=== PATIENT | male | born 1960 | race Caucasian/White ===

== ENCOUNTER 2024-12-18 13:59 | Outpatient (CLI) | payer MEDICARE, SELFPAY ==
--- OUTSIDE RECORDS SUMMARY | 2018-09-27 11:06 | XMS_ITS | Continuity of Care Document ---
Author Organization [facility] Address [address] [place] [id number] Phone Care Team Providers Care Advanced Practice Provider Name Role Phone Unavailable Unavailable Unavailable Allergies, Adverse Reactions, Alerts Substance Reaction Status Criticality No Known Allergies Active No Inform ation Medications Medication Instructions Dosage Effective Dates (start - stop) Status Comments simvastatin 40 mg tablet take 1 tablet by oral route every day in the evening 40 MG - Active Aspir-81 81 mg tablet,delayed release take 1 tablet by oral route every day - Active Lipitor 40 mg tablet take 1 tablet by or al route every day 40 MG - Active Advance Directives Directive Yes / No Effective Date File Name No Information Encounters Encounter Description Practice Location Reason(s) For Visit Diagnoses Date Provider [facility], [address] [place] [address], [id number], tel:[phone] [facility] No Information 9 No Information [facility], [address] [place] [address], [id number], tel:[phone] [facility] Mini strokes (chief complaint) light headed (chief complaint) nose bleeds (chief complaint) high blood pressure (chief complaint) new pt to establish (chief complaint) DyslipidemiaEstablishing care with new doctor, encounter forHistory of stroke 8 Kae Garcias. [address] [place] [address], [id number], . tel:[phone] Family History Family Member Type Diagnosis Age At Onset Problem (finding) Family history of Cardi ovascular disease Problem (finding) Family history of coronary arteriosclerosis Payers Payer name Insurance type Covered constitution party ID Monica gutierrez(s) [place] [employer] MC [id number] Social History Type Description Quantity Date Captured Comments Sex Male Smoking Status No Information Sexual Orientation Straight or heterosexual Jan Gender Identity Male Chief Complaint And Reason For Visit No Information History Of Present Illness Encounter Date Complaint History Of Prese nt Illness high blood pressure 140/70 repor conrad highest nose bleeds light headed has cards follow up next monday Mini strokes The symptoms are reported as being moderate. per history. in December 2017 new pt to establish here tod est ablish Instructions Date Instruction Additional Infor mation No Information Assessments Type Assessment Date No Information
--- NOTE | 2024-12-18 13:59 | XR_ITS ---
FINAL REPORT CLINICAL HISTORY: left wrist pain COMPARISON: None FINDINGS: AP, oblique, and lateral views of the left wrist were obtained. There is no prior exam for comparison. There is no acute fracture or dislocation. Degenerative joint disease is present, most pronounced at the articulation between the scaphoid and the distal row of carpal bones. The soft tissues are normal. IMPRESSION: Degenerative change as described, with no acute osseous abnormality of the left wrist. Reviewed, Interpreted and Dictated by Janine Luque MD Transcribed by Lorri Suazo Authenticated and [facility]
--- NOTE | 2024-12-18 13:59 | XR_ITS ---
FINAL REPORT CLINICAL HISTORY: right wrist pain COMPARISON: None FINDINGS: AP, oblique, and lateral views of the right wrist were obtained. There is no prior exam for comparison. There is no acute fracture or dislocation. Degenerative joint disease is present, most pronounced at the articulation between the scaphoid and the distal row of carpal bones. The soft tissues are normal. IMPRESSION: Degenerative change as described, with no acute osseous abnormality of the right wrist. Reviewed, Interpreted and Dictated by Janine Luque MD Transcribed by Lorri Suazo Authenticated and . [facility]
--- OUTSIDE RECORDS SUMMARY | 2024-12-18 14:05 | XMS_ITS | Continuity of Care Document ---
[facility] Address [address] [place] [address] Assessment No assessment recorded. Plan of Treatment Reminders Order Date Submit Date Provider Last Modified By Organization Details Last Modified Time Details Appointments Medicare AWE 40mins 2024 09:00A M Do Lambert APRN Not available Not available Not available Lab None recorded. Referral orthopedi c surgeon referral 2024 [facility], [address], [place], [address], 12/16/2024 11:02:42 Procedures None recorded. Surgeries None recorded. Imaging None recorded. Medication Orders prednison e 10 mg tablet 2024 [facility], [address] [place] [address] [place], [place], [id number], 12/13/2024 13:42:18 Patient TargetsNo targets recorded. Patient InstructionsNo instructions recorded. Reason for Referral Orthopedic Surgeon Referral for Bilateral carpal tunnel syndrome Referring Physician: Rosalie Salas, Family Medicine, Encounter Date: 12/13/2024 Results Created Date Observation Date Name Description Value Unit Range Abnormal Flag Note LastModifiedBy Organization Detail LastModifiedTime 11/22/1911/20/2024 elect romyo gram + nerve condu ction study No observ ation record ed. [address], [place], [address], 11/25/2024 10:23:40 11/27/1911/20/2024 elect romyo gram + nerve condu ction study No observ ation record ed. [facility] (Med Record) [address], [place], [address], 12/11/2024 11:13:57 11/28/1911/25/2024 elect romyo gram + nerve condu ction study No observ ation record ed. [facility] [address], [place], [address], 12/11/2024 11:47:34 12/12/1911/20/2024 elect romyo gram No observ ation record ed. [email or web address] [facility] [address], [place], [address], 12/16/2024 13:35:07 Result Notes None recorded. 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 Procedures Surgical History Date Name Laterality Status Provider Name and Address Organization Details Recorded Time 03/25/19 25 Medication Reconcilliation completed Norma Reyna [place] - [facility] 03/25/2024 13:07:13 12/29/19 24 Advance Care Planning completed Reta Carranza [place] - [facility] 12/29/2023 11:11:53 12/29/19 24 Functional Status Assessed completed Retaenrique Carranza [place] - [facility] 12/29/2023 11:11:53 12/24/19 23 Suture/Staple removal completed Do Lambert, [employer] [address], [place], [address], [facility] - [facility] 12/23/2022 10:15:30 12/01/19 23 Cryosurgery Dermatology completed Kely Escalona APRN [address], [place], [address], [place] - [facility] 11/30/2022 13:15:20 08/25/19 23 Shave Biopsy Face, Ears, eyelids, nose, lips, muc membranes completed Kely Escalona APRN [address], [place], [address], [place] - [facility] 08/24/2022 10:36:02 07/22/19 23 Cryosurgery Dermatology completed Kely Escalona APRN [address], [place], [address], [place] - [facility] 07/21/2022 14:53:44 05/04/19 22 Medication Reconcilliation completed Norma Reyna [place] - [facility] 05/03/2021 14:06:38 Imaging Results None recorded. Procedure Notes None recorded. Medical Equipment None Reported. Allergies No known drug allergies Medications Name Sig Start Date Stop Date Status Note LastModified by Organization Details LastModified Time desonide 0.05 % topical cream APPLY CREAM SPARINGLY AND RUB GENTLY INTO THE AFFECTED AREAS TOPICALLY TWICE DAILY ON THE RIGHT SIDE OF THE FACE NEEDED FOR TWO (2) WEEKS. BREAK FOR ONE (1) WEEK AND THEN REPEAT NEEDED 09/10 completed Not Available Not Available Not Available metformin 500 mg tablet TAKE 1 TABLET BY MOUTH TWICE A DAY WITH MEALS 06/19 completed Not Available Not Available Not Available prednisone 10 mg tablet Take 1 tablet twice a day by oral route for 5 days. 2024 active Not Available Not Available Not Avai lable doxycycline hyclate 100 mg capsule Take 1 capsule by mouth twice daily active Not Available Not Available No t Available loperamide 2 mg capsule TAKE 2 CAPSULES BY MOUTH ONCE, THEN TAKE 1 CAPSULE AFTER EACH LOOSE STOOL. MAX 4 CAPSULES IN 24 HOURS 09/10 completed Not Available Not Available Not Available trazodone 50 mg tablet TAKE 1 TABLET BY MOUTH EVERY DAY 06/19 completed Not Available Not Available Not Available amiodarone 200 mg tablet TAKE 1 TABLET BY MOUTH EVERY DAY 06/25 completed Not Available Not Available Not Available hydrocodone 5 mg-acetamin ophen 325 mg tablet TAKE 1 TABLET BY MOUTH EVERY 6 TO 8 HOURS NEEDED 04/27 completed Not Available Not Available Not Available penicillin V potassium 500 mg tablet TAKE 1 TABLET BY MOUTH 4 TIMES A DAY UNTIL ENTIRELY FINISHED. 04/27 completed Not Available Not Available Not Available metronidazo le 500 mg tablet Take 1 tablet every 8 hours by oral route for 14 days. 08/12 completed Not Available Not Available Not Available clopidogrel 75 mg tablet TAKE 1 TABLET DAILY active Not Available Not Available No t Available doxepin 10 mg capsule TAKE 1 CAPSULE BY MOUTH ONCE DAILY AT BEDTIME 09/10 completed Not Available Not Available Not Available Imodium A-D 2 mg tablet Take 2 tabs/caps PO x1, then 1 tab/cap PO after each loose stool; Max: 4 tabs or caps/24h 09/10 completed Not Available Not Available Not Available tamsulosin 0.4 mg capsule TAKE 2 CAPSULES BY MOUTH ONCE DAILY active Not Available Not Available No t Available KonTEMTouch Ultra Test strips USE DIRECTED active Not Available Not Available No t Available amitriptyli ne 10 mg tablet TAKE 1 TABLET BY MOUTH NIGHTLY 10/11 completed Not Available Not Available Not Available cephalexin 500 mg capsule TAKE ONE CAPSULE BY MOUTH FOUR TIMES DAILY 09/26 completed Not Available Not Available Not Available pantoprazol e 40 mg tablet,manuel yed release Take 1 tablet every day by oral route. 2024 active Not Available Not Available Not Avai lable Cipro 500 mg tablet Take 1 tablet every 12 hours by oral route. 09/10 completed Not Available Not Available Not Available nitroglycer in 0.4 mg sublingual tablet DISSOLVE 1 TABLET UNDER TONGUE EVERY 5 MINUTES FOR 3 DOSES NEEDED FOR CHEST PAIN-NO RELIEF CALL 911 active Not Available Not Available No t Available bisacodyl 5 mg tablet,manuel yed release TAKE 4 TABLETS BY MOUTH DIRECTED FOR COLON PREP 06/19 completed Not Available Not Available Not Available aspirin 81 mg tablet Take 1 tablet every day by oral route. active Not Available Not Available No t Available pravastatin 20 mg tablet Take 1 tablet every day by oral route. 2024 active Not Available Not Available Not Avai lable lisinopril 5 mg tablet TAKE 1 TABLET BY MOUTH EVERY DAY 06/25 completed Not Available Not Available Not Available gabapentin 100 mg capsule TAKE 1 CAPSULE BY MOUTH THREE TIMES A DAY active Not Available Not Available No t Available polyethylen e glycol 3350 17 gram/dose oral powder USE DIRECTED FOR COLON PREP 06/19 completed Not Available Not Available Not Available ketoconazol e 2 % topical cream APPLY TO AFFECTED AREA TWICE DAILY ON THE RIGHT SIDE OF THE FACE 09/10 completed Not Available Not Available Not Available fluticasone propionate 50 mcg/actuati on nasal spray,suspe nsion INSTILL ONE (1) SPRAY IN EACH NOSTRIL ONCE DAILY active Not Available Not Available No t Available lisinopril 2.5 mg tablet Take 1 tablet every day by oral route. 03/25 completed Not Available Not Available Not Available amoxicillin 875 mg-potassiu m clavulanate 125 mg tablet TAKE 1 TABLET BY MOUTH EVERY 12 HOURS 06/25 completed Not Available Not Available Not Available metoprolol tartrate 25 mg tablet Take 1 tablet twice a day by oral route. 2024 active Not Available Not Available Not Avai lable duloxetine 30 mg capsule,del ayed release TAKE 1 CAPSULE BY MOUTH EVERY DAYNEED INS INFO 01/14 completed Not Available Not Available Not Available pregabalin 75 mg capsule TAKE 1 CAPSULE BY MOUTH TWICE A DAY 07/04 completed Not Available Not Available Not Available pregabalin 150 mg capsule TAKE ONE CAPSULE BY MOUTH TWICE DAILY active Not Available Not Available No t Available BD Ultra-Fine Short Pen Needle 31 gauge x 5/16 USE 1 ONCE DAILY active Not Available Not Available No t Available Lantus Solostar U-100 Insulin 100 unit/mL (3 mL) subcutaneou s pen INJECT 15 UNITS SUBCUTANE OUSLY NIGHTLY active Not Available Not Available No t Available Humalog KwikPen (U-100) Insulin 100 unit/mL subcutaneou s inject 5 units 3 times daily with meals subcutane ous 10/11 completed Not Available Not Available Not Available ticagrelor 90 mg tablet TAKE ONE TABLET BY MOUTH TWICE DAILY active Not Available Not Available No t Available Jardiance 25 mg tablet Take 1 tablet every day by oral route. 2024 active Not Available Not Available Not Avai lable pregabalin ER 165 mg tablet, extended release 24 hr TAKE 2 BY MOUTH ONCE DAILY 06/19 completed Not Available Not Available Not Available TRUEplus Glucose 15 gram/32 mL oral gel packet 15 grams orally as needed for glucose less than 60. If no response within 15 minutes, may repeat dose. 2023 active Not Available Not Available Not Avai lable OneTouch Ultra2 Meter USE DIRECTED active Not Available Not Available No t Available OneTouch Delica Plus Lancet 33 gauge USE DIRECTED active Not Available Not Available No t Available OneTouch Delica Plus Lancet 30 gauge active Not Available Not Available Not Available FreeStyle Uma 2 Sensor kit APPLY ONE (1) SENSOR TOPICALLY EVERY 14 DAYS active Not Available Not Available No t Available FreeStyle Uma 2 [place] USE DIRECTED active Not Available Not Available No t Available Semglee (insulin glargine-yf gn) Pen 100 unit/mL (3 mL) subcutaneou s INJECT 15 UNITS SUBCUTANE OUSLY EVERY DAY AT BEDTIME 09/27 completed Not Available Not Available Not Available Ozempic 0.25 mg or 0.5 mg (2 mg/3 mL) subcutaneou s pen injector Inject 0.25mg UNDER THE SKIN WEEKLY FOR FOUR WEEKS AND THEN increase DOSE TO 0.5mg WEEKLY active Not Available Not Available No t Available Sobia Pen Needle 32 gauge x 32 USE as directed with lantus solostar active Not Available Not Available No t Available Vitals Date Recorded Body height Body mass index (BMI) Body weight Body temperature Heart rate Oxygen saturation Oxygen saturation in Arterial blood by Pulse oximetry Respiratory rate Pain severity - 0-10 verbal numeric rating [Score] - Reported Systolic And Diastolic Provider Name and Address Organization Details Last Updated DateTime 5 182.88 cm 25.4 kg/m2 70184.4 7 g 98.1 [degF] 60 /min 97 % 97 % 18 /min 4 124/72 mm[Hg] [place] - [facility] 5 10:51:59 Social History Question Answer Notes LastModified by Organizat ion Details LastModified Time Tobacco Smoking Status Former Smoker Norma calixto [place] - [facility] 04/27/2021 13:28:13 Do You Have An Advance Directive? No [email or web address] Information not available 04/27/2021 How Many Years Have You Consumed Alcohol? 30 [email or web address] Information not available 08/05/2024 Are You Blind Or Do You Have Difficulty Seeing? No [email or web address] Information not available 04/27/2021 Is Blood Transfusion Acceptable In An Emergency? Yes [email or web address] Information not available 08/05/2024 What Is Your Level Of Caffeine Consumption? Occasional Information not available 04/27/2021 In The 14 Days Before Symptom Onset, Have You Had Close Contact With A Laboratory-confir med COVID-19 While That Case Was Ill? No Information not available 04/27/2021 In The 14 Days Before Symptom Onset, Have You Had Close Contact With A Person Who Is Under Investigation For COVID-19 While That Person Was Ill? No Information not available 04/27/2021 Have You Been To An Area Known To Be High Risk For COVID-19? No [email or web address] Information not available 04/27/2021 Are You Deaf Or Do You Have Serious Difficulty Hearing? No [email or web address] Information not available 04/27/2021 What Type Of Diet Are You Following? REGULAR [email or web address] Information not available 04/27/2021 Have You Processed Blood Or Body Fluids From An Ebola Virus Disease Patient Without Appropriate PPE? No [email or web address] Information not available 04/27/2021 Do You Reside In Or Have You Traveled To An Area Where Ebola Virus Transmission Is Active? No [email or web address] Information not available 04/27/2021 What Is The Highest Grade Or Level Of School You Have Completed Or The Highest Degree You Have Received? [id number] [email or web address] Information not available 08/05/2024 Have There Been Any Changes To Your Family Or Social Situation? No [email or web address] Information no t available 04/27/2021 When Did You Quit Smoking? 1-5yearssincel kj [email or web address] Information not available 04/27/2021 Have You Recently Or Are You Planning To Travel To An Area With Zika Virus? No [email or web address] Information not available 04/27/2021 How Many Years Have You Used Illicit Or Recreational Drugs? 0 [email or web address] Information not available 08/05/2024 What Was The Date Of Your Most Recent Tobacco Screening? 06/25/2024 [email or web address] Information not available 06/25/2024 Do You Use Protection Against STDs? No Information not available 08/05/2024 What Is Your Relationship Status? [email or web address] Information not available 08/05/2024 Do You Use Your Seat Belt Or Car Seat Routinely? Yes Information not available 08/05/2024 Are You Sexually Active? Yes [email or web address] Information not available 06/25/2024 Do You Have Smoke And Carbon Monoxide Detectors In Your Home? Yes Information not available 04/27/2021 At What Age Did You Start Smoking Tobacco? 11 [email or web address] Information not available 08/05/2024 Are You Passively Exposed To Smoke? No [email or web address] Information no t available 04/27/2021 Do You Use Sunscreen Routinely? No Information not available 08/05/2024 Has Tobacco Cessation Counseling Been Provided? Yes [email or web address] Information not available 06/20/2023 On What Date Was Tobacco Cessation Counseling Provided? 06/25/2024 Information not available 06/25/2024 How Many Years Have You Smoked Tobacco? 40 Information not available 04/27/2021 Do You Have Difficulty Walking Or Climbing Stairs? No [email or web address] Information not available 04/27/2021 Sex: Male Functional Status Question Answer Note LastModified by Organizat ion Details LastModified Time Do you use any illicit or recreational drugs? No [email or web address] Information not available 04/27/2021 Do you or have you ever used any other forms of tobacco or nicotine? No [email or web address] Information not available 04/27/2021 What is your level of alcohol consumption? Occasional [email or web address] Information not available 04/27/2021 Are you currently employed? No [email or web address] Information not available 04/27/2021 Do you have transportation difficulties? No [email or web address] Information not available 04/27/2021 Do you have difficulty doing errands alone? No Information not available 04/27/2021 Are you able to care for yourself independently? Yes [email or web address] Information not available 04/27/2021 Do you have difficulty dressing, bathing, grooming, or toileting? No [email or web address] Information not available 04/27/2021 Do you or have you ever used e-cigarettes or vape? Never used electronic cigarettes [email or web address] Information not available 08/05/2024 What is your exercise level? Moderate Information not available 08/05/2024 Mental Status Question Answer Note LastModified by Organizat ion Details LastModified Time Do you feel stressed (tense, restless, nervous, or anxious, or unable to sleep at night)? [id number] [email or web address] Information not available 08/05/2024 Do you have difficulty concentrating, remembering or making decisions? No [email or web address] Information no t available 04/27/2021 Family History Nothing Reported. Medical History Condition Response Pancreatitis N Coronary Artery Disease N Other N Gout N Atrial Fibrillation N congenital heart disease N Kidney Stones N Blood Diseases N Hyperthyroidism N Rheumatoid arthritis N Blood Transfusion N Erectile Dysfunction N amputation N Colonoscopy N Skin Lesions N Depression N COPD N Pneumonia N Incontinence N Murmur N Edema N Alzheimer's Disease N Migraine Headaches N Tobacco Abuse N Anxiety Disorder N Muscle, Joint, or Bone Problems N Hemorrhoids N Obesity N Vision or Eye Problems N Restless Leg Syndrome N Arthritis N Polyps N Infertility N Mental Disorder N Carpal Tunnel N Acid Reflux (GERD) N Cancer N Varicosities N Stroke N Tendonitis N Crohn's Disease N Hypercholesterolemia N Skin Cancer N Headaches N Fibromyalgia N Irritable Bowel Syndrome N Anal Fissure N Kidney Disease N Heart Problems N Ear or Hearing Problems N Hospitalizations N Gallstones N Kidney or Bladder Problems N Goiter N Acne N Skin Problems N Eating Disorder N Carver's Esophagus N Hypertriglyceridemia N MRSA exposure N Constipation N Embolism N Vitamin B12 Deficiency N Deviated Septum N Tuberculosis N AIDS/HIV N Myocardial Infarction N Asthma N Mitral Valve Disorders N Vertigo N Hepatitis N Thyroid Cancer N Neuropathy N Pulmonary Embolism N History of DVT N Herniated Disc N Chronic Ear Infections N Chicken Pox N Autism Spectrum Disorder (ASD) N Von Willebrands Disease N Thrombophilias N Breast Cancer N Hernia N Plantar Fasciitis N Hospital Admission Other Than N Lung Disease N Hypothyroidism N Developmental or Behavioral Disorders N Defects or Inherited Disease N Breast Problem N Difficulty Swallowing N Ovarian Cyst N Anesthesia Complications N Testosterone Deficiency N Meniere's disease N Head Injury/Concussion N Interstitial Cystitis N Congenital Anomalies N Hypoglycemia N Blood clot N Vitamin D Deficiency N Cellulitis N Endometriosis N Fracture N Bladder or Kidney Problems N Colorectal Cancer N Liver Disease N Schizophrenia N Panic Disorder N Concussion N Spina Bifida N Allergies/Hayfever N Osteoarthritis N Parkinson's Disease N Disc Protrusion N STI N Esophagitis N Angina N Thyroid Problems N GI Problems N ADD/ADHD N Anemia N Multiple Sclerosis N Abnormal PAP N Lumbago N Mental Illness N Psychiatric Illness N Ovarian Cancer N Diabetes Y Bedwetting N Degenerative Disc Disease N Seizures/Epilepsy N Congestive Heart Failure (CHF) N Syncope N Insomnia N Hyperlipidemia N Eczema N Diverticulitis N Dementia N Attention Deficient Disorder N Abuse/Domestic Violence N Ulcerative colitis N Cerebrovascular Disease N Depression N Guillain-[place]wood N Sleep Apnea N Aneurysm N Heart Disease N Bronchitis N Suicidal Ideation N Pre-Eclampsia N Hypertension N Osteoporosis N Immunizations Vaccine Type Date Status Note Provider Nam e and Address Organization Details Recorded Time HepB-CpG 05/26/19 24 completed Not Available [facility] 09/27/2024 10:36:34 Influenza, MDCK, quadrivalent, PF 04/10/19 24 completed Nyasia Vergara null, [place] - [facility] 11/08/2024 11:05:03 RSV, recombinant, protein subunit RSVpreF, adjuvant reconstituted, 0.5 mL, PF 04/10/19 24 completed Nyasia Wyatts null, [place] - [facility] 11/08/2024 11:05:03 Tdap 06/20/19 24 cancelled patient objection Do Lambert, [employer] [address], [place], [address], [place] - [facility] 06/26/2023 08:34:29 zoster recombinant 03/07/19 24 completed Do Lambert, [employer] CON[employer] [address], [place], [address], [place] - [facility] 04/04/2023 13:11:37 zoster recombinant 12/28/19 23 completed Do Lambert, [employer] CON[employer] [address], [place], [address], [place] - [facility] 04/04/2023 13:11:37 Respiratory syncytial virus (RSV) MAB, unspecified 04/10/19 24 completed Norma Reyna null, [place] - [facility] 04/21/2023 14:13:48 influenza, unspecified formulation 04/10/19 24 completed Nyasia Vergara null, [place] - [facility] 11/08/2024 11:05:03 Past Encounters Encounter ID Performer Location Encounter Start Date Encounter Closed Date Diagnosis/Indication Diagnosis SNOMED-CT Code Diagnosis ICD10 Code Diagnosis IMO Codes Diagnosis Note [id number] Rosalie Salas APRN [address] [address] 12/13/2024 10:29:23 12/13/2024 11:36:25 Bilateral carpal tunnel syndrome 4065619999 5606166 G56.03 377485 splints at nightstero idsrefer to orthoif worsen or no improvemen t return Health Concerns Section Related Observation LastModified by Organization Detai ls LastModified Time None Recorded Concern Status LastModified by Organization Details LastModified Time None Recorded Payers Encounter Date Sequence Insurance Name Policy Number Policy Jimenez Covered Member ID Jimenez Member ID Guarantor Name 12/13/2024 1 [employer] (MEDICARE REPLACEMENT/ ADVANTAGE - PPO) [id number] Iker Gray [id number] Iker Gray Notes Date Note Type Note Provider Name and Address Organization Details Recorded Time 12/13/2024 text/html ROS as noted in the HPI 64 yr old male presents for a follow up on abnormal tests- CTS abbie- has appt with neurology in January. numbness and tingling hands and feet. dx neuropathy- feet, cramps in legs Rosalie Salas, EPHRAIM [address], [place], [address], [place] - [facility] 12/13/2024 11:53:14
--- OUTSIDE RECORDS SUMMARY | 2024-12-18 14:05 | XMS_ITS | Data Portability ---
Author Organization [place] [facility] [facility] Address [address] [place] [address] Care Team Providers Care Packaging Materials Inspector Name Role Phone ANTHONY GARCIA Primary Care Provider [phone] Assessment Encounter Date Assessment Date Assessment LastModified by Organization Details LastModified Time 04/02/2024 04/02/2024 Doing well. Some mild shortness of breath with may be secondary to the Brilinta. Some mild tenderness in the rib area but much better than when he was hospitalized. He feels well. His blood pressure and heart rate are under excellent control. His EKG looks great. Normal sinus rhythm with left axis deviation left anterior hemiblock but no ST or T-wave changes. Doing much better. He has not having any chest pain pressure or tightness with exertion. Site is healing. Overall he is done well. His echocardiogram post intervention showed preservation of the left ventricular function. Ejection fraction 55-60%. Small area of hypokinesis to akinesis of the basal septal wall. Normal function and normal pressures in the heart. He is done well. Post intervention to the circumflex as well as to the right coronary artery with the exception of a no reflow phenomenon with the loss of 1 branch. Ejection fraction preserved. Blood pressure and heart rate are under excellent control. We will see him back in 6 weeks. At that time we will repeat the echocardiogram. Meds and chart reviewed in full today. Full blood work at follow-up as well Patient Education was printed, I have reviewed the Past Medical, Family, and Social Histories along with ROS and all orders in today's record, and have noted any changes. Medications, charts and records reviewed in full today. - EKG today reveals normal sinus rhythm with left axis deviation left anterior hemiblock with no ST or T-wave changes - ECHO 2/5/25: Normal left ventricular size and function with an estimated ejection fraction of 55-60%. PTCA 03/20/24: 1. Severe stenosis noted in the proximal and mid large left circumflex confirmed by fractional flow 2. Critical 100% occlusion of the mid right coronary artery after the takeoff of a high atrial branch with pfhu-ca-jgfcy collaterals filling the distal vessel 3. Severe proximal stenosis in the right coronary artery 4. Mild diffuse disease noted in the left anterior 5. Successful angioplasty and stenting of the proximal and mid left circumflex with angelic Rockwall drug-eluting stents resulting in 0% residual stenosis 6. Successful angioplasty and stenting of the proximal right coronary artery with an angelic [place]wall drug-eluting stent which resulted in no reflow phenomenon, and loss of the 1 branch vessel in the right coronary artery 7. Successful placement of an Angio-Seal device in the right common femoral arteryv. LAST ISCHEMIC EVAL: None on file. LAST HEART CATH: None on file. LAST LDL: 03/2024 shows an HDL of 39 and an LDL of 69. LAST CNI: None on file. PAST LHC: None on file. - Plan: Continue Brilinta 90 mg twice daily Continue amiodarone 200 mg daily for 6 weeks. We will then decrease to 100 mg daily for 4 weeks and then discontinue Echocardiogram at follow-up Continue low-dose metoprolol Continue low-dose lisinopril Continue pravastatin. LDL at goal Follow-up in Cardiology Clinic in 6 weeks -Continue other current medications. -Continue aggressive risk factor modification. -Recommend LDL less than 70 -Encouraged regular exercise and activity. - This note was dictated using [employer] software. If something is unclear, or does not make sense, please do not hesitate to contact our office at [phone] for clarification. tyesha Not available 04/02/2024 14:42:47 Plan of Treatment Reminders Order Date Submit Date Provider Last Modified By Organization Details Last Modified Time Details Appointments None recorded. Lab None recorded. Referral None recorded. Procedures None recorded. Surgeries None recorded. Imaging electrocard iogram 2024 025 tyesha Holm [facility], [address] [place] [address] Dr Ren, [place], [address], 14:43:29 Medication Orders None recorded. Patient TargetsNo targets recorded. Patient InstructionsNo instructions recorded. Reason for Referral None Reported. Results Created Date Observation Date Name Description Value Unit Range Abnormal Flag Note LastModifiedBy Organization Detail LastModifiedTime 03/20/19 25 03/20/2024 GLUCO SE POINT OF CARE note See Note Order ing Provi daysi: Bon carnes MD Not Available [address] , [place], [address], 03/20/2024 21:29:38 03/20/19 25 03/20/2024 GLUCO SE POINT OF CARE glucose point of care 166 mg/dL 70-99 high Not Available [address] , [place], [address], 03/20/2024 21:29:38 03/20/19 25 03/20/2024 GLUCO SE POINT OF CARE performing lab see note [facility] - [id number] [facility] [address] Not Available [address] , [place], [address], 03/20/2024 21:29:38 03/21/19 25 03/21/2024 CBC W/AUT O DIFFE RENTI AL note See Note Order ing Provi daysi: Bon carnes MD Not Available [address] , [place], [address], 03/21/2024 05:17:58 03/21/19 25 03/21/2024 CBC W/AUT O DIFFE RENTI AL white blood cell 14.5 10e3/ uL 4.5-13 .0 high Not Available [address] , [place], [address], 03/21/2024 05:17:58 03/21/19 25 03/21/2024 CBC W/AUT O DIFFE RENTI AL red blood cell 5.21 10e6/ uL 4.10-5 .70 normal Not Available [address] , [place], [address], 03/21/2024 05:17:58 03/21/19 25 03/21/2024 CBC W/AUT O DIFFE RENTI AL hemoglobin 14.9 g/dL 12.0-1 6.9 normal Not Available [address] , [place], [address], 03/21/2024 05:17:58 03/21/19 25 03/21/2024 CBC W/AUT O DIFFE RENTI AL hematocrit 44.3 % 36.0-4 9.0 normal Not Available [address] , [place], [address], 03/21/2024 05:17:58 03/21/19 25 03/21/2024 CBC W/AUT O DIFFE RENTI AL mean cell volume 85 fL 78.0-9 8.0 normal Not Available [address] , [place], [address], 03/21/2024 05:17:58 03/21/19 25 03/21/2024 CBC W/AUT O DIFFE RENTI AL mean cell HGB 28.6 pg 25.0-3 5.0 normal Not Available [address] , [place], [address], 03/21/2024 05:17:58 03/21/19 25 03/21/2024 CBC W/AUT O DIFFE RENTI AL mean cell HGB concentratio n 33.6 g/dL 31.0-3 6.0 normal Not Available [address] , [place], [address], 03/21/2024 05:17:58 03/21/19 25 03/21/2024 CBC W/AUT O DIFFE RENTI AL red cell distribution width 13.3 % 11.0-1 5.0 normal Not Available [address] [place], [place], [address], 03/21/2024 05:17:58 03/21/19 25 03/21/2024 CBC W/AUT O DIFFE RENTI AL platelet count 223 10e3/ uL 150-40 0 normal Not Available [address] [place], [place], [address], 03/21/2024 05:17:58 03/21/19 25 03/21/2024 CBC W/AUT O DIFFE RENTI AL immature granulocyte % 0 0-1 normal Not Available [address] , [place], [address], 03/21/2024 05:17:58 03/21/19 25 03/21/2024 CBC W/AUT O DIFFE RENTI AL neutrophil % 70 % 35-75 normal Not Available [address] [place], [place], [address], 03/21/2024 05:17:58 03/21/19 25 03/21/2024 CBC W/AUT O DIFFE RENTI AL lymphocyte % 19 % 10-50 normal Not Available [address] [place], [place], [address], 03/21/2024 05:17:58 03/21/19 25 03/21/2024 CBC W/AUT O DIFFE RENTI AL monocyte % 10 % 0-15 normal Not Available [address] [place], [place], [address], 03/21/2024 05:17:58 03/21/19 25 03/21/2024 CBC W/AUT O DIFFE RENTI AL eosinophil % 1 % 0-5 normal Not Available [address] [place], [place], [address], 03/21/2024 05:17:58 03/21/19 25 03/21/2024 CBC W/AUT O DIFFE RENTI AL basophil % 0 % 0-5 normal Not Available [address] [place], [place], [address], 03/21/2024 05:17:58 03/21/19 25 03/21/2024 CBC W/AUT O DIFFE RENTI AL immature granulocyte # 0.04 x1000 /uL 0-0.05 normal Not Available [address] [place], [address], 03/21/2024 05:17:58 03/21/19 25 03/21/2024 CBC W/AUT O DIFFE RENTI AL neutrophil # 10.21 x1000 /uL 1.50-8 .00 high Not Available [address] [place], [place], [address], 03/21/2024 05:17:58 03/21/19 25 03/21/2024 CBC W/AUT O DIFFE RENTI AL lymphocyte # 2.73 x1000 /uL 1.20-5 .20 normal Not Available [address] [place], [address], 03/21/2024 05:17:58 03/21/19 25 03/21/2024 CBC W/AUT O DIFFE RENTI AL monocyte # 1.43 x1000 /uL 0.30-0 .90 high Not Available [address] [place], [address], 03/21/2024 05:17:58 03/21/19 25 03/21/2024 CBC W/AUT O DIFFE RENTI AL eosinophil # 0.07 x1000 /uL 0.00-0 .50 normal Not Available [address] [place], [place], [address], 03/21/2024 05:17:58 03/21/19 25 03/21/2024 CBC W/AUT O VIPIN RODRIGUEZ basophil # 0.05 x1000 /uL 0.00-0 .30 normal Not Available [address] , [place], [address], 03/21/2024 05:17:58 03/21/19 25 03/21/2024 CBC W/AUT O VIPIN RODRIGUEZ NRBC automated 0.0 /100_ WBC Not Available [address] , [place], [address], 03/21/2024 05:17:58 03/21/19 25 03/21/2024 CBC W/AUT O VIPIN RODRIGUEZ performing lab see note - [facility] madKast [facility] [address] Not Available [address] , [place], [address], 03/21/2024 05:17:58 02/02/20 24 02/02/2024 audio gram No observ ation record ed. [email or web address] Not Available 2023 09:04:29 03/21/19 25 03/21/2024 XR, chest Exline view [facility] Name: Flor SORTO [facility] [place] [facility] Phys: Erendira carpenter MD, [place] [address] : 1960 Age: 63 Sex: M Acct: [id number] Loc: G.ICU1 A PHONE #: [phone] Exam Date: 2024 Status : REG [facility] FAX #: Rad# [id number] Unit# [id number] Admit Date: 2024 EXAMS: CPT CODE: [id number] [place] [address] CLINIC AL INDICA TION: Vent TECHNI QUE: Normal chest COMPAR RICHIE: Prior day FINDIN GS: Endotr acheal tube approx imatel y 5.7 cm above the jenny . Esopha gogast adarsh tube coursi ng into stomac h. Stable bilate ral lung sanchez . Unchan ged cardia c silhou ette. No pneumo thorax . IMPRES ELOY: Stable exam. Electr onical ly Signed by: Payam villasenor MD Electr onical ly Signed by PAYAM VILLASENOR on 2024 at 0616 Report ed and signed by: PAYAM KINGSLEY CC: Katherine carpenter M.D.; Shaan tolbert MD; Bon Almanza MD; NO PRIMAR Y CARE PHYSIC BRIAN Dictat ed Date/T cristhian: 2024 (16) Techno logist : BRIDGET Wood Transc ribed Date/T cristhian: 2024 (16) Transc riptio nist: DR.HAT CERVANTES Electr onic Signat ure Date/T cristhian: 2024 (16) Printe d Date/T cristhian: 2024 (20) BATCH NO: N/A PAGE 1 Signed Report CC'ed Logic: Orderi ng Provid er: ERENDIRA Kaye Attend ing Provid er: ARCHIE AMBRIZ Referr ing Provid er: SANDRINE HERNDON Consul ting Provid er: PHYSIC BRIAN NO [email or web address] , [place], [address], 03/21/2024 07:34:38 04/02/19 elect rocar diogr am No observ ation record ed. MARGARET Holm [address], [place], [address], 04/02/2024 07:57:08 04/02/19 25 04/02/2024 elect rocar diogr am No observ ation record ed. [email or web address] Not Available 08:17:40 Result Notes Documentation Provider Name and Address Organization Details Recorded Time Xr, Chest : [facility] Ce Name: SAMIR SORTO [address] Phys: [place] [address] : 1960 Age: 63 Sex: M Acct: [id number] Loc: ANDRES Helm PHONE #: Exam Date: 03/21/2024 Status: REG SD FAX #: Rad# [id number] Unit# [id number] Admit Date: 03/20/2024 EXAMS: CPT CODE: [id number] CHEST PORTABLE [address] CLINICAL INDICATION: Vent TECHNIQUE: Normal chest COMPARISON: Prior day FINDINGS: Endotracheal tube approximately 5.7 cm above the jenny. Esophagogastric tube coursing into stomach. Stable bilateral lung sanchez. Unchanged cardiac silhouette. No pneumothorax. IMPRESSION: Stable exam. at 0616 Reported and signed by: PAYAM GRAMAJO CC: Shaheen Roy M.D.; Shaan Thakur MD; Bon Almanza MD; NO PRIMARY CARE PHYSICIAN Dictated Date/Time: 03/21/2024 (615) Technologist: NATALIE ANDERSON Transcribed Date/Time: 03/21/2024 (615) Lunch Truck Operator: Electronic Signature Date/Time: 03/21/2024 (16) Printed Date/Time: 03/21/2024 (619) BATCH NO: N/A PAGE 1 Signed Report CC'ed Logic: Ordering Provider: JULIENNE CABRALES Attending Provider: ARCHIE AMBRIZ Referring Provider: LUZ HERNDON Consulting Provider: PHYSICIAN SAVANNAH Roy MD [address], [place], [address], [facility] - [place] & [place] 03/21/2024 07:34:38 Problems Name Problem SNOMED Code Status Onset Date Resolution Date Notes Provider Name and Address Organization Details Recorded Time Sensorineural hearing loss 45869176 Active 2023 TIERNEY JOHNSON [address] [facility],[address], [place], [address], [place] [facility] - [place] 4 09:02:08 Coronary arterioscleros is 28410520 Active 2024 Bon Almanza MD [address] [place] [address],[address], [address], [place] [facility] - [place] 5 14:42:53 Hyperlipidemia 28233145 Active 2024 Bon Almanza MD [address] [place] [address],[address] [place] [address], [phone], [place] [facility] 5 14:43:06 Type 2 diabetes mellitus without complication 411586417 Active 2024 Bon Almanza MD [address] [place] [address],[address] [place] [address], [address], [place] [facility] - [place] 5 14:43:10 Problem Notes Documentation Provider Name and Address Organization Details Recorded Time Hospital Consultation - Cardiology : [facility] Consultation REPORT #: [id number] REPORT STATUS: Signed DATE: 03/21/24 TIME: 908 PATIENT: SAMIR SORTO UNIT #: [id number] ROOM/BED: [address] AGE: 63 SEX: M ATTEND: Archie WILLIS, Bon Cooley ADM AUTHOR: Emma Avina APRN * ALL edits or amendments must be made on the electronic/computer document * History of Present Illness Date of Service: 03/21/24 Requesting Clinician: Felice Santiago MD Reason for consult: Post PCI and post cardiac arrest Chief complaint: Post LHC with PCI HPI: Patient is a 63 yoa male that was set up as an outpatient for LHC with Dr Jaquez. PMH of HTN, HLD, former smoker. He was set up for outpatient LHC with Dr Jaquez. He was being further evaluated for angina sx for the past 6 months and abn stress testing. During procedure Dr Jaquez felt there was need for intervention. Dr Almanza joined the procedure. He reviewed images and found there was disease present that warranted intervention to the circumflex and RCA. Addressed with PTCA and stenting. Can read the procedural note for further information. After being transferred to ICU post procedure patient condition deteriorated and went into cardiac arrest. CPR and ACLS protocols initiated with successful resuscitation. Patient was intubated with pressors, sedation and amiodarone drip in place. Over night the pressors were discontinued. Has been evaluated by Dr Roy. Plan for the is am is extubation. Also have discussed plan of care for patient with Dr Almanza. Upon entering patient room this am respiratory therapy techs at bedside initating extubation. Spouse at the bedside. Patient alert and has been able to communicate overnight with writing on whiteboard. HR and BPs are stable this am. Labs reviewed also. Will optimize medications for the CAD and post arrest. Echo and LHC results listed below. Impression: 1. Normal left ventricular size and function with an estimated ejection fraction of 55-60% 2. Small area of severe hypokinesis to akinesis of the basal septal wall 3. Normal left atrial and right atrial size 4. Normal right ventricular size and function 5. Normal mitral valve, with no mitral insufficiency 6. Normal aortic valve with no aortic insufficiency 7. No pericardial effusion 8. Normal aortic root 9. Normal tricuspid valve with tricuspid regurgitant jet velocity less than 2.0 m/s implying normal right ventricular systolic pressure Impression: 1. Severe stenosis noted in the proximal and mid large left circumflex confirmed by fractional flow 2. Critical 100% occlusion of the mid right coronary artery after the takeoff of a high atrial branch with [id number] collaterals filling the distal vessel 3. Severe proximal stenosis in the right coronary artery 4. Mild diffuse disease noted in the left anterior 5. Successful angioplasty and stenting of the proximal and mid left circumflex with angelic [place] drug-eluting stents resulting in 0% residual stenosis 6. Successful angioplasty and stenting of the proximal right coronary artery with an angelic [place] drug-eluting stent which resulted in no reflow phenomenon, and loss of the 1 branch vessel in the right coronary artery 7. Successful placement of an Angio-Seal device in the right common femoral artery Medications: Home Medications: Medication Dose/Rte/Freq Days Qty Entered Last Max Daily Dose Reviewed Empagliflozin (Jardiance) 25 MG PO DAILY 03/14/24 03/14/24 Strength: 25 MG TABLET 9023 5716 LISINOPRIL (PRINIVIL) 2.5 MG PO DAILY 03/14/24 03/14/24 Strength: 2.5 MG TABLET 1244 1246 Tamsulosin HCl 0.4 MG PO BID 03/14/24 03/14/24 Strength: 0.4 MG CAP 1244 1246 Pravastatin Sodium 20 MG PO HS 03/14/24 03/14/24 Strength: 20 MG TABLET 1245 1246 PREGABALIN (LYRICA) 150 MG PO BID 03/14/24 03/14/24 Strength: 150 MG CAPSULE 1245 1246 ASPIRIN (ASPIRIN EC) 81 MG PO DAILY 03/14/24 03/14/24 Strength: 81 MG TABLET 1246 1246 FLUTICASONE PROPIONATE 1 SPRAY NS 03/14/24 03/14/24 (FLONASE ALLERGY RELIEF DAILY PRN . 1246 1246 SPRAY) Strength: 1 EA BOTTLE Current Hospital Medications: Sig/Ileana Start time Last Medication Dose Route Stop Time Status Admin Amiodarone HCl 200 MG DAILY 03/21 899 AC 03/21 PO 0850 Aspirin 81 MG DAILY 03/21 899 DC PO Aspirin 81 MG DAILY 03/21 899 AC 03/21 PO 0846 Lisinopril 2.5 MG DAILY 03/21 899 AC 03/21 PO 0847 Metoprolol Tartrate 25 MG BID 03/21 899 AC 03/21 PO 0849 Pantoprazole Sodium 40 MG DBF 03/21 799 AC 03/21 Sesquihydrate PO 0846 Midazolam HCl 5 MG ONCE ONE 03/21 0000 DC IV 03/21 0001 Ethyl Alcohol/ 1 EACH BID 03/20 2099 AC 03/21 Emollients NASAL 0854 Miscellaneous 90 MG BID 03/20 2099 AC 03/21 Medication PO 0850 Pravastatin Sodium 20 MG HS 03/20 2099 AC 03/20 PO 2052 Pregabalin 150 MG BID 03/20 2099 AC 03/21 PO 0846 Tamsulosin HCl 0.4 MG BID 03/20 2099 CKD 03/21 PO 0846 Al Hydrox/Mg Hydrox/ 30 ML Q4HP PRN 03/20 1929 AC Simethicone PO Docusate Sodium 100 MG BIDP PRN 03/20 1929 AC PO Magnesium Hydroxide 30 ML DP PRN 03/20 1929 AC PO Sodium Chloride 1,000 ML UD 03/20 193 AC 03/21 IV 0200 Fentanyl Citrate 100 ML UD 03/20 1700 CKD 03/20 IV 1721 Levalbuterol HCl 1.25 MG Q4HP PRN 03/20 1700 AC 03/20 IH 1709 Morphine Sulfate 4 MG Q1HP PRN 03/20 1700 AC 03/21 IV 0539 Levalbuterol HCl 0 .STK-MED ONE 03/20 1653 DCr IH Morphine Sulfate 0 .STK-MED ONE 03/20 1634 DCr .ROUTE Atropine Sulfate 0.4 MG ONCE ONE 03/20 1630 DC 03/20 IV 03/20 1631 1611 Sodium Chloride 1,000 ML ONCE ONE 03/20 1630 DC 03/20 IV 03/20 1729 1612 Norepinephrine 8 MG UD 03/20 1600 AC 03/20 Bitartrate IV 1613 Dextrose/Water 500 ML Amiodarone HCl 360 MG .STK-MED ONE 03/20 1548 DC MISC 03/20 1549 Amiodarone HCl 150 MG .STK-MED ONE 03/20 1548 DC MISC 03/20 1549 Epinephrine 2 MG .STK-MED ONE 03/20 1548 DC MISC 03/20 1549 Midazolam HCl 0 .STK-MED ONE 03/20 1528 DCr .ROUTE Acetaminophen 650 MG Q4HP PRN 03/20 1430 AC PO Atropine Sulfate 1 MG ONCE PRN 03/20 1430 AC IV 03/21 1429 Bacitracin/Polymyxin 0 PRN PRN 03/20 1430 AC B Sulfate TP Clonidine HCl 0.1 MG ONCE PRN 03/20 1430 AC PO 03/21 1429 Hydrocodone Bitart/ 1 EACH Q4HP PRN 03/20 1430 AC Acetaminophen PO Melatonin 3 MG HSP PRN 03/20 1430 AC PO Midazolam HCl 2 MG ONCE PRN 03/20 1430 DC IV 03/20 2359 Morphine Sulfate 1 MG Q1HP PRN 03/20 1430 AC 02 IV 1443 Nitroglycerin 0.4 MG PRN PRN 03/20 1430 DC SL Nitroglycerin/ 250 ML UD 03/20 1430 DC 02/ Dextrose IV 1500 Ondansetron HCl 4 MG ONCE PRN 03/20 1430 AC 02 IV 03/21 1429 0859 Sodium Chloride 1,000 ML UD 03/20 1430 AC 02 IV 03/21 1029 1454 Aspirin 0 .STK-MED ONE 03/20 1413 DC .ROUTE Miscellaneous 0 .STK-MED ONE 03/20 1413 DCr Medication PO Nitroglycerin/ 250 ML .STK-MED ONE 03/20 1401 DC Dextrose IV Iopamidol 0 .STK-MED ONE 03/20 1359 DC .ROUTE Morphine Sulfate 0 .STK-MED ONE 03/20 1359 DC .ROUTE Nitroglycerin 0 .STK-MED ONE 03/20 1355 DCr .ROUTE Midazolam HCl 0 .STK-MED ONE 03/20 1354 DC .ROUTE Iopamidol 0 .STK-MED ONE 03/20 1327 DC .ROUTE Midazolam HCl 0 .STK-MED ONE 03/20 1325 DC .ROUTE Sodium Nitroprusside 0 .STK-MED ONE 03/20 1321 DC .ROUTE Nitroglycerin 0 .STK-MED ONE 03/20 1315 DCr .ROUTE Adenosine 0 .STK-MED ONE 03/20 1300 DC .ROUTE Adenosine 0 .STK-MED ONE 03/20 1257 DC IV Iopamidol 0 .STK-MED ONE 03/20 1257 DC .ROUTE Heparin Sodium 0 .STK-MED ONE 03/20 1256 DC (Porcine) .ROUTE Iopamidol 0 .STK-MED ONE 03/20 1256 DC .ROUTE Fentanyl Citrate 0 .STK-MED ONE 03/20 1200 DCr .ROUTE Midazolam HCl 0 .STK-MED ONE 03/20 1200 DC .ROUTE Heparin Sodium/ 500 ML .STK-MED ONE 03/20 1150 DCr Sodium Chloride IV Heparin Sodium/ 1,000 ML .STK-MED ONE 03/20 1150 DCr Sodium Chloride IV Iopamidol 0 .STK-MED ONE 03/20 1150 DC .ROUTE Lidocaine HCl 0 .STK-MED ONE 03/20 1150 DC .ROUTE Diphenhydramine HCl 50 MG ONCE 03/20 0700 DC 03/20 PO 1003 Nitroglycerin 0.4 MG PRN PRN 03/20 0700 DC SL Sodium Chloride 1,000 ML UD 03/20 0700 DC IV Sodium Chloride 10 ML PRN PRN 03/20 0700 DC IV Allergies: Coded Allergies: No Known Allergies (03/14/24) Problem List SAFE-T Triage Screening: Yes Problem List 1. Cardiac arrest Past Medical/Social History Past medical history: Reports: coronary artery disease. Review of Systems Constitutional: Denies fatigue, Denies fever, Denies malaise Skin: Denies: bruising, contusion, rash. Respiratory: Denies: SIMMONS (dyspnea on exertion), non productive cough, parox nocturnal dyspnea , productive cough (sputum), SOB. Cardiovascular: Reports: chest pain. Denies: dyspnea on exertion, edema, orthopnea, palpitations, unstable angina. GI: Denies: abdominal pain, constipation, diarrhea, melena, nausea, vomiting. Musculoskeletal: Denies: extremity pain, extremity swelling, joint pain, joint swelling. Heme: Denies: bleeding, bruising. Endocrine: Denies: polydipsia, polyphagia, polyuria. Neuro: Denies: change in LOC, confusion, dizziness, lightheaded, slurred speech, syncope. Objective Physical Exam VS/I O: GENERAL APPEARANCE: alert and oriented, warm and dry, no apparent distress with pleasant and assertive affect.. NECK/THYROID: Supple, no lymphadenopathy, no thyromegaly, no jugular venous distension, no carotid bruit. Brisk carotid upstroke, trachea midline. LUNGS: Clear to auscultation. Good inspiratory and expiratory effort. No distress. ABDOMINAL: Positive bowel sounds. Abdomen soft, nontender, no organomegaly, no abdominal bruit, guarding, rebound, rigidity or hepatojugular reflex. EXTREMITIES: +2 pedal, radial and femoral pulses. No cyanosis, clubbing or edema. SKIN: Warm and dry NEUROLOGIC EXAM: alert, oriented X 3, normal gait, normal speech, no motor deficits, no sensory deficits, CNII-XII grossly intact PSYCH: oriented x 4, normal mood and affect, good eye contact, appropriate, assertive affect. HEENT: Normocephalic. Ears symmetrical bilaterally, conjunctivae pink, no proptosis, moist oral mucosa without cyanosis. Pupils reactive to light, no proptosis or ptosis. MUSCULOSKELETAL: Strength normal 4/5. Full range of motion, no weakness. Moves all extremities well. Normal inspection. HEART: Normal S1 and S2, no murmurs, rubs or gallops. Normal PMI. Regular rate and rhythm. Pulses equal bilaterally. General appearance: alert, awake, no acute distress, conversant, face symmetrical, MS normal Results Results: labs reviewed, vital signs stable, cath. personally reviewed, rhythm personally rev'd Treatment Prophylaxis Campbell: Date campbell inserted: 03/20/24 Diagnosis, Assessment Plan Dx/Assessment/Plan: Vital Signs: Date Time Temp Pulse Resp B/P B/P Pulse O2 O2 Flow FiO2 Mean Ox Delivery Rate 02/06 0903 95 CANNULA 02/06 0849 70 140/74 02/06 0847 140/74 02/06 0814 70 17 96 02/06 0800 66 14 125/70 97 02/06 0754 65 136/77 02/06 0745 65 16 136/77 97 02/06 0742 65 127/71 02/06 0730 65 14 127/71 97 02/06 0727 64 131/74 02/06 0715 64 14 131/74 96 02/06 0715 98.4 63 14 131/74 96 VENT 02/06 0700 66 14 118/68 97 02/06 0615 66 18 132/74 97 02/06 0600 63 18 139/76 98 02/06 0545 64 18 152/83 98 02/06 0530 63 18 138/76 98 02/06 0515 59 18 152/82 99 02/06 0500 61 18 141/78 99 02/06 0445 60 18 143/84 99 02/06 0430 60 18 143/81 99 02/06 0415 61 18 139/82 99 02/06 0400 98.0 VENT 02/06 0400 62 18 144/80 98 02/06 0345 60 18 147/83 99 02/06 0330 60 18 148/82 98 02/06 0315 61 18 142/82 98 02/06 0300 61 18 146/82 98 02/06 0245 61 18 146/85 98 02/06 0230 60 18 149/81 98 02/06 0215 59 18 152/83 98 02/06 0200 59 18 153/77 98 02/06 0149 55 20 174/89 99 02/06 0145 62 24 99 02/06 0130 59 20 145/82 98 02/06 0115 60 20 148/85 98 02/06 0100 58 20 148/80 98 02/06 0045 61 20 145/78 98 02/06 0030 58 20 154/88 98 02/06 0015 65 20 138/83 99 02/06 0000 97.8 VENT 02/06 0000 58 20 144/85 99 02/05 2345 57 20 146/84 99 02/05 2330 57 20 147/85 99 02/05 2315 58 20 146/82 99 02/05 2300 58 20 144/82 99 02/05 2245 57 20 145/82 99 02/05 2230 57 20 146/83 99 02/05 2215 57 20 147/82 99 02/05 2201 59 20 148/82 99 02/05 2200 58 20 147/83 99 02/05 5 57 20 146/85 99 02/05 0 57 20 149/85 99 02/05 5 57 20 151/87 99 02/05 2099 59 20 139/84 99 02/05 2044 59 20 142/81 99 02/05 2029 59 20 147/83 99 02/05 2014 59 20 146/86 99 02/05 1999 60 20 142/83 99 02/05 1945 60 20 145/85 99 02/05 1930 59 20 147/84 99 02/05 1915 97.6 VENT 02/05 1915 61 20 145/85 99 02/05 1905 61 20 147/79 99 02/05 1900 61 20 145/81 99 02/05 1855 62 20 144/80 99 02/05 1845 60 150/84 02/05 1845 60 150/84 02/05 1830 65 149/80 02/05 1815 68 02/05 1800 63 02/05 1800 VENT 45 02/05 1745 67 02/05 1730 68 02/05 1715 71 02/05 1700 74 118/65 100 02/05 1645 73 128/64 02/05 1630 76 130/72 02/05 1615 77 140/71 02/05 1600 41 85/50 99 02/05 1545 128 63/47 02/05 1530 147 120/78 98 02/05 1511 62 151/75 02/05 1505 65 16 151/75 98 ROOM AIR 02/05 1450 62 20 156/77 97 ROOM AIR 02/05 1435 62 152/74 02/05 1435 97.8 62 22 152/74 97 ROOM AIR Laboratory Tests: 03/21 02/06 02/05 02/05 0410 0030 2213 1615 Blood Gas ABG pH (Temp Correct) (7.360 - 7.460) 7.36 7.25 *L ABG pCO2 (Temp Corrct (32 - 46 MMHG) 30.8 *L 37.1 ABG pO2 (Temp Correct (74 - 108 MMHG) 178.2 *H 428.0 CH ABG HCO3 (21 - 29 mmol/L) 17.4 *L 16.4 *L ABG Total CO2 (22 - 30 mmol/L) 18.4 *L 17.5 *L ABG O2 Saturation (94 - 98 %) 97.9 98.4 *H ABG Base Excess (-2.0 - 2.0 mmol/L) -6.7 *L -10.0 *L Temperature 98.6 37.0 FiO2 (21 - 100 %) 45 100.0 Chemistry Sodium (136 - 145 mmol/L) 139 138 Potassium (3.5 - 5.1 mmol/L) 4.4 4.1 Chloride (98 - 107 mmol/L) 107 106 Carbon Dioxide (24 - 33 mmol/L) 20 *L 20 *L Anion Gap (10 - 20 mmol/L) 16.4 16.1 BUN (7 - 18 mg/dL) 19 *H 19 *H Creatinine (0.70 - 1.30 mg/dl) 1.02 1.06 Est GFR (CKD-EPI 2020) (>60 mL/min) 82 78 BUN/Creatinine Ratio (12 - 20) 18 17 Glucose (70 - 99 mg/dL) 112 *H 136 *H Calculated Osmolality (272 - 288 280 279 mOSM/kg) Calcium (8.5 - 10.1 mg/dL) 8.6 8.2 *L Phosphorus (2.6 - 4.7 mg/dL) 3.3 Magnesium (1.8 - 2.4 mg/dL) 1.8 Total Bilirubin (0.2 - 1.0 mg/dL) 0.5 AST (15 - 37 U/L) 121 *H ALT (16 - 63 U/L) 66 *H Total Alk Phosphatase (46 - 116 U/L) 59 Total Protein (6.4 - 8.2 g/dL) 6.1 *L Albumin (3.4 - 5.0 g/dL) 3.2 *L Globulin (1.5 - 4.0 g/dL) 2.9 Albumin/Globulin Ratio (0.5 - 2.0) 1.1 Triglycerides (< 150 mg/dL) 79 Cholesterol (< 200 mg/dL) 124 LDL Cholesterol (< 100 mg/dl) 69 HDL Cholesterol (> 60 mg/dl) 39 *L Hematology WBC (4.5 - 13.0 10e3/uL) 14.5 *H RBC (4.10 - 5.70 10e6/uL) 5.21 Hgb (12.0 - 16.9 g/dl) 14.9 Hct (36.0 - 49.0 %) 44.3 MCV (78.0 - 98.0 fL) 85 MCH (25.0 - 35.0 Pg) 28.6 MCHC (31.0 - 36.0 g/dL) 33.6 RDW (11.0 - 15.0 %) 13.3 Plt Count (150 - 400 10e3/uL) 223 Neut % (Auto) (35 - 75 %) 70 Bucks % (Auto) (0 - 15 %) 10 Nucleat RBC Rel Count (/100 WBC) 0.0 Neut # (Auto) (1.50 - 8.00 x1000/uL) 10.21 *H Immature Gran % (0 - 1) 0 Lymphocytes % (10 - 50 %) 19 Eosinophils % (0 - 5 %) 1 Basophils % (0 - 5 %) 0 Immature Gran # (0 - 0.05 x1000/uL) 0.04 Lymphocytes # (1.20 - 5.20 x1000/uL) 2.73 Monocytes # (0.30 - 0.90 x1000/uL) 1.43 *H Eosinophils # (0.00 - 0.50 x1000/uL) 0.07 Basophils # (0.00 - 0.30 x1000/uL) 0.05 03/20 03/20 1607 1530 Blood Gas POC Capillary Glucose (70 - 99 mg/dL) 166 *H Chemistry Sodium (136 - 145 mmol/L) 135 *L Potassium (3.5 - 5.1 mmol/L) 3.9 Chloride (98 - 107 mmol/L) 104 Carbon Dioxide (24 - 33 mmol/L) 18 *L Anion Gap (10 - 20 mmol/L) 16.9 BUN (7 - 18 mg/dL) 18 Creatinine (0.70 - 1.30 mg/dl) 1.02 Est GFR (CKD-EPI 2020) (>60 mL/min) 82 BUN/Creatinine Ratio (12 - 20) 17 Glucose (70 - 99 mg/dL) 194 *H Calculated Osmolality (272 - 288 mOSM/kg) 276 Calcium (8.5 - 10.1 mg/dL) 8.2 *L Magnesium (1.8 - 2.4 mg/dL) 2.0 Total Bilirubin (0.2 - 1.0 mg/dL) 0.7 AST (15 - 37 U/L) 47 *H ALT (16 - 63 U/L) 58 Total Alk Phosphatase (46 - 116 U/L) 58 Total Protein (6.4 - 8.2 g/dL) 6.5 Albumin (3.4 - 5.0 g/dL) 3.4 Globulin (1.5 - 4.0 g/dL) 3.1 Albumin/Globulin Ratio (0.5 - 2.0) 1.1 Hematology WBC (4.5 - 13.0 10e3/uL) 18.8 *H RBC (4.10 - 5.70 10e6/uL) 5.27 Hgb (12.0 - 16.9 g/dl) 15.1 Hct (36.0 - 49.0 %) 45.9 MCV (78.0 - 98.0 fL) 87 MCH (25.0 - 35.0 Pg) 28.7 MCHC (31.0 - 36.0 g/dL) 32.9 RDW (11.0 - 15.0 %) 13.2 Plt Count (150 - 400 10e3/uL) 228 Nucleat RBC Rel Count (/100 WBC) 0.0 Neut # (Auto) (1.50 - 8.00 x1000/uL) 8.74 *H Lymphocytes % (Manual) (10 - 50 %) 23 Basophils % (Manual) (0 - 5 %) 0 Immature Gran # (0 - 0.05 x1000/uL) 0.08 *H Segmented Neutrophils (45 - 75 %) 41 *L Band Neutrophils (0 - 10 %) 0 Lymphocytes # (1.20 - 5.20 x1000/uL) 8.62 *H Monocytes (Manual) (0 - 15 %) 7 Monocytes # (0.30 - 0.90 x1000/uL) 1.08 *H Eosinophils # (0.00 - 0.50 x1000/uL) 0.23 Basophils # (0.00 - 0.30 x1000/uL) 0.09 Metamyelocytes (0 - 0 %) 0 Myelocytes (0 - 0 %) 0 Promyelocytes (0 - 0 %) 0 Nucleated RBCs (0 - 0 /100 WBC) 0 Atypical Lymphocytes (0 - 5 %) 28 *H Blast Cells (0 - 0 %) 0 Plasma Cells (0 - 0 %) 0 Platelet Morphology ADEQUATE IN NUMBER Morphology Comment (NORMAL) NORMAL MORPHOLOGY Eosinophil Count (0 - 5 %) 1 Recent Impressions: RADIOLOGY - CHEST PORTABLE 03/20 1530 Report Impression - Status: SIGNED Entered: 03/20/2024 1632 IMPRESSION: Satisfactory position of ETT and NGT. No acute finding. Electronically Signed by: Isaak Stratton MD Impression By: ISAAK PRATT ECHOCARDIOGRAPHY - ECHO W/SPEC/COLOR FLOW 03/20 1600 Report Impression - Status: SIGNED Entered: 03/20/2024 170 Impression: 1. Normal left ventricular size and function with an estimated ejection fraction of 55-60% 2. Small area of severe hypokinesis to akinesis of the basal septal wall 3. Normal left atrial and right atrial size 4. Normal right ventricular size and function 5. Normal mitral valve, with no mitral insufficiency 6. Normal aortic valve with no aortic insufficiency 7. No pericardial effusion 8. Normal aortic root 9. Normal tricuspid valve with tricuspid regurgitant jet velocity less than 2.0 m/s implying normal right ventricular systolic pressure Impression By: DR.LOHER Clarisa ALMANZA MD RADIOLOGY - CHEST PORTABLE 03/21 0539 Report Impression - Status: SIGNED Entered: 03/21/2024 0619 IMPRESSION: Stable exam. Electronically Signed by: Payam Gramajo MD Impression By: PAYAM CRANEY Recent Impressions: ECHOCARDIOGRAPHY - ECHO W/SPEC/COLOR FLOW 03/20 1600 Report Impression - Status: SIGNED Entered: 03/20/2024 1701 Impression: 1. Normal left ventricular size and function with an estimated ejection fraction of 55-60% 2. Small area of severe hypokinesis to akinesis of the basal septal wall 3. Normal left atrial and right atrial size 4. Normal right ventricular size and function 5. Normal mitral valve, with no mitral insufficiency 6. Normal aortic valve with no aortic insufficiency 7. No pericardial effusion 8. Normal aortic root 9. Normal tricuspid valve with tricuspid regurgitant jet velocity less than 2.0 m/s implying normal right ventricular systolic pressure Impression By: DR.LOHER Clarisa ALMANZA MD RADIOLOGY - CHEST PORTABLE 03/21 0539 Report Impression - Status: SIGNED Entered: 03/21/2024 06 IMPRESSION: Stable exam. Electronically Signed by: Payam Gramajo MD Impression By: PAYAM CARNEY Impression Post cardiac arrest Post LHC with PCI to circumflex and RCA CAD Post extubation Plan Start Amiodarone 200mg once daily Start Metoprolol tartrate 25mg twice daily Start Brilinta 90mg twice daily Start ASA 81mg once daily Continue with Lisinopril 2.5mg once daily Continue Pravastatin 20mg at HS-would consider at follow up appointment to move to Lipitor or Crestor if tolerable. Recommend to stay at least 1 more day Recommend to follow up with Dr Jaquez after discharge Recommend Cardiac rehab Thank you for the consult History and physical completed by Emma Avina APRN 25 min. Medical decision making completed by Dr Bon Almanza. 28 min at 1542 RPT #: [id number] END OF REPORT CC'ed Logic: Ordering Provider: BRIT SOSA Attending Provider: ARCHIE AMBRIZ Referring Provider: LUZ HERNDON Consulting Provider: JOSE CRUZ; JULIENNE CABRALES; LUZ HERNDON Admitting Provider: ARCHIE Enriquez [facility] 03/26/2024 15:52:40 Hospital Consultation - Cardiology : [facility] Cardiology Consultation REPORT #: [id number] REPORT STATUS: Signed DATE: 03/21/24 TIME: 908 PATIENT: SAMIR SORTO UNIT #: [id number] ROOM/BED: [address] AGE: 63 SEX: M ATTEND: Bon Almanza MD AUTHOR: Emma Avina APRN * ALL edits or amendments must be made on the electronic/computer document * History of Present Illness Date of Service: 03/21/24 Requesting Clinician: Felice Santiago MD Reason for consult: Post PCI and post cardiac arrest Chief complaint: Post LHC with PCI HPI: Patient is a 63 yoa male that was set up as an outpatient for [facility] with Dr Jaquez. PMH of HTN, HLD, former smoker. He was set up for outpatient LHC with Dr Jaquez. He was being further evaluated for angina sx for the past 6 months and abn stress testing. During procedure Dr Jaquez felt there was need for intervention. Dr Almanza joined the procedure. He reviewed images and found there was disease present that warranted intervention to the circumflex and RCA. Addressed with PTCA and stenting. Can read the procedural note for further information. After being transferred to ICU post procedure patient condition deteriorated and went into cardiac arrest. CPR and ACLS protocols initiated with successful resuscitation. Patient was intubated with pressors, sedation and amiodarone drip in place. Over night the pressors were discontinued. Has been evaluated by Dr Roy. Plan for the is am is extubation. Also have discussed plan of care for patient with Dr Almanza. Upon entering patient room this am respiratory therapy techs at bedside initating extubation. Spouse at the bedside. Patient alert and has been able to communicate overnight with writing on whiteboard. HR and BPs are stable this am. Labs reviewed also. Will optimize medications for the CAD and post arrest. Echo and LHC results listed below. Impression: 1. Normal left ventricular size and function with an estimated ejection fraction of 55-60% 2. Small area of severe hypokinesis to akinesis of the basal septal wall 3. Normal left atrial and right atrial size 4. Normal right ventricular size and function 5. Normal mitral valve, with no mitral insufficiency 6. Normal aortic valve with no aortic insufficiency 7. No pericardial effusion 8. Normal aortic root 9. Normal tricuspid valve with tricuspid regurgitant jet velocity less than 2.0 m/s implying normal right ventricular systolic pressure Impression: 1. Severe stenosis noted in the proximal and mid large left circumflex confirmed by fractional flow 2. Critical 100% occlusion of the mid right coronary artery after the takeoff of a high atrial branch with [id number] collaterals filling the distal vessel 3. Severe proximal stenosis in the right coronary artery 4. Mild diffuse disease noted in the left anterior 5. Successful angioplasty and stenting of the proximal and mid left circumflex with angelic [place] drug-eluting stents resulting in 0% residual stenosis 6. Successful angioplasty and stenting of the proximal right coronary artery with an angelic [place] drug-eluting stent which resulted in no reflow phenomenon, and loss of the 1 branch vessel in the right coronary artery 7. Successful placement of an Angio-Seal device in the right common femoral artery Medications: Home Medications: Medication Dose/Rte/Freq Days Qty Entered Last Max Daily Dose Reviewed Empagliflozin (Jardiance) 25 MG PO DAILY 03/14/24 03/14/24 Strength: 25 MG TABLET 1244 1246 LISINOPRIL (PRINIVIL) 2.5 MG PO DAILY 03/14/24 03/14/24 Strength: 2.5 MG TABLET 1244 1246 Tamsulosin HCl 0.4 MG PO BID 03/14/24 03/14/24 Strength: 0.4 MG CAP 1244 1246 Pravastatin Sodium 20 MG PO HS 03/14/24 03/14/24 Strength: 20 MG TABLET 1245 1246 PREGABALIN (LYRICA) 150 MG PO BID 03/14/24 03/14/24 Strength: 150 MG CAPSULE 1245 1246 ASPIRIN (ASPIRIN EC) 81 MG PO DAILY 03/14/24 03/14/24 Strength: 81 MG TABLET 1246 1246 FLUTICASONE PROPIONATE 1 SPRAY NS 03/14/24 03/14/24 (FLONASE ALLERGY RELIEF DAILY PRN . 1246 1246 SPRAY) Strength: 1 EA BOTTLE Current Hospital Medications: Sig/Ileana Start time Last Medication Dose Route Stop Time Status Admin Amiodarone HCl 200 MG DAILY 03/21 899 AC 03/21 PO 0850 Aspirin 81 MG DAILY 03/21 899 DC PO Aspirin 81 MG DAILY 03/21 899 AC 03/21 PO 0846 Lisinopril 2.5 MG DAILY 03/21 899 AC 03/21 PO 0847 Metoprolol Tartrate 25 MG BID 03/21 899 AC 03/21 PO 0849 Pantoprazole Sodium 40 MG DBF 03/21 08 AC 03/21 Sesquihydrate PO 0846 Midazolam HCl 5 MG ONCE ONE 03/21 0000 DC IV 03/21 0001 Ethyl Alcohol/ 1 EACH BID 03/20 Emollients NASAL 0854 Miscellaneous 90 MG BID 03/20 Medication PO 0850 Pravastatin Sodium 20 MG HS 03/20 PO 2052 Pregabalin 150 MG BID 03/20 PO 0846 Tamsulosin HCl 0.4 MG BID 03/20 2100 CKD 03/21 PO 0846 Al Hydrox/Mg Hydrox/ 30 ML Q4HP PRN 03/20 1930 AC Simethicone PO Docusate Sodium 100 MG BIDP PRN 03/20 1930 AC PO Magnesium Hydroxide 30 ML DP PRN 03/20 1930 AC PO Sodium Chloride 1,000 ML UD 03/20 1930 AC 03/21 IV 0200 Fentanyl Citrate 100 ML UD 03/20 1700 CKD 03/20 IV 1721 Levalbuterol HCl 1.25 MG Q4HP PRN 03/20 1700 AC 03/20 IH 1709 Morphine Sulfate 4 MG Q1HP PRN 03/20 1700 AC 03/21 IV 0539 Levalbuterol HCl 0 .STK-MED ONE 03/20 1653 DCr IH Morphine Sulfate 0 .STK-MED ONE 03/20 1634 DCr .ROUTE Atropine Sulfate 0.4 MG ONCE ONE 03/20 1630 DC 03/20 IV 03/20 1631 1611 Sodium Chloride 1,000 ML ONCE ONE 03/20 1630 DC 03/20 IV 03/20 1729 1612 Norepinephrine 8 MG UD 03/20 1600 AC 03/20 Bitartrate IV 1613 Dextrose/Water 500 ML Amiodarone HCl 360 MG .STK-MED ONE 03/20 1548 DC [facility] 02 1549 Amiodarone HCl 150 MG .STK-MED ONE 03/20 1548 DC MIS 03/20 1549 Epinephrine 2 MG .STK-MED ONE 03/20 1548 DC MIS 03/20 1549 Midazolam HCl 0 .STK-MED ONE 03/20 1528 DCr .ROUTE Acetaminophen 650 MG Q4HP PRN 03/20 1430 AC PO Atropine Sulfate 1 MG ONCE PRN 03/20 1430 AC IV 03/21 1429 Bacitracin/Polymyxin 0 PRN PRN 03/20 1430 AC B Sulfate TP Clonidine HCl 0.1 MG ONCE PRN 03/20 1430 AC PO 03/21 1429 Hydrocodone Bitart/ 1 EACH Q4HP PRN 03/20 1430 AC Acetaminophen PO Melatonin 3 MG HSP PRN 03/20 1430 AC PO Midazolam HCl 2 MG ONCE PRN 03/20 1430 DC IV 03/20 2359 Morphine Sulfate 1 MG Q1HP PRN 03/20 1430 AC 03/20 IV 1443 Nitroglycerin 0.4 MG PRN PRN 03/20 1430 DC SL Nitroglycerin/ 250 ML UD 03/20 1430 DC 02 Dextrose IV 1500 Ondansetron HCl 4 MG ONCE PRN 03/20 1430 AC 02/ IV 02 1429 0859 Sodium Chloride 1,000 ML UD 03/20 1430 AC 02 IV 02 1029 1454 Aspirin 0 .STK-MED ONE 03/20 1413 DC .ROUTE Miscellaneous 0 .STK-MED ONE 03/20 1413 DCr Medication PO Nitroglycerin/ 250 ML .STK-MED ONE 03/20 1401 DC Dextrose IV Iopamidol 0 .STK-MED ONE 03/20 1359 DC .ROUTE Morphine Sulfate 0 .STK-MED ONE 03/20 1359 DC .ROUTE Nitroglycerin 0 .STK-MED ONE 03/20 1355 DCr .ROUTE Midazolam HCl 0 .STK-MED ONE 03/20 1354 DC .ROUTE Iopamidol 0 .STK-MED ONE 03/20 1327 DC .ROUTE Midazolam HCl 0 .STK-MED ONE 03/20 1325 DC .ROUTE Sodium Nitroprusside 0 .STK-MED ONE 03/20 1321 DC .ROUTE Nitroglycerin 0 .STK-MED ONE 03/20 1315 DCr .ROUTE Adenosine 0 .STK-MED ONE 03/20 1300 DC .ROUTE Adenosine 0 .STK-MED ONE 03/20 1257 DC IV Iopamidol 0 .STK-MED ONE 03/20 1257 DC .ROUTE Heparin Sodium 0 .STK-MED ONE 03/20 1256 DC (Porcine) .ROUTE Iopamidol 0 .STK-MED ONE 03/20 1256 DC .ROUTE Fentanyl Citrate 0 .STK-MED ONE 03/20 1200 DCr .ROUTE Midazolam HCl 0 .STK-MED ONE 03/20 1200 DC .ROUTE Heparin Sodium/ 500 ML .STK-MED ONE 03/20 1150 DCr Sodium Chloride IV Heparin Sodium/ 1,000 ML .STK-MED ONE 03/20 1150 DCr Sodium Chloride IV Iopamidol 0 .STK-MED ONE 03/20 1150 DC .ROUTE Lidocaine HCl 0 .STK-MED ONE 03/20 1150 DC .ROUTE Diphenhydramine HCl 50 MG ONCE 03/20 0700 DC 02 PO 1003 Nitroglycerin 0.4 MG PRN PRN 03/20 699 DC SL Sodium Chloride 1,000 ML UD 03/20 699 DC IV Sodium Chloride 10 ML PRN PRN 03/20 699 DC IV Allergies: Coded Allergies: No Known Allergies (03/14/24) Problem List SAFE-T Triage Screening: Yes Problem List 1. Cardiac arrest Past Medical/Social History Past medical history: Reports: coronary artery disease. Review of Systems Constitutional: Denies fatigue, Denies fever, Denies malaise Skin: Denies: bruising, contusion, rash. Respiratory: Denies: SIMMONS (dyspnea on exertion), non productive cough, parox nocturnal dyspnea , productive cough (sputum), SOB. Cardiovascular: Reports: chest pain. Denies: dyspnea on exertion, edema, orthopnea, palpitations, unstable angina. GI: Denies: abdominal pain, constipation, diarrhea, melena, nausea, vomiting. Musculoskeletal: Denies: extremity pain, extremity swelling, joint pain, joint swelling. Heme: Denies: bleeding, bruising. Endocrine: Denies: polydipsia, polyphagia, polyuria. Neuro: Denies: change in LOC, confusion, dizziness, lightheaded, slurred speech, syncope. Objective Physical Exam VS/I O: GENERAL APPEARANCE: alert and oriented, warm and dry, no apparent distress with pleasant and assertive affect.. NECK/THYROID: Supple, no lymphadenopathy, no thyromegaly, no jugular venous distension, no carotid bruit. Brisk carotid upstroke, trachea midline. LUNGS: Clear to auscultation. Good inspiratory and expiratory effort. No distress. ABDOMINAL: Positive bowel sounds. Abdomen soft, nontender, no organomegaly, no abdominal bruit, guarding, rebound, rigidity or hepatojugular reflex. EXTREMITIES: +2 pedal, radial and femoral pulses. No cyanosis, clubbing or edema. SKIN: Warm and dry NEUROLOGIC EXAM: alert, oriented X 3, normal gait, normal speech, no motor deficits, no sensory deficits, CNII-XII grossly intact PSYCH: oriented x 4, normal mood and affect, good eye contact, appropriate, assertive affect. HEENT: Normocephalic. Ears symmetrical bilaterally, conjunctivae pink, no proptosis, moist oral mucosa without cyanosis. Pupils reactive to light, no proptosis or ptosis. MUSCULOSKELETAL: Strength normal 4/5. Full range of motion, no weakness. Moves all extremities well. Normal inspection. HEART: Normal S1 and S2, no murmurs, rubs or gallops. Normal PMI. Regular rate and rhythm. Pulses equal bilaterally. General appearance: alert, awake, no acute distress, conversant, face symmetrical, MS normal Results Results: labs reviewed, vital signs stable, cath. personally reviewed, rhythm personally rev'd Treatment Prophylaxis Campbell: Date campbell inserted: 03/20/24 Diagnosis, Assessment Plan Dx/Assessment/Plan: Vital Signs: Date Time Temp Pulse Resp B/P B/P Pulse O2 O2 Flow FiO2 Mean Ox Delivery Rate 02/06 0903 95 CANNULA 02/06 0849 70 140/74 02/06 0847 140/74 02/06 0814 70 17 96 02/06 0800 66 14 125/70 97 02/06 0754 65 136/77 02/06 0745 65 16 136/77 97 02/06 0742 65 127/71 02/06 0730 65 14 127/71 97 02/06 0727 64 131/74 02/06 0715 64 14 131/74 96 02/06 0715 98.4 63 14 131/74 96 VENT 02/06 0700 66 14 118/68 97 02/06 0615 66 18 132/74 97 02/06 0600 63 18 139/76 98 02/06 0545 64 18 152/83 98 02/06 0530 63 18 138/76 98 02/06 0515 59 18 152/82 99 02/06 0500 61 18 141/78 99 02/06 0445 60 18 143/84 99 02/06 0430 60 18 143/81 99 02/06 0415 61 18 139/82 99 02/06 0400 98.0 VENT 02/06 0400 62 18 144/80 98 02/06 0345 60 18 147/83 99 02/06 0330 60 18 148/82 98 02/06 0315 61 18 142/82 98 02/06 0300 61 18 146/82 98 02/06 0245 61 18 146/85 98 02/06 0230 60 18 149/81 98 02/06 0215 59 18 152/83 98 02/06 0200 59 18 153/77 98 02/06 0149 55 20 174/89 99 02/06 0145 62 24 99 02/06 0130 59 20 145/82 98 02/06 0115 60 20 148/85 98 02/06 0100 58 20 148/80 98 02/06 0045 61 20 145/78 98 02/06 0030 58 20 154/88 98 02/06 0015 65 20 138/83 99 02/06 0000 97.8 VENT 02/06 0000 58 20 144/85 99 02/05 2345 57 20 146/84 99 02/05 2330 57 20 147/85 99 02/05 2315 58 20 146/82 99 02/05 2300 58 20 144/82 99 02/05 2245 57 20 145/82 99 02/05 2230 57 20 146/83 99 02/05 2215 57 20 147/82 99 02/05 2201 59 20 148/82 99 02/05 2200 58 20 147/83 99 02/05 2145 57 20 146/85 99 02/05 2130 57 20 149/85 99 02/05 2115 57 20 151/87 99 02/05 2100 59 20 139/84 99 02/05 2045 59 20 142/81 99 02/05 2029 59 20 147/83 99 02/05 2014 59 20 146/86 99 02/05 1999 60 20 142/83 99 02/05 1945 60 20 145/85 99 02/05 1930 59 20 147/84 99 02/05 1915 97.6 VENT 02/05 1915 61 20 145/85 99 02/05 1905 61 20 147/79 99 02/05 1900 61 20 145/81 99 02/05 1855 62 20 144/80 99 02/05 1845 60 150/84 02/05 1845 60 150/84 02/05 1830 65 149/80 02/05 1815 68 02/05 1800 63 02/05 1800 VENT 45 02/05 1745 67 02/05 1730 68 02/05 1715 71 02/05 1700 74 118/65 100 02/05 1645 73 128/64 02/05 1630 76 130/72 02/05 1615 77 140/71 02/05 1600 41 85/50 99 02/05 1545 128 63/47 02/05 1530 147 120/78 98 02/05 1511 62 151/75 02/05 1505 65 16 151/75 98 ROOM AIR 02/05 1450 62 20 156/77 97 ROOM AIR 02/05 1435 62 152/74 03/20 1435 97.8 62 22 152/74 97 ROOM AIR Laboratory Tests: 03/21 03/21 03/20 03/20 0410 0102 [id number] Blood Gas ABG pH (Temp Correct) (7.360 - 7.460) 7.36 7.25 *L ABG pCO2 (Temp Corrct (32 - 46 MMHG) 30.8 *L 37.1 ABG pO2 (Temp Correct (74 - 108 MMHG) 178.2 *H 428.0 CH ABG HCO3 (21 - 29 mmol/L) 17.4 *L 16.4 *L ABG Total CO2 (22 - 30 mmol/L) 18.4 *L 17.5 *L ABG O2 Saturation (94 - 98 %) 97.9 98.4 *H ABG Base Excess (-2.0 - 2.0 mmol/L) -6.7 *L -10.0 *L Temperature 98.6 37.0 FiO2 (21 - 100 %) 45 100.0 Chemistry Sodium (136 - 145 mmol/L) 139 138 Potassium (3.5 - 5.1 mmol/L) 4.4 4.1 Chloride (98 - 107 mmol/L) 107 106 Carbon Dioxide (24 - 33 mmol/L) 20 *L 20 *L Anion Gap (10 - 20 mmol/L) 16.4 16.1 BUN (7 - 18 mg/dL) 19 *H 19 *H Creatinine (0.70 - 1.30 mg/dl) 1.02 1.06 Est GFR (CKD-EPI 2020) (>60 mL/min) 82 78 BUN/Creatinine Ratio (12 - 20) 18 17 Glucose (70 - 99 mg/dL) 112 *H 136 *H Calculated Osmolality (272 - 288 280 279 mOSM/kg) Calcium (8.5 - 10.1 mg/dL) 8.6 8.2 *L Phosphorus (2.6 - 4.7 mg/dL) 3.3 Magnesium (1.8 - 2.4 mg/dL) 1.8 Total Bilirubin (0.2 - 1.0 mg/dL) 0.5 AST (15 - 37 U/L) 121 *H ALT (16 - 63 U/L) 66 *H Total Alk Phosphatase (46 - 116 U/L) 59 Total Protein (6.4 - 8.2 g/dL) 6.1 *L Albumin (3.4 - 5.0 g/dL) 3.2 *L Globulin (1.5 - 4.0 g/dL) 2.9 Albumin/Globulin Ratio (0.5 - 2.0) 1.1 Triglycerides (< 150 mg/dL) 79 Cholesterol (< 200 mg/dL) 124 LDL Cholesterol (< 100 mg/dl) 69 HDL Cholesterol (> 60 mg/dl) 39 *L Hematology WBC (4.5 - 13.0 10e3/uL) 14.5 *H RBC (4.10 - 5.70 10e6/uL) 5.21 Hgb (12.0 - 16.9 g/dl) 14.9 Hct (36.0 - 49.0 %) 44.3 MCV (78.0 - 98.0 fL) 85 MCH (25.0 - 35.0 Pg) 28.6 MCHC (31.0 - 36.0 g/dL) 33.6 RDW (11.0 - 15.0 %) 13.3 Plt Count (150 - 400 10e3/uL) 223 Neut % (Auto) (35 - 75 %) 70 Bucks % (Auto) (0 - 15 %) 10 Nucleat RBC Rel Count (/100 WBC) 0.0 Neut # (Auto) (1.50 - 8.00 x1000/uL) 10.21 *H Immature Gran % (0 - 1) 0 Lymphocytes % (10 - 50 %) 19 Eosinophils % (0 - 5 %) 1 Basophils % (0 - 5 %) 0 Immature Gran # (0 - 0.05 x1000/uL) 0.04 Lymphocytes # (1.20 - 5.20 x1000/uL) 2.73 Monocytes # (0.30 - 0.90 x1000/uL) 1.43 *H Eosinophils # (0.00 - 0.50 x1000/uL) 0.07 Basophils # (0.00 - 0.30 x1000/uL) 0.05 03/20 03/20 1607 1530 Blood Gas POC Capillary Glucose (70 - 99 mg/dL) 166 *H Chemistry Sodium (136 - 145 mmol/L) 135 *L Potassium (3.5 - 5.1 mmol/L) 3.9 Chloride (98 - 107 mmol/L) 104 Carbon Dioxide (24 - 33 mmol/L) 18 *L Anion Gap (10 - 20 mmol/L) 16.9 BUN (7 - 18 mg/dL) 18 Creatinine (0.70 - 1.30 mg/dl) 1.02 Est GFR (CKD-EPI 2020) (>60 mL/min) 82 BUN/Creatinine Ratio (12 - 20) 17 Glucose (70 - 99 mg/dL) 194 *H Calculated Osmolality (272 - 288 mOSM/kg) 276 Calcium (8.5 - 10.1 mg/dL) 8.2 *L Magnesium (1.8 - 2.4 mg/dL) 2.0 Total Bilirubin (0.2 - 1.0 mg/dL) 0.7 AST (15 - 37 U/L) 47 *H ALT (16 - 63 U/L) 58 Total Alk Phosphatase (46 - 116 U/L) 58 Total Protein (6.4 - 8.2 g/dL) 6.5 Albumin (3.4 - 5.0 g/dL) 3.4 Globulin (1.5 - 4.0 g/dL) 3.1 Albumin/Globulin Ratio (0.5 - 2.0) 1.1 Hematology WBC (4.5 - 13.0 10e3/uL) 18.8 *H RBC (4.10 - 5.70 10e6/uL) 5.27 Hgb (12.0 - 16.9 g/dl) 15.1 Hct (36.0 - 49.0 %) 45.9 MCV (78.0 - 98.0 fL) 87 MCH (25.0 - 35.0 Pg) 28.7 MCHC (31.0 - 36.0 g/dL) 32.9 RDW (11.0 - 15.0 %) 13.2 Plt Count (150 - 400 10e3/uL) 228 Nucleat RBC Rel Count (/100 WBC) 0.0 Neut # (Auto) (1.50 - 8.00 x1000/uL) 8.74 *H Lymphocytes % (Manual) (10 - 50 %) 23 Basophils % (Manual) (0 - 5 %) 0 Immature Gran # (0 - 0.05 x1000/uL) 0.08 *H Segmented Neutrophils (45 - 75 %) 41 *L Band Neutrophils (0 - 10 %) 0 Lymphocytes # (1.20 - 5.20 x1000/uL) 8.62 *H Monocytes (Manual) (0 - 15 %) 7 Monocytes # (0.30 - 0.90 x1000/uL) 1.08 *H Eosinophils # (0.00 - 0.50 x1000/uL) 0.23 Basophils # (0.00 - 0.30 x1000/uL) 0.09 Metamyelocytes (0 - 0 %) 0 Myelocytes (0 - 0 %) 0 Promyelocytes (0 - 0 %) 0 Nucleated RBCs (0 - 0 /100 WBC) 0 Atypical Lymphocytes (0 - 5 %) 28 *H Blast Cells (0 - 0 %) 0 Plasma Cells (0 - 0 %) 0 Platelet Morphology ADEQUATE IN NUMBER Morphology Comment (NORMAL) NORMAL MORPHOLOGY Eosinophil Count (0 - 5 %) 1 Recent Impressions: RADIOLOGY - CHEST PORTABLE 03/20 1530 Report Impression - Status: SIGNED Entered: 03/20/2024 1632 IMPRESSION: Satisfactory position of ETT and NGT. No acute finding. Electronically Signed by: Isaak Stratton MD Impression By: ISAAK PRATT ECHOCARDIOGRAPHY - ECHO W/SPEC/COLOR FLOW 03/20 1600 Report Impression - Status: SIGNED Entered: 03/20/2024 170 Impression: 1. Normal left ventricular size and function with an estimated ejection fraction of 55-60% 2. Small area of severe hypokinesis to akinesis of the basal septal wall 3. Normal left atrial and right atrial size 4. Normal right ventricular size and function 5. Normal mitral valve, with no mitral insufficiency 6. Normal aortic valve with no aortic insufficiency 7. No pericardial effusion 8. Normal aortic root 9. Normal tricuspid valve with tricuspid regurgitant jet velocity less than 2.0 m/s implying normal right ventricular systolic pressure Impression By: DR.LOHER Clarisa ALMANZA MD RADIOLOGY - CHEST PORTABLE 03/21 0539 Report Impression - Status: SIGNED Entered: 03/21/2024 0619 IMPRESSION: Stable exam. Electronically Signed by: Payam Gramajo MD Impression By: PAYAM CARNEY Recent Impressions: ECHOCARDIOGRAPHY - ECHO W/SPEC/COLOR FLOW 03/20 1600 Report Impression - Status: SIGNED Entered: 03/20/2024 170 Impression: 1. Normal left ventricular size and function with an estimated ejection fraction of 55-60% 2. Small area of severe hypokinesis to akinesis of the basal septal wall 3. Normal left atrial and right atrial size 4. Normal right ventricular size and function 5. Normal mitral valve, with no mitral insufficiency 6. Normal aortic valve with no aortic insufficiency 7. No pericardial effusion 8. Normal aortic root 9. Normal tricuspid valve with tricuspid regurgitant jet velocity less than 2.0 m/s implying normal right ventricular systolic pressure Impression By: DR.LOHER Clarisa ALMANZA MD RADIOLOGY - CHEST PORTABLE 03/21 0539 Report Impression - Status: SIGNED Entered: 03/21/2024 0619 IMPRESSION: Stable exam. Electronically Signed by: Payam Gramajo MD Impression By: PAYAM CARNEY Impression Post cardiac arrest Post LHC with PCI to circumflex and RCA CAD Post extubation Plan Start Amiodarone 200mg once daily Start Metoprolol tartrate 25mg twice daily Start Brilinta 90mg twice daily Start ASA 81mg once daily Continue with Lisinopril 2.5mg once daily Continue Pravastatin 20mg at HS-would consider at follow up appointment to move to Lipitor or Crestor if tolerable. Recommend to stay at least 1 more day Recommend to follow up with Dr Jaquez after discharge Recommend Cardiac rehab Thank you for the consult History and physical completed by Emma Avina APRN 25 min. Medical decision making completed by Dr Bon Almanza. 28 min at 1542 at 1246 RPT #: [id number] END OF REPORT CC'ed Logic: Ordering Provider: BRIT SOSA Attending Provider: ARCHIE AMBRIZ Referring Provider: LUZ HERNDON Consulting Provider: JOSE CRUZ; JULIENNE CABRALES; LUZ HERNDON Admitting Provider: PAOLA Grover [facility] & [place] 04/08/2024 16:00:03 Medical Equipment None Reported. Allergies No known drug allergies Medications Name Sig Start Date Stop Date Status Note LastModified by Organization Details LastModified Time desonide 0.05 % topical cream APPLY CREAM SPARINGLY AND RUB GENTLY INTO THE AFFECTED AREAS TOPICALLY TWICE DAILY ON THE RIGHT SIDE OF THE FACE NEEDED FOR TWO (2) WEEKS. BREAK FOR ONE (1) WEEK AND THEN REPEAT NEEDED active Not Available Not Available No t Available amiodarone 200 mg tablet TAKE ONE TABLET BY MOUTH DAILY active Not Available Not Available No t Available doxepin 10 mg capsule TAKE 1 CAPSULE BY MOUTH ONCE DAILY AT BEDTIME active Not Available Not Available No t Available tamsulosin 0.4 mg capsule TAKE 2 CAPSULES BY MOUTH EVERY DAY active Not Available Not Available No t Available pantoprazol e 40 mg tablet,manuel yed release TAKE ONE TABLET BY MOUTH DAILY active Not Available Not Available No t Available nitroglycer in 0.4 mg sublingual tablet DISSOLVE 1 TABLET UNDER THE TONGUE EVERY 5 MINUTES UNTIL CHEST PAIN STOPS OR HEADACHE MAX OF THREE (3) TABS active Not Available Not Available No t Available pravastatin 20 mg tablet TAKE ONE (1) TABLET BY MOUTH EVERY DAY active Not Available Not Available No t Available lisinopril 5 mg tablet TAKE ONE TABLET BY MOUTH DAILY active Not Available Not Available No t Available ketoconazol e 2 % topical cream APPLY TO AFFECTED AREA TWICE DAILY ON THE RIGHT SIDE OF THE FACE active Not Available Not Available No t Available fluticasone propionate 50 mcg/actuati on nasal spray,suspe nsion INSTILL ONE (1) SPRAY IN EACH NOSTRIL ONCE DAILY active Not Available Not Available No t Available lisinopril 2.5 mg tablet TAKE ONE (1) TABLET BY MOUTH EVERY DAY 04/02 completed Not Available Not Available Not Available metoprolol tartrate 25 mg tablet TAKE ONE TABLET BY MOUTH TWICE DAILY active Not Available Not Available No t Available pregabalin 150 mg capsule TAKE ONE (1) CAPSULE TWICE A DAY BY ORAL ROUTE FOR 30 DAYS. active Not Available Not Available No t Available Lantus Solostar U-100 Insulin 100 unit/mL (3 mL) subcutaneou s pen INJECT 15 UNITS SUBCUTANE OUSLY AT BEDTIME active Not Available Not Available No t Available Brilinta 90 mg tablet TAKE ONE TABLET BY MOUTH TWICE DAILY active Not Available Not Available No t Available Jardiance 25 mg tablet TAKE ONE (1) TABLET EVERY DAY BY ORAL ROUTE. active Not Available Not Available No t Available pregabalin ER 165 mg tablet, extended release 24 hr TAKE 2 BY MOUTH ONCE DAILY active Not Available Not Available No t Available FreeStyle Uma 2 Sensor kit APPLY ONE (1) SENSOR TOPICALLY EVERY 14 DAYS active Not Available Not Available No t Available Pip Pen Needle 32 gauge x 5/32 USE DIRECTED BEFORE MEALS AND AT BEDTIME active Not Available Not Available No t Available Vitals Date Recorded Body height Body mass index (BMI) Body weight Oxygen saturation Oxygen saturation in Arterial blood by Pulse oximetry Heart rate Systolic And Diastolic Provider Name and Address Organization Details Last Updated DateTime 5 182.88 cm 25.5 kg/m2 12439.0 8 g 97 % 97 % 67 /min 118/72 mm[Hg] Magnolia LAZAR [facility] & [place] 08:02:06 Social History Question Answer Notes LastModified by [employer] Details LastModified Time Tobacco Smoking Status Former Smoker Magnolia calixto, PAOLA LAZAR [facility] & [place] 04/02/2024 08:09:12 Do You Have An Advance Directive? No [email or web address] Information not available 04/02/2024 Are You Blind Or Do You Have Difficulty Seeing? Yes Information not available 04/02/2024 What Is Your Level Of Caffeine Consumption? None Information not available 04/02/2024 When Did You Quit Smoking? 6-10yearssin [email or web address] tte Information not available 04/02/2024 What Was The Date Of Your Most Recent Tobacco Screening? 01/31/2024 [email or web address] Information not available 04/02/2024 Are You Passively Exposed To Smoke? No [email or web address] Information not available 04/02/2024 Sex: Male Functional Status Question Answer Note LastModified by Organizat ion Details LastModified Time Do you use any illicit or recreational drugs? No [email or web address] Information not available 04/02/2024 What is your level of alcohol consumption? Occasional Information not available 04/02/2024 Do you or have you ever used smokeless tobacco? Never used smokeless tobacco [email or web address] Information not available 04/02/2024 What is your exercise level? Occasional [email or web address] Information not available 04/02/2024 Mental Status Question Answer Note LastModified by Organization D etails LastModified Time Do you feel stressed (tense, restless, nervous, or anxious, or unable to sleep at night)? [id number] [email or web address] Information not available 04/02/2024 Family History Relationship Description Onset Age of this Age Resolved Age Notes LastModified by Organization Details LastModified Time Father Heart disease [email or web address] Not available 2024 08:08:08 Notes:brothers, paternal aun ts and paternal uncles Medical History Condition Response Diabetes Y Vision or Eye Problems Y Shortness of Breath Y Ear or Hearing Problems Y High Cholesterol Y Kidney or Bladder Problems Y Hypertension Y Past Encounters Encounter ID Performer Location Encounter Start Date Encounter Closed Date Diagnosis/Indication Diagnosis SNOMED-CT Code Diagnosis ICD10 Code Diagnosis IMO Codes Diagnosis Note [id number] TIERNEY JOHNSON MV [address] [place] [address] 02/02/2024 08:42:06 02/02/2024 09:01:50 Sensorineural hearing loss 88927397 H90.3 [id number] Bon Almanza MD [address] [place] [address] 04/02/2024 07:48:04 04/02/2024 08:39:47 Essential hypertension 17906208 I10 Coronary arteriosclerosis 32484028 I25.[address] percutaneous transluminal coronary angioplasty 021472838 Z98.61 Hyperlipidemia 17432763 E78.5 Type 2 morgan betes mellitus without complication 218086382 E11.9 Health Concerns Section Related Observation LastModified by Organization Detai ls LastModified Time None Recorded Concern Status LastModified by Organization Details LastModified Time None Recorded Advance Directives Directive N: Payers Insurance Date Sequence Insurance Name Policy Number Policy Jimenez Covered Member ID Jimenez Member ID Guarantor Name 03/30/2024 [place] Samir Sorto [id number] Samir Sorto 03/30/2024 1 [place] Samir Sorto [id number] Samir Sorto 03/22/2024 2 [place] Samir Sorto [id number] Samir Sorto Notes Date Note Type Note Provider Name and Address Organization Details Recorded Time 02/02/2024 text/html Mr. Sorto was seen today for an audiologic evaluation due to long-standing, high freq SNHL bilaterally. He reports that his hearing loss has been present for approximately 50 years, as he states he was rejected from service do his hearing loss. He denies tinnitus, dizziness, drainage, aural fullness/pressure, and excessive noise exposure. Otoscopic inspection was unremarkable bilaterally. Audiometric testing revealed a mild, sloping to severe, mid through high freq SNHL bilaterally with fair word rec scores. 1-Discussed findings with Mr. Sorto. 2-Rec hearing aids bilaterally; he will pursue after getting new insurance (recently moved to [place] from [place]). 3-F/u hearing testing annually to monitor. TIERNEY JOHNSON [address] [facility] [address],[address], [place], [address], [facility] & [place] 02/02/2024 09:04:33 04/02/2024 text/html patient is here post cardiac catheterization and intervention. He is actually doing well. Had a complicated course during the hospitalization where reopened up the circumflex but he no re flow down the right coronary artery. The right coronary artery was already 100% occluded in its proximal portion after the takeoff of the branch. We felt like the branch needed better flow as there was a 95% proximal stenosis prior to the branch. In stenting that once we stented he had complete no reflow to the artery. Despite multiple attempts he did not re flow. He had collaterals coming from the left filling the rest of the right coronary artery and no disease in the left anterior descending. He had an episode of ventricular fibrillation during the hospitalization just after the closure. His hospital course was unremarkable other than this. Patient has felt well since being discharged home from the hospital. Some soreness in the ribs from compression but no chest pain pressure or tightness. Some mild shortness of breath. Overall he feels much better and has not had any further pressure tightness or heaviness in the chest which she had prior to the cardiac catheterization Bon Almanza MD [address], [place], [address], [place] - [facility] [place] 04/02/2024 14:43:32
--- OUTSIDE RECORDS SUMMARY | 2024-12-18 14:05 | XMS_ITS | Data Portability ---
Author Organization [facility] Address [address] [place] [address] Assessment No assessment recorded. Plan of Treatment Reminders Order Date Submit Date Provider Last Modified By Organization Details Last Modified Time Details Appointments Medicare AWE 40mins 2024 09:00A M Do Lambert, MANAGER [employer]ATE[employer] SOURCING Not available Not available Not available Lab magnesium , serum or plasma 2024 025 MARGARET [facility], [address], [address], [place], [address], 11/25/2024 00:06:40 cobalamin and folate panel, serum 2024 025 MARGARET [facility], [address], [place] [address], [place], [address], 11/25/2024 00:06:38 vitamin D, 25-hydrox y, total, serum 2024 025 MARGARET [facility], [address], [address], [place], [address], 11/25/2024 00:06:39 CBC w/ auto diff 2024 025 MARGARET [facility], [address], [place] [address], [place], [address], 11/25/2024 00:06:37 iron + total iron-bind ing capacity (TIBC), serum 2024 025 MARGARET [facility], [address], [address], [place], [address], 11/25/2024 00:06:37 TSH + free T4, serum 2024 025 MARGARET [facility], [address], [address], [place], [address], 11/25/2024 00:06:36 vitamin B6 + metabolit es panel, serum or plasma 2024 025 MARGARET Penny, [address], [address], [place], [address], 11/25/2024 00:06:38 short myastheni a gravis panel, serum 2024 025 MARGARET Penny, [address], [address], [place], [address], 11/25/2024 00:06:39 drug screen, urine 2024 025 [facility], [address] [place] [address], [phone], 09/27/2024 14:44:38 HbA1c (hemoglob in A1c), blood 2024 025 MARGARET [facility], [address], [address], [place], [address], 09/28/2024 12:36:12 lipid panel, serum 2024 025 MARGARET Penny, [address], [address], [place], [address], 09/28/2024 12:36:11 microalbu min/creat inine, mass ratio, urine 2024 025 MARGARET Francis, [address], [address], [place], [address], 09/28/2024 12:36:12 CMP, serum or plasma 2024 025 MARGARET Francis, [address], [place] [address], [place], [address], 09/28/2024 12:36:11 PSA, total, serum or plasma 2024 025 MARGARET Francis, [address], [place] [address], [place], [address], 09/28/2024 12:36:12 CMP, serum or plasma 2024 025 MARGARET Sánchezrp, [address], [place] [address], [place], [address], 07/23/2024 03:35:43 CBC 2024 025 MARGARET Sánchezrp, [address], [place] [address], [place], [address], 07/23/2024 03:35:44 PT/PTT, plasma 2024 025 MARGARET Sánchezrp, [address], [place] [address], [place], [address], 07/23/2024 03:35:45 ferritin, serum or plasma 2024 025 MARGARET [facility], [address], [address], [place], [address], 07/23/2024 03:35:46 TIBC (total iron-bind ing capacity) , serum 2024 025 MARGARET S[facility]chezrp, [address], [place] [address], [place], [address], 07/23/2024 03:35:44 gastroint estinal pathogens DNA + RNA panel, KEANU+non-p robe, stool 2024 025 MARGARET [facility], [address], [place] [address], [place], [address], 07/21/2024 06:43:59 inflammat ion panel, serum or plasma 2024 025 MARGARET [facility], [address], [address], [place], [address], 07/23/2024 03:35:45 borrelia burgdorfe ri IgG + IgM + total panel, IA, serum 2024 025 [facility], [address], [address], [place], [address], 07/23/2024 03:35:46 rickettsi a spotted fever group Ab.IgG + IgM panel, titer, serum 2024 025 [facility], [address], [place] [address], [place], [address], 07/23/2024 03:35:44 Referral orthopedi c surgeon referral 2024 025 [facility], [address], [place], [address], 12/16/2024 11:02:[address] referral 2024 025 MARGARET Pineda MD, [address], [place], [address], 12/13/2024 11:21:58 Procedures None recorded. Surgeries None recorded. Imaging electromy ogram + nerve conductio n study - bilateral legs/feet and arms/hand s 2024 025 [facility] [address], [place], [address], 11/21/2024 15:14:07 CT, abdomen, w/o contrast [address] ([facility]), [address] [place] [address] [place], [address], 08/14/2024 07:51:16 Medication Orders prednison e 10 mg tablet 2024 025 [facility]ARGARET [facility], [address] [facility] [address] [place], [id number], 12/13/2024 13:42:18 pregabali n 150 mg capsule 2024 025 MARGARET Álvarez [facility], [address] [place] [address] , [place], [place], [id number], 11/29/2024 10:36:33 Patient TargetsNo targets recorded. Patient InstructionsNo instructions recorded. Reason for Referral Neurologist Referral for Num bness and tingling sensation of skin Referring Physician: Rosalie Salas [facility], Encounter Date: 11/08/2024 Orthopedic Surgeon Referral for Bilateral carpal tunnel syndrome Referring Physician: Rosalie Salas [facility], Encounter Date: 12/13/2024 Results Created Date Observation Date Name Description Value Unit Range Abnormal Flag Note LastModifiedBy Organization Detail LastModifiedTime 06/26/1906/25/2024 drug scree n, urine THC negati ve Not Available [facility] [address] [place] [address], [phone], 06/25/2024 09:05:35 06/26/1906/25/2024 drug scree n, urine TCA negati ve Not Available [facility] [address] [place] [address], [phone], 06/25/2024 09:05:35 06/26/19 25 06/25/2024 drug scree n, urine BAR negati ve Not Available [facility] [address] [place] [address], [phone], 06/25/2024 09:05:35 06/26/19 25 06/25/2024 drug scree n, urine BZO negati ve Not Available [facility] [address] [place] [address], [phone], 06/25/2024 09:05:35 06/26/19 25 06/25/2024 drug scree n, urine MTD negati ve Not Available [facility] [address] [place] [address], [phone], 06/25/2024 09:05:35 06/26/19 25 06/25/2024 drug scree n, urine AMP negati ve Not Available [facility] [address] [place] [address], [phone], 06/25/2024 09:05:35 06/26/19 25 06/25/2024 drug scree n, urine MOP negati ve Not Available [facility] [address] [place] [address], [phone], 06/25/2024 09:05:35 06/26/19 25 06/25/2024 drug scree n, urine OXY negati ve Not Available [facility] [address] [place] [address], [phone], 06/25/2024 09:05:35 06/26/19 25 06/25/2024 drug scree n, urine MDMA negati ve Not Available [facility] [address] [place] [address], [phone], 06/25/2024 09:05:35 06/26/19 25 06/25/2024 drug scree n, urine TOBY negati ve Not Available [facility] [address] [place] [address], [phone], 06/25/2024 09:05:35 06/26/19 25 06/25/2024 drug scree n, urine PCP negati ve Not Available [facility] [address] [place] [address], [phone], 06/25/2024 09:05:35 06/26/19 25 06/25/2024 drug scree n, urine MET negati ve Not Available [facility] [address] [place] [address], [place], [phone], 06/25/2024 09:05:35 07/17/1907/18/2024 LYME, LINE BLOT, SERUM additional information: Commen t Per [facility] crite zainab, the Lyme IgG Immun oblot is inter prete d as posit cydney if IgG-c lass antib odies are detec conrad to 5 or more B. burgd orfer i prote ins, and the Lyme IgM Immun oblot is inter prete d as posit cydney if IgM-c lass antib odies are detec conrad to 2 or more B. burgd orfer i prote ins. Immun oblot patte rns not meeti ng these crite zainab shoul d not be inter prete d as posit cydney. Epito pes from certa in B. burgd orfer i prote ins (e.g. , p41) are conse rved acros s other bacte zainab, which may lead to the detec tion of IgM-a nd/or IgG class antib odies on the Lyme disea se immun oblot s in patie nts witho ut Lyme disea se. Immun oblot shoul d only be order ed on speci mens that are posit cydney or equiv ocal by an FDA-l icens ed Lyme disea se antib kevin scree tomasz test (e.g. , EIA). Resul ts of the Lyme IgM immun oblot shoul d not be consi dered in patie nts with 30 or more days of sympt oms. Not Available [facility] ([facility]) [address] [facility], [place], [address], 07/22/2024 18:35:48 07/17/19 25 07/22/2024 LYME, LINE BLOT, SERUM lyme IgG line blot interp. Positi ve negati ve abnormal Not Available [facility] ([facility]) [address] [facility], [place], [address], 07/22/2024 18:35:48 07/17/19 25 07/22/2024 LYME, LINE BLOT, SERUM IgG P93 Ab. Presen t Not Available [facility] ([facility]) [address] [facility], [place], [address], 07/22/2024 18:35:48 07/17/19 25 07/22/2024 LYME, LINE BLOT, SERUM IgG P66 Ab. Absent Not Available [facility] ([facility]) [address] [facility], [place], [address], 07/22/2024 18:35:48 07/17/19 25 07/22/2024 LYME, LINE BLOT, SERUM IgG P58 Ab. Presen t Not Available [facility] ([facility]) [address] [facility], [place], [address], 07/22/2024 18:35:48 07/17/19 25 07/22/2024 LYME, LINE BLOT, SERUM IgG P45 Ab. Absent Not Available [facility] ([facility]) [address] [facility], [place], [address], 07/22/2024 18:35:48 07/17/19 25 07/22/2024 LYME, LINE BLOT, SERUM IgG P41 Ab. Presen t Not Available [facility] ([facility]) [address] [facility], [place], [address], 07/22/2024 18:35:48 07/17/19 25 07/22/2024 LYME, LINE BLOT, SERUM IgG P39 Ab. Presen t Not Available [facility] ([facility]) [address] [facility], [place], [address], 07/22/2024 18:35:48 07/17/19 25 07/22/2024 LYME, LINE BLOT, SERUM IgG P30 Ab. Absent Not Available [facility] ([facility]) [address] [facility], [place], [address], 07/22/2024 18:35:48 07/17/19 25 07/22/2024 LYME, LINE BLOT, SERUM IgG P28 Ab. Absent Not Available [facility] ([facility]) [address] [facility], [place], [address], 07/22/2024 18:35:48 07/17/19 25 07/22/2024 LYME, LINE BLOT, SERUM IgG P23 Ab. Absent Not Available [facility] ([facility]) [address] [facility], [place], [address], 07/22/2024 18:35:48 07/17/19 25 07/22/2024 LYME, LINE BLOT, SERUM IgG P18 Ab. Presen t Not Available [facility] ([facility]) [address] [facility], [place], [address], 07/22/2024 18:35:48 07/17/19 25 07/22/2024 LYME, LINE BLOT, SERUM lyme IgM line blot interp. Negati ve negati ve Pleas e Note: Lyme immun oblot alone is not recom winston d for the diagn osis of Lyme disea se. Wilner nt guide lines recom mend the use of a two-t iered appro ach to Lyme serol ogy testi ng to impro ve the sensi tivit y and speci ficit y of testi ng. [facility] offer s test code 56624 6 Lyme Disea se Serol ogy with Refle x to aid in the diagn osis of Lyme Disea se. Not Available [facility] ([facility]) [address] [facility], [place], [address], 07/22/2024 18:35:48 07/17/19 25 07/22/2024 LYME, LINE BLOT, SERUM IgM P41 Ab. Absent Not Available [facility] ([facility]) [address] [facility], [place], [address], 07/22/2024 18:35:48 07/17/19 25 07/22/2024 LYME, LINE BLOT, SERUM IgM P39 Ab. Presen t Not Available [facility] ([facility]) [address] [facility], [place], [address], 07/22/2024 18:35:48 07/17/19 25 07/22/2024 LYME, LINE BLOT, SERUM IgM P23 Ab. Absent Not Available [facility] ([facility]) [address] [facility], [place], [address], 07/22/2024 18:35:48 07/17/19 25 07/18/2024 JESUS EN AUTHO RIZAT ION written authorizatio n Commen t Jesus en Autho rizat ion Recei jesenia. Autho rizat ion recei jesenia from JESUS EN REQUE ST 07-18 Logge d by Jason godinez Not Available [facility] ([facility]) [address] [facility], [place], [address], 07/22/2024 18:35:49 07/17/19 25 07/17/2024 COMP. METAB OLIC PANEL (14) glucose 111 mg/dL 70-99 above high normal Not Available [facility] ([facility]) [address] [facility], [place], [address], 07/23/2024 03:35:43 07/17/19 25 07/17/2024 COMP. METAB OLIC PANEL (14) BUN 27 mg/dL 8-27 normal Not Available [facility] ([facility]) [address] [facility], [place], [address], 07/23/2024 03:35:43 07/17/19 25 07/17/2024 COMP. METAB OLIC PANEL (14) creatinine 1.41 mg/dL 0.76-1 .27 above high normal Not Available [facility] ([facility]) [address] [place], [address], 07/23/2024 03:35:43 07/17/19 25 07/17/2024 COMP. METAB OLIC PANEL (14) eGFR 55 mL/mi n/1.7 3 >59 below low normal Not Available [facility] ([facility]) [address] [facility], [place], [address], 07/23/2024 03:35:43 07/17/19 25 07/17/2024 COMP. METAB OLIC PANEL (14) BUN/creatini ne ratio 19 10-24 normal Not Available [facility] ([facility]) [address], [place], [address], 07/23/2024 03:35:43 07/17/19 25 07/17/2024 COMP. METAB OLIC PANEL (14) sodium 138 mmol/ L 134-14 4 normal Not Available [facility] ([facility]) [address] [place], [address], 07/23/2024 03:35:43 07/17/19 25 07/17/2024 COMP. METAB OLIC PANEL (14) potassium 4.1 mmol/ L 3.5-5. 2 normal Not Available [facility] ([facility]) [address] [place], [address], 07/23/2024 03:35:43 07/17/19 25 07/17/2024 COMP. METAB OLIC PANEL (14) chloride 106 mmol/ L 96-106 normal Not Available [facility] ([facility]) [address], [place], [address], 07/23/2024 03:35:43 07/17/19 25 07/17/2024 COMP. METAB OLIC PANEL (14) carbon dioxide, total 15 mmol/ L 20-29 below low normal Not Available [facility] ([facility]) [address] [place] [place], [address], 07/23/2024 03:35:43 07/17/19 25 07/17/2024 COMP. METAB OLIC PANEL (14) calcium 9.4 mg/dL 8.6-10 .2 normal Not Available [facility] ([facility]) [address] [place] [place], [address], 07/23/2024 03:35:43 07/17/19 25 07/17/2024 COMP. METAB OLIC PANEL (14) protein, total 7.2 g/dL 6.0-8. 5 normal Not Available [facility] ([facility]) [address] [place], [address], 07/23/2024 03:35:43 07/17/19 25 07/17/2024 COMP. METAB OLIC PANEL (14) albumin 4.1 g/dL 3.9-4. 9 normal Not Available [facility] ([facility]) [address] [place], [address], 07/23/2024 03:35:43 07/17/19 25 07/17/2024 COMP. METAB OLIC PANEL (14) globulin, total 3.1 g/dL 1.5-4. 5 Not Available [facility] ([facility]) [address] [place] [place], [address], 07/23/2024 03:35:43 07/17/19 25 07/17/2024 COMP. METAB OLIC PANEL (14) bilirubin, total 0.3 mg/dL 0.0-1. 2 normal Not Available [facility] ([facility]) [address] [place] [place], [address], 07/23/2024 03:35:43 07/17/19 25 07/17/2024 COMP. METAB OLIC PANEL (14) alkaline phosphatase 65 IU/L 44-121 normal Not Available [facility] ([facility]) [address] [facility] [place], [address], 07/23/2024 03:35:43 07/17/19 25 07/17/2024 COMP. METAB OLIC PANEL (14) AST (SGOT) 30 IU/L 0-40 normal Not Available [facility] ([facility]) [address] [place] [place], [address], 07/23/2024 03:35:43 07/17/19 25 07/17/2024 COMP. METAB OLIC PANEL (14) ALT (SGPT) 26 IU/L 0-44 normal Not Available [facility] ([facility]) [address] [facility], [place], [address], 07/23/2024 03:35:43 07/17/19 25 07/17/2024 CBC, PLATE LET, NO DIFFE RENTI AL WBC 7.6 x10e3 /uL 3.4-10 .8 normal Not Available [facility] ([facility]) [address] [facility], [place], [address], 07/23/2024 03:35:44 07/17/19 25 07/17/2024 CBC, PLATE LET, NO DIFFE RENTI AL RBC 5.82 x10e6 /uL 4.14-5 .80 above high normal Not Available [facility] ([facility]) [address] [facility], [place], [address], 07/23/2024 03:35:44 07/17/19 25 07/17/2024 CBC, PLATE LET, NO DIFFE RENTI AL hemoglobin 15.8 g/dL 13.0-1 7.7 normal Not Available [facility] ([facility]) [address] [facility], [place], [address], 07/23/2024 03:35:44 07/17/19 25 07/17/2024 CBC, PLATE LET, NO DIFFE RENTI AL hematocrit 50.9 % 37.5-5 1.0 normal Not Available [facility] ([facility]) [address] [facility], [place], [address], 07/23/2024 03:35:44 07/17/1907/17/2024 CBC, PLATE LET, NO DIFFE RENTI AL MCV 88 fL 79-97 normal Not Available [facility] ([facility]) [address] [facility], [place], [address], 07/23/2024 03:35:44 07/17/19 25 07/17/2024 CBC, PLATE LET, NO DIFFE RENTI AL MCH 27.1 pg 26.6-3 3.0 normal Not Available [facility] ([facility]) [address] [place], [address], 07/23/2024 03:35:44 07/17/19 25 07/17/2024 CBC, PLATE LET, NO DIFFE RENTI AL MCHC 31.0 g/dL 31.5-3 5.7 below low normal Not Available [facility] ([facility]) [address] [place], [address], 07/23/2024 03:35:44 07/17/19 25 07/17/2024 CBC, PLATE LET, NO DIFFE RENTI AL RDW 13.5 % 11.6-1 5.4 Not Available [facility] ([facility]) [address] [place], [address], 07/23/2024 03:35:44 07/17/19 25 07/17/2024 CBC, PLATE LET, NO DIFFE RENTI AL platelets 245 x10e3 /uL 150-45 0 normal Not Available [facility] ([facility]) [address] [place], [address], 07/23/2024 03:35:44 07/17/19 25 07/17/2024 CBC, PLATE LET, NO DIFFE RENTI AL NRBC SENIOR BUSINESS PROCESS ANALYST Not Available [facility] ([facility]) [address] [place], [address], 07/23/2024 03:35:44 07/17/19 25 07/17/2024 IRON AND TIBC iron bind.cap.(TI BC) 303 ug/dL 250-45 0 normal Not Available [facility] ([facility]) [address] [place], [address], 07/23/2024 03:35:44 07/17/19 25 07/17/2024 IRON AND TIBC UIBC 263 ug/dL 111-34 3 normal Not Available [facility] ([facility]) [address] [facility], [place], [address], 07/23/2024 03:35:44 07/17/19 25 07/17/2024 IRON AND TIBC iron 40 ug/dL 38-169 normal Not Available [facility] ([facility]) [address] [facility], [place], [address], 07/23/2024 03:35:44 07/17/19 25 07/17/2024 IRON AND TIBC iron saturation 13 % 15-55 below low normal Not Available [facility] ([facility]) [address] [facility], [place], [address], 07/23/2024 03:35:44 07/17/19 25 07/17/2024 SPOTT ED FEVER GROUP ANTIB ODIES result comment: Commen t Spott ed Fever Group IgG serum endpo int titer of >=1:6 4 is sugge stive of infec tion at an unkno wn time and may be a sign of eithe r past infec tion or early respo nse to a recen t infec tion. Spott ed Fever Group IgM titer of >=1:6 4 is regar ded as proba ble evide nce of recen t or ongoi ng infec tion. A four- fold or great er incre ase in titer betwe en two serum sampl es drawn 1-2 weeks apart and teste d in paral lel is the best serol ogic indic ator of a recen t ricke ttsia l infec tion. Not Available [facility] ([facility]) [address] [facility], [place], [address], 07/23/2024 03:35:44 07/17/19 25 07/22/2024 SPOTT ED FEVER GROUP ANTIB ODIES spotted fever group IgG <1:64 neg:<1 :64 Not Available [facility] ([facility]) [address] [facility], [place], [address], 07/23/2024 03:35:44 07/17/19 25 07/22/2024 SPOTT ED FEVER GROUP ANTIB ODIES spotted fever group IgM <1:64 neg:<1 :64 Not Available [facility] ([facility]) [address] [place], [address], 07/23/2024 03:35:44 07/17/19 25 07/17/2024 PT AND PTT INR TNP Test not perfo rmed. No light blue top tube was recei jesenia. Refer ence inter leatha is for non-a ntico agula conrad patie nts. Sugge sted INR thera peuti c range for Vitam in K antag onist thera py: Stand wade Dose (mode rate inten sity thera peuti c range ): 2.0 - 3.0 Highe r inten sity thera peuti c range 2.5 - 3.5 Not Available [facility] ([facility]) [address] [facility], [place], [address], 07/23/2024 03:35:45 07/17/19 25 07/17/2024 PT AND PTT prothrombin time TNP Test not perfo rmed Not Available [facility] ([facility]) [address] [place], [address], 07/23/2024 03:35:45 07/17/19 25 07/17/2024 PT AND PTT APTT TNP Test not perfo rmed Not Available [facility] ([facility]) [address] [place], [address], 07/23/2024 03:35:45 07/17/19 25 07/17/2024 ESR-W ES+CR P sedimentatio n rate-westerg maryanne 27 mm/HR 0-30 normal Not Available [facility] ([facility]) [address] [place], [address], 07/23/2024 03:35:45 07/17/19 25 07/17/2024 ESR-W ES+CR P C-reactive protein, quant 24 mg/L 0-10 above high normal Not Available [facility] ([facility]) [address] [facility], [place], [address], 07/23/2024 03:35:45 07/17/19 25 07/17/2024 LYME DISEA SE SEROL OGY W/REF TEO lyme total antibody lillian Positi ve negati ve Evide nce of Lyme antib odies ; confi rmati on indic ated. See Lyme IgG and Lyme IgM resul ts (refl ex testi ng), and Lyme inter preta tion for final inter preta tion of the Lyme serol ogy refle x algor ithm. Not Available [facility] ([facility]) [address] [facility], [place], [address], 07/23/2024 03:35:46 07/17/19 25 07/17/2024 LYME DISEA SE SEROL OGY W/REF TEO lyme IgG lillian Positi ve negati ve Not Available [facility] ([facility]) [address] [facility], [place], [address], 07/23/2024 03:35:46 07/17/19 25 07/17/2024 LYME DISEA SE SEROL OGY W/REF TEO lyme IgM lillian Negati ve negati ve Not Available [facility] ([facility]) [address] [place], [address], 07/23/2024 03:35:46 07/17/19 25 07/17/2024 LYME DISEA SE SEROL OGY W/REF TEO lyme interpretati on Lyme IgG Abs Detect ed abnormal Resul ts are consi stent with B. burgd orfer i infec tion (Lyme disea se) in the recen t or remot e past. IgG-c lass antib odies may remai n detec table for month s to years follo wing resol ution of infec tion. Resul ts shoul d not be used to monit or or estab eva adequ ate respo nse to thera py. Respo nse to thera py is confi rmed throu gh resol ution of clini kerline sympt oms; addit ional labor atory testi ng shoul d not be perfo rmed. If both tests are equiv ocal consi daysi repea t testi ng in 7 to 14 days if clini nola warra nted. Not Available [facility] ([facility]) [address] [place], [address], 07/23/2024 03:35:46 07/17/19 25 07/17/2024 JAK TIN ferritin 398 NG/mL 30-400 normal Not Available [facility] ([facility]) [address] [place], [address], 07/23/2024 03:35:46 07/17/19 25 07/17/2024 PLEAS E NOTE please note Commen t The date and/o r time of colle ction was not indic ated on the requi sitio n as requi red by state and aniya al law. The date of recei pt of the speci men was used as the colle ction date if not suppl ied. Not Available [facility] ([facility]) [address] [place], [address], 07/23/2024 03:35:46 07/20/19 25 07/21/2024 GI PROFI LE, STOOL , PCR campylobacte r Not Detect ed not detect ed Not Available [facility] ([facility]) [address] [place], [address], 07/21/2024 06:43:59 07/20/19 25 07/21/2024 GI PROFI LE, STOOL , PCR C difficile toxin A/B Detect ed not detect ed abnormal Not Available [facility] ([facility]) [address] [place], [address], 07/21/2024 06:43:59 07/20/19 25 07/21/2024 GI PROFI LE, STOOL , PCR plesiomonas shigelloides Not Detect ed not detect ed Not Available [facility] ([facility]) [address] [place], [address], 07/21/2024 06:43:59 07/20/19 25 07/21/2024 GI PROFI LE, STOOL , PCR salmonella Detect ed not detect ed abnormal Not Available [facility] ([facility]) [address] [place], [address], 07/21/2024 06:43:59 07/20/19 25 07/21/2024 GI PROFI LE, STOOL , PCR vibrio Not Detect ed not detect ed Not Available [facility] ([facility]) [address] [place], [address], 07/21/2024 06:43:59 07/20/19 25 07/21/2024 GI PROFI LE, STOOL , PCR vibrio cholerae Not Detect ed not detect ed Not Available [facility] ([facility]) [address] [place], [address], 07/21/2024 06:43:59 07/20/19 25 07/21/2024 GI PROFI LE, STOOL , PCR yersinia enterocoliti ca Not Detect ed not detect ed Not Available [facility] ([facility]) [address] [place], [address], 07/21/2024 06:43:59 07/20/19 25 07/21/2024 GI PROFI LE, STOOL , PCR enteroaggreg ative E coli Not Detect ed not detect ed Not Available [facility] ([facility]) [address] [place], [address], 07/21/2024 06:43:59 07/20/19 25 07/21/2024 GI PROFI LE, STOOL , PCR enteropathog enic E coli Not Detect ed not detect ed Not Available [facility] ([facility]) [address] [place], [address], 07/21/2024 06:43:59 07/20/19 25 07/21/2024 GI PROFI LE, STOOL , PCR enterotoxige karo E coli Not Detect ed not detect ed Not Available [facility] ([facility]) [address] [place], [address], 07/21/2024 06:43:59 07/20/19 25 07/21/2024 GI PROFI LE, STOOL , PCR shiga-toxin- producing E coli Not Detect ed not detect ed Not Available [facility] ([facility]) [address] [place], [address], 07/21/2024 06:43:59 07/20/19 25 07/21/2024 GI PROFI LE, STOOL , PCR E coli O157 Not applic able not detect ed Not Available [facility] ([facility]) [address] [place], [address], 07/21/2024 06:43:59 07/20/19 25 07/21/2024 GI PROFI LE, STOOL , PCR shigella/ent eroinvasive E coli Not Detect ed not detect ed Not Available [facility] ([facility]) [address] [place], [address], 07/21/2024 06:43:59 07/20/19 25 07/21/2024 GI PROFI LE, STOOL , PCR cryptosporid ium Not Detect ed not detect ed Not Available [facility] ([facility]) [address] [place], [address], 07/21/2024 06:43:59 07/20/19 25 07/21/2024 GI PROFI LE, STOOL , PCR cyclospora cayetanensis Not Detect ed not detect ed Not Available [facility] ([facility]) [address] [place], [address], 07/21/2024 06:43:59 07/20/19 25 07/21/2024 GI PROFI LE, STOOL , PCR entamoeba histolytica Not Detect ed not detect ed Not Available [facility] ([facility]) [address] [facility], [place], [address], 07/21/2024 06:43:59 07/20/19 25 07/21/2024 GI PROFI LE, STOOL , PCR giardia lamblia Not Detect ed not detect ed Not Available [facility] ([facility]) [address] [place] [place], [address], 07/21/2024 06:43:59 07/20/19 25 07/21/2024 GI PROFI LE, STOOL , PCR adenovirus F 40/41 Not Detect ed not detect ed Not Available [facility] ([facility]) [address] [place], [address], 07/21/2024 06:43:59 07/20/19 25 07/21/2024 GI PROFI LE, STOOL , PCR astrovirus Not Detect ed not detect ed Not Available [facility] ([facility]) [address] [place], [address], 07/21/2024 06:43:59 07/20/19 25 07/21/2024 GI PROFI LE, STOOL , PCR norovirus GI/gii Not Detect ed not detect ed Not Available [facility] ([facility]) [address] [facility], [place], [address], 07/21/2024 06:43:59 07/20/19 25 07/21/2024 GI PROFI LE, STOOL , PCR rotavirus A Not Detect ed not detect ed Not Available [facility] ([facility]) [address] [place], [address], 07/21/2024 06:43:59 07/20/19 25 07/21/2024 GI PROFI LE, STOOL , PCR sapovirus Not Detect ed not detect ed Not Available [facility] ([facility]) [address] [place], [address], 07/21/2024 06:43:59 07/20/19 25 07/20/2024 PLEAS E NOTE please note Commen t The date and/o r time of colle ction was not indic ated on the requi sitio n as requi red by state and aniya al law. The date of recei pt of the speci men was used as the colle ction date if not suppl ied. Not Available [facility] ([facility]) [address] [facility], [place], [address], 07/21/2024 06:44:00 08/21/19 25 08/22/2024 STOOL CULTU RE salmonella/s higella screen Final report Not Available [facility] ([facility]) [address] [place], [address], 08/24/2024 18:35:48 08/21/19 25 08/22/2024 STOOL CULTU RE result 1 COMMEN T No Salmo antwan or Shige lla recov ered. Not Available [facility] ([facility]) [address] [facility], [place], [address], 08/24/2024 18:35:48 08/21/19 25 08/22/2024 STOOL CULTU RE E coli shiga toxin EIA Negati ve negati ve Not Available [facility] ([facility]) [address] [place], [address], 08/24/2024 18:35:48 08/21/19 25 08/24/2024 STOOL CULTU RE campylobacte r culture Final report Not Available [facility] ([facility]) [address] [place], [address], 08/24/2024 18:35:48 08/21/19 25 08/24/2024 STOOL CULTU RE result 1 COMMEN T No Campy lobac ter speci es isola conrad. Not Available [facility] ([facility]) [address] [place], [address], 08/24/2024 18:35:48 08/21/19 25 08/21/2024 C DIFFI CILE TOXIN S A+B, EIA C difficile toxins A+B, EIA Negati ve negati ve Not Available [facility] ([facility]) [address] [place], [address], 08/24/2024 18:35:48 09/28/19 25 09/28/2024 COMP. METAB OLIC PANEL (14) glucose 106 mg/dL 70-99 above high normal Not Available [facility] ([facility]) [address] [place], [address], 09/28/2024 12:36:11 09/28/19 25 09/28/2024 COMP. METAB OLIC PANEL (14) BUN 22 mg/dL 8-27 normal Not Available [facility] ([facility]) [address] [place], [address], 09/28/2024 12:36:11 09/28/19 25 09/28/2024 COMP. METAB OLIC PANEL (14) creatinine 1.13 mg/dL 0.76-1 .27 normal Not Available [facility] ([facility]) [address] [place], [address], 09/28/2024 12:36:11 09/28/19 25 09/28/2024 COMP. METAB OLIC PANEL (14) eGFR 72 mL/mi n/1.7 3 >59 normal Not Available [facility] ([facility]) [address] [place], [address], 09/28/2024 12:36:11 09/28/19 25 09/28/2024 COMP. METAB OLIC PANEL (14) interpretati on: Commen t GFR estim ate at the follo wing level for >or=3 month s is class ified as follo ws: GFR WITH KIDNE Y DAMAG E WITHO UT KIDNE Y DAMAG E >or=9 0 Stage 1 Viji l 60-89 Stage 2 Decr eased GFR 30-59 Stage 3 Stage 3 15-29 Stage 4 Stage 4 <15 (or dialy sis) Stage 5 Stage 5 Estim ated GFR will over estim ate true GFR if serum creat inine is risin g as in acute renal failu re and will under estim ate true GFR if serum creat inine is decli tomasz as in resol ving acute renal failu re. Addit ional infor harshad carnes may be found at www.k doqi. org. Not Available [facility] ([facility]) [address] [facility], [place], [address], 09/28/2024 12:36:11 09/28/19 25 09/28/2024 COMP. METAB OLIC PANEL (14) BUN/creatini ne ratio 19 10-24 normal Not Available [facility] ([facility]) [address] [facility], [place], [address], 09/28/2024 12:36:11 09/28/19 25 09/28/2024 COMP. METAB OLIC PANEL (14) sodium 138 mmol/ L 134-14 4 normal Not Available [facility] ([facility]) [address] [place], [address], 09/28/2024 12:36:11 09/28/19 25 09/28/2024 COMP. METAB OLIC PANEL (14) potassium 4.4 mmol/ L 3.5-5. 2 normal Not Available [facility] ([facility]) [address] [place], [address], 09/28/2024 12:36:11 09/28/19 25 09/28/2024 COMP. METAB OLIC PANEL (14) chloride 105 mmol/ L 96-106 normal Not Available [facility] ([facility]) [address] [place], [address], 09/28/2024 12:36:11 09/28/19 25 09/28/2024 COMP. METAB OLIC PANEL (14) carbon dioxide, total 17 mmol/ L 20-29 below low normal Not Available [facility] ([facility]) [address] [place], [address], 09/28/2024 12:36:11 09/28/19 25 09/28/2024 COMP. METAB OLIC PANEL (14) calcium 8.7 mg/dL 8.6-10 .2 normal Not Available [facility] ([facility]) [address] [place], [address], 09/28/2024 12:36:11 09/28/19 25 09/28/2024 COMP. METAB OLIC PANEL (14) protein, total 6.3 g/dL 6.0-8. 5 normal Not Available [facility] ([facility]) [address] [place], [address], 09/28/2024 12:36:11 09/28/19 25 09/28/2024 COMP. METAB OLIC PANEL (14) albumin 3.8 g/dL 3.9-4. 9 below low normal Not Available [facility] ([facility]) [address] [place], [address], 09/28/2024 12:36:11 09/28/19 25 09/28/2024 COMP. METAB OLIC PANEL (14) globulin, total 2.5 g/dL 1.5-4. 5 Not Available [facility] ([facility] [address] [facility] [place], [address], 09/28/2024 12:36:11 09/28/19 25 09/28/2024 COMP. METAB OLIC PANEL (14) bilirubin, total 0.5 mg/dL 0.0-1. 2 normal Not Available [facility] ([facility] [address] [place] [place], [address], 09/28/2024 12:36:11 09/28/19 25 09/28/2024 COMP. METAB OLIC PANEL (14) alkaline phosphatase 60 IU/L 44-121 normal Not Available [facility] ([facility]) [address] [facility], [place], [address], 09/28/2024 12:36:11 09/28/19 25 09/28/2024 COMP. METAB OLIC PANEL (14) AST (SGOT) 41 IU/L 0-40 above high normal Not Available [facility] ([facility]) [address] [place], [address], 09/28/2024 12:36:11 09/28/19 25 09/28/2024 COMP. METAB OLIC PANEL (14) ALT (SGPT) 36 IU/L 0-44 normal Not Available [facility] ([facility]) [address] [place], [address], 09/28/2024 12:36:11 09/28/19 25 09/28/2024 LIPID PANEL cholesterol, total 126 mg/dL 100-19 9 normal Not Available [facility] ([facility]) [address] [place], [address], 09/28/2024 12:36:11 09/28/19 25 09/28/2024 LIPID PANEL triglyceride s 152 mg/dL 0-149 above high normal Not Available [facility] ([facility]) [address] [place], [address], 09/28/2024 12:36:11 09/28/19 25 09/28/2024 LIPID PANEL HDL cholesterol 31 mg/dL >39 below low normal Not Available [facility] ([facility]) [address] [place], [address], 09/28/2024 12:36:11 09/28/19 25 09/28/2024 LIPID PANEL VLDL cholesterol kerline 27 mg/dL 5-40 Not Available [facility] ([facility]) [address] [place], [address], 09/28/2024 12:36:11 09/28/19 25 09/28/2024 LIPID PANEL LDL chol calc (nih) 68 mg/dL 0-99 Not Available [facility] ([facility]) [address] [place], [address], 09/28/2024 12:36:11 09/28/1909/28/2024 LIPID PANEL LDL calc comment: SENIOR BUSINESS PROCESS ANALYST Not Available [facility] ([facility]) [address] [place], [address], 09/28/2024 12:36:11 09/28/19 25 09/28/2024 ALBUM IN/CR EAT RATIO , RANDO M UR creatinine, urine 108.1 mg/dL not estab. normal Not Available [facility] ([facility]) [address] [place], [address], 09/28/2024 12:36:12 09/28/19 25 09/28/2024 ALBUM IN/CR EAT RATIO , RANDO M UR albumin, urine 42.6 ug/mL not estab. Not Available [facility] ([facility]) [address] [facility], [place], [address], 09/28/2024 12:36:12 09/28/1909/28/2024 ALBUM IN/CR EAT RATIO , RANDO M UR alb/creat ratio 39 mg/g_ creat 0-29 above high normal Viji l: 0 - 29 Moder ately incre ased: 30 - 300 Sever elsa incre ased: >300 Not Available [facility] ([facility]) [address] [place], [address], 09/28/2024 12:36:12 09/28/1909/28/2024 HEMOG LOBIN A1C hemoglobin A1C 6.0 % 4.8-5. 6 above high normal Predi abete s: 5.7 - 6.4 Diabe marybel: >6.4 Glyce joelle contr ol for adult s with diabe marybel: <7.0 Not Available [facility] ([facility]) [address] [place], [address], 09/28/2024 12:36:12 09/28/19 25 09/28/2024 PROST ATE-S PECIF IC AG prostate specific Ag 3.2 NG/mL 0.0-4. 0 normal Bimal ECLIA metho dolog y. Accor ding to the Ameri can [employer]rolo g[employer] Ass[employer] iatio n, Serum PSA shoul d decre ase and remai n at undet ectab le level s after radic al prost atect raz. The AUA defin es bioch emica l recur rence as an initi al PSA value 0.2 ng/mL or great er follo wed by a subse quent confi rmato ry PSA value 0.2 ng/mL or great er. Value s obtai amanda with diffe rent assay metho ds or kits canno t be used inter kwong eably . Resul ts canno t be inter prete d as absol quinault evide nce of the prese nce or absen ce of radha rivera se. Not Available [facility] ([facility]) [address] [facility], [place], [address], 09/28/2024 12:36:12 09/28/19 25 09/27/2024 drug scree n, urine AMP negati ve Not Available [facility] [address] [place] [address], [phone], 09/27/2024 10:40:09 09/28/19 25 09/27/2024 drug scree n, urine BAR negati ve Not Available [facility] [address] [place] [address], [phone], 09/27/2024 10:40:09 09/28/19 25 09/27/2024 drug scree n, urine BUP negati ve Not Available [facility] [address] [place] [address], [phone], 09/27/2024 10:40:09 09/28/19 25 09/27/2024 drug scree n, urine BZO negati ve Not Available [facility] [address] [place] [address], [phone], 09/27/2024 10:40:09 09/28/19 25 09/27/2024 drug scree n, urine TOBY negati ve Not Available [facility] [address] [place] [address], [phone], 09/27/2024 10:40:09 09/28/19 25 09/27/2024 drug scree n, urine FTY negati ve Not Available [facility] [address] [place] [address], [phone], 09/27/2024 10:40:09 09/28/19 25 09/27/2024 drug scree n, urine MDMA negati ve Not Available [facility] [address] [place] [address], [phone], 09/27/2024 10:40:09 09/28/19 25 09/27/2024 drug scree n, urine MET negati ve Not Available [facility] [address] [place] [address], [phone], 09/27/2024 10:40:09 09/28/19 25 09/27/2024 drug scree n, urine MOP negati ve Not Available [facility] [address] [place] [address], [phone], 09/27/2024 10:40:09 09/28/19 25 09/27/2024 drug scree n, urine MTD negati ve Not Available [facility] [address] [place] [address], [phone], 09/27/2024 10:40:09 09/28/19 25 09/27/2024 drug scree n, urine OXY negati ve Not Available [facility] [address] [place] [address], [phone], 09/27/2024 10:40:09 09/28/19 25 09/27/2024 drug scree n, urine PCP negati ve Not Available [facility] [address] [place] [address], [phone], 09/27/2024 10:40:09 09/28/19 25 09/27/2024 drug scree n, urine TCA negati ve Not Available [facility] [address] [place] [address], [phone], 09/27/2024 10:40:09 09/28/19 25 09/27/2024 drug scree n, urine THC negati ve Not Available [facility] [address] [place] [address], [phone], 09/27/2024 10:40:09 11/09/19 25 11/09/2024 TSH+F REE T4 TSH 1.500 uIU/m L 0.450- 4.500 normal Not Available [facility] ([facility]) [address] [place], [address], 11/25/2024 00:06:36 11/09/19 25 11/09/2024 TSH+F REE T4 T4,free(dire ct) 1.20 NG/dL 0.82-1 .77 normal Not Available [facility] ([facility]) [address] [place], [address], 11/25/2024 00:06:36 11/09/19 25 11/09/2024 CBC WITH DIFFE RENTI AL/PL ATELE T WBC 8.1 x10e3 /uL 3.4-10 .8 normal Not Available [facility] ([facility]) [address] [place], [address], 11/25/2024 00:06:37 11/09/19 25 11/09/2024 CBC WITH DIFFE RENTI AL/PL ATELE T RBC 5.38 x10e6 /uL 4.14-5 .80 normal Not Available [facility] ([facility]) [address] [place], [address], 11/25/2024 00:06:37 11/09/19 25 11/09/2024 CBC WITH DIFFE RENTI AL/PL ATELE T hemoglobin 15.1 g/dL 13.0-1 7.7 normal Not Available [facility] ([facility]) [address] [place], [address], 11/25/2024 00:06:37 11/09/1911/09/2024 CBC WITH DIFFE RENTI AL/PL ATELE T hematocrit 46.9 % 37.5-5 1.0 normal Not Available [facility] ([facility]) [address] [place], [address], 11/25/2024 00:06:37 11/09/1911/09/2024 CBC WITH DIFFE RENTI AL/PL ATELE T MCV 87 fL 79-97 normal Not Available [facility] ([facility]) [address] [place], [address], 11/25/2024 00:06:37 11/09/1911/09/2024 CBC WITH DIFFE RENTI AL/PL ATELE T MCH 28.1 pg 26.6-3 3.0 normal Not Available [facility] ([facility]) [address] [place], [address], 11/25/2024 00:06:37 11/09/19 25 11/09/2024 CBC WITH DIFFE RENTI AL/PL ATELE T MCHC 32.2 g/dL 31.5-3 5.7 normal Not Available [facility] ([facility]) [address] [place], [address], 11/25/2024 00:06:37 11/09/19 25 11/09/2024 CBC WITH DIFFE RENTI AL/PL ATELE T RDW 13.4 % 11.6-1 5.4 Not Available [facility] ([facility]) [address] [facility], [place], [address], 11/25/2024 00:06:37 11/09/19 25 11/09/2024 CBC WITH DIFFE RENTI AL/PL ATELE T platelets 255 x10e3 /uL 150-45 0 normal Not Available [facility] ([facility]) [address] [facility], [place], [address], 11/25/2024 00:06:37 11/09/1911/09/2024 CBC WITH DIFFE RENTI AL/PL ATELE T neutrophils 57 % not estab. normal Not Available [facility] ([facility]) [address] [facility], [place], [address], 11/25/2024 00:06:37 11/09/19 25 11/09/2024 CBC WITH DIFFE RENTI AL/PL ATELE T lymphs 30 % not estab. normal Not Available [facility] ([facility]) [address] [facility], [place], [address], 11/25/2024 00:06:37 11/09/1911/09/2024 CBC WITH DIFFE RENTI AL/PL ATELE T monocytes 10 % not estab. normal Not Available [facility] ([facility]) [address] [facility], [place], [address], 11/25/2024 00:06:37 11/09/19 25 11/09/2024 CBC WITH DIFFE RENTI AL/PL ATELE T eos 2 % not estab. normal Not Available [facility] ([facility]) [address] [facility], [place], [address], 11/25/2024 00:06:37 11/09/19 25 11/09/2024 CBC WITH DIFFE RENTI AL/PL ATELE T basos 1 % not estab. normal Not Available [facility] ([facility]) [address] [facility], [place], [address], 11/25/2024 00:06:37 11/09/19 25 11/09/2024 CBC WITH DIFFE RENTI AL/PL ATELE T immature cells SENIOR BUSINESS PROCESS ANALYST Not Available [facility] ([facility]) [address] [facility], [place], [address], 11/25/2024 00:06:37 11/09/19 25 11/09/2024 CBC WITH DIFFE RENTI AL/PL ATELE T neutrophils (absolute) 4.7 x10e3 /uL 1.4-7. 0 normal Not Available [facility] ([facility]) [address] [facility], [place], [address], 11/25/2024 00:06:37 11/09/19 25 11/09/2024 CBC WITH DIFFE RENTI AL/PL ATELE T lymphs (absolute) 2.4 x10e3 /uL 0.7-3. 1 normal Not Available [facility] ([facility]) [address] [place], [address], 11/25/2024 00:06:37 11/09/19 25 11/09/2024 CBC WITH DIFFE RENTI AL/PL ATELE T monocytes(ab solute) 0.8 x10e3 /uL 0.1-0. 9 normal Not Available [facility] ([facility]) [address] [place], [address], 11/25/2024 00:06:37 11/09/19 25 11/09/2024 CBC WITH DIFFE RENTI AL/PL ATELE T eos (absolute) 0.1 x10e3 /uL 0.0-0. 4 normal Not Available [facility] ([facility]) [address] [facility], [place], [address], 11/25/2024 00:06:37 11/09/19 25 11/09/2024 CBC WITH DIFFE RENTI AL/PL ATELE T baso (absolute) 0.1 x10e3 /uL 0.0-0. 2 normal Not Available [facility] ([facility]) [address] [place], [address], 11/25/2024 00:06:37 11/09/19 25 11/09/2024 CBC WITH DIFFE RENTI AL/PL ATELE T immature granulocytes 0 % not estab. Not Available [facility] ([facility]) [address] [facility], [place], [address], 11/25/2024 00:06:37 11/09/19 25 11/09/2024 CBC WITH DIFFE RENTI AL/PL ATELE T immature grans (abs) 0.0 x10e3 /uL 0.0-0. 1 Not Available [facility] ([facility]) [address] [facility], [place], [address], 11/25/2024 00:06:37 11/09/19 25 11/09/2024 CBC WITH DIFFE RENTI AL/PL ATELE T NRBC SENIOR BUSINESS PROCESS ANALYST Not Available [facility] ([facility]) [address] [facility], [place], [address], 11/25/2024 00:06:37 11/09/19 25 11/09/2024 CBC WITH DIFFE RENTI AL/PL ATELE T hematology comments: SENIOR BUSINESS PROCESS ANALYST Not Available [facility] ([facility]) [address] [facility], [place], [address], 11/25/2024 00:06:37 11/09/19 25 11/09/2024 IRON AND TIBC iron bind.cap.(TI BC) 358 ug/dL 250-45 0 normal Not Available [facility] ([facility]) [address] [facility], [place], [address], 11/25/2024 00:06:37 11/09/19 25 11/09/2024 IRON AND TIBC UIBC 277 ug/dL 111-34 3 normal Not Available [facility] ([facility]) [address] [place] [place], [address], 11/25/2024 00:06:37 11/09/1911/09/2024 IRON AND TIBC iron 81 ug/dL 38-169 normal Not Available [facility] ([facility]) [address] [place] [place], [address], 11/25/2024 00:06:37 11/09/1911/09/2024 IRON AND TIBC iron saturation 23 % 15-55 normal Not Available [facility] ([facility]) [address] [place] [place], [address], 11/25/2024 00:06:37 11/09/1911/09/2024 VITAM IN B12 AND FOLAT E vitamin B12 759 pg/mL 232-12 45 normal Not Available [facility] ([facility]) [address] [facility], [place], [address], 11/25/2024 00:06:38 11/09/1911/09/2024 VITAM IN B12 AND FOLAT E folate (folic acid), serum 4.6 NG/mL >3.0 normal A serum folat e nevaeh ntrat ion of less than 3.1 ng/mL is consi dered to repre sent clini kerline defic iency . Not Available [facility] ([facility]) [address] [facility], [place], [address], 11/25/2024 00:06:38 11/09/1911/14/2024 VITAM IN B6, PLASM A vitamin B6 55.6 ug/L 3.4-65 .2 normal Defic iency : <3.4 Leonora nal: 3.4 - 5.1 Adequ ate: >5.1 Not Available [facility] ([facility]) [address] [place], [address], 11/25/2024 00:06:38 11/09/1911/09/2024 VITAM IN D, 25-HY DROXY vitamin D, 25-hydroxy 54.0 NG/mL 30.0-1 00.0 Vitam in D defic iency has been defin ed by the Insti tute of Medic ine and an Endoc rine Socie ty pract ice guide line as a level of serum 25-OH vitam in D less than 20 ng/mL (1,2) . The Endoc rine Socie ty went on to furth er defin e vitam in D insuf ficie ncy as a level betwe en 21 and 29 ng/mL (2). 1. IOM (Inst itute of Medic ine). 2010. Dieta ry refer ence noel es for calci um and D. April moura [place]: [facility] . 2. Leno estes MF, Al jarrett [place], Brenda off-F tani i [place], et al. Evalu ation , treat ment, and preve ntion of vitam in D defic iency : an Endoc rine Socie ty clini kerline pract ice guide line. JCEM. 2010; 96(7) :1911 -30. Not Available [facility] ([facility]) [address] [place], [address], 11/25/2024 00:06:39 11/09/1911/10/2024 MYAST HENIA GRAVI S PROFI LE AChR binding abs, serum <0.07 nmol/ L 0.00-0 .24 Negat cydney: 0.00 - 0.24 Borde rline : 0.25 - 0.40 Posit cydney: >0.40 Not Available [facility] ([facility]) [address] [place], [address], 11/25/2024 00:06:39 11/09/1911/11/2024 MYAST HENIA GRAVI S PROFI LE striation abs, serum Negati ve neg:<1 :100 Not Available [facility] ([facility]) [address] [place], [address], 11/25/2024 00:06:39 09/26/20 25 11/12/2024 MYAST HENIA GRAVI S PROFI LE AChR blocking abs, serum 24 % 0-25 Negat cydney: 0 - 25 Borde rline : 26 - 30 Posit cydney: >30 Not Available [facility] ([facility]) [address] [facility], [place], [address], 11/25/2024 00:06:39 11/09/19 25 11/17/2024 MYAST HENIA GRAVI S PROFI LE AChR-modulat ing Ab 0 % 0-45 Inter preti ve Infor matio n: Negat cydney: 0 - 45% Posit cydney: > 45% No singl e value for AChR- modul ating antib kevin shoul d be used as a sole basis for diagn osis or respo nse to thera py. Not Available [facility] ([facility]) [address] [facility], [place], [address], 11/25/2024 00:06:39 11/09/1911/17/2024 MYAST HENIA GRAVI S PROFI LE reflex information Commen t Refle x test indic ated. Not Available [facility] ([facility]) [address] [facility], [place], [address], 11/25/2024 00:06:39 11/09/1911/25/2024 MUSK ABS, SERUM musk abs, serum <1.0 U/mL Refer ence Range : Negat cydney: <1.0 Posit cydney: 1.0 or highe r This test was devel oped and its perfo rmanc e fide cteri stics deter mined by [facility]. It has not been clear ed or appro jesenia by the Food and Drug Admin istra tion. Not Available [facility] [address] [place], [address], 11/25/2024 00:06:40 11/09/19 25 11/09/2024 MAGNE SIUM magnesium 2.2 mg/dL 1.6-2. 3 normal Not Available [facility] ([facility]) [address], [place], [address], 11/25/2024 00:06:40 07/31/19 CT, abdom en + pelvi s, w/o contr ast No observ ation record ed. [email or web address] [facility] [address], [place], [address], 08/06/2024 11:56:40 11/05/1910/30/2024 , [facility] ardio gram No observ ation record ed. [email or web address] [facility] [address], [place], [address], 11/06/2024 10:49:39 11/22/1911/20/2024 elect romyo gram + nerve condu ction study No observ ation record ed. [facility] [place] [address], [place], [place], [address], 11/25/2024 10:23:40 11/27/1911/20/2024 elect romyo gram + nerve condu ction study No observ ation record ed. [facility] (Med Record) [address], [place], [place], [address], 12/11/2024 11:13:57 11/28/1911/25/2024 elect romyo gram + nerve condu ction study No observ ation record ed. [facility] [place] [address], [place], [place], [address], 12/11/2024 11:47:34 12/12/1911/20/2024 elect romyo gram No observ ation record ed. [email or web address] [facility] [address], [place], [place], [address], 12/16/2024 13:35:07 Result Notes None recorded. Problems Name Problem SNOMED Code Status Onset Date Resolution Date Notes Provider Name and Address Organization Details Recorded Time Diabetes mellitus 68554154 Active 2021 Do Lambert, [employer] [address], [place], [address], [place] - [facility] 2 11:07:17 Benign prostatic hyperplasia without outflow obstruction 275240053 Active 2022 Do Lambert, [employer] [address], [place], [address], [place] - [facility] 3 13:09:53 Chronic kidney disease stage 2 386133578 Active 2023 Do Lambert, [employer] [address], [place], [address], [place] - [facility] 4 16:55:57 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 Procedures Surgical History Date Name Laterality Status Provider Name and Address Organization Details Recorded Time 03/25/19 25 Medication Reconcilliation completed Norma Reyna [place] - [facility] 03/25/2024 13:07:13 12/29/19 24 Advance Care Planning completed Reta Carranza [place] - [facility] 12/29/2023 11:11:53 12/29/19 24 Functional Status Assessed completed Reta Carranza [place] - [facility] 12/29/2023 11:11:53 12/24/19 23 Suture/Staple removal completed Do Fausto [employer] [address], [place], [address], [place] [facility] 12/23/2022 10:15:30 12/01/19 23 Cryosurgery Dermatology completed Kely Escalona [employer] [address], [place], [address], [place] [facility] 11/30/2022 13:15:20 07/12/20 23 Shave Biopsy Face, Ears, eyelids, nose, lips, muc membranes completed Kely Escalona APRN [address], [place], [address], [facility] - [facility] 08/24/2022 10:36:02 07/22/19 23 Cryosurgery Dermatology completed Kely Escalona APRN [address], [place], [address], [facility] - [facility] 07/21/2022 14:53:44 05/04/19 22 Medication Reconcilliation completed Norma Axel [place] - [facility] 05/03/2021 14:06:38 Imaging Results None [...] Not Available Not Available No t Available [employer]oad[employer]ocl[employer] Ultra Test strips USE DIRECTED active Not [...] Available No t Available FreeStyle Uma 2 Warren USE DIRECTED active Not Available Not Available [...] Available Sobia Pen Needle 32 gauge x 5/32 USE as directed with lantus solostar active Not Available Not Available No t Available Vitals Date Recorded Body height Body mass index (BMI) Body weight Body temperature Heart rate Oxygen saturation Oxygen saturation in Arterial blood by Pulse oximetry Respiratory rate Systolic And Diastolic Provider Name and Address Organization Details Last Updated DateTime 5 182.88 cm 24.1 kg/m2 86496.4 4 g 97.7 [degF] 89 /min 97 % 97 % 18 /min 116/60 mm[Hg] [employer] - [facility] 5 15:47:23 Date Recorded Body height Body mass index (BMI) Body weight Body temperature Heart rate Oxygen saturation Oxygen saturation in Arterial blood by Pulse oximetry Respiratory rate Systolic And Diastolic Provider Name and Address Organization Details Last Updated DateTime 5 182.88 cm 24.4 kg/m2 14375.6 3 g 97.7 [degF] 82 /min 99 % 99 % 18 /min 118/60 mm[Hg] [employer] - [facility] 5 10:18:56 Date Recorded Body height Body temperature Body mass index (BMI) Body weight Heart rate Oxygen saturation Oxygen saturation in Arterial blood by Pulse oximetry Respiratory rate Systolic And Diastolic Provider Name and Address Organization Details Last Updated DateTime 5 182.88 cm 97.7 [degF] 24.3 kg/m2 05997.0 3 g 66 /min 98 % 98 % 20 /min 100/60 mm[Hg] Britney Etienne [place] - [facility] 5 10:43:52 Date Recorded Body height Respiratory rate Body mass index (BMI) Body weight Heart rate Oxygen saturation Oxygen saturation in Arterial blood by Pulse oximetry Body temperature Systolic And Diastolic Provider Name and Address Organization Details Last Updated DateTime 5 182.88 cm 18 /min 24.7 kg/m2 64997.8 1 g 58 /min 97 % 97 % 98 [degF] 108/64 mm[Hg] Nyasia Schneidergordo [place] - [facility] 5 11:13:29 Date Recorded Body height Body mass index (BMI) Body weight Body temperature Heart rate Oxygen saturation Oxygen saturation in Arterial blood by Pulse oximetry Respiratory rate Pain severity - 0-10 verbal numeric rating [Score] - Reported Systolic And Diastolic Provider Name and Address Organization Details Last Updated DateTime 5 182.88 cm 25.4 kg/m2 45963.4 7 g 98.1 [degF] 60 /min 97 % 97 % 18 /min 4 124/72 mm[Hg] Rand Hampton [place] - [facility] 5 10:51:59 Social History Question Answer Notes LastModified by Organizat ion Details LastModified Time Tobacco Smoking Status Former Smoker Norma calixto [place] - [facility] 04/27/2021 13:28:13 Do You Have An Advance Directive? No Information not available 04/27/2021 How Many Years Have You Consumed Alcohol? 30 [email or web address] Information not available 08/05/2024 Are You Blind Or Do You Have Difficulty Seeing? No [email or web address] Information not available 04/27/2021 Is Blood Transfusion Acceptable In An Emergency? Yes [email or web address] Information not available 08/05/2024 What Is Your Level Of Caffeine Consumption? Occasional [email or web address] Information not available 04/27/2021 In The 14 Days Before Symptom Onset, Have You Had Close Contact With A Laboratory-[facility]-19 While That Case Was Ill? No [email or web address] Information not available 04/27/2021 In The 14 Days Before Symptom Onset, Have You Had Close Contact With A Person Who Is Under Investigation For COVID-19 While That Person Was Ill? No Information not available 04/27/2021 Have You Been To An Area Known To Be High Risk For COVID-19? No [email or web address] Information not available 04/27/2021 Are You Deaf Or Do You Have Serious Difficulty Hearing? No [email or web address] Information not available 04/27/2021 What Type Of Diet Are You Following? REGULAR [email or web address] Information not available 04/27/2021 Have You Processed Blood Or Body Fluids From An Ebola Virus Disease Patient Without Appropriate PPE? No Information not available 04/27/2021 Do You Reside In Or Have You Traveled To An Area Where Ebola Virus Transmission Is Active? No Information not available 04/27/2021 What Is The Highest Grade Or Level Of School You Have Completed Or The Highest Degree You Have Received? [id number] [email or web address] Information not available 08/05/2024 Have There Been Any Changes To Your Family Or Social Situation? No Information no t available 04/27/2021 When Did You Quit Smoking? 1-5yearssincel astcigarette [email or web address] Information not available 04/27/2021 Have You Recently Or Are You Planning To Travel To An Area With Zika Virus? No [email or web address] Information not available 04/27/2021 How Many Years Have You Used Illicit Or Recreational Drugs? 0 Information not available 08/05/2024 What Was The Date Of Your Most Recent Tobacco Screening? 06/25/2024 [email or web address] Information not available 06/25/2024 Do You Use Protection Against STDs? No Information not available 08/05/2024 What Is Your Relationship Status? [email or web address] Information not available 08/05/2024 Do You Use Your Seat Belt Or Car Seat Routinely? Yes [email or web address] Information not available 08/05/2024 Are You Sexually Active? Yes [email or web address] Information not available 06/25/2024 Do You Have Smoke And Carbon Monoxide Detectors In Your Home? Yes [email or web address] Information not available 04/27/2021 At What Age Did You Start Smoking Tobacco? 11 [email or web address] Information not available 08/05/2024 Are You Passively Exposed To Smoke? No [email or web address] Information no t available 04/27/2021 Do You Use Sunscreen Routinely? No [email or web address] Information not available 08/05/2024 Has Tobacco Cessation Counseling Been Provided? Yes [email or web address] Information not available 06/20/2023 On What Date Was Tobacco Cessation Counseling Provided? 06/25/2024 Information not available 06/25/2024 How Many Years Have You Smoked Tobacco? 40 [email or web address] Information not available 04/27/2021 Do You Have Difficulty Walking Or Climbing Stairs? No Information not available 04/27/2021 Sex: Male Functional Status Question Answer Note LastModified by Organizat ion Details LastModified Time Do you use any illicit or recreational drugs? No Information not available 04/27/2021 Do you or have you ever used any other forms of tobacco or nicotine? No [email or web address] Information not available 04/27/2021 What is your level of alcohol consumption? Occasional [email or web address] Information not available 04/27/2021 Are you currently employed? No [email or web address] Information not available 04/27/2021 Do you have transportation difficulties? No [email or web address] Information not available 04/27/2021 Do you have difficulty doing errands alone? No [email or web address] Information not available 04/27/2021 Are you able to care for yourself independently? Yes [email or web address] Information not available 04/27/2021 Do you have difficulty dressing, bathing, grooming, or toileting? No [email or web address] Information not available 04/27/2021 Do you or have you ever used e-cigarettes or vape? Never used electronic cigarettes [email or web address] Information not available 08/05/2024 What is your exercise level? Moderate Information not available 08/05/2024 Mental Status Question Answer Note LastModified by Organizat ion Details LastModified Time Do you feel stressed (tense, restless, nervous, or anxious, or unable to sleep at night)? [id number] [email or web address] Information not available 08/05/2024 Do you have difficulty concentrating, remembering or making decisions? No [email or web address] Information no t available 04/27/2021 Family History Nothing Reported. Medical History Condition Response Pancreatitis N Coronary Artery Disease N Other N Gout N Atrial Fibrillation N congenital heart disease N Blood Diseases N Kidney Stones N Hyperthyroidism N Blood Transfusion N Rheumatoid arthritis N Erectile Dysfunction N amputation N Colonoscopy N Skin Lesions N COPD N Depression N Pneumonia N Incontinence N Murmur N Edema N Alzheimer's Disease N Migraine Headaches N Tobacco Abuse N Anxiety Disorder N Hemorrhoids N Muscle, Joint, or Bone Problems N Obesity N Vision or Eye Problems N Arthritis N Restless Leg Syndrome N Polyps N Infertility N Mental Disorder N Carpal Tunnel N Acid Reflux (GERD) N Cancer N Varicosities N Stroke N Tendonitis N Crohn's Disease N Hypercholesterolemia N Skin Cancer N Headaches N Fibromyalgia N Anal Fissure N Irritable Bowel Syndrome N Kidney Disease N Heart Problems N [...] Than N Lung Disease N Hypothyroidism N Defects or Inherited Disease N Developmental or Behavioral Disorders N Breast Problem N Difficulty Swallowing N Ovarian Cyst N Anesthesia Complications N Testosterone Deficiency N Meniere's disease N Head Injury/Concussion N Interstitial Cystitis N Congenital Anomalies N Hypoglycemia N Blood clot N Vitamin D Deficiency N Cellulitis N Endometriosis N Fracture N Bladder or Kidney Problems N Colorectal Cancer N Liver Disease N Panic Disorder N Schizophrenia N Concussion N Spina Bifida N Allergies/Hayfever N Osteoarthritis N Parkinson's Disease N Disc Protrusion N STI N Esophagitis N Angina N Thyroid Problems N GI Problems N ADD/ADHD N Anemia N Multiple Sclerosis N Abnormal PAP N Lumbago N Mental Illness N Psychiatric Illness N Diabetes Y Ovarian Cancer N Bedwetting N Degenerative Disc Disease N Seizures/Epilepsy N Congestive Heart Failure (CHF) N Hyperlipidemia N Syncope N Insomnia N Eczema N Abuse/Domestic Violence N Attention Deficient Disorder N Diverticulitis N Dementia N Ulcerative colitis N Cerebrovascular Disease N Depression N Guillain-Carbon N Sleep Apnea N Aneurysm N Bronchitis N Heart Disease N Suicidal Ideation N Pre-Eclampsia N Hypertension N Osteoporosis N Immunizations Vaccine Type Date Status Note Provider Nam e and Address Organization Details Recorded Time HepB-CpG 05/26/19 24 completed Not Available [facility] 09/27/2024 10:36:34 Influenza, MDCK, quadrivalent, PF 04/10/19 24 completed Nyasia Ste[place], [place] - [facility] 11/08/2024 11:05:03 RSV, recombinant, protein subunit RSVpreF, adjuvant reconstituted, 0.5 mL, PF 04/10/19 24 completed Nyasia Stears null, [place] - [facility] 11/08/2024 11:05:03 Tdap 06/20/19 24 cancelled patient objection Do Lambert APRN [address], [place], [address], [place] [facility] 06/26/2023 08:34:29 zoster recombinant 03/07/19 24 completed Do Lambert APRN [address], [place], [address], [place] [facility] 04/04/2023 13:11:37 zoster recombinant 12/28/19 23 completed Do Lambert APRN [address], [place], [place], [address] [place] [address], [place] [facility] 04/04/2023 13:11:37 Respiratory syncytial virus (RSV) MAB, unspecified 04/10/19 completed Norma Reyna [place], [place] - [facility] 04/21/2023 14:13:48 influenza, unspecified formulation 04/10/19 completed Nyasia [place] [facility] 11/08/2024 11:05:03 Past Encounters Encounter ID Performer Location Encounter Start Date Encounter Closed Date Diagnosis/Indication Diagnosis SNOMED-CT Code Diagnosis ICD10 Code Diagnosis IMO Codes Diagnosis Note [id number] Do Lambert APRN [address] [address] 04/27/2021 13:12:27 04/27/2021 14:20:36 Screening for malignant neoplasm of colon 813948823 Z12.11 Screening for cardiovascular system disease 373500751 Z13.6 Fatigue 76831847 R53.83 General ex amination of patient 422617844 Z00.00 Screening for malignant neoplasm of prostate 379346393 Z12.5 Tobacco de pendence in remission 408671817 F17.201 Hepatitis C screening 41 0867885 Z11.59 HIV screening 438542012 Z11.4 [id number] Do Lambert [employer] [address] [address] 05/03/2021 13:37:22 05/03/2021 14:36:36 Uncontrolled type 2 diabetes mellitus 551200548 E11.65 RTC in 3 months for labs. Will call office when refills needed. [id number] Do Lambert [address] [address] 10/11/2021 08:30:25 10/11/2021 10:54:00 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 2 diabetes mellitus 9338254115 107 E11.42 OARRS reviewed. Controlled substance agreement on file. [id number] Do Lambert [address] [address] 01/14/2022 07:51:58 01/14/2022 08:42:16 Diabetes mellitus 95439270 E13.42 Last attempt at [facility]. Provided referral informatio n for [facility]. 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 2 diabetes mellitus 6508298809 107 E11.42 OARRS reviewed. Controlled substance agreement on file 10/11/21. [id number] Do Lambert [address] [address] 07/04/2022 08:50:10 07/04/2022 09:31:16 Diabetes mellitus 43242908 E13.42 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 2 diabetes mellitus 7717597991 107 E11.42 OARRS reviewed. Controlled substance agreement on file 10/11/21. Lesion of skin of face 5083101493 06 L98.9 [id number] Do Crouchmarcos [address] [address] 03/15/2022 08:07:33 03/15/2022 08:46:27 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 2 diabetes mellitus 3900215559 107 E11.42 OARRS reviewed. Controlled substance agreement on file 10/11/21. Finding of fluid behind tympanic membrane 244844196 H73.899 Insomnia 667205033 G47.0 0 [id number] Kely Escalona APRN [facility] [address] [place] [address] 07/21/2022 13:36:28 07/21/2022 15:03:11 Senile hyperkeratosis 315891329 L82.1 cryo applied x2 Neoplasm of skin 2468325 04 D49.2 return for shave to rule out BCC prior to referring to MOHs surgery Senile angioma 7315948 I 78.1 [id number] Kely Escalona APRN [facility] [address] [place] [address] 08/24/2022 09:21:12 08/24/2022 10:47:22 Neoplasm of skin 141333679 D49.2 shave to rule out BCC prior to referring to MOHs surgery [id number] Do Lambert APRN [facility] [address] [address] 09/13/2022 08:27:29 09/13/2022 09:36:12 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 2 diabetes mellitus 2381494469 107 E11.42 OARRS reviewed. Controlled substance agreement on file 10/11/21. Body mass index 25-29 - overweight 512376307 Z68.26 Overweight 690232933 E66 .3 [id number] Do Lambert APRN [facility] [address] [address] 03/20/2023 07:56:42 03/20/2023 08:39:39 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 2 diabetes mellitus 5293799379 107 E11.42 OARRS reviewed. Controlled substance agreement on file 03/20/23. Diabetes mellitus 984222 09 E13.42 Restart lantus. RTC in 3 months for dm f/u [id number] Kely Escalona APRN [facility] [address] [place] [address] 11/30/2022 10:37:18 11/30/2022 13:22:45 Basal cell carcinoma of skin 257646368 C44.91 Senile hyperkeratosis 39 0486959 L82.1 cryo applied x3 [id number] Do Lambert APRN [facility] [address] 12/16/2022 08:10:43 12/16/2022 09:01:59 Type 2 diabetes mellitus without complication 295046543 E11.9 Patient ms dical record not available 169003041 Z76.89 Finding of fluid behind tympanic membrane 360312609 H73.899 Benign pro static hyperplasia without outflow obstruction 528229485 N40.0 [id number] Do Lambert [employer] [address] [address] 12/23/2022 09:48:12 12/23/2022 10:15:56 Removal of suture 40245022 Z48.02 RTC as needed [id number] Do Lambert [address] [address] 12/30/2022 09:25:51 12/30/2022 09:35:58 Diabetes mellitus 82343349 E13.42 [id number] Do Lambert [address] [address] 01/19/2023 09:26:37 01/19/2023 09:31:49 Diabetes mellitus 10539663 E13.42 [id number] Do Lambert [address] [address] 06/20/2023 09:14:24 06/20/2023 10:16:46 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 2 diabetes mellitus 2494061569 107 E11.42 OARRS reviewed. Controlled substance agreement on file 03/20/23. Benign pro static hyperplasia with outflow obstruction 924941008 N40.1 Patient me dical record not available 722009660 Z76.89 Finding of fluid behind tympanic membrane 220171737 H73.899 Mixed hyperlipidemia 267 267198 E78.2 Persistent insomnia 1919 15082 G47.09 Chest pain 66561787 R07. 9 Chronic ki dney disease stage 2 965739343 N18.2 Active or passive immunization 948338102 Z23 General ex amination of patient 275431049 Z00.00 Exercises education, guidance, and counseling 622698048 Z71.82 The patient was advised to continue a healthy diet and exercise regularly. Dietary ma nagement surveillance 707272418 Z71.3 [id number] Do Lambert APRN [address] [address] 07/06/2023 10:14:52 07/06/2023 10:25:27 Diabetes mellitus 05972330 E13.42 Restart lantus. RTC in 3 months for dm f/u [id number] Do Lambert APRN [place] [address] [address] 09/26/2023 08:34:15 09/26/2023 09:13:59 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 2 diabetes mellitus 8189888154 107 E11.42 OARRS reviewed. Controlled substance agreement on file 03/20/23. Benign pro static hyperplasia with outflow obstruction 549074141 N40.1 [id number] [facility] [address] [place] [address] 10/11/2023 12:27:49 10/11/2023 13:31:38 Seborrheic dermatitis 13050001 L21.9 offered reassuranc e that I do not see any clinical evidence of recurrence of a BCC [id number] Do Lambert APRN [address] [address] 12/29/2023 11:00:01 12/29/2023 11:44:32 Adult health examination 931435856 Z00.00 Depression screening 171 058330 Z13.31 A depression screening was completed via a standardiz ed screening tool. 5 minutes were spent discussing depression screening results and risk factors. Examinatio n of blood pressure 625933741 Z01.30 Diet education 61383444 Z71.3 Counseling 233043842 Z71 .82 Exercise counseling . Patient encouraged to exercise 30 minutes 5 days a week. At [facility] risk for falls 645487347 Z91.81 STEADI FAST screening score of __3___. Advance care planning 71 9193505 Z71.89 Diabetes mellitus 299238 09 E13.42 Decreased hearing 931707 001 H91.93 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 2 diabetes mellitus 3054130980 107 E11.42 OARRS reviewed. Controlled substance agreement on file 03/20/23. [id number] Do Lambert [employer] [place] [address] [place] [address] 03/25/2024 12:50:51 03/25/2024 14:06:05 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 2 diabetes mellitus 8683992074 107 E11.42 OARRS reviewed. Controlled substance agreement on file 03/20/23. Vaccination declined 489 6227337 Z28.21 Seasonal flu vaccine offered and declined [id number] Do Lambert [employer] [address] [address] 04/16/2024 09:52:55 04/16/2024 10:53:17 Viral screening 251062716 Z11.59 Low blood pressure 00556 003 I95.9 Hold lisinopril . Appt scheduled with Cardiology tomorrow morning 9AM. Stay well hydrated. Monitor BP at home few times per week, more frequently over next 24 hours. Keep log and bring to appointmen t. [id number] Do Lambert [address] [address] 06/25/2024 08:37:38 06/25/2024 09:20:33 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 2 diabetes mellitus 7691591950 107 E11.42 OARRS reviewed. Controlled substance agreement on file 03/25/24. Body mass index 25-29 - overweight 575974248 E66.3 89462503 Overweight 838483355 E66 .3 [id number] Do Lambert [employer] [address] [address] 07/16/2024 15:34:54 07/16/2024 16:42:54 Abdominal pain 81054961 R10.9 Unintentio nal weight loss 959842096 R63.4 [id number] Fever 881589580 R50.9 554696 Easy bruising 696674671 R23.3 594924 Muscle weakness 16381440 M62.81 [id number] Acute diarrhea 243042388 R19.7 [id number] Do Lambert [place] [address] [place] [address] 08/05/2024 10:08:32 08/05/2024 10:58:34 Lyme disease 05149183 A69.20 15014 Completed full course doxycyclin e. Symptoms typically improve within a few weeks, though fatigue may take longer to resolve. Good sleep hygiene encouraged . Light activity and pacing recommende d with stress management . Keep a symptom diary. Well balanced diet and hydration important. Contact office with new or worsening symptoms: fever, rash, joint pain, nerve problems. Fatigue 39964646 R53.83 [id number] Labs in October Do Lambert [facility] [address] [place] [address] 09/27/2024 10:36:22 09/27/2024 11:24:56 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 2 diabetes mellitus 8525277921 107 E11.42 OARRS reviewed. Controlled substance agreement on file 03/25/24. Prostate s pecific antigen measurement 03977374 Z12.5 732517 [id number] Rosalie Salas [address] [address] 11/08/2024 10:28:26 11/08/2024 11:52:45 Numbness and tingling sensation of skin 8930748500 02 R20.0 R20.2 [id number] labsnctneu rology consultif worsen or no improvemen t go to ed eugenie [id number] Rosalie Salas [address] [address] 12/13/2024 10:29:23 12/13/2024 11:36:25 Bilateral carpal tunnel syndrome 5769360665 8765560 G56.03 631553 splints at nightstero idsrefer to orthoif worsen or no improvemen t return Health Concerns Section Related Observation LastModified by Organization Detai ls LastModified Time None Recorded Concern Status LastModified by Organization Details LastModified Time None Recorded Advance Directives Directive N: Payers Insurance Date Sequence Insurance Name Policy Number Policy Jimenez Covered Member ID Jimenez Member ID Guarantor Name 2024 2 [place] Iker Isaac [id number] Iker Estes Isaac 08/20/2024 1 [place] Iker Estes Isaac [id number] Iker Estes Isaac 12/12/2024 NGS [facility] [place] [facility] (MEDICARE) Iker Estes Isaac [id number] Iker Estes Isaac 11/12/2024 [place] Iker Marcos Gray [id number] Iker K Isaac 11/07/2023 2 [employer] [place] - [place] ON OR AFTER 2022 (MEDICAID REPLACEMENT - HMO) Iker K Isaac [id number] Iker Estes Isaac 12/12/2024 1 [employer] (MEDICARE REPLACEMENT/AD VANTAGE - PPO) [id number] Iker K Isaac [id number] Iker K Isaac 11/12/2024 [place] Iker K Isaac [id number] Iker K Isaac 07/13/2021 1 *SELF PAY* Judi Estes Isaac 09/13/2024 2 [place] Iker K Isaac [id number] Iker Estes Isaac 11/12/2024 [place] [facility] [place] [facility] Ikre Estes Isaac [id number] Iker Estes Isaac 09/13/2024 2 [employer] (PPO) Iker Isaac [id number] Iker K Isaac 09/10/2022 1 UNSPECIFIED REMIT PAYOR Iker Gray Notes Date Note Type Note Provider Name and Address Organization Details Recorded Time 07/16/2024 text/html Abdominal PainReported by PatientROS as noted in the HPI Diarrhea started Monday. No worse, no better since onset. Reports multiple stools today too many to count . Has decreased some since Monday. Has tried immodium and peptol bismul. Did not help. Abd pain has improved, still present. Describes pain as cramping. Comes and goes. Sometimes relieved by BM but not always. Green, watery, no bulk. Some nausea, no vomiting. No bloating. Jello, sprite, veggie soup, chicken soup on Monday and Monday. No appetite on Monday and Monday. T103 Monday. Easy bruising. Wakes up with bruising. Perfect circles, sometimes with a knot underneath. Denies injury. Generalized weakness. Muscle cramps daily, sometimes twice per day. States this has been off/on for a long time . Denies joint pain. Weight loss of 9lbs over last 3 weeks. Denies changes in urinary habits. Do EPHRAIM Lambert [address], [place], [address], [employer] [facility] 07/16/2024 16:44:11 08/05/2024 text/html ROS as noted in the HPI Patient presents for salmonella, cdiff, lyme disease f/u. States fatigue still present. No diarrhea. No fever. Denies flu like symptoms. Denies joint pain. Feels much much better, almost 100% normal . Up by 4am, bed by 9pm. Naps during the day 1 hour total. Sleeps well. Feels well rested in the morning. Stays busy/active most of the day. No abd pain. Do Lambert APRN [address], [place], [address], [employer] [facility] 08/05/2024 14:49:22 09/27/2024 text/html ROS as noted in the HPI Patient presents for peripheral neuropathy due to diabetes. Takes lyrica twice daily. States this controls symptoms well. Reports fasting AM glucose 110. Highest 204 I cheated and drank a Mt Dew, lowest 60 but I didn't eat anything . Currently taking lantus 15 units, Jardiance 25mg daily. Does not walk barefoot. Keeps good watch on feet weekly. Last eye exam 2023 with Eve. Negative for retinopathy. Wearing CGM. Send lipids to Cardiology Do EPHRAIM Lambert [address], [place], [address], [employer] [facility] 09/27/2024 14:35:57 11/08/2024 text/html ROS as noted in the HPI 64 year old male who presents to the office today with concerns ofnausea todaynumbness in feet/legs/arms and hands for weeks-- wants referral to neurologyd heart attack w/4 stents in February 2025cdiff twice in 2024lyme disease and salmonella poisoning in 2024 Raquelmelissasally Robleroabdirahman, EPHRAIM [address], [place], [address], [place] - [facility] 12/16/2024 16:11:27 12/13/2024 text/html ROS as noted in the HPI 64 yr old male presents for a follow up on abnormal tests- CTS abbie- has appt with neurology in January. numbness and tingling hands and feet. dx neuropathy- feet, cramps in legs Raquelheather abdirahman, EPHRAIM [address], [place], [address], [place] - [facility] 12/13/2024 11:53:14
--- OUTSIDE RECORDS SUMMARY | 2024-12-18 14:06 | XMS_ITS | Continuity of Care Document ---
Author Organization Sabrina Gómez [facility] Address [address] [place] [address] Assessment No assessment recorded. Plan of Treatment Reminders Order Date Submit Date Provider Last Modified By Organization Details Last Modified Time Details Appointments Medicare AWE 40mins 2024 09:00A M Do Lambert, HEAD CHARGER Not available Not available Not available Lab magnesium , serum or plasma 2024 025 MARGARET [facility], [address], [address], [place], [address], 11/25/2024 00:06:40 cobalamin and folate panel, serum 2024 025 MARGARET [facility], [address], [address], [place], [address], 11/25/2024 00:06:38 vitamin D, 25-hydrox y, total, serum 2024 025 MARGARET [facility], [address], [place] [address], [place], [address], 11/25/2024 00:06:39 CBC w/ auto diff 2024 025 MARGARET [facility], [address], [address], [place], [address], 11/25/2024 00:06:37 iron + total iron-bind ing capacity (TIBC), serum 2024 025 MARGARET [facility], [address], [place] [address], [place], [address], 11/25/2024 00:06:37 TSH + free T4, serum 2024 025 MARGARET [facility], [address], [place] [address], [place], [address], 11/25/2024 00:06:36 vitamin B6 + metabolit es panel, serum or plasma 2024 025 MARGARET [facility], [address], [place] [address], [place], [address], 11/25/2024 00:06:38 short myastheni a gravis panel, serum 2024 025 MARGARET [facility], [address], [place] [address], [place], [address], 11/25/2024 00:06:[address] referral 2024 025 MARGARET Pineda MD, [address], [place], [address], 12/13/2024 11:21:58 Procedures None recorded. Surgeries None recorded. Imaging electromy ogram + nerve conductio n study - bilateral legs/feet and arms/hand s 2024 025 [facility] [address], [place], [address], 11/21/2024 15:14:07 Medication Orders None recorded. Patient TargetsNo targets recorded. Patient InstructionsNo instructions recorded. Reason for Referral Neurologist Referral for Num bness and tingling sensation of skin Referring Physician: Rosalie Salas, Family Medicine, Encounter Date: 11/08/2024 Results Created Date Observation Date Name Description Value Unit Range Abnormal Flag Note LastModifiedBy Organization Detail LastModifiedTime 11/09/1911/09/2024 TSH+F REE T4 TSH 1.500 uIU/m L 0.450- 4.500 normal Not Available [facility] ([facility]) [address] [place], [address], 11/25/2024 00:06:36 11/09/1911/09/2024 TSH+F REE T4 T4,free(dire ct) 1.20 NG/dL 0.82-1 .77 normal Not Available [facility] ([facility]) [address] [place], [address], 11/25/2024 00:06:36 11/09/19 25 11/09/2024 CBC WITH DIFFE RENTI AL/PL ATELE T WBC 8.1 x10e3 /uL 3.4-10 .8 normal Not Available [facility] ([facility]) [address] [place], [address], 11/25/2024 00:06:37 11/09/19 25 11/09/2024 CBC WITH DIFFE RENTI AL/PL ATELE T RBC 5.38 x10e6 /uL 4.14-5 .80 normal Not Available [facility] ([facility]) [address] [place], [address], 11/25/2024 00:06:37 11/09/19 25 11/09/2024 CBC WITH DIFFE RENTI AL/PL ATELE T hemoglobin 15.1 g/dL 13.0-1 7.7 normal Not Available [facility] ([facility]) [address] [place], [address], 11/25/2024 00:06:37 11/09/19 25 11/09/2024 CBC WITH DIFFE RENTI AL/PL ATELE T hematocrit 46.9 % 37.5-5 1.0 normal Not Available [facility] ([facility]) [address] [place], [address], 11/25/2024 00:06:37 11/09/19 25 11/09/2024 CBC WITH DIFFE RENTI AL/PL ATELE T MCV 87 fL 79-97 normal Not Available [facility] ([facility]) [address] [facility], [place], [address], 11/25/2024 00:06:37 11/09/1911/09/2024 CBC WITH DIFFE RENTI AL/PL ATELE T MCH 28.1 pg 26.6-3 3.0 normal Not Available [facility] ([facility]) [address] [place], [address], 11/25/2024 00:06:37 11/09/19 25 11/09/2024 CBC WITH DIFFE RENTI AL/PL ATELE T MCHC 32.2 g/dL 31.5-3 5.7 normal Not Available [facility] ([facility]) [address] [place], [address], 11/25/2024 00:06:37 11/09/19 25 11/09/2024 CBC WITH DIFFE RENTI AL/PL ATELE T RDW 13.4 % 11.6-1 5.4 Not Available [facility] ([facility]) [address] [place], [address], 11/25/2024 00:06:37 11/09/19 25 11/09/2024 CBC WITH DIFFE RENTI AL/PL ATELE T platelets 255 x10e3 /uL 150-45 0 normal Not Available [facility] ([facility]) [address] [place], [address], 11/25/2024 00:06:37 11/09/19 25 11/09/2024 CBC WITH DIFFE RENTI AL/PL ATELE T neutrophils 57 % not estab. normal Not Available [facility] ([facility]) [address] [place], [address], 11/25/2024 00:06:37 11/09/19 25 11/09/2024 CBC WITH DIFFE RENTI AL/PL ATELE T lymphs 30 % not estab. normal Not Available [facility] ([facility]) [address] [place], [address], 11/25/2024 00:06:37 11/09/1911/09/2024 CBC WITH DIFFE RENTI AL/PL ATELE T monocytes 10 % not estab. normal Not Available [facility] ([facility]) [address] [place], [address], 11/25/2024 00:06:37 11/09/1911/09/2024 CBC WITH DIFFE RENTI AL/PL ATELE T eos 2 % not estab. normal Not Available [facility] ([facility]) [address] [place], [address], 11/25/2024 00:06:37 11/09/1911/09/2024 CBC WITH DIFFE RENTI AL/PL ATELE T basos 1 % not estab. normal Not Available [facility] ([facility]) [address] [place], [address], 11/25/2024 00:06:37 11/09/1911/09/2024 CBC WITH DIFFE RENTI AL/PL ATELE T immature cells DEAN OF MEN Not Available [facility] ([facility]) [address] [place], [address], 11/25/2024 00:06:37 11/09/1911/09/2024 CBC WITH DIFFE RENTI AL/PL ATELE T neutrophils (absolute) 4.7 x10e3 /uL 1.4-7. 0 normal Not Available [facility] ([facility]) [address] [place], [address], 11/25/2024 00:06:37 11/09/19 25 11/09/2024 CBC WITH DIFFE RENTI AL/PL ATELE T lymphs (absolute) 2.4 x10e3 /uL 0.7-3. 1 normal Not Available [facility] ([facility]) [address] [place], [address], 11/25/2024 00:06:37 11/09/19 25 11/09/2024 CBC WITH DIFFE RENTI AL/PL ATELE T monocytes(ab solute) 0.8 x10e3 /uL 0.1-0. 9 normal Not Available [facility] ([facility]) [address] [facility], [place], [address], 11/25/2024 00:06:37 11/09/19 25 11/09/2024 CBC WITH DIFFE RENTI AL/PL ATELE T eos (absolute) 0.1 x10e3 /uL 0.0-0. 4 normal Not Available [facility] ([facility]) [address] [place], [address], 11/25/2024 00:06:37 11/09/19 25 11/09/2024 CBC WITH DIFFE RENTI AL/PL ATELE T baso (absolute) 0.1 x10e3 /uL 0.0-0. 2 normal Not Available [facility] ([facility]) [address] [place], [address], 11/25/2024 00:06:37 11/09/19 25 11/09/2024 CBC WITH DIFFE RENTI AL/PL ATELE T immature granulocytes 0 % not estab. Not Available [facility] ([facility]) [address] [place], [address], 11/25/2024 00:06:37 11/09/19 25 11/09/2024 CBC WITH DIFFE RENTI AL/PL ATELE T immature grans (abs) 0.0 x10e3 /uL 0.0-0. 1 Not Available [facility] ([facility]) [address] [place], [address], 11/25/2024 00:06:37 11/09/19 25 11/09/2024 CBC WITH DIFFE RENTI AL/PL ATELE T NRBC DEAN OF MEN Not Available [facility] ([facility]) [address] [place], [address], 11/25/2024 00:06:37 11/09/19 25 11/09/2024 CBC WITH DIFFE LUKE AL/RONEL MEJIA T hematology comments: DEAN OF MEN Not Available [facility] ([facility]) [address] [facility], [place], [address], 11/25/2024 00:06:37 11/09/19 25 11/09/2024 IRON AND TIBC iron bind.cap.(TI BC) 358 ug/dL 250-45 0 normal Not Available [facility] ([facility]) [address] [facility], [place], [address], 11/25/2024 00:06:37 11/09/19 25 11/09/2024 IRON AND TIBC UIBC 277 ug/dL 111-34 3 normal Not Available [facility] ([facility]) [address] [facility], [place], [address], 11/25/2024 00:06:37 11/09/19 25 11/09/2024 IRON AND TIBC iron 81 ug/dL 38-169 normal Not Available [facility] ([facility]) [address] [facility], [place], [address], 11/25/2024 00:06:37 11/09/19 25 11/09/2024 IRON AND TIBC iron saturation 23 % 15-55 normal Not Available [facility] ([facility]) [address] [place], [address], 11/25/2024 00:06:37 11/09/19 25 11/09/2024 VITAM IN B12 AND FOLAT E vitamin B12 759 pg/mL 232-12 45 normal Not Available [facility] ([facility]) [address] [place], [address], 11/25/2024 00:06:38 11/09/19 25 11/09/2024 VITAM IN B12 AND FOLAT E folate (folic acid), serum 4.6 NG/mL >3.0 normal A serum folat e nevaeh ntrat ion of less than 3.1 ng/mL is consi dered to repre sent clini kerline defic iency . Not Available [facility] ([facility]) [address] [facility], [place], [address], 11/25/2024 00:06:38 11/09/1911/14/2024 VITAM IN B6, PLASM A vitamin B6 55.6 ug/L 3.4-65 .2 normal Defic iency : <3.4 Leonora nal: 3.4 - 5.1 Adequ ate: >5.1 Not Available [facility] ([facility]) [address] [facility], [place], [address], 11/25/2024 00:06:38 11/09/19 25 11/09/2024 VITAM IN D, 25-HY DROXY vitamin D, 25-hydroxy 54.0 NG/mL 30.0-1 00.0 Vitam in D defic iency has been defin ed by the Insti tute of Medic ine and an Endoc rine Socie ty pract ice guide line as a level of serum 25-OH vitam in D less than 20 ng/mL (1,2) . The Endoc rine Socie ty [facility] e vitam in D insuf ficie ncy as a level betwe en 21 and 29 ng/mL (2). 1. IOM (Inst itute of Medic ine). 2010. Dieta ry refer ence intak es for calci um and D. April moura [place]: The Natio nal Ac[facility] Press . 2. Leno estes MF, Al jarrett [place], Brenda off-F errar i [place], et al. Evalu ation , treat ment, and preve ntion of vitam in D defic iency : an Endoc rine Socie ty clini kerline pract ice guide line. JCEM. 2010; 96(7) :1911 -30. Not Available [facility] ([facility]) [address] [facility], [place], [address], 11/25/2024 00:06:39 11/09/19 25 11/10/2024 MYAST HENIA GRAVI S PROFI LE AChR binding abs, serum <0.07 nmol/ L 0.00-0 .24 Negat cydney: 0.00 - 0.24 Borde rline : 0.25 - 0.40 Posit cydney: >0.40 Not Available [facility] ([facility]) [address] [place], [address], 11/25/2024 00:06:39 11/09/19 25 11/11/2024 MYAST HENIA GRAVI S PROFI LE striation abs, serum Negati ve neg:<1 :100 Not Available [facility] ([facility]) [address] [place], [address], 11/25/2024 00:06:39 11/09/19 25 11/12/2024 MYAST HENIA GRAVI S PROFI LE AChR blocking abs, serum 24 % 0-25 Negat cydney: 0 - 25 Borde rline : 26 - 30 Posit cydney: >30 Not Available [facility] ([facility]) [address] [place], [address], 11/25/2024 00:06:39 11/09/19 25 11/17/2024 MYAST HENIA [...] thera py. Not Available [facility] ([facility]) [address] [place], [address], 11/25/2024 00:06:39 11/09/19 25 11/17/2024 MYAST HENIA GRAVI S PROFI LE reflex information Commen t Refle x test indic ated. Not Available [facility] ([facility]) [address] [facility], [place], [address], 11/25/2024 00:06:39 11/09/1911/25/2024 MUSK ABS, SERUM musk abs, serum <1.0 U/mL Refer ence Range : Negat cydney: <1.0 Posit cydney: 1.0 or highe r This test was biju marcum and its perfo rmanc e fide cteri stics deter mined by [facility]. It has not been clear ed or appro jesenia by the Food and Drug Admin istra tion. Not Available [facility] [address] [facility], [place], [address], 11/25/2024 00:06:40 11/09/1911/09/2024 MAGNE SIUM magnesium 2.2 mg/dL 1.6-2. 3 normal Not Available [facility] ([facility]) [address] [facility], [place], [address], 11/25/2024 00:06:40 11/05/1910/30/2024 , [facility] ardio gram No observ ation record ed. [email or web address] [facility] [address], [place], [address], 11/06/2024 10:49:39 11/22/1911/20/2024 elect romyo gram + nerve condu ction study No observ ation record ed. [facility] [address], [place], [address], 11/25/2024 10:23:40 11/27/1911/20/2024 elect romyo gram + nerve condu ction study No observ ation record ed. [facility] (Med Record) [address], [place], [address], 12/11/2024 11:13:57 11/28/1911/25/2024 elect romyo gram + nerve condu ction study No observ ation record ed. [email or web address] [place] [facility] [address], [place], [address], 12/11/2024 11:47:34 12/12/19 25 11/20/2024 elect romyo gram No observ ation record ed. [email or web address] [place] [facility] [address], [place], [address], 12/16/2024 13:35:07 Result Notes None recorded. 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 Do Lambert HEAD CHARGER [address], [place], [address], [place] - [facility] 5 15:12:03 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 2024 Do Lambert, HEAD CHARGER [address], [place], [address], [place] - [facility] 5 15:12:16 Problem Notes [...] 12/24/19 23 Suture/Staple removal completed Do Lambert, HEAD CHARGER [address], [place], [address], [place] [facility] 12/23/2022 10:15:30 12/01/19 23 Cryosurgery Dermatology completed Kelyhudson Escalona, HEAD CHARGER [address], [place], [address], [place] [facility] 11/30/2022 13:15:20 08/25/19 23 Shave Biopsy Face, Ears, eyelids, nose, lips, muc membranes completed Keylhudson Escalona HEAD CHARGER [address], [place], [address], [place] [facility] 08/24/2022 10:36:02 07/22/19 23 Cryosurgery Dermatology completed Kelyhudson Escalona HEAD CHARGER [address], [place], [address], [place] [facility] 07/21/2022 14:53:44 05/04/19 22 Medication Reconcilliation completed Norma Reyna [place] - [facility] 05/03/2021 14:06:38 Imaging Results None [...] Available Not Available No t Available OneTouch Ultra Test strips USE DIRECTED active Not [...] Ultra-Fine Short Pen Needle 31 gauge x 06/28 USE 1 ONCE DAILY active Not Available [...] Available No t Available FreeStyle Uma 2 [place] USE DIRECTED active Not Available Not Available [...] t Available Vitals Date Recorded Body height Respiratory rate Body mass index (BMI) Body weight Heart rate Oxygen saturation Oxygen saturation in Arterial blood by Pulse oximetry Body temperature Systolic And Diastolic Provider Name and Address Organization Details Last Updated DateTime 5 182.88 cm 18 /min 24.7 kg/m2 68107.8 1 g 58 /min 97 % 97 % 98 [degF] 108/64 mm[Hg] Nyasia Stears [place] - [facility] 5 11:13:29 Date Recorded Body height Body mass index (BMI) Body weight Body temperature Heart rate Oxygen saturation Oxygen saturation in Arterial blood by Pulse oximetry Respiratory rate Pain severity - 0-10 verbal numeric rating [Score] - Reported Systolic And Diastolic Provider Name and Address Organization Details Last Updated DateTime 5 182.88 cm 25.4 kg/m2 68939.4 7 g 98.1 [degF] 60 /min 97 % 97 % 18 /min 4 124/72 mm[Hg] Rand Fryler [place] - [facility] 5 10:51:59 Social History Question Answer Notes LastModified by Organizat ion Details LastModified Time Tobacco Smoking Status Former Smoker Norma calixto [place] - [facility] 04/27/2021 13:28:13 Do You Have An Advance Directive? No [email or web address] Information not available 04/27/2021 How Many Years Have You Consumed Alcohol? 30 [email or web address] Information not available 08/05/2024 Are You Blind Or Do You Have Difficulty Seeing? No [email or web address] Information not available 04/27/2021 Is Blood Transfusion Acceptable In An Emergency? Yes [email or web address] Information not available 08/05/2024 What Is Your Level Of Caffeine Consumption? Occasional [email or web address] Information not available 04/27/2021 In The 14 Days Before Symptom Onset, Have You Had Close Contact With A Laboratory-confir med COVID-19 While That Case Was Ill? No Information not available 04/27/2021 In The 14 Days Before Symptom Onset, Have You Had Close Contact With A Person Who Is Under Investigation For COVID-19 While That Person Was Ill? No [email or web address] Information not available 04/27/2021 Have You Been To An Area Known To Be High Risk For COVID-19? No [email or web address] Information not available 04/27/2021 Are You Deaf Or Do You Have Serious Difficulty Hearing? No [email or web address] Information not available 04/27/2021 What Type Of Diet Are You Following? REGULAR Information not available 04/27/2021 Have You Processed Blood Or Body Fluids From An Ebola Virus Disease Patient Without Appropriate PPE? No [email or web address] Information not available 04/27/2021 Do You Reside In Or Have You Traveled To An Area Where Ebola Virus Transmission Is Active? No [email or web address] Information not available 04/27/2021 What Is The Highest Grade Or Level Of School You Have Completed Or The Highest Degree You Have Received? [id number] [email or web address] Information not available 08/05/2024 Have There Been Any Changes To Your Family Or Social Situation? No [email or web address] Information no t available 04/27/2021 When Did You Quit Smoking? 1-5yearssincel garthsanjivbouchra [email or web address] Information not available 04/27/2021 Have You Recently Or Are You Planning To Travel To An Area With Zika Virus? No [email or web address] Information not available 04/27/2021 How Many Years Have You Used Illicit Or Recreational Drugs? 0 [email or web address] Information not available 08/05/2024 What Was The Date Of Your Most Recent Tobacco Screening? 06/25/2024 [email or web address] Information not available 06/25/2024 Do You Use Protection Against STDs? No [email or web address] Information not available 08/05/2024 What Is Your Relationship Status? [email or web address] Information not available 08/05/2024 Do You Use Your Seat Belt Or Car Seat Routinely? Yes [email or web address] Information not available 08/05/2024 Are You Sexually Active? Yes Information not available 06/25/2024 Do You Have Smoke And Carbon Monoxide Detectors In Your Home? Yes [email or web address] Information not available 04/27/2021 At What Age Did You Start Smoking Tobacco? 11 [email or web address] Information not available 08/05/2024 Are You Passively Exposed To Smoke? No [email or web address] Information no t available 04/27/2021 Do You Use Sunscreen Routinely? No [email or web address] Information not available 08/05/2024 Has Tobacco Cessation Counseling Been Provided? Yes [email or web address] Information not available 06/20/2023 On What Date Was Tobacco Cessation Counseling Provided? 06/25/2024 Information not available 06/25/2024 How Many Years Have You Smoked Tobacco? 40 [email or web address] Information not available 04/27/2021 Do You Have Difficulty Walking Or Climbing Stairs? No [email or web address] Information not available 04/27/2021 Sex: Male Functional Status Question Answer Note LastModified by Organizat ion Details LastModified Time Do you use any illicit or recreational drugs? No [email or web address] Information not available 04/27/2021 Do you or have you ever used any other forms of tobacco or nicotine? No [email or web address] Information not available 04/27/2021 What is your level of alcohol consumption? Occasional [email or web address] Information not available 04/27/2021 Are you currently employed? No [email or web address] Information not available 04/27/2021 Do you have transportation difficulties? No [email or web address] Information not available 04/27/2021 Do you have difficulty doing errands alone? No Information not available 04/27/2021 Are you able to care for yourself independently? Yes [email or web address] Information not available 04/27/2021 Do you have difficulty dressing, bathing, grooming, or toileting? No [email or web address] Information not available 04/27/2021 Do you or have you ever used e-cigarettes or vape? Never used electronic cigarettes [email or web address] Information not available 08/05/2024 What is your exercise level? Moderate Information not available 08/05/2024 Mental Status Question Answer Note LastModified by Organizat ion Details LastModified Time Do you feel stressed (tense, restless, nervous, or anxious, or unable to sleep at night)? [id number] [email or web address] Information not available 08/05/2024 Do you have difficulty concentrating, remembering or making decisions? No [email or web address] Information no t available 04/27/2021 Family History Nothing Reported. Medical History Condition Response Pancreatitis N Coronary Artery Disease N Gout N Other N Atrial Fibrillation N congenital heart disease N Kidney Stones N Blood Diseases N Hyperthyroidism N Blood Transfusion N Rheumatoid [...] colitis N Cerebrovascular Disease N Depression N Guillain-[place] N Sleep Apnea N Aneurysm N Bronchitis N Heart Disease N Suicidal Ideation N Pre-Eclampsia N Hypertension N Osteoporosis N Immunizations Vaccine Type Date Status Note Provider Nam e and Address Organization Details Recorded Time HepB-CpG 05/26/19 24 completed Not Available [facility] 09/27/2024 10:36:34 Influenza, MDCK, quadrivalent, PF 04/10/19 24 completed Nyasia Vergara [place] - [facility] 11/08/2024 11:05:03 RSV, recombinant, protein subunit RSVpreF, adjuvant reconstituted, 0.5 mL, PF 04/10/19 24 completed Nyasia Vergara null, [place] - [facility] 11/08/2024 11:05:03 Tdap 06/20/19 24 cancelled patient objection Do Lambert APRN [address], [place], [address], [place] [facility] 06/26/2023 08:34:29 zoster recombinant 03/07/19 24 completed Do Lambert APRN [address], [place], [address], [place] [facility] 04/04/2023 13:11:37 zoster recombinant 12/28/19 23 completed Do Lambert, HEAD CHARGER [address], [place], [address], [place] [facility] 04/04/2023 13:11:37 Respiratory syncytial virus (RSV) MAB, unspecified 04/10/19 24 completed Norma Reyna [place] [facility] 04/21/2023 14:13:48 influenza, unspecified formulation 04/10/19 24 completed Nyasia Vergara [place] [facility] 11/08/2024 11:05:03 Past Encounters Encounter ID Performer Location Encounter Start Date Encounter Closed Date Diagnosis/Indication Diagnosis SNOMED-CT Code Diagnosis ICD10 Code Diagnosis IMO Codes Diagnosis Note [id number] Rosalie Salas APRN [address] [address] 11/08/2024 10:28:26 11/08/2024 11:52:45 Numbness and tingling sensation of skin 7285022608 02 R20.0 R20.2 803096 labsnctneu rology consultif worsen or no improvemen t go to [facility] Concerns Section Related Observation LastModified by Organization Detai ls LastModified Time None Recorded Concern Status LastModified by Organization Details LastModified Time None Recorded Payers Encounter Date Sequence Insurance Name Policy Number Policy Jimenez Covered Member ID Jimenez Member ID Guarantor Name 11/08/2024 1 [employer] (MEDICARE REPLACEMENT/ ADVANTAGE - PPO) [id number] Iker Gray [id number] Iker Gray Notes Date Note Type Note Provider Name and Address Organization Details Recorded Time 11/08/2024 text/html ROS as noted in the HPI 64 year old male who presents to the office today with concerns ofnausea todaynumbness in feet/legs/arms and hands for weeks-- wants referral to neurologyhad heart attack w/4 stents in Marchdiff twice in 2024lyme disease and salmonella poisoning in 2024 Rosalie Salas APRN [address], [place], [address], [place] - [facility] 12/16/2024 16:11:27 12/13/2024 text/html ROS as noted in the HPI 64 yr old male presents for a follow up on abnormal tests- CTS abbie- has appt with neurology in January. numbness and tingling hands and feet. dx neuropathy- feet, cramps in legs Rosalie Salas, HEAD CHARGER [address], [place], [address], [place] [facility] 12/13/2024 11:53:14
== END 2024-12-18 23:59 | disposition home or self-care (01) ==
LOC: RAD 13:59
PROVIDERS: PCP Nurse Practitioner Family; Visit Provider Physician Assistant
DX: M19.032 Primary osteoarthritis, left wrist (principal); M19.031 Primary osteoarthritis, right wrist
CPT/HCPCS: 73110

== ENCOUNTER 2025-01-06 10:35 | Outpatient (CLI) | payer MEDICARE, SELFPAY ==
--- NOTE | 2025-01-06 10:51 | XR_ITS ---
FINAL REPORT CLINICAL HISTORY: back pain FINDINGS: AP and lateral views of the lumbar spine were obtained. There is no prior exam for comparison. There is no acute fracture or malalignment. Vertebral body height is preserved. There is mild multilevel degenerative disc disease which is most pronounced at L3-4. No acute paraspinal abnormality. IMPRESSION: No acute osseous abnormality of the lumbar spine. Degenerative disc disease. Reviewed, Interpreted and Dictated by Janine Luque MD Transcribed by Amalia Martinez Authenticated and [facility]
--- OUTSIDE RECORDS SUMMARY | 2025-01-06 10:57 | XMS_ITS | Continuity of Care Document ---
Author Organization [facility] Address [address] [place] [address] Assessment No assessment recorded. Plan of Treatment Reminders Order Date Submit Date Provider Last Modified By Organization Details Last Modified Time Details Appointments Diabetic F/U 2024 01:00P M Rosalie Salas APRN Not available Not available Not available Follow Up 20 2024 02:00P M Rosalie Salas APRN Not available Not available Not available Lab drug screen, urine 2024 025 [facility], [address] [place] [address], [place], [address], 12/26/2024 14:57:29 Referral podiatris t referral [address] [facility], [facility], [place], [address], 12/26/2024 15:33:36 Procedures None recorded. Surgeries None recorded. Imaging None recorded. Medication Orders pregabali n 150 mg capsule 2024 025 MARGAR[facility], [address] [place], [place], [id number], 12/28/2024 11:44:23 Patient TargetsNo targets recorded. Patient InstructionsNo instructions recorded. Reason for Referral Line Manager Referral for Cyndee pheral neuropathy due to type 2 diabetes mellitus Referring Physician: Rosalie Salas, Family Medicine, Encounter Date: 12/26/2024 Results Created Date Observation Date Name Description Value Unit Range Abnormal Flag Note LastModifiedBy Organization Detail LastModifiedTime 12/27/1912/26/2024 drug scree n, urine AMP negati ve Not Available [address], [address], 12/26/2024 14:14:32 12/27/1912/26/2024 drug scree n, urine BAR negati ve Not Available [address], [address], 12/26/2024 14:14:32 12/27/1912/26/2024 drug scree n, urine BUP negati ve Not Available [address], [address], 12/26/2024 14:14:32 12/27/1912/26/2024 drug scree n, urine BZO negati ve Not Available [address], [address], 12/26/2024 14:14:32 12/27/1912/26/2024 drug scree n, urine TOBY negati ve Not Available [address], [address], 12/26/2024 14:14:32 12/27/1912/26/2024 drug scree n, urine FTY negati ve Not Available [address], [address], 12/26/2024 14:14:32 12/27/1912/26/2024 drug scree n, urine MDMA negati ve Not Available [address], [address], 12/26/2024 14:14:32 12/27/1912/26/2024 drug scree n, urine MET negati ve Not Available [address], [address], 12/26/2024 14:14:32 12/27/1912/26/2024 drug scree n, urine MOP negati ve Not Available [address], [address], 12/26/2024 14:14:32 12/27/1912/26/2024 drug scree n, urine MTD negati ve Not Available [address], [address], 12/26/2024 14:14:32 12/27/1912/26/2024 drug scree n, urine OXY negati ve Not Available [address], [address], 12/26/2024 14:14:32 12/27/1912/26/2024 drug scree n, urine PCP negati ve Not Available [address], [address], 12/26/2024 14:14:32 12/27/1912/26/2024 drug scree n, urine TCA negati ve Not Available [address], [address], 12/26/2024 14:14:32 12/27/1912/26/2024 drug scree n, urine THC negati ve Not Available [address], [address], 12/26/2024 14:14:32 11/27/1911/20/2024 elect romyo gram + nerve condu ction study No observ ation record ed. [facility] (Med Record) [address], [place], [address], 12/11/2024 11:13:57 11/28/1911/25/2024 elect romyo gram + nerve condu ction study No observ ation record ed. [facility] [address], [place], [address], 12/11/2024 11:47:34 12/12/1911/20/2024 elect romyo gram No observ ation record ed. [email or web address] [facility] [address], [place], [address], 12/16/2024 13:35:07 12/20/1912/18/2024 XR, wrist , 2 view No observ ation record ed. [facility] [address], [place], [address], 12/20/2024 08:14:58 12/20/1912/18/2024 XR, wrist , 2 view No observ ation record ed. [facility] [address], [place], [address], 12/20/2024 08:14:58 Result Notes None recorded. Problems Name Problem SNOMED Code Status Onset Date Resolution Date Notes Provider Name and Address Organization Details Recorded Time Diabetes mellitus 15289201 Active 2021 Do Lambert, [employer] [address], [place], [address], [place] - [facility] 2 11:07:17 Benign prostatic hyperplasia without outflow obstruction 451906148 Active 2022 Do Lambert, [employer] [address], [place], [address], [place] - [facility] 3 13:09:53 Chronic kidney disease stage 2 484420638 Active 2023 Do Lambert, [employer] [address], [place], [address], [place] - [facility] 4 16:55:57 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 Procedures Surgical History Date Name Laterality Status Provider Name and Address Organization Details Recorded Time 12/27/19 25 Advance Care Planning cancelled Norma Reyna [place] - [facility] 12/24/2024 16:27:32 12/27/19 25 Functional Status Assessed cancelled Norma Reyna [place] - [facility] 12/24/2024 16:27:32 03/25/19 25 Medication Reconcilliation completed Norma Reyna [place] - [facility] 03/25/2024 13:07:13 12/29/19 24 Advance Care Planning completed Reta Carranza [place] - [facility] 12/29/2023 11:11:53 12/29/19 24 Functional Status Assessed completed Reta Carranza [place] - [facility] 12/29/2023 11:11:53 12/24/19 23 Suture/Staple removal completed Do Lambert, [employer] [address], [place], [address], [place] - [facility] 12/23/2022 10:15:30 12/01/19 23 Cryosurgery Dermatology completed Kely Escalona [employer] [address], [place], [address], [place] - [facility] 11/30/2022 13:15:20 08/25/19 23 Shave Biopsy Face, Ears, eyelids, nose, lips, muc membranes completed Kely Escalona APRN [address], [place], [address], [place] - [facility] 08/24/2022 10:36:02 07/22/19 23 Cryosurgery Dermatology completed Kely White, [employer] [address], [place], [address], [place] - [facility] 07/21/2022 14:53:44 05/04/19 22 Medication Reconcilliation completed Norma Axel [place] - [facility] 05/03/2021 14:06:38 Imaging Results None [...] day by oral route for 5 days. 12/25 completed Not Available Not Available Not Available doxycycline hyclate 100 mg capsule Take 1 [...] Available Not Available Not Available amoxicillin 875 mg-potkimberiu m clavulanate 125 mg tablet TAKE 1 [...] Available No t Available FreeStyle Uma 2 [place] USE DIRECTED active Not Available Not Available [...] Available Sobia Pen Needle 32 gauge x USE as directed with lantus solostar active Not Available Not Available No t Available Vitals Date Recorded Body height Body mass index (BMI) Body weight Body temperature Heart rate Oxygen saturation Respiratory rate Pain severity - 0-10 verbal numeric rating [Score] - Reported Systolic And Diastolic Provider Name and Address Organization Details Last Updated DateTime 5 182.88 cm 25 kg/m2 58153 g 97.5 [degF] 71 /min 97 % 18 /min 0 126/72 mm[Hg] Rand Hampton [place] - [facility] 14:08:24 Social History Question Answer Notes LastModified by Organizat ion Details LastModified Time Tobacco Smoking Status Former Smoker Norma Reyna marily [place] - [facility] 04/27/2021 13:28:13 Do You Have An Advance Directive? No [email or web address] Information not available 04/27/2021 How Many Years Have You Consumed Alcohol? 30 Information not available 08/05/2024 Are You Blind Or Do You Have Difficulty Seeing? No [email or web address] Information not available 04/27/2021 Is Blood Transfusion Acceptable In An Emergency? Yes [email or web address] Information not available 08/05/2024 What Is Your Level Of Caffeine Consumption? Occasional [email or web address] Information not available 04/27/2021 In The 14 Days Before Symptom Onset, Have You Had Close Contact With A Laboratory-confir [facility] COVID-19 While That Case Was Ill? No [email or web address] Information not available 04/27/2021 In The 14 Days Before Symptom Onset, Have You Had Close Contact With A Person Who Is Under Investigation For COVID-19 While That Person Was Ill? No [email or web address] Information not available 04/27/2021 Have You Been To An Area Known To Be High Risk For COVID-19? No [email or web address] Information not available 04/27/2021 Are You Deaf Or Do You Have Serious Difficulty Hearing? No Information not available 04/27/2021 What Type Of Diet Are You Following? REGULAR [email or web address] Information not available 04/27/2021 Have You Processed Blood Or Body Fluids From An Ebola Virus Disease Patient Without Appropriate PPE? No [email or web address] Information not available 04/27/2021 Do You Reside In Or Have You Traveled To An Area Where Ebola Virus Transmission Is Active? No [email or web address] Information not available 04/27/2021 What Is The Highest Grade Or Level Of School You Have Completed Or The Highest Degree You Have Received? [id number] [email or web address] Information not available 08/05/2024 Have There Been Any Changes To Your Family Or Social Situation? No Information no t available 04/27/2021 When Did You Quit Smoking? 1-5yearssincel kj [email or web address] Information not available 04/27/2021 Have You Recently Or Are You Planning To Travel To An Area With Zika Virus? No [email or web address] Information not available 04/27/2021 How Many Years Have You Used Illicit Or Recreational Drugs? 0 [email or web address] Information not available 08/05/2024 What Was The Date Of Your Most Recent Tobacco Screening? 06/25/2024 Information not available 06/25/2024 Do You Use Protection Against STDs? No [email or web address] Information not available 08/05/2024 What Is Your Relationship Status? Information not available 08/05/2024 Do You Use Your Seat Belt Or Car Seat Routinely? Yes [email or web address] Information not available 08/05/2024 Are You Sexually Active? Yes [email or web address] Information not available 06/25/2024 Do You Have Smoke And Carbon Monoxide Detectors In Your Home? Yes [email or web address] Information not available 04/27/2021 At What Age Did You Start Smoking Tobacco? 11 [email or web address] Information not available 08/05/2024 Are You Passively Exposed To Smoke? No [email or web address] Information no t available 04/27/2021 Do You Use Sunscreen Routinely? No [email or web address] Information not available 08/05/2024 Has Tobacco Cessation Counseling Been Provided? Yes [email or web address] Information not available 06/20/2023 On What Date Was Tobacco Cessation Counseling Provided? 06/25/2024 [email or web address] Information not available 06/25/2024 How Many Years Have You Smoked Tobacco? 40 [email or web address] Information not available 04/27/2021 Do You Have Difficulty Walking Or Climbing Stairs? No [email or web address] Information not available 04/27/2021 Sex: Male Functional Status Question Answer Note LastModified by Organizat ion Details LastModified Time Do you use any illicit or recreational drugs? No [email or web address] Information not available 04/27/2021 Do you or have you ever used any other forms of tobacco or nicotine? No [email or web address] Information not available 04/27/2021 What is your level of alcohol consumption? Occasional [email or web address] Information not available 04/27/2021 Are you currently employed? No [email or web address] Information not available 04/27/2021 Do you have transportation difficulties? No Information not available 04/27/2021 Do you have difficulty doing errands alone? No [email or web address] Information not available 04/27/2021 Are you able to care for yourself independently? Yes Information not available 04/27/2021 Do you have difficulty dressing, bathing, grooming, or toileting? No Information not available 04/27/2021 Do you or have you ever used e-cigarettes or vape? Never used electronic cigarettes Information not available 08/05/2024 What is your exercise level? Moderate [email or web address] Information not available 08/05/2024 Mental Status Question Answer Note LastModified by Organizat ion Details LastModified Time Do you feel stressed (tense, restless, nervous, or anxious, or unable to sleep at night)? [id number] [email or web address] Information not available 08/05/2024 Do you have difficulty concentrating, remembering or making decisions? No [email or web address] Information no t available 04/27/2021 Family History Nothing Reported. Medical History Condition Response Pancreatitis N Coronary Artery Disease N Other N Gout N Atrial Fibrillation N congenital heart disease N Blood Diseases N Kidney Stones N Hyperthyroidism N Rheumatoid arthritis N Blood [...] N Restless Leg Syndrome N Arthritis N Infertility N Polyps N Carpal Tunnel N Mental Disorder N Acid Reflux (GERD) N Cancer N Stroke N Varicosities N Tendonitis N Crohn's Disease N Hypercholesterolemia N Skin Cancer N Fibromyalgia N Headaches N Anal Fissure N Irritable Bowel Syndrome [...] colitis N Cerebrovascular Disease N Depression N Guillain-[place] N Sleep Apnea N Aneurysm N Bronchitis N Heart Disease N Suicidal Ideation N Pre-Eclampsia N Hypertension N Osteoporosis N Immunizations Vaccine Type Date Status Note Provider Nam e and Address Organization Details Recorded Time HepB-CpG 05/26/19 24 completed Not Available [facility] 09/27/2024 10:36:34 Influenza, MDCK, quadrivalent, PF 04/10/19 24 completed Nyasia Stears null, [place] - [facility] 11/08/2024 11:05:03 RSV, recombinant, protein subunit RSVpreF, adjuvant reconstituted, 0.5 mL, PF 04/10/19 24 completed Nyasia Stears null, [place] - [facility] 11/08/2024 11:05:03 Tdap 06/20/19 cancelled patient objection Do Lambert APRN [address], [place], [address], [place] [facility] 06/26/2023 08:34:29 zoster recombinant 03/07/19 24 completed Do Lambert APRN [address], [place], [address], [place] [facility] 04/04/2023 13:11:37 zoster recombinant 12/28/19 completed Do Lambert [employer] [address], [place], [address], [facility] - [facility] 04/04/2023 13:11:37 Respiratory syncytial virus (RSV) MAB, unspecified 04/10/19 completed Norma Reyna null, [place] - [facility] 04/21/2023 14:13:48 influenza, unspecified formulation 04/10/19 completed Nyasia Stears null, [place] [facility] 11/08/2024 11:05:03 Past Encounters Encounter ID Performer Location Encounter Start Date Encounter Closed Date Diagnosis/Indication Diagnosis SNOMED-CT Code Diagnosis ICD10 Code Diagnosis IMO Codes Diagnosis Note [id number] Rosalie Salas APRN [address] [address] 12/13/2024 10:29:23 12/13/2024 11:36:25 Bilateral carpal tunnel syndrome 6769015262 3970609 G56.03 250631 splints at nightstero idsrefer to orthoif worsen or no improvemen t return [id number] Rosalie Salas APRN [address] [address] 12/26/2024 13:50:05 12/26/2024 15:04:08 Diabetes mellitus 41699669 E13.42 continue diet and exercise 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 2 diabetes mellitus 5252419291 107 E11.42 Long-term current use of drug therapy 474179400 Z79.899 25810816 Cramp in foot 476425718 R25.2 3976919 referral to podiokevin villasenor statin Health Concerns Section Related Observation LastModified by Organization Kale ls LastModified Time None Recorded Concern Status LastModified by Organization Details LastModified Time None Recorded Payers Encounter Date Sequence Insurance Name Policy Number Policy Jimenez Covered Member ID Jimenez Member ID Guarantor Name 12/26/2024 1 [employer] (MEDICARE REPLACEMENT/ ADVANTAGE - PPO) [id number] Iker Gray [id number] Iker Gray Notes Date Note Type Note Provider Name and Address Organization Details Recorded Time 12/26/2024 text/html ROS as noted in the HPI 64 yr old male presents to follow up on diabetes and refill pregabalin. neuropathy- lyrica helpsnumbness in feet/legs/arms and hands for weeks- referral to neurologyhad heart attack w/4 stents in March 2024having abbie leg and foot cramps, worse at night Rosalie Salas, [employer] [address], [place], [address], [place] - [facility] 12/26/2024 14:57:36
--- OUTSIDE RECORDS SUMMARY | 2025-01-06 10:57 | XMS_ITS | Clinical Summary ---
Author Organization [facility] Address [address] [place] [address] Phone Care Team Providers Care Mechanical Maintenance Foreman Name Role Phone Do Lambert NP Primary Care Provider [phone] Allergies No known active allergies Medications aspirin 81 mg Oral Tablet, Delayed Release (E.C.) Take 81 mg by mouth daily. 8 Active fluticasone propionate (FLONASE) 50 mcg/actuation Nasl [place], Suspension 1 [place] in each nostril daily. 3 Active LANTUS SOLOSTAR U-100 INSULIN 100 unit/mL (3 mL) SubQ Insulin Pen Subcutaneous (Inject under the skin) 15 Units nightly. Active pregabalin (LYRICA) 150 mg Oral Capsule Take 150 mg by mouth 2 times daily. 3 Active pravastatin (PRAVACHOL) 20 mg Oral Tablet 3 Active tamsulosin HCl (TAMSULOSIN ORAL) Take 0.8 mg by mouth nightly. 0.8 mg 3 Active empagliflozin (JARDIANCE) 25 mg Oral TabletIndicatio ns:Stage 2 chronic kidney disease Take 1 Tablet by mouth daily. 30 Tablet 5 4 Active ticagrelor (BRILINTA ORAL) Take 30 mg by mouth 2 times daily. Active metoprolol (LOPRESSOR) 25 mg Oral Tablet Take 25 mg by mouth 2 times daily. Active pantoprazole (PROTONIX) 40 mg Oral Tablet, Delayed Release (E.C.) Take 40 mg by mouth daily. Active cephALEXin (KEFLEX) 500 mg Oral Capsule Take 1 Capsule by mouth 3 times daily. 15 Capsule Active Active Problems Problem Noted Date Diagnosed Date Benign prostatic hyperplasia with incomplete bladder emptying 10/26/2022 Stage 2 chronic kidney disease 10/26/2022 History of TIA (transient ischemic attack) 04/28 New onset type 2 diabetes mellitus 04/28/2021 PFO (patent foramen ovale) 02/02/2018 Nonintractable headache 02/02/2018 Immunizations Immunization Administration Dates Next Due Influenza Nasal, Unspecified Formulation 024 Zoster Recombinant 03/07/2023,12/27/2022 Medical History Medical History Date Comments Hypertension Diabetes mellitus (HCC) Stage 2 chronic kidney disease 10/26/2022 Family History Medical History Relation Name Comments Kidney Disease Neg Hx Social History Tobacco Use Types Packs/Day Years Used Date Smoking Tobacco: Former Cigarettes Q uit: 2018 Smokeless Tobacco: Never Tobacco Cessation:Counseling Given: Yes Alcohol Use Standard Drinks/Week Comments Yes 0 (1 standard drink = 0.6 oz pur e alcohol) occasional Sex and Gender Information Value Date Recorded Sex Assigned at Not on file Legal Sex Male 8:32 AM EDT Gender Identity Not on file Sexual Orientation Not on file Last Filed Vital Signs Vital Sign Reading Time Taken Comments Blood Pressure 116/70 06/24/2024 1:58 PM EDT Pulse 69 06/24/2024 1:58 PM EDT Temperature - - Respiratory Rate - - Oxygen Saturation - - Inhaled Oxygen Concentration - - Weight 84.4 kg (186 lb) 06/24/2024 1:58 PM EDT Height 182.9 cm (6') 06/26/2023 3:40 PM EDT Body Mass Index 25.23 06/26/2023 3:40 PM EDT Plan of Treatment Health Maintenance Due Date Last Done Comments Wellness Exam Medicare 1963 Diabetic Eye Exam 1976 Hepatitis C Screening 1976 DTaP/TDaP/Td (1 - Tdap) 1977 Pneumococcal Vaccine 50+ (1 of 2 - PCV) 1977 Colonoscopy 09/17/2003 FIT 09/17/2003 Sigmoidoscopy 09/17/2003 Virtual Colonography 09/17/2003 RSV or 60+ (1 - Risk 50-74 years 1-dose series) 2008 Hemoglobin A1c 02/20/2022 08/20/2021, 04/28/2021 Kidney Health: eGFR 04/29/2022 04/29/2021, 04/29/2021, 04/29/2021, Additional history exists Kidney Health: uACR 09/07/2022 09/07/2021 Lipids 09/07/2022 09/07/2021 AAA Screening 09/17/2023 COVID-19 Vaccine ( season) 2024 Influenza Vaccine (#1) 2024 04/10/2023 Cologuard 11/05/2024 11/05/2021 Colon Cancer Screening 11/05/2024 Zoster Completed 03/07/2023, 12/27/2022 Hepatitis B Vaccine Aged Out No longe r eligible based on patient's age to complete this topic Meningococcal B Vaccine Aged Out No l onger eligible based on patient's age to complete this topic Insurance MEDICARE [place] PART B CLAIMS [place] N [facility] [address] [id number] Care Teams Mechanical Maintenance Foreman Relationship Specialty Start Date End Date Do Lambert NP [address] [place] [id number] PCP - General Family Medicine 09/29/22
--- OUTSIDE RECORDS SUMMARY | 2025-01-06 10:58 | XMS_ITS | Clinical Summary ---
Author Organization [facility] 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 200 each 04/30/19 22 Active insulin glargine (LANTUS SOLOSTAR) 100 UNIT/ML injection pen Inject 15 Units into the skin nightly 5 pen 5 07/14/19 22 Active Additional Information Patient taking differently: 10 UnitsSubCUTAneous NIGHTLY, Reported on 10/05/2021 Insulin Pen Needle (B-D ULTRAFINE III SHORT PEN) 31G X 8 MM MISC 1 each by Does not apply route daily 100 each 3 07/14/19 22 Active metFORMIN (GLUCOPHAGE) 500 MG tablet TAKE 1 TABLET BY MOUTH TWICE DAILY WITH MEALS 60 tablet 08/22/20 22 Active DULoxetine (CYMBALTA) 30 MG extended release capsule Take 1 capsule by mouth daily 30 capsule 5 10/06/19 22 Active Active Problems Problem Noted Date Diagnosed Date Diabetic ketoacidosis withou t coma associated with type 2 diabetes mellitus 04/28/2021 New onset type 2 diabetes mellitus 04/28/2021 History of TIA (transient ischemic attack) 04/28 PFO (patent foramen ovale) 02/02/2018 Nonintractable headache 02/02/2018 TIA (transient ischemic attack) 12/26/2017 Diabetic acidosis without coma Social History Tobacco Use Types Packs/Day Years Used Date Smoking Tobacco: Former Cigarettes Q uit: 12/25/2017 Smokeless Tobacco: Never Alcohol Use Standard Drinks/Week Comments No 0 (1 standard drink = 0.6 oz pur e alcohol) Sex and Gender Information Value Date Recorded Sex Assigned at Not on file Legal Sex Male 10:24 PM EST Gender Identity Not on file Sexual Orientation Not on file Last Filed Vital Signs Vital Sign Reading Time Taken Comments Blood Pressure 122/72 10/05/2021 10:20 AM EDT Pulse 65 10/05/2021 10:16 AM EDT Temperature 36.1 C (97 F) 10/05/2021 10:16 AM EDT Respiratory Rate 16 04/29/2021 2:00 PM EDT Oxygen Saturation 98% 10/05/2021 10:16 AM EDT Inhaled Oxygen Concentration - - Weight 85.4 kg (188 lb 3.2 oz) 10/05/2021 10:16 AM EDT Height 15.2 cm (6 ) 08/20/2021 10:24 AM EDT Body Mass Index 3675.53 08/20/2021 10:24 AM EDT Plan of Treatment Health Maintenance Due Date Last Done Comments Diabetic foot exam 1968 Depression Screen 1970 Diabetic retinal exam 1976 Hepatitis C screen 1976 DTaP/Tdap/Td vaccine (1 - Tdap) 1977 Pneumococcal 50+ years Vaccine (1 of 2 - PCV) 1977 Colonoscopy 09/17/2003 FIT/FOBT: Average risk 09/17/2003 Sigmoidoscopy/CT colonography 09/17/2003 Shingles vaccine (1 of 2) 2008 Respiratory Syncytial Virus (RSV) or age 60 yrs+ (1 - Risk 60-74 years 1-dose series) 2018 A1C test (Diabetic or Prediabetic) 08/20/2022 08/20/2021, 04/28/2021 Diabetic Alb to Cr ratio (uACR) test 09/07/2022 09/07/2021 Lipids 09/07/2022 09/07/2021, 12/27/2017 AAA screen 09/17/2023 GFR test (Diabetes, CKD 3-4, OR last GFR 15-59) 07/26/2024 07/27/2023, 06/23/2023, 11/04/2022, Additional history exists Flu vaccine (#1) 09/13/2024 COVID-19 Vaccine ( season) 2024 Colorectal Cancer Screen 11/05/2024 Fecal-DNA (Cologuard): Average risk 11/05/2024 11/05/2021 Prostate Specific Antigen (PSA) Screening or Monitoring Discontinued 09/07/2021 Hepatitis A vaccine Aged Out No longe r eligible based on patient's age to complete this topic Hepatitis B vaccine Aged Out No longe r eligible based on patient's age to complete this topic Hib vaccine Aged Out No longer eligi ble based on patient's age to complete this topic Meningococcal (ACWY) vaccine Aged Out No longer eligible based on patient's age to complete this topic Meningococcal B vaccine Aged Out No l onger eligible based on patient's age to complete this topic Polio vaccine Aged Out No longer elig ible based on patient's age to complete this topic Procedures Procedure Name Priority Date/Time Associated Diagnosis Comments RENAL FUNCTION PANEL Routine 07/27/2023 11:27 AM EDT ALBUMIN/CREATININE RATIO, URINE Routine 09/07/2021 9:07 AM EDT Type 2 diabetes mellitus without complication, with long-term current use of insulin (HCC) PSA SCREENING Routine 09/07/2021 9:06 AM EDT Mixed stress and urge urinary incontinence LIPID PANEL Routine 09/07/2021 9:06 AM EDT History of TIA (transient ischemic attack) POCT GLYCOSYLATED HEMOGLOBIN (HGB A1C) Routine 08/20/2021 10:35 AM EDT Type 2 diabetes mellitus without complication, with long-term current use of insulin (HCC) from Last 3 Months or Most Recently Relevant to Health Maintenance Results * (ABNORMAL) Renal Function Panel (07/27/2023 11:27 AM EDT) Sodium 140 136 - 145 mmol/L 07/27/2023 12:08 PM EDT [facility] Potassium 3.9 3.5 - 5.1 mmol/L 07/27/2023 12:08 PM EDT [facility] Chloride 105 99 - 110 mmol/L 07/27/2023 12:08 PM EDT [facility] CO2 24 21 - 32 mmol/L 07/27/2023 12:08 PM EDT [facility] Anion Gap 11 3 - 16 07/27/2023 12:08 PM EDT [facility] Glucose 165(H) 70 - 99 mg/dL 07/27/2023 12:08 PM EDT [facility] BUN 13 7 - 20 mg/dL 07/27/2023 12:08 PM EDT [facility] Creatinine 0.9 0.8 - 1.3 mg/dL 07/27/2023 12:08 PM EDT [facility] Est, Glom Filt Rate >90 >60 07/27/2023 12:08 PM EDT [facility] Comment: Pediatric calculator link https://www.kidney.org/professionals/kdoqi/gfr_calculatorped Effective Nov 15, 2021 These results are not intended for use in patients <18 years of age. eGFR results are calculated without a race factor using the 2020 CKD-EPI equation. Careful clinical correlation is recommended, particularly when comparing to results calculated using previous equations. The CKD-EPI equation is less accurate in patients with extremes of muscle mass, extra-renal metabolism of creatinine, excessive creatinine ingestion, or following therapy that affects renal tubular secretion. Calcium 8.8 8.3 - 10.6 mg/dL 07/27/2023 12:08 PM EDT [facility] Phosphorus 2.6 2.5 - 4.9 mg/dL 07/27/2023 12:08 PM EDT [facility] Albumin 4.1 3.4 - 5.0 g/dL 07/27/2023 12:08 PM EDT [facility] 07/27/2023 11:2 7 AM EDT 07/27/2023 11:27 AM EDT Loida Epps MD CHEMISTRY ORDERABLES Final Res ult [facility] [address] [place] [address], [facility] [phone] * (ABNORMAL) MICROALBUMIN / CREATININE URINE RATIO (09/07/2021 9:07 AM EDT) Microalb, Ur 5.60(H) <2.0 mg/dL 09/07/2021 7:11 PM EDT [facility] Creatinine, Ur 28.4(L) 39.0 - 259.0 mg/dL 09/07/2021 7:11 PM EDT [facility] Albumin/Creati nine Ratio 197.2(H) 0.0 - 30.0 mg/g 09/07/2021 7:11 PM EDT [facility] URINE SPECIMEN / Unknown 09/07/2021 9:07 AM EDT 09/07/2021 9:07 AM EDT us Armand Singleton MD URINE ORDERABLES Final Re sult [facility] [address] [place] [address], [facility] [phone] * PSA Screening (09/07/2021 9:06 AM EDT) PSA 1.90 0.00 - 4.00 ng/mL 09/07/2021 8:13 PM EDT [facility] BLOOD SPECIMEN / Unknown 09/07/2021 9:06 AM EDT 09/07/2021 9:06 AM EDT Armand Singleton MD CHEMISTRY ORDERABLES Barbra l Result [facility] [address] [place] [address] * (ABNORMAL) LIPID PANEL (09/07/2021 9:06 AM EDT) Cholesterol, Total 174 0 - 199 mg/dL 09/07/2021 8:12 PM EDT [facility] Triglycerides 147 0 - 150 mg/dL 09/08/19 8:12 PM EDT [facility] HDL 39(L) 40 - 60 mg/dL 09/07/2021 8:12 PM EDT [facility] LDL Calculated 106(H) <100 mg/dL 09/07/2021 8:12 PM EDT [facility] VLDL Cholesterol Calculated 29 Not Established mg/dL 09/07/2021 8:12 PM EDT [facility] BLOOD SPECIMEN / Unknown 09/07/2021 9:06 AM EDT 09/07/2021 9:06 AM EDT Armand Singleton MD CHEMISTRY ORDERABLES Barbra l Result [facility] [address] [place] [address] * POCT glycosylated hemoglobin (Hb A1C) (08/20/2021 10:35 AM EDT) Hemoglobin A1C 5.9 % BLOOD SPECIMEN / Unknown 08/20/2021 10:35 AM EDT Armand Singleton MD POINT OF CARE TEST ORDERA BLES Final Result from Last 3 Months or Most Recently Relevant to Health Maintenance Insurance [facility] [place] Advance Directives * Full Code (Latest Code Status on File) Date Activated Date Inactivated Comments 04/28/2021 2:03 PM 04/29/2021 5:44 PM * Full Code Date Activated Date Inactivated Comments 12/26/2017 5:24 PM 12/27/2017 6:40 PM Healthcare Agents on File Name Relationship Healthcare Agent Relationshi p Communication Katerine Craft Other Secondary Decision Maker darrius Gray Child Primary Decision Maker Care Teams [employer] Relationship Specialty Start Date End Date Do Lambert APRN - [address] [place] [address] PCP - General Nurse Practitioner, Family 11/01/22
--- OUTSIDE RECORDS SUMMARY | 2025-01-06 10:58 | XMS_ITS | Data Portability ---
Author Organization [facility] Address [address] [place] [address] Assessment No assessment recorded. Plan of Treatment Reminders Order Date Submit Date Provider Last Modified By Organization Details Last Modified Time Details Appointments Diabetic F/U 2024 01:00P Shivam Salas APRN Not available Not available Not available Follow Up 20 2024 02:00P Shivam Salas ABLE BODIED TANKERMAN Not available Not available Not available Lab drug screen, urine 2024 025 [facility], [address] [place] [address], [address], 12/26/2024 14:57:29 magnesium , serum or plasma 2024 025 [facility], [address], [address], [place], [address], 11/25/2024 00:06:40 cobalamin and folate panel, serum 2024 025 [facility], [address], [address], [place], [address], 11/25/2024 00:06:38 vitamin D, 25-hydrox y, total, serum 2024 025 [facility]ARG[facility]ET [facility], [address], [address], [place], [address], 11/25/2024 00:06:39 CBC w/ auto diff 2024 025 [facility]ARG[facility]ET [facility], [address], [address], [place], [address], 11/25/2024 00:06:37 iron + total iron-bind ing capacity (TIBC), serum 2024 025 MARG[facility]ET [facility], [address], [address], [place], [address], 11/25/2024 00:06:37 TSH + free T4, serum 2024 025 [facility], [address], [address], [place], [address], 11/25/2024 00:06:36 vitamin B6 + metabolit es panel, serum or plasma 2024 025 [facility], [address], [address], [place], [address], 11/25/2024 00:06:38 short myastheni a gravis panel, serum 2024 025 [facility], [address], [address], [place], [address], 11/25/2024 00:06:39 drug screen, urine 2024 025 [facility], [address] [place] [address], [place], [address], 09/27/2024 14:44:38 HbA1c (hemoglob in A1c), blood 2024 025 [facility], [address], [address], [place], [address], 09/28/2024 12:36:12 lipid panel, serum 2024 025 [facility], [address], [address], [place], [address], 09/28/2024 12:36:11 microalbu min/creat inine, mass ratio, urine 2024 025 [facility], [address], [address], [place], [address], 09/28/2024 12:36:12 CMP, serum or plasma 2024 025 [facility], [address], [address], [place], [address], 09/28/2024 12:36:11 PSA, total, serum or plasma 2024 025 [facility], [address], [address], [place], [address], 09/28/2024 12:36:12 Referral podiatris t referral 2024 025 [facility], [address], [place], [address], 12/26/2024 15:33:36 orthopedi c surgeon referral 2024 [facility], [address], [place], [address], 12/19/2024 11:45:[address] referral 2024 025 MARGARET Pineda MD, [address], [place], [address], 12/13/2024 11:21:58 Procedures None recorded. Surgeries None recorded. Imaging electromy ogram + nerve conductio n study - bilateral legs/feet and arms/hand s 2024 [facility] ([facility]), [address], [place], [address], 11/21/2024 15:14:07 Medication Orders pregabali n 150 mg capsule 2024 [facility], [address] [place], [id number], 12/28/2024 11:44:23 prednison e 10 mg tablet 2024 [facility], [address] [place] [address] [place], [place], [id number], 12/25/2024 05:01:58 pregabali n 150 mg capsule 2024 025 [facility], [address] [place] [address] [place], [place], [id number], 11/29/2024 10:36:33 Patient TargetsNo targets recorded. Patient InstructionsNo instructions recorded. 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 Immun oblot shoul d only be order ed on speci mens that are posit cydney or equiv ocal by an FDA-l icens ed Lyme disea se antib kevin scree tomasz test (e.g. , EIA). Resul ts of the Lyme IgM immun oblot shoul d not be consi dered in [facility] with 30 or more days of sympt oms. Not Available [facility] ([facility]) [address], [place], [address], 07/22/2024 18:35:48 07/17/19 25 07/22/2024 LYME, LINE BLOT, SERUM lyme IgG line blot interp. Positi ve negati ve abnormal Not Available [facility] ([facility]) [address] [place], [address], 07/22/2024 18:35:48 07/17/19 25 07/22/2024 LYME, LINE BLOT, SERUM IgG P93 Ab. Presen t Not Available [facility] ([facility]) [address] [facility] [address], [place], [address], 07/22/2024 18:35:48 07/17/19 25 07/22/2024 LYME, LINE BLOT, SERUM IgG P66 Ab. Absent Not Available [facility] ([facility]) [address] [place], [address], 07/22/2024 18:35:48 07/17/19 25 07/22/2024 LYME, LINE BLOT, SERUM IgG P58 Ab. Presen t Not Available [facility] ([facility]) [address] [place], [address], 07/22/2024 18:35:48 07/17/19 25 07/22/2024 LYME, LINE BLOT, SERUM IgG P45 Ab. Absent Not Available [facility] ([facility]) [address] [facility] [address], [place], [address], 07/22/2024 18:35:48 07/17/19 25 07/22/2024 LYME, LINE BLOT, SERUM IgG P41 Ab. Presen t Not Available [facility] ([facility]) [address] [facility], [place], [address], 07/22/2024 18:35:48 07/17/19 25 07/22/2024 LYME, LINE BLOT, SERUM IgG P39 Ab. Presen t Not Available [facility] ([facility]) [address] [facility], [place], [address], 07/22/2024 18:35:48 07/17/19 25 07/22/2024 LYME, LINE BLOT, SERUM IgG P30 Ab. Absent Not Available [facility] ([facility]) [address] [facility], [place], [address], 07/22/2024 18:35:48 07/17/19 25 07/22/2024 LYME, LINE BLOT, SERUM IgG P28 Ab. Absent Not Available [facility] ([facility]) [address] [facility], [place], [address], 07/22/2024 18:35:48 07/17/19 25 07/22/2024 LYME, LINE BLOT, SERUM IgG P23 Ab. Absent Not Available [facility] ([facility]) [address] [facility], [place], [address], 07/22/2024 18:35:48 07/17/19 25 07/22/2024 LYME, LINE BLOT, SERUM IgG P18 Ab. Presen t Not Available [facility] ([facility]) [address] [facility] [address], [place], [address], 07/22/2024 18:35:48 07/17/19 25 07/22/2024 LYME, LINE BLOT, SERUM lyme IgM line blot interp. Negati ve negati ve Pleas e Note: Lyme immun oblot alone is not recom winston d for the diagn osis of Lyme disea se. Curre nt guide lines recom mend the use of a two-t iered appro ach to Lyme serol ogy testi ng to impro ve the sensi tivit y and speci ficit y of testi ng. [facility] offer s test code 97434 6 Lyme Disea se Serol ogy with Refle x to aid in the diagn osis of Lyme Disea se. Not Available [facility] ([facility]) [address] [facility] [address], [place], [address], 07/22/2024 18:35:48 07/17/1907/22/2024 LYME, LINE BLOT, SERUM IgM P41 Ab. Absent Not Available [facility] ([facility]) [address] [facility], [place], [address], 07/22/2024 18:35:48 07/17/19 25 07/22/2024 LYME, LINE BLOT, SERUM IgM P39 Ab. Presen t Not Available [facility] ([facility]) [address] [facility], [place], [address], 07/22/2024 18:35:48 07/17/19 25 07/22/2024 LYME, LINE BLOT, SERUM IgM P23 Ab. Absent Not Available [facility] ([facility]) [address], [place], [address], 07/22/2024 18:35:48 07/17/1907/18/2024 JESUS EN AUTHO JOLYNN BATES written authorizatio n Commen t Jesus en Autho abrahant ion Recei jesenia. Autho rizat ion recei jesenia from JESUS EN REQUE ST 07-18 Logge d by Jason godinez Not Available [facility] ([facility]) [address], [place], [address], 07/22/2024 18:35:49 07/17/19 25 07/17/2024 COMP. METAB OLIC PANEL (14) glucose 111 mg/dL 70-99 above high normal Not Available [facility] ([facility]) [address] [place], [address], 07/23/2024 03:35:43 07/17/19 25 07/17/2024 COMP. METAB OLIC PANEL (14) BUN 27 mg/dL 8-27 normal Not Available [facility] ([facility]) [address] [place], [address], 07/23/2024 03:35:43 07/17/19 25 07/17/2024 COMP. METAB OLIC PANEL (14) creatinine 1.41 mg/dL 0.76-1 .27 above high normal Not Available [facility] ([facility]) [address] [place], [address], 07/23/2024 03:35:43 07/17/19 25 07/17/2024 COMP. METAB OLIC PANEL (14) eGFR 55 mL/mi n/1.7 3 >59 below low normal Not Available [facility] ([facility]) [address] [place], [address], 07/23/2024 03:35:43 07/17/19 25 07/17/2024 COMP. METAB OLIC PANEL (14) BUN/creatini ne ratio 19 10-24 normal Not Available [facility] ([facility]) [address] [place], [address], 07/23/2024 03:35:43 07/17/19 25 07/17/2024 COMP. METAB OLIC PANEL (14) sodium 138 mmol/ L 134-14 4 normal Not Available [facility] ([facility]) [address] [place], [address], 07/23/2024 03:35:43 07/17/19 25 07/17/2024 COMP. METAB OLIC PANEL (14) potassium 4.1 mmol/ L 3.5-5. 2 normal Not Available [facility] ([facility]) [address] [place], [address], 07/23/2024 03:35:43 07/17/19 25 07/17/2024 COMP. METAB OLIC PANEL (14) chloride 106 mmol/ L 96-106 normal Not Available [facility] ([facility]) [address] [place], [address], 07/23/2024 03:35:43 07/17/19 25 07/17/2024 COMP. METAB OLIC PANEL (14) carbon dioxide, total 15 mmol/ L 20-29 below low normal Not Available [facility] ([facility]) [address] [place], [address], 07/23/2024 03:35:43 07/17/19 25 07/17/2024 COMP. METAB OLIC PANEL (14) calcium 9.4 mg/dL 8.6-10 .2 normal Not Available [facility] ([facility]) [address] [place], [address], 07/23/2024 03:35:43 07/17/19 25 07/17/2024 COMP. METAB OLIC PANEL (14) protein, total 7.2 g/dL 6.0-8. 5 normal Not Available [facility] ([facility]) [address] [place], [address], 07/23/2024 03:35:43 07/17/19 25 07/17/2024 COMP. METAB OLIC PANEL (14) albumin 4.1 g/dL 3.9-4. 9 normal Not Available [facility] ([facility]) [address] [facility] [place], [address], 07/23/2024 03:35:43 07/17/19 25 07/17/2024 COMP. METAB OLIC PANEL (14) globulin, total 3.1 g/dL 1.5-4. 5 Not Available [facility] ([facility]) [address] [facility], [place], [address], 07/23/2024 03:35:43 07/17/19 25 07/17/2024 COMP. METAB OLIC PANEL (14) bilirubin, total 0.3 mg/dL 0.0-1. 2 normal Not Available [facility] ([facility]) [address] [facility], [place], [address], 07/23/2024 03:35:43 07/17/19 25 07/17/2024 COMP. METAB OLIC PANEL (14) alkaline phosphatase 65 IU/L 44-121 normal Not Available [facility]) [address] [facility] [place], [address], 07/23/2024 03:35:43 07/17/19 25 07/17/2024 COMP. METAB OLIC PANEL (14) AST (SGOT) 30 IU/L 0-40 normal Not Available [facility] ([facility]) [address] [facility], [place], [address], 07/23/2024 03:35:43 07/17/19 25 07/17/2024 COMP. METAB OLIC PANEL (14) ALT (SGPT) 26 IU/L 0-44 normal Not Available [facility] ([facility]) [address] [place], [address], 07/23/2024 03:35:43 07/17/19 25 07/17/2024 CBC, PLATE LET, NO DIFFE RENTI AL WBC 7.6 x10e3 /uL 3.4-10 .8 normal Not Available [facility] ([facility]) [address] [place], [address], 07/23/2024 03:35:44 07/17/19 25 07/17/2024 CBC, PLATE LET, NO DIFFE RENTI AL RBC 5.82 x10e6 /uL 4.14-5 .80 above high normal Not Available [facility] ([facility]) [address] [facility], [place], [address], 07/23/2024 03:35:44 07/17/1907/17/2024 CBC, PLATE LET, NO DIFFE RENTI AL hemoglobin 15.8 g/dL 13.0-1 7.7 normal Not Available [facility] ([facility]) [address] [facility], [place], [address], 07/23/2024 03:35:44 07/17/1907/17/2024 CBC, PLATE LET, NO DIFFE RENTI AL hematocrit 50.9 % 37.5-5 1.0 normal Not Available [facility] ([facility]) [address] [facility], [place], [address], 07/23/2024 03:35:44 07/17/1907/17/2024 CBC, PLATE LET, NO DIFFE RENTI AL MCV 88 fL 79-97 normal Not Available [facility] ([facility]) [address] [facility], [place], [address], 07/23/2024 03:35:44 07/17/1907/17/2024 CBC, PLATE LET, NO DIFFE RENTI AL MCH 27.1 pg 26.6-3 3.0 normal Not Available [facility] ([facility]) [address] [facility], [place], [address], 07/23/2024 03:35:44 07/17/1907/17/2024 CBC, PLATE LET, NO DIFFE RENTI AL MCHC 31.0 g/dL 31.5-3 5.7 below low normal Not Available [facility] ([facility]) [address] [place], [address], 07/23/2024 03:35:44 07/17/19 25 07/17/2024 CBC, PLATE LET, NO DIFFE RENTI AL RDW 13.5 % 11.6-1 5.4 Not Available [facility] ([facility]) [address] [facility], [place], [address], 07/23/2024 03:35:44 07/17/19 25 07/17/2024 CBC, PLATE LET, NO DIFFE RENTI AL platelets 245 x10e3 /uL 150-45 0 normal Not Available [facility] ([facility]) [address] [facility], [place], [address], 07/23/2024 03:35:44 07/17/19 25 07/17/2024 CBC, PLATE LET, NO DIFFE RENTI AL NRBC NET C DEVELOPER Not Available [facility] ([facility]) [address] [facility], [place], [address], 07/23/2024 03:35:44 07/17/19 25 07/17/2024 IRON AND TIBC iron bind.cap.(TI BC) 303 ug/dL 250-45 0 normal Not Available [facility] ([facility]) [address] [facility], [place], [address], 07/23/2024 03:35:44 07/17/19 25 07/17/2024 IRON AND TIBC UIBC 263 ug/dL 111-34 3 normal Not Available [facility] ([facility]) [address] [facility], [place], [address], 07/23/2024 03:35:44 07/17/19 25 07/17/2024 IRON AND TIBC iron 40 ug/dL 38-169 normal Not Available [facility] ([facility]) [address] [place], [address], 07/23/2024 03:35:44 07/17/19 25 07/17/2024 IRON AND TIBC iron saturation 13 % 15-55 below low normal Not Available [facility] ([facility]) [address] [facility], [place], [address], 07/23/2024 03:35:44 07/17/19 25 07/17/2024 SPOTT ED [...] ttsia l infec tion. Not Available [facility] ([facility]) [address] [place], [address], 07/23/2024 03:35:44 07/17/19 25 07/22/2024 SPOTT ED FEVER GROUP ANTIB ODIES spotted fever group IgG <1:64 neg:<1 :64 Not Available [facility] ([facility]) [address] [place], [address], 07/23/2024 03:35:44 07/17/19 25 07/22/2024 SPOTT ED FEVER GROUP ANTIB ODIES spotted fever group IgM <1:64 neg:<1 :64 Not Available [facility] ([facility]) [address] [place], [address], 07/23/2024 03:35:44 07/17/1907/17/2024 PT AND PTT INR TNP Test not [...] range 2.5 - 3.5 Not Available [facility] ([facility]) [address] [facility], [place], [address], 07/23/2024 03:35:45 07/17/19 25 07/17/2024 PT AND PTT prothrombin time TNP Test not perfo rmed Not Available [facility] ([facility]) [address] [facility], [place], [address], 07/23/2024 03:35:45 07/17/19 25 07/17/2024 PT AND PTT APTT TNP Test not perfo rmed Not Available [facility] ([facility]) [address] [facility], [place], [address], 07/23/2024 03:35:45 07/17/19 25 07/17/2024 ESR-W ES+CR P sedimentatio n rate-westerg maryanne 27 mm/HR 0-30 normal Not Available [facility] ([facility]) [address] [facility], [place], [address], 07/23/2024 03:35:45 07/17/19 25 07/17/2024 ESR-W ES+CR P C-reactive protein, quant 24 mg/L 0-10 above high normal Not Available [facility] ([facility]) [address] [facility], [place], [address], 07/23/2024 03:35:45 07/17/19 25 07/17/2024 LYME DISEA [...] refle x algor ithm. Not Available [facility] ([facility]) [address] [facility], [place], [address], 07/23/2024 03:35:46 07/17/19 25 07/17/2024 LYME DISEA SE SEROL OGY W/REF TEO lyme IgG lillian Positi ve negati ve Not Available [facility] ([facility]) [address] [facility], [place], [address], 07/23/2024 03:35:46 07/17/19 25 07/17/2024 LYME DISEA SE SEROL OGY W/REF TEO lyme IgM lillian Negati ve negati ve Not Available [facility] ([facility]) [address] [facility], [place], [address], 07/23/2024 03:35:46 07/17/19 25 07/17/2024 LYME DISEA [...] clini nola warra nted. Not Available [facility] ([facility]) [address] [facility], [place], [address], 07/23/2024 03:35:46 07/17/19 25 07/17/2024 JAK TIN ferritin 398 NG/mL 30-400 normal Not Available [facility] ([facility]) [address] [facility], [place], [address], 07/23/2024 03:35:46 07/17/19 25 07/17/2024 PLECHANDNI E NOTE please note Commen t The date and/o r time of colle ction was not indic ated on the requi sitio n as requi red by state and aniya al law. The date of recei pt of the speci men was used as the colle ction date if not suppl ied. Not Available [facility] ([facility]) [address] [place], [address], 07/23/2024 03:35:46 07/20/19 25 07/21/2024 GI PROFI LE, STOOL , PCR campylobacte r Not Detect ed not detect ed Not Available [facility] ([facility]) [address] [place], [address], 07/21/2024 06:43:59 07/20/19 25 07/21/2024 GI PROFI LE, STOOL , PCR C difficile toxin A/B Detect ed not detect ed abnormal Not Available [facility] ([facility]) [address] [place], [address], 07/21/2024 06:43:59 07/20/19 25 07/21/2024 GI PROFI LE, STOOL , PCR plesiomonas shigelloides Not Detect ed not detect ed Not Available [facility] ([facility]) [address] [place], [address], 07/21/2024 06:43:59 07/20/19 25 07/21/2024 GI PROFI LE, STOOL , PCR salmonella Detect ed not detect ed abnormal Not Available [facility] ([facility]) [address] [place], [address], 07/21/2024 06:43:59 07/20/19 25 07/21/2024 GI PROFI LE, STOOL , PCR vibrio Not Detect ed not detect ed Not Available [facility] ([facility]) [address] [place], [address], 07/21/2024 06:43:59 07/20/19 25 07/21/2024 GI PROFI LE, STOOL , PCR vibrio cholerae Not Detect ed not detect ed Not Available [facility] ([facility]) [address] [place], [address], 07/21/2024 06:43:59 07/20/19 25 07/21/2024 GI PROFI LE, STOOL , PCR yersinia enterocoliti ca Not Detect ed not detect ed Not Available [facility] ([facility]) [address] [place], [address], 07/21/2024 06:43:59 07/20/19 25 07/21/2024 GI PROFI LE, STOOL , PCR enteroaggreg ative E coli Not Detect ed not detect ed Not Available [facility] ([facility]) [address] [place], [address], 07/21/2024 06:43:59 07/20/19 25 07/21/2024 GI PROFI LE, STOOL , PCR enteropathog enic E coli Not Detect ed not detect ed Not Available [facility] ([facility]) [address] [place], [address], 07/21/2024 06:43:59 07/20/19 25 07/21/2024 GI PROFI LE, STOOL , PCR enterotoxige karo E coli Not Detect ed not detect ed Not Available [facility] ([facility]) [address] [place], [address], 07/21/2024 06:43:59 07/20/19 25 07/21/2024 GI PROFI LE, STOOL , PCR shiga-toxin- producing E coli Not Detect ed not detect ed Not Available [facility] ([facility]) [address] [place], [address], 07/21/2024 06:43:59 07/20/19 25 07/21/2024 GI PROFI LE, STOOL , PCR E coli O157 Not applic able not detect ed Not Available [facility] ([facility]) [address] [place], [address], 07/21/2024 06:43:59 07/20/19 25 07/21/2024 GI PROFI LE, STOOL , PCR shigella/ent eroinvasive E coli Not Detect ed not detect ed Not Available [facility] ([facility]) [address] [place], [address], 07/21/2024 06:43:59 07/20/19 25 07/21/2024 GI PROFI LE, STOOL , PCR cryptosporid ium Not Detect ed not detect ed Not Available [facility] ([facility]) [address] [place], [address], 07/21/2024 06:43:59 07/20/19 25 07/21/2024 GI PROFI LE, STOOL , PCR cyclospora cayetanensis Not Detect ed not detect ed Not Available [facility] ([facility]) [address] [place], [address], 07/21/2024 06:43:59 07/20/19 25 07/21/2024 GI PROFI LE, STOOL , PCR entamoeba histolytica Not Detect ed not detect ed Not Available [facility] ([facility]) [address] [place], [address], 07/21/2024 06:43:59 07/20/19 25 07/21/2024 GI PROFI LE, STOOL , PCR giardia lamblia Not Detect ed not detect ed Not Available [facility] ([facility]) [address] [place], [address], 07/21/2024 06:43:59 07/20/19 25 07/21/2024 GI PROFI LE, STOOL , PCR adenovirus F 40/41 Not Detect ed not detect ed Not Available [facility] ([facility]) [address] [place], [address], 07/21/2024 06:43:59 07/20/19 25 07/21/2024 GI PROFI LE, STOOL , PCR astrovirus Not Detect ed not detect ed Not Available [facility] ([facility]) [address] [facility] [place], [address], 07/21/2024 06:43:59 07/20/19 25 07/21/2024 GI PROFI LE, STOOL , PCR norovirus GI/gii Not Detect ed not detect ed Not Available [facility] ([facility]) [address] [facility] [place], [address], 07/21/2024 06:43:59 07/20/19 25 07/21/2024 GI PROFI LE, STOOL , PCR rotavirus A Not Detect ed not detect ed Not Available [facility] ([facility]) [address] [facility] [place], [address], 07/21/2024 06:43:59 07/20/19 25 07/21/2024 GI PROFI LE, STOOL , PCR sapovirus Not Detect ed not detect ed Not Available [facility] ([facility]) [address] [facility] [place], [address], 07/21/2024 06:43:59 07/20/1907/20/2024 PLECHANDNI E NOTE please note Commen t The date and/o r time of colle ction was not indic ated on the requi sitio n as requi red by state and aniya al law. The date of recei pt of the speci men was used as the colle ction date if not suppl ied. Not Available [facility] ([facility]) [address] [facility] [place], [address], 07/21/2024 06:44:00 08/21/19 25 08/22/2024 STOOL CULTU RE salmonella/s higella screen Final report Not Available [facility] ([facility]) [address] [facility] [place], [address], 08/24/2024 18:35:48 08/21/19 25 08/22/2024 STOOL CULTU RE result 1 COMMEN T No Salmo antwan or Shige lla recov ered. Not Available [facility] ([facility]) [address] [place], [address], 08/24/2024 18:35:48 08/21/19 25 08/22/2024 STOOL CULTU RE E coli shiga toxin EIA Negati ve negati ve Not Available [facility] ([facility]) [address] [place], [address], 08/24/2024 18:35:48 08/21/19 25 08/24/2024 STOOL CULTU RE campylobacte r culture Final report Not Available [facility] ([facility]) [address] [place], [address], 08/24/2024 18:35:48 08/21/19 25 08/24/2024 STOOL CULTU RE result 1 COMMEN T No Campy lobac ter speci es isola conrad. Not Available [facility] ([facility]) [address] [place], [address], 08/24/2024 18:35:48 08/21/19 25 08/21/2024 C DIFFI CILE TOXIN S A+B, EIA C difficile toxins A+B, EIA Negati ve negati ve Not Available [facility] ([facility]) [address] [place], [address], 08/24/2024 18:35:48 09/28/19 25 09/28/2024 COMP. METAB OLIC PANEL (14) glucose 106 mg/dL 70-99 above high normal Not Available [facility] ([facility]) [address] [place], [address], 09/28/2024 12:36:11 09/28/19 25 09/28/2024 COMP. METAB OLIC PANEL (14) BUN 22 mg/dL 8-27 normal Not Available [facility] ([facility]) [address] [place], [address], 09/28/2024 12:36:11 09/28/19 25 09/28/2024 COMP. METAB OLIC PANEL (14) creatinine 1.13 mg/dL 0.76-1 .27 normal Not Available [facility] ([facility]) [address] [facility], [place], [address], 09/28/2024 12:36:11 09/28/19 25 09/28/2024 COMP. METAB OLIC PANEL (14) eGFR 72 mL/mi n/1.7 3 >59 normal Not Available [facility] ([facility]) [address] [facility], [place], [address], 09/28/2024 12:36:11 09/28/19 25 09/28/2024 COMP. METAB [...] at [email or web address]. Not Available [facility] ([facility]) [address] [facility], [place], [address], 09/28/2024 12:36:11 09/28/19 25 09/28/2024 COMP. METAB OLIC PANEL (14) BUN/creatini ne ratio 19 10-24 normal Not Available [facility] ([facility]) [address] [facility], [place], [address], 09/28/2024 12:36:11 09/28/19 25 09/28/2024 COMP. METAB OLIC PANEL (14) sodium 138 mmol/ L 134-14 4 normal Not Available [facility] ([facility]) [address] [facility] [place], [address], 09/28/2024 12:36:11 09/28/19 25 09/28/2024 COMP. METAB OLIC PANEL (14) potassium 4.4 mmol/ L 3.5-5. 2 normal Not Available [facility] ([facility]) [address] [facility] [place], [address], 09/28/2024 12:36:11 09/28/19 25 09/28/2024 COMP. METAB OLIC PANEL (14) chloride 105 mmol/ L 96-106 normal Not Available [facility] ([facility]) [address] [facility] [place], [address], 09/28/2024 12:36:11 09/28/19 25 09/28/2024 COMP. METAB OLIC PANEL (14) carbon dioxide, total 17 mmol/ L 20-29 below low normal Not Available [facility] ([facility]) [address] [facility] [place], [address], 09/28/2024 12:36:11 09/28/19 25 09/28/2024 COMP. METAB OLIC PANEL (14) calcium 8.7 mg/dL 8.6-10 .2 normal Not Available [facility] ([facility]) [address] [facility] [place], [address], 09/28/2024 12:36:11 09/28/19 25 09/28/2024 COMP. METAB OLIC PANEL (14) protein, total 6.3 g/dL 6.0-8. 5 normal Not Available [facility] ([facility]) [address] [facility] [place], [address], 09/28/2024 12:36:11 09/28/19 25 09/28/2024 COMP. METAB OLIC PANEL (14) albumin 3.8 g/dL 3.9-4. 9 below low normal Not Available [facility] ([facility]) [address] [place], [address], 09/28/2024 12:36:11 09/28/19 25 09/28/2024 COMP. METAB OLIC PANEL (14) globulin, total 2.5 g/dL 1.5-4. 5 Not Available [facility] ([facility]) [address] [place], [address], 09/28/2024 12:36:11 09/28/1909/28/2024 COMP. METAB OLIC PANEL (14) bilirubin, total 0.5 mg/dL 0.0-1. 2 normal Not Available [facility] ([facility]) [address] [place], [address], 09/28/2024 12:36:11 09/28/19 25 09/28/2024 COMP. METAB OLIC PANEL (14) alkaline phosphatase 60 IU/L 44-121 normal Not Available [facility] [address] [place], [address], 09/28/2024 12:36:11 09/28/19 25 09/28/2024 COMP. METAB OLIC PANEL (14) AST (SGOT) 41 IU/L 0-40 above high normal Not Available [facility] ([facility]) [address] [place], [address], 09/28/2024 12:36:11 09/28/19 25 09/28/2024 COMP. METAB OLIC PANEL (14) ALT (SGPT) 36 IU/L 0-44 normal Not Available [facility] ([facility]) [address] [place], [address], 09/28/2024 12:36:11 09/28/19 25 09/28/2024 LIPID PANEL cholesterol, total 126 mg/dL 100-19 9 normal Not Available [facility] ([facility]) [address] [place], [address], 09/28/2024 12:36:11 09/28/19 25 09/28/2024 LIPID PANEL triglyceride s 152 mg/dL 0-149 above high normal Not Available [facility] ([facility]) [address] [place], [address], 09/28/2024 12:36:11 09/28/19 25 09/28/2024 LIPID PANEL HDL cholesterol 31 mg/dL >39 below low normal Not Available [facility] ([facility]) [address] [facility], [place], [address], 09/28/2024 12:36:11 09/28/19 25 09/28/2024 LIPID PANEL VLDL cholesterol kerline 27 mg/dL 5-40 Not Available [facility]) [address] [place], [address], 09/28/2024 12:36:11 09/28/19 25 09/28/2024 LIPID PANEL LDL chol calc ([facility]) 68 mg/dL 0-99 Not Available [facility]) [address] [facility], [place], [address], 09/28/2024 12:36:11 09/28/19 25 09/28/2024 LIPID PANEL LDL calc comment: NET C DEVELOPER Not Available [facility] ([facility]) [address] [place], [address], 09/28/2024 12:36:11 09/28/19 25 09/28/2024 ALBUM IN/CR EAT RATIO , BG M UR creatinine, urine 108.1 mg/dL not estab. normal Not Available [facility] ([facility]) [address] [place], [address], 09/28/2024 12:36:12 09/28/19 25 09/28/2024 ALBUM IN/CR EAT RATIO , ARELIO M UR albumin, urine 42.6 ug/mL not estab. Not Available [facility] ([facility]) [address] [facility], [place], [address], 09/28/2024 12:36:12 09/28/1909/28/2024 ALBUM IN/CR EAT RATIO , RANDO M UR alb/creat ratio 39 mg/g_ creat 0-29 above high normal Viji l: 0 - 29 Moder ately incre ased: 30 - 300 Sever elsa incre ased: >300 Not Available [facility] ([facility]) [address] [facility], [place], [address], 09/28/2024 12:36:12 09/28/1909/28/2024 HEMOG LOBIN A1C hemoglobin A1C 6.0 % 4.8-5. 6 above high normal Predi abete s: 5.7 - 6.4 Diabe marybel: >6.4 Glyce joelle contr ol for adult s with diabe marybel: <7.0 Not Available [facility] ([facility]) [address] [facility], [place], [address], 09/28/2024 12:36:12 09/28/1909/28/2024 PROST ATE-S PECIF IC AG prostate specific [...] kits canno t be used inter kwong eaclaudettey . Resul ts canno t be inter prete d as absol zakia evide nce of the prese nce or absen ce of radha rivera se. Not Available [facility] ([facility]) [address], [place], [address], 09/28/2024 12:36:12 09/28/19 25 09/27/2024 drug scree n, urine AMP negati ve Not Available [facility] [place] [address] [place] [address], [phone], 09/27/2024 10:40:09 09/28/19 25 09/27/2024 drug scree n, urine BAR negati ve Not Available [place] [address] [place] [address], [address], 09/27/2024 10:40:09 09/28/19 25 09/27/2024 drug scree n, urine BUP negati ve Not Available [place] [address] [place] [address], [address], 09/27/2024 10:40:09 09/28/19 25 09/27/2024 drug scree n, urine BZO negati ve Not Available [place] [address] [place] [address], [address], 09/27/2024 10:40:09 09/28/19 25 09/27/2024 drug scree n, urine TOBY negati ve Not Available [place] [address] [place] [address], [phone], 09/27/2024 10:40:09 09/28/19 25 09/27/2024 drug scree n, urine FTY negati ve Not Available [place] [address] [place] [address], [address], 09/27/2024 10:40:09 09/28/19 25 09/27/2024 drug scree n, urine MDMA negati ve Not Available [facility] [address] [place] [address], [phone], 09/27/2024 10:40:09 09/28/19 25 09/27/2024 drug scree n, urine MET negati ve Not Available [facility] [address] [place] [address], [address], 09/27/2024 10:40:09 09/28/19 25 09/27/2024 drug scree n, urine MOP negati ve Not Available [facility] [address] [place] [address], [address], 09/27/2024 10:40:09 09/28/19 25 09/27/2024 drug scree n, urine MTD negati ve Not Available [facility] [address] [place] [address], [address], 09/27/2024 10:40:09 09/28/19 25 09/27/2024 drug scree n, urine OXY negati ve Not Available [facility] [address] [place] [address], [address], 09/27/2024 10:40:09 09/28/19 25 09/27/2024 drug scree n, urine PCP negati ve Not Available [facility] [address] [place] [address], [phone], 09/27/2024 10:40:09 09/28/19 25 09/27/2024 drug scree n, urine TCA negati ve Not Available [facility] [address] [place] [address], [address], 09/27/2024 10:40:09 09/28/19 25 09/27/2024 drug scree n, urine THC negati ve Not Available [facility] [address] [place] [address], [address], 09/27/2024 10:40:09 11/09/19 25 11/09/2024 TSH+F REE T4 TSH 1.500 uIU/m L 0.450- 4.500 normal Not Available [facility] ([facility]) [address] [place], [address], 11/25/2024 00:06:36 11/09/19 25 11/09/2024 TSH+F REE T4 T4,free(dire ct) 1.20 NG/dL 0.82-1 .77 normal Not Available [facility] ([facility]) [address] [place], [address], 11/25/2024 00:06:36 11/09/19 25 11/09/2024 CBC WITH DIFFE RENTI AL/PL ATELE T WBC 8.1 x10e3 /uL 3.4-10 .8 normal Not Available [facility] ([facility]) [address] [place], [address], 11/25/2024 00:06:37 11/09/1911/09/2024 CBC WITH DIFFE RENTI AL/PL ATELE T RBC 5.38 x10e6 /uL 4.14-5 .80 normal Not Available [facility] ([facility]) [address] [place], [address], 11/25/2024 00:06:37 11/09/1911/09/2024 CBC WITH DIFFE RENTI AL/PL ATELE T hemoglobin 15.1 g/dL 13.0-1 7.7 normal Not Available [facility] ([facility]) [address] [place], [address], 11/25/2024 00:06:37 11/09/19 25 11/09/2024 CBC WITH DIFFE RENTI AL/PL ATELE T hematocrit 46.9 % 37.5-5 1.0 normal Not Available [facility] ([facility]) [address] [facility], [place], [address], 11/25/2024 00:06:37 11/09/1911/09/2024 CBC WITH DIFFE RENTI AL/PL ATELE T MCV 87 fL 79-97 normal Not Available [facility] ([facility]) [address] [facility], [place], [address], 11/25/2024 00:06:37 11/09/19 25 11/09/2024 CBC WITH DIFFE RENTI AL/PL ATELE T MCH 28.1 pg 26.6-3 3.0 normal Not Available [facility] ([facility]) [address] [facility], [place], [address], 11/25/2024 00:06:37 11/09/19 25 11/09/2024 CBC WITH DIFFE RENTI AL/PL ATELE T MCHC 32.2 g/dL 31.5-3 5.7 normal Not Available [facility] ([facility]) [address] [facility], [place], [address], 11/25/2024 00:06:37 11/09/1911/09/2024 CBC WITH DIFFE RENTI AL/PL ATELE T RDW 13.4 % 11.6-1 5.4 Not Available [facility] ([facility]) [address] [place], [address], 11/25/2024 00:06:37 11/09/19 25 11/09/2024 CBC WITH DIFFE RENTI AL/PL ATELE T platelets 255 x10e3 /uL 150-45 0 normal Not Available [facility] ([facility]) [address] [place], [address], 11/25/2024 00:06:37 11/09/19 25 11/09/2024 CBC WITH DIFFE RENTI AL/PL ATELE T neutrophils 57 % not estab. normal Not Available [facility] ([facility]) [address] [place], [address], 11/25/2024 00:06:37 11/09/19 25 11/09/2024 CBC WITH DIFFE RENTI AL/PL ATELE T lymphs 30 % not estab. normal Not Available [facility] ([facility]) [address] [facility], [place], [address], 11/25/2024 00:06:37 11/09/1911/09/2024 CBC WITH DIFFE RENTI AL/PL ATELE T monocytes 10 % not estab. normal Not Available [facility] ([facility]) [address] [facility], [place], [address], 11/25/2024 00:06:37 11/09/1911/09/2024 CBC WITH DIFFE RENTI AL/PL ATELE T eos 2 % not estab. normal Not Available [facility] ([facility]) [address] [facility], [place], [address], 11/25/2024 00:06:37 11/09/1911/09/2024 CBC WITH DIFFE RENTI AL/PL ATELE T basos 1 % not estab. normal Not Available [facility] ([facility]) [address] [facility], [place], [address], 11/25/2024 00:06:37 11/09/1911/09/2024 CBC WITH DIFFE RENTI AL/PL ATELE T immature cells NET C DEVELOPER Not Available [facility]) [address] [place], [address], 11/25/2024 00:06:37 11/09/1911/09/2024 CBC WITH DIFFE RENTI AL/PL ATELE T neutrophils (absolute) 4.7 x10e3 /uL 1.4-7. 0 normal Not Available [facility] ([facility]) [address] [place], [address], 11/25/2024 00:06:37 11/09/19 25 11/09/2024 CBC WITH DIFFE RENTI AL/PL ATELE T lymphs (absolute) 2.4 x10e3 /uL 0.7-3. 1 normal Not Available [facility] ([facility]) [address] [place], [address], 11/25/2024 00:06:37 11/09/19 25 11/09/2024 CBC WITH DIFFE RENTI AL/PL ATELE T monocytes(ab solute) 0.8 x10e3 /uL 0.1-0. 9 normal Not Available [facility] ([facility]) [address] [place], [address], 11/25/2024 00:06:37 11/09/19 25 11/09/2024 CBC WITH DIFFE RENTI AL/PL ATELE T eos (absolute) 0.1 x10e3 /uL 0.0-0. 4 normal Not Available [facility] ([facility]) [address] [facility], [place], [address], 11/25/2024 00:06:37 11/09/19 25 11/09/2024 CBC WITH DIFFE RENTI AL/PL ATELE T baso (absolute) 0.1 x10e3 /uL 0.0-0. 2 normal Not Available [facility] ([facility]) [address] [place], [address], 11/25/2024 00:06:37 11/09/19 25 11/09/2024 CBC WITH DIFFE RENTI AL/PL ATELE T immature granulocytes 0 % not estab. Not Available [facility] ([facility]) [address] [place], [address], 11/25/2024 00:06:37 11/09/19 25 11/09/2024 CBC WITH DIFFE RENTI AL/PL ATELE T immature grans (abs) 0.0 x10e3 /uL 0.0-0. 1 Not Available [facility] ([facility] [address] [facility] [place], [address], 11/25/2024 00:06:37 11/09/19 25 11/09/2024 CBC WITH DIFFE RENTI AL/PL ATELE T NRBC NET C DEVELOPER Not Available [facility] ([facility]) [address] [facility], [place], [address], 11/25/2024 00:06:37 11/09/19 25 11/09/2024 CBC WITH DIFFE RENTI AL/PL ATELE T hematology comments: NET C DEVELOPER Not Available [facility]) [address] [facility], [place], [address], 11/25/2024 00:06:37 11/09/19 25 11/09/2024 IRON AND TIBC iron bind.cap.(TI BC) 358 ug/dL 250-45 0 normal Not Available [facility] ([facility]) [address] [place], [address], 11/25/2024 00:06:37 11/09/19 25 11/09/2024 IRON AND TIBC UIBC 277 ug/dL 111-34 3 normal Not Available [facility] ([facility]) [address] [facility], [place], [address], 11/25/2024 00:06:37 11/09/19 25 11/09/2024 IRON AND TIBC iron 81 ug/dL 38-169 normal Not Available [facility] ([facility]) [address] [place], [address], 11/25/2024 00:06:37 11/09/19 25 11/09/2024 IRON AND TIBC iron saturation 23 % 15-55 normal Not Available [facility] ([facility]) [address] [place], [address], 11/25/2024 00:06:37 11/09/19 25 11/09/2024 VITAM IN B12 AND FOLAT E vitamin B12 759 pg/mL 232-12 45 normal Not Available [facility] ([facility]) [address] [facility], [place], [address], 11/25/2024 00:06:38 11/09/1911/09/2024 VITAM IN B12 AND FOLAT E folate (folic acid), serum 4.6 NG/mL >3.0 normal A serum folat e nevaeh ntrat ion of less than 3.1 ng/mL is consi dered to repre sent clini kerline defic iency . Not Available [facility] ([facility]) [address] [facility], [place], [address], 11/25/2024 00:06:38 11/09/1911/14/2024 VITAM IN B6, PLASM A vitamin B6 55.6 ug/L 3.4-65 .2 normal Defic iency : <3.4 Leonora nal: 3.4 - 5.1 Adequ ate: >5.1 Not Available [facility] ([facility]) [address] [facility], [place], [address], 11/25/2024 00:06:38 11/09/1911/09/2024 VITAM IN D, 25-HY [...] 1. IOM (Inst itute of Medic ine). 2009. Dieta ry refer ence intak es for calci um and D. April moura DC: The Natio nal [facility] Press . 2. Leno estes MF, Al jarrett [place], Brenda off-F errar i [place], et al. Evalu ation , treat ment, and preve ntion of vitam in D defic iency : an Endoc rine Socie ty clini kerline pract ice guide line. JCEM. 2010; 96(7) :1911 -30. Not Available [facility] ([facility]) [address] [facility], [place], [address], 11/25/2024 00:06:39 11/09/1911/10/2024 MYAST HENIA GRAVI S PROFI LE AChR binding abs, serum <0.07 nmol/ L 0.00-0 .24 Negat cydney: 0.00 - 0.24 Borde rline : 0.25 - 0.40 Posit cydney: >0.40 Not Available [facility] ([facility]) [address] [place], [address], 11/25/2024 00:06:39 11/09/19 25 11/11/2024 MYAST HENIA GRAVI S PROFI LE striation abs, serum Negati ve neg:<1 :100 Not Available [facility] ([facility]) [address] [facility], [place], [address], 11/25/2024 00:06:39 11/09/19 25 11/12/2024 MYAST HENIA GRAVI S PROFI LE AChR blocking abs, serum 24 % 0-25 Negat cydney: 0 - 25 Borde rline : 26 - 30 Posit cydney: >30 Not Available [facility] ([facility]) [address] [facility], [place], [address], 11/25/2024 00:06:39 11/09/19 25 11/17/2024 MYAST HENIA GRAVI S PROFI LE AChR-modulat ing Ab 0 % 0-45 Inter preti ve Infor matio n: Negat cydney: 0 - 45% Posit cydney: > 45% No singl e value for AChR- modul ating antib kevin shoul d be used as a sole basis for diagn osis or respo nse to thera py. Not Available [facility] ([facility]) [address] [facility], [place], [address], 11/25/2024 00:06:39 11/09/1911/17/2024 MYAST MISHA HOUSTON S PROFI LE reflex information Commen t Refle x test indic ated. Not Available [facility] ([facility]) [address] [facility], [place], [address], 11/25/2024 00:06:39 11/09/1911/25/2024 MUSK ABS, SERUM musk [...] tion. Not Available [facility] [address] [place], [address], 11/25/2024 00:06:40 11/09/19 25 11/09/2024 MAGNE SIUM magnesium 2.2 mg/dL 1.6-2. 3 normal Not Available [facility] ([facility]) [address] [facility], [place], [address], 11/25/2024 00:06:40 12/27/1912/26/2024 drug scree n, urine AMP negati ve Not Available [address], [address], 12/26/2024 14:14:32 12/27/19 25 12/26/2024 drug scree n, urine BAR negati ve Not Available [address], [address], 12/26/2024 14:14:32 12/27/19 25 12/26/2024 drug scree n, urine BUP negati ve Not Available [address], [address], 12/26/2024 14:14:32 12/27/1912/26/2024 drug scree n, urine BZO negati ve Not Available [address], [address], 12/26/2024 14:14:32 12/27/1912/26/2024 drug scree n, urine TOBY negati ve Not Available [address], [address], 12/26/2024 14:14:32 12/27/1912/26/2024 drug scree n, urine FTY negati ve Not Available [address], [address], 12/26/2024 14:14:32 12/27/19 25 12/26/2024 drug scree n, urine MDMA negati ve Not Available [address], [address], 12/26/2024 14:14:32 12/27/1912/26/2024 drug scree n, urine MET negati ve Not Available [address], [address], 12/26/2024 14:14:32 12/27/1912/26/2024 drug scree n, urine MOP negati ve Not Available [address], [address], 12/26/2024 14:14:32 12/27/19 25 12/26/2024 drug scree n, urine MTD negati ve Not Available [address], [address], 12/26/2024 14:14:32 12/27/19 25 12/26/2024 drug scree n, urine OXY negati ve Not Available [address], [address], 12/26/2024 14:14:32 12/27/19 25 12/26/2024 drug scree n, urine PCP negati ve Not Available [address], [address], 12/26/2024 14:14:32 12/27/19 25 12/26/2024 drug scree n, urine TCA negati ve Not Available [address], [address], 12/26/2024 14:14:32 12/27/19 25 12/26/2024 drug scree n, urine THC negati ve Not Available [address], [address], 12/26/2024 14:14:32 07/31/19 CT, abdom en + pelvi s, w/o contr ast No observ ation record ed. [email or web address] [facility] [facility] [address] [facility], [place], [address], 08/06/2024 11:56:40 11/05/19 25 10/30/2024 , [facility] ardio gram No observ ation record ed. [email or web address] [facility] [address] [facility] [address], [place], [address], 11/06/2024 10:49:39 11/22/19 25 11/20/2024 elect romyo gram + nerve condu ction study No observ ation record ed. [facility] [address], [place], [address], 11/25/2024 10:23:40 11/27/1911/20/2024 elect romyo gram + nerve condu ction study No observ ation record ed. [facility] [address], [place], [address], 12/11/2024 11:13:57 11/28/1911/25/2024 elect romyo gram + nerve condu ction study No observ ation record ed. [facility] [address], [place], [address], 12/11/2024 11:47:34 12/12/1911/20/2024 elect romyo gram No observ ation record ed. [email or web address] [facility] [address], [place], [address], 12/16/2024 13:35:07 12/20/1912/18/2024 XR, wrist , 2 view No observ ation record ed. [facility] [address], [place], [address], 12/20/2024 08:14:58 12/20/1912/18/2024 XR, wrist , 2 view No observ ation record ed. [facility] [address], [place], [address], 12/20/2024 08:14:58 Result Notes None recorded. 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 Procedures Surgical History Date Name Laterality Status Provider Name and Address Organization Details Recorded Time 12/27/19 25 Advance Care Planning cancelled Normahanny Reyna [place] - [facility] 12/24/2024 16:27:32 12/27/19 25 Functional Status Assessed cancelled Norma Reyna [place] - [facility] 12/24/2024 16:27:32 03/25/19 25 Medication Reconcilliation completed Norma Reyna [place] - [facility] 03/25/2024 13:07:13 12/29/19 24 Advance Care Planning completed Reta Carranza [place] - [facility] 12/29/2023 11:11:53 12/29/19 24 Functional Status Assessed completed Reta Carranza [place] - [facility] 12/29/2023 11:11:53 12/24/19 23 Suture/Staple removal completed oD Lambert [employer] [address], [place], [address], [place] - [facility] 12/23/2022 10:15:30 12/01/19 23 Cryosurgery Dermatology completed Kely Escalona APRN [address], [place], [address], [place] - [facility] 11/30/2022 13:15:20 08/25/19 23 Shave Biopsy Face, Ears, eyelids, nose, lips, muc membranes completed Kely Escalona APRN [address], [place], [address], [place] - [facility] 08/24/2022 10:36:02 07/22/19 23 Cryosurgery Dermatology completed Kely Escalona, [employer] [address], [place], [address], [place] - [facility] 07/21/2022 14:53:44 05/04/19 22 [...] Available No t Available [employer] [address] USE DIRECTED active Not Available Not Available [...] temperature Heart rate Oxygen saturation Respiratory rate Systolic And Diastolic Provider Name and Address Organization Details Last Updated DateTime 5 182.88 cm 24.4 kg/m2 11935.6 3 g 97.7 [degF] 82 /min 99 % 18 /min 118/60 mm[Hg] Normahanny Reyna [place] - [facility] 5 10:18:56 Date Recorded Body height Body temperature Body mass index (BMI) Body weight Heart rate Oxygen saturation Respiratory rate Systolic And Diastolic Provider Name and Address Organization Details Last Updated DateTime 5 182.88 cm 97.7 [degF] 24.3 kg/m2 76587.0 3 g 66 /min 98 % 20 /min 100/60 mm[Hg] Britney Clifton [place] - [facility] 5 10:43:52 Date Recorded Body height Respiratory rate Body mass index (BMI) Body weight Heart rate Oxygen saturation Body temperature Systolic And Diastolic Provider Name and Address Organization Details Last Updated DateTime 5 182.88 cm 18 /min 24.7 kg/m2 08053.8 1 g 58 /min 97 % 98 [degF] 108/64 mm[Hg] Nyasia Stears [place] - [facility] 5 11:13:29 Date Recorded Body height Body mass index (BMI) Body weight Body temperature Heart rate Oxygen saturation Respiratory rate Pain severity - 0-10 verbal numeric rating [Score] - Reported Systolic And Diastolic Provider Name and Address Organization Details Last Updated DateTime 5 182.88 cm 25.4 kg/m2 79800.4 7 g 98.1 [degF] 60 /min 97 % 18 /min 4 124/72 mm[Hg] Rand Hampton [facility] 5 10:51:59 Date Recorded Body height Body mass index (BMI) Body weight Body temperature Heart rate Oxygen saturation Respiratory rate Pain severity - 0-10 verbal numeric rating [Score] - Reported Systolic And Diastolic Provider Name and Address Organization Details Last Updated DateTime 5 182.88 cm 25 kg/m2 42158 g 97.5 [degF] 71 /min 97 % 18 /min 0 126/72 mm[Hg] Rand Berta [facility] 5 14:08:24 Social History Question Answer Notes LastModified by Organizat ion Details LastModified Time Tobacco Smoking Status Former Smoker Norma Reyna marily [facility] 04/27/2021 13:28:13 Do You Have An Advance Directive? No [email or web address] Information not available 04/27/2021 How Many Years Have You Consumed Alcohol? 30 [email or web address] Information not available 08/05/2024 Are You Blind Or Do You Have Difficulty Seeing? No Information not available 04/27/2021 Is Blood Transfusion Acceptable In An Emergency? Yes Information not available 08/05/2024 What Is Your Level Of Caffeine Consumption? Occasional [email or web address] Information not available 04/27/2021 In The 14 Days Before Symptom Onset, Have You Had Close Contact With A Laboratory-confir med COVID-19 While That Case Was Ill? No [email or web address] Information not available 04/27/2021 In The 14 Days Before Symptom Onset, Have You Had Close Contact With A Person Who Is Under Investigation For COVID-19 While That Person Was Ill? No [email or web address] Information not available 04/27/2021 Have You Been To An Area Known To Be High Risk For COVID-19? No [email or web address] Information not available 04/27/2021 Are You Deaf Or Do You Have Serious Difficulty Hearing? No [email or web address] Information not available 04/27/2021 What Type Of Diet Are You Following? REGULAR [email or web address] Information not available 04/27/2021 Have You Processed Blood Or Body Fluids From An Ebola Virus Disease Patient Without Appropriate PPE? No [email or web address] Information not available 04/27/2021 Do You Reside In Or Have You Traveled To An Area Where Ebola Virus Transmission Is Active? No [email or web address] Information not available 04/27/2021 What Is The Highest Grade Or Level Of School You Have Completed Or The Highest Degree You Have Received? [id number] [email or web address] Information not available 08/05/2024 Have There Been Any Changes To Your Family Or Social Situation? No [email or web address] Information no t available 04/27/2021 When Did You Quit Smoking? 1-5yearssincel kj [email or web address] Information not available 04/27/2021 Have You Recently Or Are You Planning To Travel To An Area With Zika Virus? No [email or web address] Information not available 04/27/2021 How Many Years Have You Used Illicit Or Recreational Drugs? 0 [email or web address] Information not available 08/05/2024 What Was The Date Of Your Most Recent Tobacco Screening? 06/25/2024 [email or web address] Information not available 06/25/2024 Do You Use Protection Against STDs? No [email or web address] Information not available 08/05/2024 What Is Your Relationship Status? Information not available 08/05/2024 Do You Use Your Seat Belt Or Car Seat Routinely? Yes [email or web address] Information not available 08/05/2024 Are You Sexually Active? Yes [email or web address] Information not available 06/25/2024 Do You Have Smoke And Carbon Monoxide Detectors In Your Home? Yes [email or web address] Information not available 04/27/2021 At What Age Did You Start Smoking Tobacco? 11 [email or web address] Information not available 08/05/2024 Are You Passively Exposed To Smoke? No [email or web address] Information no t available 04/27/2021 Do You Use Sunscreen Routinely? No [email or web address] Information not available 08/05/2024 Has Tobacco Cessation Counseling Been Provided? Yes [email or web address] Information not available 06/20/2023 On What Date Was Tobacco Cessation Counseling Provided? 06/25/2024 [email or web address] Information not available 06/25/2024 How Many Years Have You Smoked Tobacco? 40 [email or web address] Information not available 04/27/2021 Do You Have Difficulty Walking Or Climbing Stairs? No [email or web address] Information not available 04/27/2021 Sex: Male Functional Status Question Answer Note LastModified by Organizat ion Details LastModified Time Do you use any illicit or recreational drugs? No [email or web address] Information not available 04/27/2021 Do you or have you ever used any other forms of tobacco or nicotine? No [email or web address] Information not available 04/27/2021 What is your level of alcohol consumption? Occasional [email or web address] Information not available 04/27/2021 Are you currently employed? No [email or web address] Information not available 04/27/2021 Do you have transportation difficulties? No Information not available 04/27/2021 Do you have difficulty doing errands alone? No Information not available 04/27/2021 Are you able to care for yourself independently? Yes [email or web address] Information not available 04/27/2021 Do you have difficulty dressing, bathing, grooming, or toileting? No [email or web address] Information not available 04/27/2021 Do you or have you ever used e-cigarettes or vape? Never used electronic cigarettes Information not available 08/05/2024 What is your exercise level? Moderate [email or web address] Information not available 08/05/2024 Mental Status Question Answer Note LastModified by Organizat ion Details LastModified Time Do you feel stressed (tense, restless, nervous, or anxious, or unable to sleep at night)? [id number] [email or web address] Information not available 08/05/2024 Do you have difficulty concentrating, remembering or making decisions? No [email or web address] Information no t available 04/27/2021 Family History [...] colitis N Cerebrovascular Disease N Depression N Guillain-[place] N Sleep Apnea N Aneurysm N Bronchitis N Heart Disease N Suicidal Ideation N Pre-Eclampsia N Hypertension N Osteoporosis N Immunizations Vaccine Type Date Status Note Provider Nam e and Address Organization Details Recorded Time HepB-CpG 05/26/19 24 completed Not Available [facility] 09/27/2024 10:36:34 Influenza, MDCK, quadrivalent, PF 04/10/19 24 completed Nyasia Wyatts null, [place] - [facility] 11/08/2024 11:05:03 RSV, recombinant, protein subunit RSVpreF, adjuvant reconstituted, 0.5 mL, PF 04/10/19 24 completed Nyasia Stears null, [place] - [facility] 11/08/2024 11:05:03 Tdap 06/20/19 24 cancelled patient objection Do Lambert, [employer] [address], [place], [address], [place] - [facility] 06/26/2023 08:34:29 zoster recombinant 03/07/19 24 completed Do Lambert, [employer] [address], [place], [address], [place] [facility] 04/04/2023 13:11:37 zoster recombinant 12/28/19 23 completed Do Lambert, [employer] [address], [place], [address], [place] [facility] 04/04/2023 13:11:37 Respiratory syncytial virus (RSV) MAB, unspecified 04/10/19 24 completed Norma Reyna null, [place] - [facility] 04/21/2023 14:13:48 influenza, unspecified formulation 04/10/19 24 completed Nyasia Vergara null, [place] - [facility] 11/08/2024 11:05:03 Past Encounters Encounter ID Performer Location Encounter Start Date Encounter Closed Date Diagnosis/Indication Diagnosis SNOMED-CT Code Diagnosis ICD10 Code Diagnosis IMO Codes Diagnosis Note [id number] Do Lambert APRN [place] [address] [place] [address] 04/27/2021 13:12:27 04/27/2021 14:20:36 Screening for malignant neoplasm of colon 619960535 Z12.11 Screening for cardiovascular system disease 060755160 Z13.6 Fatigue 32551740 R53.83 General ex amination of patient 803000711 Z00.00 Screening for malignant neoplasm of prostate 244418940 Z12.5 Tobacco de pendence in remission 345734604 F17.201 Hepatitis C screening 41 6085004 Z11.59 HIV screening 689123706 Z11.4 [id number] Do Lambert APRN [place] [address] [place] [id number] 6 05/03/2021 13:37:22 05/03/2021 14:36:36 Uncontrolled type 2 diabetes mellitus 857224375 E11.65 RTC in 3 months for labs. Will call office when refills needed. [id number] Do Lambert APRN [place] [address] [place] [id number] 6 10/11/2021 08:30:25 10/11/2021 10:54:00 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 2 diabetes mellitus 5107263776 107 E11.42 OARRS reviewed. Controlled substance agreement on file. [id number] Do Lambert [employer] [place] [address] [place] [address] 6 01/14/2022 07:51:58 01/14/2022 08:42:16 Diabetes mellitus 47037021 E13.42 Last attempt at [facility]. Provided referral informatio n for [facility]. 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 2 diabetes mellitus 2632549583 107 E11.42 OARRS reviewed. Controlled substance agreement on file 10/11/21. [id number] Do Lambert APRN [place] [address] [place] [address] 6 07/04/2022 08:50:10 07/04/2022 09:31:16 Diabetes mellitus 32575380 E13.42 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 2 diabetes mellitus 8765927952 107 E11.42 OARRS reviewed. Controlled substance agreement on file 10/11/21. Lesion of skin of face 2576009719 06 L98.9 [id number] Do Lambert APRN [place] [address] [place] [id number] 6 03/15/2022 08:07:33 03/15/2022 08:46:27 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 2 diabetes mellitus 0641281620 107 E11.42 OARRS reviewed. Controlled substance agreement on file 10/11/21. Finding of fluid behind tympanic membrane 318554324 H73.899 Insomnia 616905697 G47.0 0 [id number] Kely Escalona [employer] [address] [place] [address] 07/21/2022 13:36:28 07/21/2022 15:03:11 Senile hyperkeratosis 471019576 L82.1 cryo applied x2 Neoplasm of skin 0059134 04 D49.2 return for shave to rule out BCC prior to referring to [facility]OH[facility] surgery Senile angioma 8078569 I 78.[id number] [facility] [facility] [address] [place] [address] 08/24/2022 09:21:12 08/24/2022 10:47:22 Neoplasm of skin 677822293 D49.2 shave to rule out BCC prior to referring to MOHs surgery [id number] EPHRAIM [place] [address] [place] [address] 6 09/13/2022 08:27:29 09/13/2022 09:36:12 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 2 diabetes mellitus 8695514079 107 E11.42 OARRS reviewed. Controlled substance agreement on file 10/11/21. Body mass index 25-29 - overweight 430031299 Z68.26 Overweight 536577144 E66 .3 [id number] EPHRAIM Colon [address] [address] 03/20/2023 07:56:42 03/20/2023 08:39:39 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 2 diabetes mellitus 8808456819 107 E11.42 OARRS reviewed. Controlled substance agreement on file 03/20/23. Diabetes mellitus 780772 09 E13.42 Restart lantus. RTC in 3 months for dm f/u [id number] Kely Escalona APRN [facility] [address] [place] [address] 11/30/2022 10:37:18 11/30/2022 13:22:45 Basal cell carcinoma of skin 335899637 C44.91 Senile hyperkeratosis 39 5327644 L82.1 cryo applied x3 [id number] Do Lambert APRN [place] [address] [place] [id number] 6 12/16/2022 08:10:43 12/16/2022 09:01:59 Type 2 diabetes mellitus without complication 504610460 E11.9 Patient in dical record not available 998879635 Z76.89 Finding of fluid behind tympanic membrane 028131043 H73.899 Benign pro static hyperplasia without outflow obstruction 903867805 N40.0 [id number] Do Lambert [employer] [facility] [address] [place] [id number] 6 12/23/2022 09:48:12 12/23/2022 10:15:56 Removal of suture 04986443 Z48.02 RTC as needed [id number] Do Lambert [employer] [facility] [address] [place] [address] 6 12/30/2022 09:25:51 12/30/2022 09:35:58 Diabetes mellitus 10354546 E13.42 [id number] Do Lambert [facility] [address] [place] [address] 6 01/19/2023 09:26:37 01/19/2023 09:31:49 Diabetes mellitus 90210439 E13.42 [id number] Do Lambert [facility] [address] [place] [address] 6 06/20/2023 09:14:24 06/20/2023 10:16:46 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 2 diabetes mellitus 1510471128 107 E11.42 OARRS reviewed. Controlled substance agreement on file 03/20/23. Benign pro static hyperplasia with outflow obstruction 944948937 N40.1 Patient in dical record not available 268845768 Z76.89 Finding of fluid behind tympanic membrane 639491745 H73.899 Mixed hyperlipidemia 267 291696 E78.2 Persistent insomnia 1919 69512 G47.09 Chest pain 70745245 R07. 9 Chronic ki dney disease stage 2 950611028 N18.2 Active or passive immunization 972631250 Z23 General ex amination of patient 469717603 Z00.00 Exercises education, guidance, and counseling 592338211 Z71.82 The patient was advised to continue a healthy diet and exercise regularly. Dietary ma nagement surveillance 794490165 Z71.3 [id number] Do Lambert [employer] [facility] [address] [place] [address] 6 07/06/2023 10:14:52 07/06/2023 10:25:27 Diabetes mellitus 85838490 E13.42 Restart lantus. RTC in 3 months for dm f/u [id number] EPHRAIM [place] [address] [place] [address] 6 09/26/2023 08:34:15 09/26/2023 09:13:59 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 2 diabetes mellitus 6104165239 107 E11.42 OARRS reviewed. Controlled substance agreement on file 03/20/23. Benign pro static hyperplasia with outflow obstruction 977595592 N40.1 [id number] Kely Escalona [facility] [address] [place] [address] 10/11/2023 12:27:49 10/11/2023 13:31:38 Seborrheic dermatitis 96134787 L21.9 offered reassuranc e that I do not see any clinical evidence of recurrence of a BCC [id number] Do Lambert APRN [place] [address] [address] 12/29/2023 11:00:01 12/29/2023 11:44:32 Adult health examination 495365356 Z00.00 Depression screening 171 538480 Z13.31 A depression screening was completed via a standardiz ed screening tool. 5 minutes were spent discussing depression screening results and risk factors. Examinatio n of blood pressure 664014325 Z01.30 Diet education 31433087 Z71.3 Counseling 960743655 Z71 .82 Exercise counseling . Patient encouraged to exercise 30 minutes 5 days a week. [address] [facility] ed risk for falls 222999071 Z91.81 STEADI FAST screening score of __3___. Advance care planning 71 7592366 Z71.89 Diabetes mellitus 794373 09 E13.42 Decreased hearing 764245 001 H91.93 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 2 diabetes mellitus 8129677838 107 E11.42 OARRS reviewed. Controlled substance agreement on file 03/20/23. [id number] EPHRAIM Colon [place] [address] [place] [address] 6 03/25/2024 12:50:51 03/25/2024 14:06:05 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 2 diabetes mellitus 0816846676 107 E11.42 OARRS reviewed. Controlled substance agreement on file 03/20/23. Vaccination declined 069 4544735 Z28.21 Seasonal flu vaccine offered and declined [id number] Do Lambert APRN [address] [address] 04/16/2024 09:52:55 04/16/2024 10:53:17 Viral screening 203749284 Z11.59 Low blood pressure 59476 003 I95.9 Hold lisinopril . Appt scheduled with Cardiology tomorrow morning 9AM. Stay well hydrated. Monitor BP at home few times per week, more frequently over next 24 hours. Keep log and [facility] [id number] Do Lambert APRN [address] [address] 06/25/2024 08:37:38 06/25/2024 09:20:33 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 2 diabetes mellitus 6830698881 107 E11.42 OARRS reviewed. Controlled substance agreement on file 03/25/24. Body mass index 25-29 - overweight 862953570 E66.3 86792658 Overweight 288331276 E66 .3 [id number] Do Lambert APRN [place] [address] [address] 07/16/2024 15:34:54 07/16/2024 16:42:54 Abdominal pain 29684440 R10.9 Unintentio nal weight loss 679186687 R63.4 521127 Fever 812283623 R50.9 673735 Easy bruising 128599575 R23.3 702881 Muscle weakness 51621667 M62.81 98049 Acute diarrhea 615587696 R19.7 30174 [id number] Do Lambert APRN [place] [address] [address] 08/05/2024 10:08:32 08/05/2024 10:58:34 Lyme disease 65950800 A69.20 87732 Completed full course doxycyclin e. Symptoms typically improve within a few weeks, though fatigue may take longer to resolve. Good sleep hygiene encouraged . Light activity and pacing recommende d with stress management . Keep a symptom diary. Well balanced diet and hydration important. Contact office with new or worsening symptoms: fever, rash, joint pain, nerve problems. Fatigue 37376427 R53.83 [id number] Labs in October EPHRAIM Colon [facility] [address] [place] [address] 6 09/27/2024 10:36:22 09/27/2024 11:24:56 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 2 diabetes mellitus 1443630777 107 E11.42 OARRS reviewed. Controlled substance agreement on file 03/25/24. Prostate s pecific antigen measurement 05946953 Z12.5 994990 [id number] Rosalie Salas [address] [address] 11/08/2024 10:28:26 11/08/2024 11:52:45 Numbness and tingling sensation of skin 5720793040 02 R20.0 R20.2 [id number] labsnctneu rology consultif worsen or no improvemen t go to ed eugenie [id number] Rosalie Salas [address] [address] 12/13/2024 10:29:23 12/13/2024 11:36:25 Bilateral carpal tunnel syndrome 7326059557 4333906 G56.03 506699 splints at nightstero idsrefer to orthoif worsen or no improvemen t return [id number] Rosalie Salas [address] [address] 12/26/2024 13:50:05 12/26/2024 15:04:08 Diabetes mellitus 72663168 E13.42 continue diet and exercise 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 2 diabetes mellitus 3173061598 107 E11.42 Long-term current use of drug therapy 742976543 Z79.899 71776480 Cramp in foot 596427099 R25.2 [id number] referral to podiotryho ld statin Health Concerns Section Related Observation LastModified by Organization Detai ls LastModified Time None Recorded Concern Status LastModified by Organization Details LastModified Time None Recorded Advance Directives Directive N: Payers Insurance Date Sequence Insurance Name Policy Number Policy Jimenez Covered Member ID Jimenez Member ID Guarantor Name 2024 2 [place] Iker Gray [id number] Iker Gray 08/20/2024 1 [place] Iker Gray [id number] Iker Gray 12/23/2024 [employer] [place] - [place] - [facility] (MEDICARE) Iker Gray [id number] Iker Gray 11/12/2024 [place] Iker Gray [id number] Iker Gray 11/07/2023 2 [employer] [place] ON OR AFTER 2022 (MEDICAID REPLACEMENT - HMO) Iker Gray [id number] Iker Gray 01/04/2025 1 [employer] (MEDICARE REPLACEMENT/AD VANTAGE - PPO) [id number] Iker Gray [id number] Iker Gray 11/12/2024 [place] Iker Gray [id number] Iker Gray 07/13/2021 1 *SELF PAY* Judi Gray 09/13/2024 2 [place] Iker Gray [id number] Iker Gray 11/12/2024 [place] - [facility] Iker Gray [id number] Iker Gray 09/13/2024 2 [employer] (PPO) Iker Gray [id number] Iker Gray 09/10/2022 1 UNSPECIFIED REMIT PAYOR Iker Gray Notes Date Note Type Note Provider Name and Address Organization Details Recorded Time 08/05/2024 text/html ROS as noted in the [...] of the day. No abd pain. Do Lambert, [employer] [address], [place], [address], [place] - [facility] 08/05/2024 14:49:22 09/27/2024 text/html ROS as noted in the [facility] Patient presents for peripheral neuropathy due to [...] Wearing CGM. Send lipids to Cardiology Do LambertEPHRAIM [address], [place], [address], [facility] - [facility] 09/27/2024 14:35:57 11/08/2024 text/html ROS as noted in the [facility] 64 year old male who presents to the office today with concerns ofnausea todaynumbness in feet/legs/arms and hands for weeks-- wants referral to neurologyd heart attack w/4 stents in Marchdiff twice in 2024lyme disease and salmonella poisoning in 2024 Rosalie SalasEPHRAIM [address], [place], [address], [facility] - [facility] 12/16/2024 16:11:27 12/13/2024 text/html ROS as noted in the [facility] 64 yr old male presents for a follow up on abnormal tests- CTS abbie- has appt with neurology in January. numbness and tingling hands and feet. dx neuropathy- feet, cramps in legs Raquelheather EPHRAIM gary [address], [place], [address], [place] - [facility] 12/13/2024 11:53:14 12/26/2024 text/html ROS as noted in the [facility] 64 yr old male presents to follow up on diabetes and refill pregabalin. neuropathy- lyrica helpsnumbness in feet/legs/arms and hands for weeks- referral to neurologyhad heart attack w/4 stents in March 2024having abbie leg and foot cramps, worse at night Rosalie Salas, [employer] [address], [place], [address], [facility] - [facility] 12/26/2024 14:57:36
--- OUTSIDE RECORDS SUMMARY | 2025-01-06 10:58 | XMS_ITS | Continuity of Care Document ---
[facility] Address [address] [place] [address] Assessment No assessment recorded. Plan of Treatment Reminders Order Date Submit Date Provider Last Modified By Organization Details Last Modified Time Details Appointments Diabetic F/U 2024 01:00P M Rosalie Salas APRN Not available Not available Not available Follow Up 20 2024 02:00P M Rosalie Salas APRN Not available Not available Not available Lab None recorded. Referral orthopedi c surgeon referral 2024 025 RUFE Shay Joy , [address], [place], [address], 12/19/2024 11:45:17 Procedures None recorded. Surgeries None recorded. Imaging None recorded. Medication Orders prednison e 10 mg tablet [address] [facility], [address] [place] [address] [place], [place], [id number], 12/25/2024 05:01:58 Patient TargetsNo targets recorded. Patient InstructionsNo instructions recorded. Reason for Referral Orthopedic Surgeon Referral for Bilateral carpal tunnel syndrome Referring Physician: Rosalie Salas, Family Medicine, Encounter Date: 12/13/2024 Results Created Date Observation Date Name Description Value Unit Range Abnormal Flag Note LastModifiedBy Organization Detail LastModifiedTime 11/22/1911/20/2024 elect romyo gram + nerve condu ction study No observ ation record ed. [facility] [address], [place], [address], 11/25/2024 10:23:40 11/27/1911/20/2024 elect romyo gram + nerve condu ction study No observ ation record ed. [facility] (Med Record) [address], [place], [address], 12/11/2024 11:13:57 11/28/1911/25/2024 elect romyo gram + nerve condu ction study No observ ation record ed. [facility] [address], [place], [address], 12/11/2024 11:47:34 12/12/1911/20/2024 elect romyo gram No observ ation record ed. [email or web address] [facility] [address], [place], [address], 12/16/2024 13:35:07 12/20/1912/18/2024 XR, wrist , 2 view No observ ation record ed. [facility] [address], [place], [address], 12/20/2024 08:14:58 12/20/1912/18/2024 XR, wrist , 2 view No observ ation record ed. [facility] [address], [place], [address], 12/20/2024 08:14:58 Result Notes None recorded. 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 Do IRINA LambertN [address], [place], [address], [place] - [facility] 5 15:12:03 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 2024 Do IRINA LambertN [address], [place], [address], [place] [facility] 5 15:12:16 Problem [...] 11:11:53 12/24/19 23 Suture/Staple removal completed Do Lambert PER DIEM PHYSICAL THERAPIST ASSISTANT [address], [place], [address], [place] [facility] 12/23/2022 10:15:30 12/01/19 23 Cryosurgery Dermatology completed Kely Escalona APRN [address], [place], [address], [place] [facility] 11/30/2022 13:15:20 08/25/19 23 Shave Biopsy Face, Ears, eyelids, nose, lips, muc membranes completed Kely Escalona APRN [address], [place], [address], [place] [facility] 08/24/2022 10:36:02 07/22/19 23 Cryosurgery Dermatology completed Kely Escalona, PER DIEM PHYSICAL THERAPIST ASSISTANT [address], [place], [address], [place] [facility] 07/21/2022 14:53:44 05/04/19 22 [...] Available No t Available [employer] [address] [place] USE DIRECTED active Not Available Not Available [...] Updated DateTime 5 182.88 cm 25.4 kg/m2 63147.4 7 g 98.1 [degF] 60 /min 97 % 18 /min 4 124/72 mm[Hg] Rand [place] - [facility] 5 10:51:59 Social History Question Answer Notes LastModified by Organizat ion Details LastModified Time Tobacco Smoking Status Former Smoker Norma Reyna [place], [place] - [facility] 04/27/2021 13:28:13 Do You Have An Advance Directive? No [email or web address] Information not available 04/27/2021 How Many Years Have You Consumed Alcohol? 30 [email or web address] Information not available 08/05/2024 Are You Blind Or Do You Have Difficulty Seeing? No [email or web address] Information not available 04/27/2021 Is Blood Transfusion Acceptable In An Emergency? Yes [email or web address] Information not available 08/05/2024 What Is Your Level Of Caffeine Consumption? Occasional [email or web address] Information not available 04/27/2021 In The 14 Days Before Symptom Onset, Have You Had Close Contact With A Laboratory-confir med COVID-19 While That Case Was Ill? No [email or web address] Information not available 04/27/2021 In The 14 Days Before Symptom Onset, Have You Had Close Contact With A Person Who Is Under Investigation For COVID-19 While That Person Was Ill? No [email or web address] Information not available 04/27/2021 Have You Been To An Area Known To Be High Risk For COVID-19? No [email or web address] Information not available 04/27/2021 Are You Deaf Or Do You Have Serious Difficulty Hearing? No [email or web address] Information not available 04/27/2021 What Type Of Diet Are You Following? REGULAR [email or web address] Information not available 04/27/2021 Have You Processed Blood Or Body Fluids From An Ebola Virus Disease Patient Without Appropriate PPE? No [email or web address] Information not available 04/27/2021 Do You Reside In Or Have You Traveled To An Area Where Ebola Virus Transmission Is Active? No [email or web address] Information not available 04/27/2021 What Is The Highest Grade Or Level Of School You Have Completed Or The Highest Degree You Have Received? [id number] Information not available 08/05/2024 Have There Been Any Changes To Your Family Or Social Situation? No [email or web address] Information no t available 04/27/2021 When Did You Quit Smoking? 1-5yearssincel kj Information not available 04/27/2021 Have You Recently Or Are You Planning To Travel To An Area With Zika Virus? No [email or web address] Information not available 04/27/2021 How Many Years Have You Used Illicit Or Recreational Drugs? 0 [email or web address] Information not available 08/05/2024 What Was The Date Of Your Most Recent Tobacco Screening? 06/25/2024 [email or web address] Information not available 06/25/2024 Do You Use Protection Against STDs? No [email or web address] Information not available 08/05/2024 What Is Your Relationship Status? [email or web address] Information not available 08/05/2024 Do You Use Your Seat Belt Or Car Seat Routinely? Yes [email or web address] Information not available 08/05/2024 Are You Sexually Active? Yes [email or web address] Information not available 06/25/2024 Do You Have Smoke And Carbon Monoxide Detectors In Your Home? Yes [email or web address] Information not available 04/27/2021 At What Age Did You Start Smoking Tobacco? 11 [email or web address] Information not available 08/05/2024 Are You Passively Exposed To Smoke? No [email or web address] Information no t available 04/27/2021 Do You Use Sunscreen Routinely? No Information not available 08/05/2024 Has Tobacco Cessation Counseling Been Provided? Yes [email or web address] Information not available 06/20/2023 On What Date Was Tobacco Cessation Counseling Provided? 06/25/2024 [email or web address] Information not available 06/25/2024 How Many Years Have You Smoked Tobacco? 40 Information not available 04/27/2021 Do You Have Difficulty Walking Or Climbing Stairs? No Information not available 04/27/2021 Sex: Male Functional Status Question Answer Note LastModified by [employer] ion Details LastModified Time Do you use any illicit or recreational drugs? No [email or web address] Information not available 04/27/2021 Do you or have you ever used any other forms of tobacco or nicotine? No [email or web address] Information not available 04/27/2021 What is your level of alcohol consumption? Occasional [email or web address] Information not available 04/27/2021 Are you currently employed? No [email or web address] Information not available 04/27/2021 Do you have transportation difficulties? No [email or web address] Information not available 04/27/2021 Do you have difficulty doing errands alone? No [email or web address] Information not available 04/27/2021 Are you able to care for yourself independently? Yes [email or web address] Information not available 04/27/2021 Do you have difficulty dressing, bathing, grooming, or toileting? No [email or web address] Information not available 04/27/2021 Do you or have you ever used e-cigarettes or vape? Never used electronic cigarettes [email or web address] Information not available 08/05/2024 What is your exercise level? Moderate [email or web address] Information not available 08/05/2024 Mental Status Question Answer Note LastModified by Organizat ion Details LastModified Time Do you feel stressed (tense, restless, nervous, or anxious, or unable to sleep at night)? [id number] Information not available 08/05/2024 Do you have difficulty concentrating, remembering or making decisions? No [email or web address] Information no t available 04/27/2021 Family History [...] colitis N Cerebrovascular Disease N Depression N Guillain-[place] N Sleep Apnea N Aneurysm N Bronchitis N Heart Disease N Suicidal Ideation N Pre-Eclampsia N Hypertension N Osteoporosis N Immunizations Vaccine Type Date Status Note Provider Nam e and Address Organization Details Recorded Time HepB-CpG 05/26/19 completed Not Available [facility] 09/27/2024 10:36:34 Influenza, MDCK, quadrivalent, PF 04/10/19 24 completed Nyasia Stears null, [place] - [facility] 11/08/2024 11:05:03 RSV, recombinant, protein subunit RSVpreF, adjuvant reconstituted, 0.5 mL, PF 04/10/19 24 completed Nyasia Stears [place], [place] [facility] 11/08/2024 11:05:03 Tdap 06/20/19 cancelled patient objection Do Lambert, PER DIEM PHYSICAL THERAPIST ASSISTANT [address], [place], [address], [place] [facility] 06/26/2023 08:34:29 zoster recombinant 03/07/19 24 completed Do Lambert, PER DIEM PHYSICAL THERAPIST ASSISTANT [address], [place], [address], [place] [facility] 04/04/2023 13:11:37 zoster recombinant 12/28/19 23 completed Do Lambert, PER DIEM PHYSICAL THERAPIST ASSISTANT [address], [place], [address], [place] [facility] 04/04/2023 13:11:37 Respiratory syncytial virus (RSV) MAB, unspecified 04/10/19 24 completed Norma Reyna null, [place] [facility] 04/21/2023 14:13:48 influenza, unspecified formulation 04/10/19 24 completed Nyasia Stears [place], [place] [facility] 11/08/2024 11:05:03 Past Encounters Encounter ID Performer Location Encounter Start Date Encounter Closed Date Diagnosis/Indication Diagnosis SNOMED-CT Code Diagnosis ICD10 Code Diagnosis IMO Codes Diagnosis Note [id number] Rosalie Salas APRN [address] [address] 12/13/2024 10:29:23 12/13/2024 11:36:25 Bilateral carpal tunnel syndrome 3496908956 2755613 G56.03 602167 splints at nightstero idsrefer to orthoif worsen or no improvemen t return Health Concerns Section Related Observation LastModified by Organization Detai ls LastModified Time None Recorded Concern Status LastModified by Organization Details LastModified Time None Recorded Payers Encounter Date Sequence Insurance Name Policy Number Policy Jimenez Covered Member ID Jimenez Member ID Guarantor Name 12/13/2024 1 [employer] (MEDICARE REPLACEMENT/ ADVANTAGE - PPO) [id number] Iker Gray [id number] Iker Gray Notes Date Note Type Note Provider Name and Address Organization Details Recorded Time 12/13/2024 text/html ROS as noted in the HPI 64 yr old male presents for a follow up on abnormal tests- CTS abbie- has appt with neurology in January. numbness and tingling hands and feet. dx neuropathy- feet, cramps in legs Rosalie Salas, PER DIEM PHYSICAL THERAPIST ASSISTANT [address], [place], [address], [place] [facility] 12/13/2024 11:53:14
--- OUTSIDE RECORDS SUMMARY | 2025-01-06 10:58 | XMS_ITS | Continuity of Care Document ---
Author Organization [facility] Address [address] [place] [address] Assessment No assessment recorded. Plan of Treatment Reminders Order Date Submit Date Provider Last Modified By Organization Details Last Modified Time Details Appointments Diabetic F/U 2024 01:00P Shivam Salas APRN Not available Not available Not available Follow Up 20 2024 02:00P Shivam Salas INVESTMENT ASSOCIATE Not available Not available Not available Lab magnesium , serum or plasma 2024 025 MARGARET [facility], [address], [address], [place], [address], 11/25/2024 00:06:40 cobalamin and folate panel, serum 2024 025 MARGARET [facility], [address], [address], [place], [address], 11/25/2024 00:06:38 vitamin D, 25-hydrox y, total, serum 2024 025 MARGARET [facility], [address], [address], [place], [address], 11/25/2024 00:06:39 CBC w/ auto diff 2024 025 MARGARET [facility], [address], [address], [place], [address], 11/25/2024 00:06:37 iron + total iron-bind ing capacity (TIBC), serum 2024 025 MARGARET [facility], [address], [address], [place], [address], 11/25/2024 00:06:37 TSH + free T4, serum 2024 025 MARGARET [facility], [address], [address], [place], [address], 11/25/2024 00:06:36 vitamin B6 + metabolit es panel, serum or plasma 2024 025 MARGARET [facility], [address], [address], [place], [address], 11/25/2024 00:06:38 short myastheni a gravis panel, serum 2024 025 MARGARET [facility], [address], [address], [place], [address], 11/25/2024 00:06:[address] referral 2024 025 MARGARET Pineda MD, [address], [place], [address], 12/13/2024 11:21:58 Procedures None recorded. Surgeries None recorded. Imaging electromy ogram + nerve conductio n study - bilateral legs/feet and arms/hand s 2024 025 [facility] ([facility]), [address], [place], [address], 11/21/2024 15:14:07 Medication Orders None recorded. Patient [...] L 0.450- 4.500 normal Not Available [facility] ([facility]) [address] [place], [address], 11/25/2024 00:06:36 11/09/19 25 11/09/2024 TSH+F REE T4 T4,free(dire ct) 1.20 NG/dL 0.82-1 .77 normal Not Available [facility] ([facility]) [address] [place], [address], 11/25/2024 00:06:36 11/09/1911/09/2024 CBC WITH DIFFE RENTI AL/PL ATELE T WBC 8.1 x10e3 /uL 3.4-10 .8 normal Not Available [facility] ([facility]) [address] [place], [address], 11/25/2024 00:06:37 11/09/19 25 11/09/2024 CBC WITH DIFFE RENTI AL/PL ATELE T RBC 5.38 x10e6 /uL 4.14-5 .80 normal Not Available [facility] ([facility]) [address] [place], [address], 11/25/2024 00:06:37 11/09/19 25 11/09/2024 CBC WITH DIFFE RENTI AL/PL ATELE T hemoglobin 15.1 g/dL 13.0-1 7.7 normal Not Available [facility] ([facility]) [address] [place], [address], 11/25/2024 00:06:37 11/09/1911/09/2024 CBC WITH DIFFE RENTI AL/PL ATELE T hematocrit 46.9 % 37.5-5 1.0 normal Not Available [facility] ([facility]) [address] [place], [address], 11/25/2024 00:06:37 09/26/11/09/2024 CBC WITH DIFFE RENTI AL/PL ATELE T MCV 87 fL 79-97 normal Not Available [facility] ([facility]) [address] [place], [address], 11/25/2024 00:06:37 11/09/19 25 11/09/2024 CBC WITH DIFFE RENTI AL/PL ATELE T MCH 28.1 pg 26.6-3 3.0 normal Not Available [facility] ([facility]) [address] [place], [address], 11/25/2024 00:06:37 11/09/19 25 11/09/2024 CBC WITH DIFFE RENTI AL/PL ATELE T MCHC 32.2 g/dL 31.5-3 5.7 normal Not Available [facility] ([facility]) [address] [place], [address], 11/25/2024 00:06:37 11/09/19 25 11/09/2024 CBC WITH DIFFE RENTI AL/PL ATELE T RDW 13.4 % 11.6-1 5.4 Not Available [facility] ([facility]) [address] [place], [address], 11/25/2024 00:06:37 11/09/19 25 11/09/2024 CBC WITH DIFFE RENTI AL/PL ATELE T platelets 255 x10e3 /uL 150-45 0 normal Not Available [facility] ([facility]) [address] [place], [address], 11/25/2024 00:06:37 11/09/19 25 11/09/2024 CBC WITH DIFFE RENTI AL/PL ATELE T neutrophils 57 % not estab. normal Not Available [facility] ([facility]) [address] [place], [address], 11/25/2024 00:06:37 11/09/19 25 11/09/2024 CBC WITH DIFFE RENTI AL/PL ATELE T lymphs 30 % not estab. normal Not Available [facility] ([facility]) [address] [place], [address], 11/25/2024 00:06:37 11/09/19 25 11/09/2024 CBC WITH DIFFE RENTI AL/PL ATELE T monocytes 10 % not estab. normal Not Available [facility] ([facility]) [address] [facility], [place], [address], 11/25/2024 00:06:37 11/09/19 25 11/09/2024 CBC WITH DIFFE RENTI AL/PL ATELE T eos 2 % not estab. normal Not Available [facility] ([facility]) [address] [facility], [place], [address], 11/25/2024 00:06:37 11/09/19 25 11/09/2024 CBC WITH DIFFE RENTI AL/PL ATELE T basos 1 % not estab. normal Not Available [facility] (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) [address] [place], [address], 11/25/2024 00:06:37 11/09/19 25 11/09/2024 CBC WITH DIFFE RENTI AL/PL ATELE T neutrophils (absolute) 4.7 x10e3 /uL 1.4-7. 0 normal Not Available [facility] ([facility]) [address] [place], [address], 11/25/2024 00:06:37 11/09/19 25 11/09/2024 CBC WITH DIFFE RENTI AL/PL ATELE T lymphs (absolute) 2.4 x10e3 /uL 0.7-3. 1 normal Not Available [facility] ([facility]) [address] [facility], [place], [address], 11/25/2024 00:06:37 11/09/19 25 11/09/2024 CBC WITH DIFFE RENTI AL/PL ATELE T monocytes(ab solute) 0.8 x10e3 /uL 0.1-0. 9 normal Not Available [facility] ([facility]) [address] [facility], [place], [address], 11/25/2024 00:06:37 11/09/19 25 11/09/2024 CBC WITH DIFFE RENTI AL/PL ATELE T eos (absolute) 0.1 x10e3 /uL 0.0-0. 4 normal Not Available [facility] ([facility]) [address] [facility], [place], [address], 11/25/2024 00:06:37 11/09/19 25 11/09/2024 CBC WITH DIFFE RENTI AL/PL ATELE T baso (absolute) 0.1 x10e3 /uL 0.0-0. 2 normal Not Available [facility] ([facility]) [address] [facility], [place], [address], 11/25/2024 00:06:37 11/09/19 25 11/09/2024 CBC WITH DIFFE RENTI AL/PL ATELE T immature granulocytes 0 % not estab. Not Available [facility] ([facility]) [address] [place], [address], 11/25/2024 00:06:37 11/09/19 25 11/09/2024 CBC WITH DIFFE RENTI AL/PL ATELE T immature grans (abs) 0.0 x10e3 /uL 0.0-0. 1 Not Available [facility] ([facility]) [address] [facility], [place], [address], 11/25/2024 00:06:37 11/09/19 25 11/09/2024 CBC WITH DIFFE RENTI AL/PL ATELE T NRBC [employer] SUPER[employer]OR Not Available [facility] ([facility]) [address] [facility], [place], [address], 11/25/2024 00:06:37 11/09/19 25 11/09/2024 CBC WITH DIFFE RENTI AL/PL ATELE T hematology comments: [employer] SUPERVISOR Not Available [facility] ([facility]) [address] [facility], [place], [address], 11/25/2024 00:06:37 11/09/19 25 11/09/2024 IRON AND TIBC iron bind.cap.(TI BC) 358 ug/dL 250-45 0 normal Not Available [facility] ([facility]) [address] [facility], [place], [address], 11/25/2024 00:06:37 11/09/19 25 11/09/2024 IRON AND TIBC UIBC 277 ug/dL 111-34 3 normal Not Available [facility] ([facility]) [address] [facility], [place], [address], 11/25/2024 00:06:37 11/09/19 25 11/09/2024 IRON AND TIBC iron 81 ug/dL 38-169 normal Not Available [facility] ([facility]) [address] [facility], [place], [address], 11/25/2024 00:06:37 11/09/19 25 11/09/2024 IRON AND TIBC iron saturation 23 % 15-55 normal Not Available [facility] ([facility]) [address] [facility], [place], [address], 11/25/2024 00:06:37 11/09/19 25 11/09/2024 VITAM IN B12 AND FOLAT E vitamin B12 759 pg/mL 232-12 45 normal Not Available [facility] ([facility]) [address] [place], [address], 11/25/2024 00:06:38 11/09/19 25 11/09/2024 VITAM IN B12 AND FOLAT E folate (folic acid), serum 4.6 NG/mL >3.0 normal A serum folat e nevaeh ntrat ion of less than 3.1 ng/mL is consi dered to repre sent clini kerline defic iency . Not Available [facility] ([facility]) [address] [facility], [place], [address], 11/25/2024 00:06:38 11/09/19 25 11/14/2024 VITAM IN B6, PLASM A vitamin B6 55.6 ug/L 3.4-65 .2 normal Defic iency : <3.4 Leonora nal: 3.4 - 5.1 Adequ ate: >5.1 Not Available [facility] ([facility]) [address] [facility], [place], [address], 11/25/2024 00:06:38 11/09/19 25 11/09/2024 VITAM IN D, 25-HY DROXY vitamin D, 25-hydroxy 54.0 NG/mL 30.0-1 00.0 Vitam in D defic iency has been defin ed by the Insti tute of Medic ine and an Endoc [facility] ty pract ice guide line as a level of serum 25-OH vitam in D less than 20 ng/mL (1,2) . The [facility] ty went on to furth er defin e vitam in D insuf ficie ncy as a level betwe en 21 and 29 ng/mL (2). 1. IOM (Inst itute of Medic ine). 2010. Dieta ry refer ence intak es for calci um and D. April moura [place]: The Natio nal [facility] Press . 2. Leno ALLEN, Al jarrett [place], Brenda off-F errar i [place]IVING[place], et al. Evalu ation , treat ment, and preve ntion of vitam in D defic iency : an Endoc rine Socie ty clini kerline pract ice guide line. JCEM. 2010; 96(7) :1911 -30. Not Available [facility] ([facility]) [address] [place], [address], 11/25/2024 00:06:39 11/09/1911/10/2024 MYAST HENIA GRAVI S PROFI LE AChR binding abs, serum <0.07 nmol/ L 0.00-0 .24 Negat cydney: 0.00 - 0.24 Borde rline : 0.25 - 0.40 Posit cydney: >0.40 Not Available [facility] ([facility]) [address] [place], [address], 11/25/2024 00:06:39 11/09/1911/11/2024 MYAST HENIA GRAVI S PROFI LE striation abs, serum Negati ve neg:<1 :100 Not Available [facility] ([facility]) [address] [place], [address], 11/25/2024 00:06:39 11/09/19 25 11/12/2024 MYAST HENIA GRAVI S PROFI LE AChR blocking abs, serum 24 % 0-25 Negat cydney: 0 - 25 Borde rline : 26 - 30 Posit cydney: >30 Not Available [facility] ([facility]) [address] [place], [address], 11/25/2024 00:06:39 11/09/1911/17/2024 MYAST HENIA GRAVI S PROFI LE AChR-modulat ing Ab 0 % 0-45 Inter preti ve Infor matio n: Negat cydney: 0 - 45% Posit cydney: > 45% No singl e value for AChR- modul ating antib kevin shoul d be used as a sole basis for diagn osis or respo nse to thera py. Not Available [facility] ([facility]) [address] [place], [address], 11/25/2024 00:06:39 11/09/19 25 11/17/2024 MYAST HENIA VINICIUSI S PROFI LE reflex information Commen t Refle x test indic ated. Not Available [facility] ([facility]) [address] [facility], [place], [address], 11/25/2024 00:06:39 11/09/1911/25/2024 MUSK ABS, SERUM musk [...] tion. Not Available [facility] [address] [facility], [place], [address], 11/25/2024 00:06:40 11/09/1911/09/2024 MAGNE SIUM magnesium 2.2 mg/dL 1.6-2. 3 normal Not Available [facility] ([facility]) [address] [facility], [place], [address], 11/25/2024 00:06:40 11/05/1910/30/2024 , [facility] ardio gram No observ ation record ed. [email or web address] [facility] [address], [place], [address], 11/06/2024 10:49:39 11/22/1911/20/2024 elect romyo gram + nerve condu ction study No observ ation record ed. [facility] [address], [place], [address], 11/25/2024 10:23:40 11/27/1911/20/2024 elect romyo gram + nerve condu ction study No observ ation record ed. [facility] (Med Record) [address], [place], [address], 12/11/2024 11:13:57 11/28/1911/25/2024 elect romyo gram + nerve condu ction study No observ ation record ed. [email or web address] [facility] [address], [place], [address], 12/11/2024 11:47:34 12/12/1911/20/2024 elect romyo gram No observ ation record ed. [email or web address] [facility] [address], [place], [address], 12/16/2024 13:35:07 12/20/1912/18/2024 XR, wrist , 2 view No observ ation record ed. [facility] [address], [place], [address], 12/20/2024 08:14:58 12/20/1912/18/2024 XR, wrist , 2 view No observ ation record ed. [facility] [address], [place], [address], 12/20/2024 08:14:58 Result Notes None recorded. Problems Name Problem SNOMED Code Status Onset Date Resolution Date Notes Provider Name and Address Organization Details Recorded Time Diabetes mellitus 15375367 Active 2021 Do Lambert, INVESTMENT ASSOCIATE [address], [place], [address], [place] - [facility] 2 11:07:17 Benign prostatic hyperplasia without outflow obstruction 624675649 Active 2022 Do Lambert, INVESTMENT ASSOCIATE [address], [place], [address], [place] - [facility] 3 13:09:53 Chronic kidney disease stage 2 411676235 Active 2023 Do Lambert, INVESTMENT ASSOCIATE [address], [place], [address], [place] - [facility] 4 16:55:57 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 [...] 11:11:53 12/24/19 23 Suture/Staple removal completed Do Fausto, INVESTMENT ASSOCIATE [address], [place], [address], [place] - [facility] 12/23/2022 10:15:30 12/01/19 23 Cryosurgery Dermatology completed Kely Escalona APRN [address], [place], [address], [place] - [facility] 11/30/2022 13:15:20 08/25/19 23 Shave Biopsy Face, Ears, eyelids, nose, lips, muc membranes completed Kely Escalona INVESTMENT ASSOCIATE [address], [place], [address], [place] - [facility] 08/24/2022 10:36:02 07/22/19 23 Cryosurgery Dermatology completed Kely Escalona INVESTMENT ASSOCIATE [address], [place], [address], [place] - [facility] 07/21/2022 14:53:44 05/04/19 22 Medication Reconcilliation completed Norma Reyna [place] - [facility] 05/03/2021 14:06:38 Imaging Results [...] 2024 active Not Available Not Available Not Avjudy labjoshua duloxetine 30 mg capsule,del ayed release TAKE [...] 2024 active Not Available Not Available Not Brandie kumar pregabalin ER 165 mg tablet, extended release [...] Available No t Available [employer] Uma 2 Adams USE DIRECTED active Not Available Not Available [...] 5 182.88 cm 18 /min 24.7 kg/m2 89498.8 1 g 58 /min 97 % 98 [degF] 108/64 mm[Hg] Nyasia Vergara [place] - [facility] 5 11:13:29 Date Recorded Body height Body mass index (BMI) Body weight Body temperature Heart rate Oxygen saturation Respiratory rate Pain severity - 0-10 verbal numeric rating [Score] - Reported Systolic And Diastolic Provider Name and Address Organization Details Last Updated DateTime 5 182.88 cm 25.4 kg/m2 19353.4 7 g 98.1 [degF] 60 /min 97 % 18 /min 4 124/72 mm[Hg] Rand Hampton [place] - [facility] 5 10:51:59 Social History Question Answer Notes LastModified by Organizat ion Details LastModified Time Tobacco Smoking Status Former Smoker Norma Reyna marily [place] - [facility] 04/27/2021 13:28:13 Do You Have An Advance Directive? No Information not available 04/27/2021 How Many Years Have You Consumed Alcohol? 30 [email or web address] Information not available 08/05/2024 Are You Blind Or Do You Have Difficulty Seeing? No [email or web address] Information not available 04/27/2021 Is Blood Transfusion Acceptable In An Emergency? Yes Information not available 08/05/2024 What Is Your Level Of Caffeine Consumption? Occasional [email or web address] Information not available 04/27/2021 In The 14 Days Before Symptom Onset, Have You Had Close Contact With A Laboratory-confir med COVID-19 While That Case Was Ill? No [email or web address] Information not available 04/27/2021 In The 14 Days Before Symptom Onset, Have You Had Close Contact With A Person Who Is Under Investigation For COVID-19 While That Person Was Ill? No [email or web address] Information not available 04/27/2021 Have You Been To An Area Known To Be High Risk For COVID-19? No [email or web address] Information not available 04/27/2021 Are You Deaf Or Do You Have Serious Difficulty Hearing? No Information not available 04/27/2021 What Type Of Diet Are You Following? REGULAR [email or web address] Information not available 04/27/2021 Have You Processed Blood Or Body Fluids From An Ebola Virus Disease Patient Without Appropriate PPE? No [email or web address] Information not available 04/27/2021 Do You Reside In Or Have You Traveled To An Area Where Ebola Virus Transmission Is Active? No [email or web address] Information not available 04/27/2021 What Is The Highest Grade Or Level Of School You Have Completed Or The Highest Degree You Have Received? AB23809-6 [email or web address] Information not available 08/05/2024 Have There Been Any Changes To Your Family Or Social Situation? No [email or web address] Information no t available 04/27/2021 When Did You Quit Smoking? 1-5yearssincel kj [email or web address] Information not available 04/27/2021 Have You Recently Or Are You Planning To Travel To An Area With Zika Virus? No [email or web address] Information not available 04/27/2021 How Many Years Have You Used Illicit Or Recreational Drugs? 0 [email or web address] Information not available 08/05/2024 What Was The Date Of Your Most Recent Tobacco Screening? 06/25/2024 [email or web address] Information not available 06/25/2024 Do You Use Protection Against STDs? No [email or web address] Information not available 08/05/2024 What Is Your Relationship Status? [email or web address] Information not available 08/05/2024 Do You Use Your Seat Belt Or Car Seat Routinely? Yes [email or web address] Information not available 08/05/2024 Are You Sexually Active? Yes [email or web address] Information not available 06/25/2024 Do You Have Smoke And Carbon Monoxide Detectors In Your Home? Yes [email or web address] Information not available 04/27/2021 At What Age Did You Start Smoking Tobacco? 11 [email or web address] Information not available 08/05/2024 Are You Passively Exposed To Smoke? No [email or web address] Information no t available 04/27/2021 Do You Use Sunscreen Routinely? No [email or web address] Information not available 08/05/2024 Has Tobacco Cessation Counseling Been Provided? Yes [email or web address] Information not available 06/20/2023 On What Date Was Tobacco Cessation Counseling Provided? 06/25/2024 [email or web address] Information not available 06/25/2024 How Many Years Have You Smoked Tobacco? 40 Information not available 04/27/2021 Do You Have Difficulty Walking Or Climbing Stairs? No [email or web address] Information not available 04/27/2021 Sex: Male Functional Status Question Answer Note LastModified by Organizat ion Details LastModified Time Do you use any illicit or recreational drugs? No [email or web address] Information not available 04/27/2021 Do you or have you ever used any other forms of tobacco or nicotine? No [email or web address] Information not available 04/27/2021 What is your level of alcohol consumption? Occasional [email or web address] Information not available 04/27/2021 Are you currently employed? No [email or web address] Information not available 04/27/2021 Do you have transportation difficulties? No Information not available 04/27/2021 Do you have difficulty doing errands alone? No [email or web address] Information not available 04/27/2021 Are you able to care for yourself independently? Yes [email or web address] Information not available 04/27/2021 Do you have difficulty dressing, bathing, grooming, or toileting? No [email or web address] Information not available 04/27/2021 Do you or have you ever used e-cigarettes or vape? Never used electronic cigarettes [email or web address] Information not available 08/05/2024 What is your exercise level? Moderate [email or web address] Information not available 08/05/2024 Mental Status Question Answer Note LastModified by Organizat ion Details LastModified Time Do you feel stressed (tense, restless, nervous, or anxious, or unable to sleep at night)? [id number] [email or web address] Information not available 08/05/2024 Do you have difficulty concentrating, remembering or making decisions? No [email or web address] Information no t available 04/27/2021 Family History [...] colitis N Cerebrovascular Disease N Depression N Guillain-Milford N Sleep Apnea N Aneurysm N Bronchitis [...] Tdap 06/20/19 cancelled patient objection Do Lambert, INVESTMENT ASSOCIATE [address], [place], [address], [place] [facility] 06/26/2023 08:34:29 zoster recombinant 03/07/19 24 completed Do Lambert, INVESTMENT ASSOCIATE [address], [place], [address], [place] [facility] 04/04/2023 13:11:37 zoster recombinant 12/28/19 23 completed Do Lambert, INVESTMENT ASSOCIATE [address], [place], [address], [place] [facility] 04/04/2023 13:11:37 Respiratory syncytial virus (RSV) MAB, unspecified 04/10/19 24 completed Norma Reyna null, [place] - [facility] 04/21/2023 14:13:48 influenza, unspecified formulation 04/10/19 24 completed Nyasia Stears null, [place] - [facility] 11/08/2024 11:05:03 Past Encounters Encounter ID Performer Location Encounter Start Date Encounter Closed Date Diagnosis/Indication Diagnosis SNOMED-CT Code Diagnosis ICD10 Code Diagnosis IMO Codes Diagnosis Note [id number] Rosalie Salas APRN [address] [address] 11/08/2024 10:28:26 11/08/2024 11:52:45 Numbness and tingling sensation of skin 1601045615 02 R20.0 R20.2 [id number] labsnctneu rology consultif worsen or no improvemen t go to ed [facility] Concerns Section Related Observation LastModified by Organization Detai ls LastModified Time None Recorded Concern Status LastModified by Organization Details LastModified Time None Recorded Payers Encounter Date Sequence Insurance Name Policy Number Policy Jimenez Covered Member ID Jimenez Member ID Guarantor Name 11/08/2024 1 [employer] (MEDICARE REPLACEMENT/ ADVANTAGE - PPO) [id number] Iker Gray [id number] Iker Gray Notes Date Note Type Note [...] 2024 Rosalie Salas APRN [address], [place], [address], [place] - [facility] 12/16/2024 16:11:27 12/13/2024 text/html ROS as noted in the HPI 64 yr old male presents for a follow up on abnormal tests- CTS abbie- has appt with neurology in January. numbness and tingling hands and feet. dx neuropathy- feet, cramps in legs Rosalie Salas APRN [address], [place], [address], [place] - [facility] 12/13/2024 11:53:14
[2025-01-06 12:07] LABS: Alanine Aminotransferase 47 U/L (12-78); Albumin Level 4.5 g/dl (3.5-5.0); Albumin/Globulin Ratio 1.6 (1.1-1.8); Alkaline Phosphatase 68 U/L (38-126); Anion Gap 11.5 mEq/L (5-15); Aspartate Amino Transferase 51 U/L (17-59); Bilirubin,Total 0.6 mg/dl (0.2-1.3); Blood Urea Nitrogen 23 mg/dl (9-20); Calcium 9.5 mg/dl (8.4-10.2); Carbon Dioxide 27 mmol/L (22.0-30.0); Chloride 102 mmol/L (98-107); Creatinine,Serum 1.00 mg/dl (0.66-1.25); Estimated Glomerular Filt Rate 75 ml/min (>60); GFR (African American) 90 ML/MIN (>60); Globulin 2.9 g/dL (1.3-3.2); Glucose 91 mg/dl (74-100); Potassium 4.5 mmoL/L (3.5-5.1); Sodium 136 mmol/L (136-145); Total Protein,Serum 7.4 g/dl (6.3-8.2)
[2025-01-06 12:14] LABS: C-Reactive Protein 0.6 mg/L (0-4)
[2025-01-06 12:54] LABS: Vitamin B12 917 pg/mL (239-931)
[2025-01-06 13:10] LABS: Folate 18.10 ng/mL
[2025-01-10 10:15] LABS: Albumin 3.6 g/dL (2.9-4.4); Alpha-1-Globulin 0.2 g/dL (0.0-0.4); Alpha-2-Globulin 0.8 g/dL (0.4-1.0); Gamma Globulin 1.4 g/dL (0.4-1.8); Immunofixation Result, Serum Comment: (.); Immunoglobulin A, Qn, Serum 160 mg/dL (61-437)
== END 2025-01-06 23:59 | disposition home or self-care (01) ==
LOC: LAB 10:35
PROVIDERS: PCP Nurse Practitioner Family; Visit Provider Specialist
DX: M51.369 Other intervertebral disc degeneration, lumbar region without mention of lumbar back pain or lower extremity pain (principal); E11.42 Type 2 diabetes mellitus with diabetic polyneuropathy; H53.8 Other visual disturbances; G43.909 Migraine, unspecified, not intractable, without status migrainosus; G44.1 Vascular headache, not elsewhere classified; Z79.4 Long term (current) use of insulin; Z86.73 Personal history of transient ischemic attack (TIA), and cerebral infarction without residual deficits
CPT/HCPCS: 36415; 72100; 80053; 82607; 82746; 84155; 84165; 85651; 86140; 86334

== ENCOUNTER 2025-01-08 12:42 | Outpatient (CLI) | payer MEDICARE, SELFPAY ==
--- OUTSIDE RECORDS SUMMARY | 2025-01-08 12:44 | XMS_ITS | Continuity of Care Document ---
[facility] Address [address] [place] [address] Assessment No assessment recorded. Plan of Treatment Reminders Order Date Submit Date Provider Last Modified By Organization Details Last Modified Time Details Appointments Follow Up 2024 02:00P M Rosalie Salas APRN Not available Not available Not available Lab None recorded. Referral orthopedi c surgeon referral 2024 BROADUS Shay Joy , [address], [place], [address], 12/19/2024 11:45:17 Procedures None recorded. Surgeries None recorded. Imaging None recorded. Medication Orders prednison e 10 mg tablet 2024 025 [facility], [address] [place] [address] [place], [place], [id number], 12/25/2024 05:01:58 Patient TargetsNo targets recorded. Patient InstructionsNo instructions recorded. Reason for Referral Orthopedic Surgeon Referral for Bilateral carpal tunnel syndrome Referring Physician: Rosalie Salas, Family Medicine, Encounter Date: 12/13/2024 Results Created Date Observation Date Name Description Value Unit Range Abnormal Flag Note LastModifiedBy Organization Detail LastModifiedTime 11/22/1911/20/2024 elect romyo gram + nerve condu ction study No observ ation record ed. [address], [place], [address], 11/25/2024 10:23:40 11/27/1911/20/2024 elect romyo gram + nerve condu ction study No observ ation record ed. [facility] (Med Record) [address], [place], [address], 12/11/2024 11:13:57 11/28/1911/25/2024 elect romyo gram + nerve condu ction study No observ ation record ed. [facility] [address], [place], [address], 12/11/2024 11:47:34 12/12/1911/20/2024 elect romyo gram No observ ation record ed. [email or web address] [facility] [address], [place], [address], 12/16/2024 13:35:07 12/20/1912/18/2024 XR, wrist , 2 view No observ ation record ed. [facility] [address], [place], [address], 12/20/2024 08:14:58 12/20/1912/18/2024 XR, wrist , 2 view No observ ation record ed. [facility] [address], [place], [address], 12/20/2024 08:14:58 01/08/2001/06/2025 imagi ng/di agnos tic resul t No observ ation record ed. [facility] [address], [place], [address], 01/07/2025 08:56:16 Result Notes None recorded. Problems Name Problem SNOMED Code Status Onset Date Resolution Date Notes Provider Name and Address Organization Details Recorded Time Diabetes mellitus 49324609 Active 2021 Do Lambert, [employer]LECT[employer] REPA[employer]ER SUPERVISOR [address], [place], [address], [place] - [facility] 10/07/202 2 11:07:17 Benign prostatic hyperplasia without outflow obstruction 339808137 Active 2022 Do Lambert, [employer] REPA[employer]ER SUPERVISOR [address], [place], [address], [place] - [facility] 3 13:09:53 Chronic kidney disease stage 2 026471170 Active 2023 Do Lambert, [employer] REPA[employer]ER SUPERVISOR [address], [place], [address], [place] - [facility] 4 16:55:57 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 Do Lambert, [employer] REPA[employer]ER SUPERVISOR [address], [place], [address], [place] - [facility] 5 15:12:03 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 2024 Do Lambert, [employer] REPA[employer]ER SUPERVISOR [address], [place], [address], [place] - [facility] 5 15:12:16 Problem [...] 12/24/19 23 Suture/Staple removal completed Do Fausto [employer] REPA[employer]ER SUPERVISOR [address], [place], [address], [place] - [facility] 12/23/2022 10:15:30 12/01/19 23 Cryosurgery Dermatology completed Kely Escalona [employer] SU[employer]OR [address], [place], [address], [place] [facility] 11/30/2022 13:15:20 08/25/19 23 Shave Biopsy Face, Ears, eyelids, nose, lips, muc membranes completed Kely Escalona APRN [address], [place], [address], [place] [facility] 08/24/2022 10:36:02 07/22/19 23 Cryosurgery Dermatology completed Kely Escalona APRN [address], [place], [address], [place] [facility] 07/21/2022 14:53:44 05/04/19 22 Medication Reconcilliation completed Norma Reyna [place] - [facility] 05/03/2021 14:06:38 Imaging Results None [...] Not Available tamsulosin 0.4 mg capsule TAKE TWO CAPSULES BY MOUTH EVERY DAY 2024 active Not Available Not Available Not Avjudy kumar OneTouch Ultra Test strips USE DIRECTED active [...] 2023 active Not Available Not Available Not Brandie kumar OneTouch Ultra2 Meter USE DIRECTED active Not [...] Available No t Available FreeStyle Uma 2 [place] USE DIRECTED active Not Available Not Available [...] Updated DateTime 5 182.88 cm 25.4 kg/m2 39066.4 7 g 98.1 [degF] 60 /min 97 % 18 /min 4 124/72 mm[Hg] Rand [place] - [facility] 5 10:51:59 Social History Question Answer Notes LastModified by Organizat ion Details LastModified Time Tobacco Smoking Status Former Smoker Norma Axel calixto [place] - [facility] 04/27/2021 13:28:13 Do You Have An Advance Directive? No [email or web address] Information not available 04/27/2021 How Many Years Have You Consumed Alcohol? 30 [email or web address] Information not available 08/05/2024 Are You Blind Or Do You Have Difficulty Seeing? No Information not available 04/27/2021 Is Blood Transfusion Acceptable In An Emergency? Yes [email or web address] Information not available 08/05/2024 What Is Your Level Of Caffeine Consumption? Occasional [email or web address] Information not available 04/27/2021 In The 14 Days Before Symptom Onset, Have You Had Close Contact With A Laboratory-confir med COVID-19 While That Case Was Ill? No [email or web address] Information not available 04/27/2021 In The 14 Days Before Symptom Onset, Have You Had Close Contact With A Person Who Is Under Investigation For COVID-19 While That Person Was Ill? No Information not available 04/27/2021 Have You Been To An Area Known To Be High Risk For COVID-19? No [email or web address] Information not available 04/27/2021 Are You Deaf Or Do You Have Serious Difficulty Hearing? No [email or web address] Information not available 04/27/2021 What Type Of Diet Are You Following? REGULAR [email or web address] Information not available 04/27/2021 Have You Processed Blood Or Body Fluids From An Ebola Virus Disease Patient Without Appropriate PPE? No [email or web address] Information not available 04/27/2021 Do You Reside In Or Have You Traveled To An Area Where Ebola Virus Transmission Is Active? No [email or web address] Information not available 04/27/2021 What Is The Highest Grade Or Level Of School You Have Completed Or The Highest Degree You Have Received? [id number] Information not available 08/05/2024 Have There Been Any Changes To Your Family Or Social Situation? No [email or web address] Information no t available 04/27/2021 When Did You Quit Smoking? 1-5yearssincel astcibouchra [email or web address] Information not available 04/27/2021 Have You Recently Or Are You Planning To Travel To An Area With Zika Virus? No [email or web address] Information not available 04/27/2021 How Many Years Have You Used Illicit Or Recreational Drugs? 0 Information not available 08/05/2024 What Was The Date Of Your Most Recent Tobacco Screening? 06/25/2024 [email or web address] Information not available 06/25/2024 Do You Use Protection Against STDs? No Information not available 08/05/2024 What Is Your Relationship Status? Information not available 08/05/2024 Do You Use Your Seat Belt Or Car Seat Routinely? Yes [email or web address] Information not available 08/05/2024 Are You Sexually Active? Yes [email or web address] Information not available 06/25/2024 Do You Have Smoke And Carbon Monoxide Detectors In Your Home? Yes [email or web address] Information not available 04/27/2021 At What Age Did You Start Smoking Tobacco? 11 [email or web address] Information not available 08/05/2024 Are You Passively Exposed To Smoke? No [email or web address] Information no t available 04/27/2021 Do You Use Sunscreen Routinely? No [email or web address] Information not available 08/05/2024 Has Tobacco Cessation Counseling Been Provided? Yes [email or web address] Information not available 06/20/2023 On What Date Was Tobacco Cessation Counseling Provided? 06/25/2024 [email or web address] Information not available 06/25/2024 How Many Years Have You Smoked Tobacco? 40 [email or web address] Information not available 04/27/2021 Do You Have Difficulty Walking Or Climbing Stairs? No [email or web address] Information not available 04/27/2021 Sex: Male Functional Status Question Answer Note LastModified by Organizat ion Details LastModified Time Do you use any illicit or recreational drugs? No [email or web address] Information not available 04/27/2021 Do you or have you ever used any other forms of tobacco or nicotine? No [email or web address] Information not available 04/27/2021 What is your level of alcohol consumption? Occasional [email or web address] Information not available 04/27/2021 Are you currently employed? No [email or web address] Information not available 04/27/2021 Do you have transportation difficulties? No [email or web address] Information not available 04/27/2021 Do you have difficulty doing errands alone? No Information not available 04/27/2021 Are you able to care for yourself independently? Yes [email or web address] Information not available 04/27/2021 Do you have difficulty dressing, bathing, grooming, or toileting? No [email or web address] Information not available 04/27/2021 Do you or have you ever used e-cigarettes or vape? Never used electronic cigarettes [email or web address] Information not available 08/05/2024 What is your exercise level? Moderate [email or web address] Information not available 08/05/2024 Mental Status Question Answer Note LastModified by Organizat ion Details LastModified Time Do you feel stressed (tense, restless, nervous, or anxious, or unable to sleep at night)? [id number] [email or web address] Information not available 08/05/2024 Do you have difficulty concentrating, remembering or making decisions? No [email or web address] Information no t available 04/27/2021 Family History [...] colitis N Cerebrovascular Disease N Depression N Guillain-[place] N Sleep Apnea N Aneurysm N Bronchitis N Heart Disease N Suicidal Ideation N Pre-Eclampsia N Hypertension N Osteoporosis N Immunizations Vaccine Type Date Status Note Provider Nam e and Address Organization Details Recorded Time HepB-CpG 05/26/19 completed Not Available [facility]/27/[facility] 10:36:34 Influenza, MDCK, quadrivalent, PF 04/10/19 24 completed Nyasia Stears null, [place] - [facility] 11/08/2024 11:05:03 RSV, recombinant, protein subunit RSVpreF, adjuvant reconstituted, 0.5 mL, PF 04/10/19 completed Nyasia Stears null, [place] [facility] 11/08/2024 11:05:03 Tdap 06/20/19 cancelled patient objection Do Lambert, [employer] SUPERVISOR [address], [place], [address], [place] [facility] 06/26/2023 08:34:29 zoster recombinant 03/07/19 24 completed Do Lambert APRN [address], [place], [address], [place] [facility] 04/04/2023 13:11:37 zoster recombinant 12/28/19 23 completed Do Lambert, [employer] REPA[employer]ER SUPERVISOR [address], [place], [address], [place] [facility] 04/04/2023 13:11:37 Respiratory syncytial virus (RSV) MAB, unspecified 04/10/19 24 completed Norma Reyna null, [place] - [facility] 04/21/2023 14:13:48 influenza, unspecified formulation 04/10/19 24 completed Nyasia Stears null, [place] [facility] 11/08/2024 11:05:03 Past Encounters Encounter ID Performer Location Encounter Start Date Encounter Closed Date Diagnosis/Indication Diagnosis SNOMED-CT Code Diagnosis ICD10 Code Diagnosis IMO Codes Diagnosis Note [id number] Rosalie Salas APRN [address] [address] 12/13/2024 10:29:23 12/13/2024 11:36:25 Bilateral carpal tunnel syndrome 6858009609 4815710 G56.03 [id number] splints at nightstero idsrefer to orthoif worsen or no improvemen t return Health Concerns Section Related Observation LastModified by Organization Detai ls LastModified Time None Recorded Concern Status LastModified by Organization Details LastModified Time None Recorded Payers Encounter Date Sequence Insurance Name Policy Number Policy Jimenez Covered Member ID Jimenez Member ID Guarantor Name 12/13/2024 1 [employer] (MEDICARE REPLACEMENT/ ADVANTAGE - PPO) [id number] Iker Gray [id number] Iker Gray Notes Date Note Type Note Provider Name and Address Organization Details Recorded Time 12/13/2024 text/html ROS as noted in the HPI 64 yr old male presents for a follow up on abnormal tests- CTS abbie- has appt with neurology in January. numbness and tingling hands and feet. dx neuropathy- feet, cramps in legs Rosalie Salas, [employer] REPA[employer]ER SUPERVISOR [address], [place], [address], [place] [facility] 12/13/2024 11:53:14
--- OUTSIDE RECORDS SUMMARY | 2025-01-08 12:44 | XMS_ITS | Encounter Summary ---
Author Organization [facility] Address [address], [address] [place] [address] Care Team Providers Care Dev Technical Mgr Name Role Phone Do Lambert APRN, CNP Primary Care Provider + Reason for Referral * Imaging (Routine) - Closed Specialty Diagnoses / Procedures Referred By Yari t Referred To Contact Radiology Diagnoses Encounter for screening for malignant neoplasm of respiratory organs Cigarette nicotine dependence in remission Procedures CT Lung Screen (Initial or Annual) [place] Lambert [place] [address] Phone: tel: fax: Referral ID Status Reason Start Date Expiration Date Visits Re quested Visits Authorized Closed 04/28/2021 04/28/2022 1 1 Encounter Details Date Type Department Care Team (Late st Contact Info) Description 04/28/2021 Transcribe Orders [facility] Pre Access [address] [place], [place] [id number] Do Lambert APRN - CNP [address] [place] [place] [address] Encounter for screening for malignant neoplasm of respiratory organs (Primary Dx); Cigarette nicotine dependence in remission Social History Tobacco Use Types Packs/Day Years Used Date Smoking Tobacco: Every Day Cigarettes Last attempted to quit: 12/25/2017 Smokeless Tobacco: Never Alcohol Use Standard Drinks/Week Comments No 0 (1 standard drink = 0.6 oz pur e alcohol) Sex and Gender Information Value Date Recorded Sex Assigned at Not on file Legal Sex Male 10:24 PM EST Gender Identity Not on file Sexual Orientation Not on file COVID-19 Exposure Response Date Recorded In the last month, have you been in contact with someone who was confirmed or suspected to have Coronavirus / COVID-19? No / Unsure 04/28/2021 10:16 AM EDT documented as of this encounter Plan of Treatment Scheduled Orders Name Type Priority Associated Diagnoses Orde r Schedule CT Lung Screen (Initial or Annual) Imaging Routine Encounter for screening for malignant neoplasm of respiratory organs Cigarette nicotine dependence in remission Expected: 04/28/2021, Expires: 10/29/2022 documented as of this encounter Visit Diagnoses Diagnosis Encounter for screening for malignant neoplasm of respiratory organs- Primary Special screening for malignant neoplasm of the respiratory organs Cigarette nicotine dependence in remission Tobacco use disorder documented in this encounter Additional Health Concerns Infection Onset Date Last Indicated Resolved Time COVID-19 (Rule Out) 04/28/2021 04/28/2021 04/29/19 11:09 AM EDT documented as of this encounter Care Teams Dev Technical Mgr Relationship Specialty Start Date End Date Do Lambert APRN - [place] [address] [place] [address] PCP - General Nurse Practitioner, Family 11/01/22 documented as of this encounter
--- OUTSIDE RECORDS SUMMARY | 2025-01-08 12:44 | XMS_ITS | Clinical Summary ---
Author Organization [facility] Address [address] [place] [address] Phone Care Team Providers Care Strategy Analyst Name Role Phone Do Lambert NP Primary Care Provider [phone] Allergies No known active allergies Medications aspirin 81 mg Oral Tablet, Delayed Release (E.C.) Take 81 mg by mouth daily. 8 Active fluticasone propionate (FLONASE) 50 mcg/actuation Nasl [place], Suspension 1 [place] in each nostril daily. 3 Active LANTUS [...] MEDICARE [place] PART B CLAIMS [address] [facility] [id number] [phone] Care Teams Strategy Analyst Relationship Specialty Start Date End Date Do Lambert NP [address] [place] [address] PCP - General Family Medicine 09/29/22
--- OUTSIDE RECORDS SUMMARY | 2025-01-08 12:44 | XMS_ITS | Encounter Summary ---
Author Organization [facility] Address [address], [address] [place] [address] Care Team Providers Care Farmworker Vegetable Name Role Phone Do Lambert [facility] Primary Care Provider + Reason for Referral * Imaging (Routine) - Closed Specialty Diagnoses / Procedures Referred By Contac t Referred To Contact Radiology Diagnoses Chronic kidney disease, stage II (mild) Procedures US RENAL COMPLETE Loida Epps MD Phone: tel: fax: Referral ID Status Reason Start Date Expiration Date Visits Re quested Visits Authorized [id number] Closed 10/28/2022 10/28/2023 1 1 Encounter Details Date Type Department Care Team (Late st Contact Info) Description 10/28/2022 Transcribe Orders [facility] Pre Access [address] [place], [place] [id number] Loida Epps MD [address] [place] [address] Chronic kidney disease, stage II (mild) (Primary Dx) Social History Tobacco Use Types Packs/Day Years [...] on file Sexual Orientation Not on file documented as of this encounter Plan of Treatment Not on file documented as of this encounter Results * US RENAL COMPLETE (11/04/2022 1:48 PM EDT) Anatomical Region Laterality Modality Abdomen Ultrasound 11/04/2022 2:55 PM EDT Impressions 11/04/2022 2:57 PM EDT 1. Unremarkable sonographic appearance of the bilateral kidneys. 2. Unremarkable sonographic appearance of the urinary bladder. Moderate postvoid residual of 44%. Narrative 11/04/2022 2:57 PM EDT EXAMINATION: RETROPERITONEAL ULTRASOUND OF THE KIDNEYS AND URINARY BLADDER 11/04/2022 COMPARISON: None HISTORY: ORDERING SYSTEM PROVIDED HISTORY: Chronic kidney disease, stage II (mild) TECHNOLOGIST PROVIDED HISTORY: bladder FINDINGS: Kidneys: The right kidney measures 11.1 x 5.1 x 5.3 cm in size and the left kidney measures 11.1 x 4.6 x 5.6 cm in size. Kidneys demonstrate normal cortical echogenicity. No evidence of hydronephrosis or intrarenal stones. Bladder: Unremarkable appearance of the bladder. A left ureteral jet is identified, though a right ureteral jet is not seen. The prevoid volume measures 97 cc, and the postvoid volume measures 43 cc, for a postvoid residual of 44% Procedure Note Tapan Aguilar MD - 11/04/2022 EXAMINATION: RETROPERITONEAL ULTRASOUND OF THE KIDNEYS AND URINARY BLADDER 11/04/2022 COMPARISON: None HISTORY: ORDERING SYSTEM PROVIDED HISTORY: Chronic kidney disease, stage II(mild) TECHNOLOGIST PROVIDED HISTORY: bladder FINDINGS: Kidneys: The right kidney measures 11.1 x 5.1 x 5.3 cm in size and the leftkidney measures 11.1 x 4.6 x 5.6 cm in size. Kidneys demonstrate normal cortical echogenicity. No evidence of hydronephrosis or intrarenal stones. Bladder: Unremarkable appearance of the bladder. A left ureteral jet isidentified, though a right ureteral jet is not seen. The prevoid volume measures 97cc, and the postvoid volume measures 43 cc, for a postvoid residual of 44% IMPRESSION: 1. Unremarkable sonographic appearance of the bilateral kidneys. 2. Unremarkable sonographic appearance of the urinary bladder. Moderate postvoid residual of 44%. us Loida Epps MD [facility] US ORDERABLES Final Result documented in this encounter Visit Diagnoses Diagnosis Chronic kidney disease, stage II (mild)- Primary Chronic kidney disease, Stage II (mild) Chronic kidney disease, stage II (mild) Chronic kidney disease, Stage II (mild) documented in this encounter Care Teams Farmworker Vegetable Relationship Specialty Start Date End Date Do Lambert APRN - R[place]ET[place] [address] [place] [address] PCP - General Nurse Practitioner, Family 11/01/22 documented as of this encounter
--- OUTSIDE RECORDS SUMMARY | 2025-01-08 12:44 | XMS_ITS | Continuity of Care Document ---
[facility] Organization [facility] Address [address] [place] [id number] Assessment No assessment recorded. Plan of Treatment Reminders Order Date Submit Date Provider Last Modified By Organization Details Last Modified Time Details Appointments Follow Up 2024 02:00P Sihvam Salas APRN Not available Not available Not available Lab drug screen, urine 2024 [facility], [address] [place] [address], [address], 12/26/2024 14:57:29 Referral podiatris t referral 2024 [facility], [address] [place] [address] [address], [place], [address], 12/26/2024 15:33:36 Procedures None recorded. Surgeries None recorded. Imaging None recorded. Medication Orders pregabali n 150 mg capsule 2024 [facility], [address] [place] [address] [place], [id number], 12/28/2024 11:44:23 Patient TargetsNo targets recorded. Patient InstructionsNo instructions recorded. 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 Referring Physician: Rosalie Salas, Family Medicine, Encounter Date: 12/26/2024 Results Created Date Observation Date Name Description Value Unit Range Abnormal Flag Note LastModifiedBy Organization Detail LastModifiedTime 12/27/1912/26/2024 drug scree n, urine AMP negati ve Not Available [address], [address], 12/26/2024 14:14:32 12/27/1912/26/2024 drug scree n, urine BAR negati ve Not Available [address], [address], 12/26/2024 14:14:32 12/27/1912/26/2024 drug scree n, urine BUP negati ve Not Available [address], [address], 12/26/2024 14:14:32 12/27/1912/26/2024 drug scree n, urine BZO negati ve Not Available [address], [address], 12/26/2024 14:14:32 12/27/1912/26/2024 drug scree n, urine TOBY negati ve Not Available [address], [address], 12/26/2024 14:14:32 12/27/19 25 12/26/2024 drug scree n, urine FTY negati ve Not Available [address], [address], 12/26/2024 14:14:32 12/27/1912/26/2024 drug scree n, urine MDMA negati ve Not Available [address], [address], 12/26/2024 14:14:32 12/27/19 25 12/26/2024 drug scree n, urine MET negati ve Not Available [address], [address], 12/26/2024 14:14:32 12/27/1912/26/2024 drug scree n, urine MOP negati ve Not Available [address], [address], 12/26/2024 14:14:32 12/27/1912/26/2024 drug scree n, urine MTD negati ve Not Available [address], [address], 12/26/2024 14:14:32 12/27/1912/26/2024 drug scree n, urine OXY negati ve Not Available [address], [address], 12/26/2024 14:14:32 12/27/19 25 12/26/2024 drug scree n, urine PCP negati ve Not Available [address], [address], 12/26/2024 14:14:32 12/27/1912/26/2024 drug scree n, urine TCA negati ve Not Available [address], [address], 12/26/2024 14:14:32 12/27/1912/26/2024 drug scree n, urine THC negati ve Not Available [address], [address], 12/26/2024 14:14:32 11/27/19 25 11/20/2024 elect romyo gram + nerve condu ction study No observ ation record ed. [email or web address] (Med Record[facility] [address], [place], [address], 12/11/2024 11:13:57 11/28/1911/25/2024 elect romyo gram + nerve condu ction study No observ ation record ed. [facility] [address], [place], [address], 12/11/2024 11:47:34 12/12/1911/20/2024 elect romyo gram No observ ation record ed. [email or web address] [facility] [address], [place], [address], 12/16/2024 13:35:07 12/20/1912/18/2024 XR, wrist , 2 view No observ ation record ed. [facility] [address], [place], [address], 12/20/2024 08:14:58 12/20/1912/18/2024 XR, wrist , 2 view No observ ation record ed. [facility] [address], [place], [address], 12/20/2024 08:14:58 01/08/2001/06/2025 imagi ng/di agnos tic resul t No observ ation record ed. [facility] [address], [place], [address], 01/07/2025 08:56:16 Result Notes None recorded. 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 Do Lambert, [employer] DIRECTOR [address], [place], [address], [place] - [facility] 5 15:12:03 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 2024 Do Lambert, [employer] DIRECTOR [address], [place], [address], [place] - [facility] 5 15:12:16 Problem [...] 12/24/19 23 Suture/Staple removal completed Do Lambert [employer] [address], [place], [address], [place] - [facility] 12/23/2022 10:15:30 12/01/19 23 Cryosurgery Dermatology completed Kely Escalona [employer] [address], [place], [address], [place] [facility] 11/30/2022 13:15:20 08/25/19 23 Shave Biopsy Face, Ears, eyelids, nose, lips, muc membranes completed Kely Escalona [employer] [address], [place], [address], [place] [facility] 08/24/2022 10:36:02 07/22/19 23 Cryosurgery Dermatology completed Kely Escalona APRN [address], [place], [address], [place] [facility] 07/21/2022 14:53:44 05/04/19 22 [...] Available Not Available Not Avai lable OneTouch Ultra Test strips USE DIRECTED active [...] Available No t Available FreeStyle Uma 2 Truxton USE DIRECTED active Not Available Not Available [...] Updated DateTime 5 182.88 cm 25 kg/m2 68144 g 97.5 [degF] 71 /min 97 % 18 /min 0 126/72 mm[Hg] Rand [place] - [facility] 5 14:08:24 Social History Question Answer Notes LastModified by Organizat ion Details LastModified Time Tobacco Smoking Status Former Smoker Norma Reyna marily [place] - [facility] 04/27/2021 13:28:13 Do You Have An Advance Directive? No [email or web address] Information not available 04/27/2021 How Many Years Have You Consumed Alcohol? 30 [email or web address] Information not available 08/05/2024 Are You Blind Or Do You Have Difficulty Seeing? No [email or web address] Information not available 04/27/2021 Is Blood Transfusion Acceptable In An Emergency? Yes [email or web address] Information not available 08/05/2024 What Is Your Level Of Caffeine Consumption? Occasional [email or web address] Information not available 04/27/2021 In The 14 Days Before Symptom Onset, Have You Had Close Contact With A Laboratory-confir med COVID-19 While That Case Was Ill? No [email or web address] Information not available 04/27/2021 In The 14 Days Before Symptom Onset, Have You Had Close Contact With A Person Who Is Under Investigation For COVID-19 While That Person Was Ill? No [email or web address] Information not available 04/27/2021 Have You Been To An Area Known To Be High Risk For COVID-19? No [email or web address] Information not available 04/27/2021 Are You Deaf Or Do You Have Serious Difficulty Hearing? No [email or web address] Information not available 04/27/2021 What Type Of Diet Are You Following? REGULAR Information not available 04/27/2021 Have You Processed Blood Or Body Fluids From An Ebola Virus Disease Patient Without Appropriate PPE? No [email or web address] Information not available 04/27/2021 Do You Reside In Or Have You Traveled To An Area Where Ebola Virus Transmission Is Active? No [email or web address] Information not available 04/27/2021 What Is The Highest Grade Or Level Of School You Have Completed Or The Highest Degree You Have Received? [id number] [email or web address] Information not available 08/05/2024 Have There Been Any Changes To Your Family Or Social Situation? No [email or web address] Information no t available 04/27/2021 When Did You Quit Smoking? 1-5yearssincel kj [email or web address] Information not available 04/27/2021 Have You Recently Or Are You Planning To Travel To An Area With Zika Virus? No [email or web address] Information not available 04/27/2021 How Many Years Have You Used Illicit Or Recreational Drugs? 0 [email or web address] Information not available 08/05/2024 What Was The Date Of Your Most Recent Tobacco Screening? 06/25/2024 [email or web address] Information not available 06/25/2024 Do You Use Protection Against STDs? No [email or web address] Information not available 08/05/2024 What Is Your Relationship Status? Information not available 08/05/2024 Do You Use Your Seat Belt Or Car Seat Routinely? Yes [email or web address] Information not available 08/05/2024 Are You Sexually Active? Yes Information not available 06/25/2024 Do You Have Smoke And Carbon Monoxide Detectors In Your Home? Yes Information not available 04/27/2021 At What Age Did You Start Smoking Tobacco? 11 [email or web address] Information not available 08/05/2024 Are You Passively Exposed To Smoke? No [email or web address] Information no t available 04/27/2021 Do You Use Sunscreen Routinely? No [email or web address] Information not available 08/05/2024 Has Tobacco Cessation Counseling Been Provided? Yes Information not available 06/20/2023 On What Date Was Tobacco Cessation Counseling Provided? 06/25/2024 [email or web address] Information not available 06/25/2024 How Many Years Have You Smoked Tobacco? 40 [email or web address] Information not available 04/27/2021 Do You Have Difficulty Walking Or Climbing Stairs? No [email or web address] Information not available 04/27/2021 Sex: Male Functional Status Question Answer Note LastModified by Organizat ion Details LastModified Time Do you use any illicit or recreational drugs? No [email or web address] Information not available 04/27/2021 Do you or have you ever used any other forms of tobacco or nicotine? No [email or web address] Information not available 04/27/2021 What is your level of alcohol consumption? Occasional [email or web address] Information not available 04/27/2021 Are you currently employed? No Information not available 04/27/2021 Do you have transportation difficulties? No [email or web address] Information not available 04/27/2021 Do you have difficulty doing errands alone? No [email or web address] Information not available 04/27/2021 Are you able to care for yourself independently? Yes [email or web address] Information not available 04/27/2021 Do you have difficulty dressing, bathing, grooming, or toileting? No [email or web address] Information not available 04/27/2021 Do you or have you ever used e-cigarettes or vape? Never used electronic cigarettes [email or web address] Information not available 08/05/2024 What is your exercise level? Moderate [email or web address] Information not available 08/05/2024 Mental Status Question Answer Note LastModified by Organizat ion Details LastModified Time Do you feel stressed (tense, restless, nervous, or anxious, or unable to sleep at night)? [id number] [email or web address] Information not available 08/05/2024 Do you have difficulty concentrating, remembering or making decisions? No [email or web address] Information no t available 04/27/2021 Family History [...] colitis N Cerebrovascular Disease N Depression N Guillain-[place] N Sleep Apnea N Aneurysm N Bronchitis N Heart Disease N Suicidal Ideation N Pre-Eclampsia N Hypertension N Osteoporosis N Immunizations Vaccine Type Date Status Note Provider Nam e and Address Organization Details Recorded Time HepB-CpG 05/26/19 24 completed Not Available [facility] 09/27/2024 10:36:34 Influenza, MDCK, quadrivalent, PF 04/10/19 24 completed Nyasia Stears null, [place] - [facility] 11/08/2024 11:05:03 RSV, recombinant, protein subunit RSVpreF, adjuvant reconstituted, 0.5 mL, PF 04/10/19 24 completed Nyasia Stears null, [place] [facility] 11/08/2024 11:05:03 Tdap 06/20/19 cancelled patient objection Do Lambert, [employer] [address], [place], [address], [place] [facility] 06/26/2023 08:34:29 zoster recombinant 03/07/19 24 completed Do Lambert, [employer] DIRECT[employer] [address], [place], [address], [place] [facility] 04/04/2023 13:11:37 zoster recombinant 12/28/19 23 completed Do Lambert, [employer] DIRECT[employer] [address], [place], [address], [place] [facility] 04/04/2023 13:11:37 Respiratory syncytial virus (RSV) MAB, unspecified 04/10/19 24 completed Norma Reyna null, [place] - [facility] 04/21/2023 14:13:48 influenza, unspecified formulation 04/10/19 24 completed Nyasiamarcela Schneiders null, [place] - [facility] 11/08/2024 11:05:03 Past Encounters Encounter ID Performer Location Encounter Start Date Encounter Closed Date Diagnosis/Indication Diagnosis SNOMED-CT Code Diagnosis ICD10 Code Diagnosis IMO Codes Diagnosis Note [id number] Rosalie Salas APRN [address] [address] 12/13/2024 10:29:23 12/13/2024 11:36:25 Bilateral carpal tunnel syndrome [id number] 1614336 G56.03 905686 splints at nightstero idsrefer to orthoif worsen or no improvemen t return [id number] Rosalie Salas APRN [address] [address] 12/26/2024 13:50:05 12/26/2024 15:04:08 Diabetes mellitus 40960503 E13.42 continue diet and exercise 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 2 diabetes mellitus 1409145000 107 E11.42 Long-term current use of drug therapy 711387097 Z79.899 78264098 Cramp in foot 455772590 R25.2 2809136 referral to podiotryho [facility] Concerns Section Related Observation LastModified by Organization Detai ls LastModified Time None Recorded Concern Status LastModified by Organization Details LastModified Time None Recorded Payers Encounter Date Sequence Insurance Name Policy Number Policy Jimenez Covered Member ID Jimenez Member ID Guarantor Name 12/26/2024 1 [employer] (MEDICARE REPLACEMENT/ ADVANTAGE - PPO) [id number] Iker Gray [id number] Iker Gray Notes Date Note Type Note [...] foot cramps, worse at night Rosalie Salas, [employer] DIRECT[employer] [address], [place], [address], [place] - [facility] 12/26/2024 14:57:36
--- OUTSIDE RECORDS SUMMARY | 2025-01-08 12:44 | XMS_ITS | Continuity of Care Document ---
Author Organization Sabrina Gómez [facility] Address [address] [place] [address] Assessment No assessment recorded. Plan of Treatment Reminders Order Date Submit Date Provider Last Modified By Organization Details Last Modified Time Details Appointments Follow Up 2024 02:00P Shivam Salas APRN Not available Not available Not available Lab magnesium , serum or plasma 2024 025 MARGARET [facility], [address], [address], [place], [address], 11/25/2024 00:06:40 cobalamin and folate panel, serum 2024 025 MARGARET [facility], [address], [address], [place], [address], 11/25/2024 00:06:38 vitamin D, 25-hydrox y, total, serum 2024 025 MARGARET [facility], [address], [address], [place], [address], 11/25/2024 00:06:39 CBC w/ auto diff 2024 025 MARGARET [facility], [address], [address], [place], [address], 11/25/2024 00:06:37 iron + total iron-bind ing capacity (TIBC), serum 2024 025 MARGARET [facility], [address], [address], [place], [address], 11/25/2024 00:06:37 TSH + free T4, serum 2024 025 MARGARET [facility], [address], [address], [place], [address], 11/25/2024 00:06:36 vitamin B6 + metabolit es panel, serum or plasma 2024 025 MARGARET [facility], [address], [address], [place], [address], 11/25/2024 00:06:38 short myastheni a gravis panel, serum 2024 025 MARGARET [facility], [address], [address], [place], [address], 11/25/2024 00:06:[address] referral 2024 025 MARGARET Pineda MD, [address], [place], [address], 12/13/2024 11:21:58 Procedures None recorded. Surgeries None recorded. Imaging electromy ogram + nerve conductio n study - bilateral legs/feet and arms/hand s 2024 025 [facility] ([facility]), [address], [place], [address], 11/21/2024 15:14:07 Medication Orders None recorded. Patient [...] L 0.450- 4.500 normal Not Available [facility] ([facility]) [address] [facility], [place], [address], 11/25/2024 00:06:36 11/09/1911/09/2024 TSH+F REE T4 T4,free(dire ct) 1.20 NG/dL 0.82-1 .77 normal Not Available [facility] ([facility]) [address] [place], [address], 11/25/2024 00:06:36 11/09/1911/09/2024 CBC WITH DIFFE RENTI AL/PL ATELE T WBC 8.1 x10e3 /uL 3.4-10 .8 normal Not Available [facility] ([facility]) [address] [place], [address], 11/25/2024 00:06:37 11/09/1911/09/2024 CBC WITH DIFFE RENTI AL/PL ATELE T RBC 5.38 x10e6 /uL 4.14-5 .80 normal Not Available [facility] ([facility]) [address] [place], [address], 11/25/2024 00:06:37 11/09/1911/09/2024 CBC WITH DIFFE RENTI AL/PL ATELE T hemoglobin 15.1 g/dL 13.0-1 7.7 normal Not Available [facility] ([facility]) [address] [place], [address], 11/25/2024 00:06:37 11/09/1911/09/2024 CBC WITH DIFFE RENTI AL/PL ATELE T hematocrit 46.9 % 37.5-5 1.0 normal Not Available [facility] ([facility]) [address] [place], [address], 11/25/2024 00:06:37 11/09/19 25 11/09/2024 CBC WITH DIFFE RENTI AL/PL ATELE T MCV 87 fL 79-97 normal Not Available [facility] ([facility]) [address] [facility], [place], [address], 11/25/2024 00:06:37 11/09/1911/09/2024 CBC WITH DIFFE RENTI AL/PL ATELE T MCH 28.1 pg 26.6-3 3.0 normal Not Available [facility] ([facility]) [address] [place], [address], 11/25/2024 00:06:37 11/09/19 25 11/09/2024 CBC WITH DIFFE RENTI AL/PL ATELE T MCHC 32.2 g/dL 31.5-3 5.7 normal Not Available [facility] ([facility]) [address] [place], [address], 11/25/2024 00:06:37 11/09/1911/09/2024 CBC WITH DIFFE RENTI AL/PL ATELE T RDW 13.4 % 11.6-1 5.4 Not Available [facility] ([facility]) [address] [place], [address], 11/25/2024 00:06:37 11/09/19 25 11/09/2024 CBC WITH DIFFE RENTI AL/PL ATELE T platelets 255 x10e3 /uL 150-45 0 normal Not Available [facility] ([facility]) [address] [place], [address], 11/25/2024 00:06:37 11/09/1911/09/2024 CBC WITH DIFFE RENTI AL/PL ATELE T neutrophils 57 % not estab. normal Not Available [facility] ([facility]) [address] [place], [address], 11/25/2024 00:06:37 11/09/19 25 11/09/2024 CBC WITH DIFFE RENTI AL/PL ATELE T lymphs 30 % not estab. normal Not Available [facility] ([facility]) [address] [place], [address], 11/25/2024 00:06:37 11/09/1911/09/2024 CBC WITH DIFFE RENTI AL/PL ATELE T monocytes 10 % not estab. normal Not Available [facility] ([facility]) [address] [place], [address], 11/25/2024 00:06:37 11/09/1911/09/2024 CBC WITH DIFFE RENTI AL/PL ATELE T eos 2 % not estab. normal Not Available [facility] ([facility]) [address] [place], [address], 11/25/2024 00:06:37 11/09/1911/09/2024 CBC WITH DIFFE RENTI AL/PL ATELE T basos 1 % not estab. 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 0 normal Not Available [facility] ([facility]) [address] [place], [address], 11/25/2024 00:06:37 11/09/1911/09/2024 CBC WITH DIFFE RENTI AL/PL ATELE T lymphs (absolute) 2.4 x10e3 /uL 0.7-3. 1 normal Not Available [facility] ([facility]) [address] [place], [address], 11/25/2024 00:06:37 11/09/19 25 11/09/2024 CBC WITH DIFFE RENTI AL/PL ATELE T monocytes(ab solute) 0.8 x10e3 /uL 0.1-0. 9 normal Not Available [facility] ([facility]) [address] [facility], [place], [address], 11/25/2024 00:06:37 11/09/19 25 11/09/2024 CBC WITH DIFFE RENTI AL/PL ATELE T eos (absolute) 0.1 x10e3 /uL 0.0-0. 4 normal Not Available [facility] ([facility]) [address] [place], [address], 11/25/2024 00:06:37 11/09/19 25 11/09/2024 CBC WITH DIFFE RENTI AL/PL ATELE T baso (absolute) 0.1 x10e3 /uL 0.0-0. 2 normal Not Available [facility] ([facility]) [address] [place], [address], 11/25/2024 00:06:37 11/09/19 25 11/09/2024 CBC WITH DIFFE RENTI AL/PL ATELE T immature granulocytes 0 % not estab. Not Available [facility] ([facility]) [address] [place], [address], 11/25/2024 00:06:37 11/09/19 25 11/09/2024 CBC WITH DIFFE RENTI AL/PL ATELE T immature grans (abs) 0.0 x10e3 /uL 0.0-0. 1 Not Available [facility] ([facility]) [address] [place], [address], 11/25/2024 00:06:37 11/09/19 25 11/09/2024 CBC WITH DIFFE RENTI AL/PL ATELE T NRBC [employer] TEST ENGINEER Not Available [facility] ([facility]) [address] 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 Not Available [facility] ([facility]) [address] [facility], [place], [address], 11/25/2024 00:06:37 11/09/19 25 11/09/2024 IRON AND TIBC iron bind.cap.(TI BC) 358 ug/dL 250-45 0 normal Not Available [facility] ([facility]) [address] [facility], [place], [address], 11/25/2024 00:06:37 11/09/19 25 11/09/2024 IRON AND TIBC UIBC 277 ug/dL 111-34 3 normal Not Available [facility] ([facility]) [address] [facility], [place], [address], 11/25/2024 00:06:37 11/09/19 25 11/09/2024 IRON AND TIBC iron 81 ug/dL 38-169 normal Not Available [facility] ([facility]) [address] [facility], [place], [address], 11/25/2024 00:06:37 11/09/19 25 11/09/2024 IRON AND TIBC iron saturation 23 % 15-55 normal Not Available [facility] ([facility]) [address] [place], [address], 11/25/2024 00:06:37 11/09/19 25 11/09/2024 VITAM IN B12 AND FOLAT E vitamin B12 759 pg/mL 232-12 45 normal Not Available [facility] ([facility]) [address] [place], [address], 11/25/2024 00:06:38 11/09/19 25 11/09/2024 VITAM IN B12 AND FOLAT E folate (folic acid), serum 4.6 NG/mL >3.0 normal A serum folat e nevaeh ntrat ion of less than 3.1 ng/mL is consi dered to repre sent clini kerline defic iency . Not Available [facility] ([facility]) [address] [facility], [place], [address], 11/25/2024 00:06:38 11/09/19 25 11/14/2024 VITAM IN B6, PLASM A vitamin B6 55.6 ug/L 3.4-65 .2 normal Defic iency : <3.4 Leonora nal: 3.4 - 5.1 Adequ ate: >5.1 Not Available [facility] ([facility]) [address] [facility], [place], [address], 11/25/2024 00:06:38 11/09/19 25 11/09/2024 VITAM IN [...] Endoc rine Socie ty went on to [facility] er defin e vitam in D insuf ficie ncy as a level betwe en 21 and 29 ng/mL (2). 1. IOM (Inst itute of Medic ine). 2010. Dieta ry refer ence intak es for calci um and D. April moura [place]: The Natio nal [facility] Press . 2. Leno estes MF, Al jarrett [place], Brenda off-F errar i [place], et al. Evalu ation , treat ment, and preve ntion of vitam in D defic iency : an Endoc rine Socie ty clini kerline pract ice guide line. JCEM. 2010; 96(7) :1911 -30. Not Available [facility] ([facility]) [address] [facility], [place], [address], 11/25/2024 00:06:39 11/09/19 25 11/10/2024 MYAST HENIA GRAVI S PROFI LE AChR binding abs, serum <0.07 nmol/ L 0.00-0 .24 Negat cydney: 0.00 - 0.24 Borde rline : 0.25 - 0.40 Posit cydney: >0.40 Not Available [facility] ([facility]) [address] [place], [address], 11/25/2024 00:06:39 11/09/19 25 11/11/2024 MYAST HENIA GRAVI S PROFI LE striation abs, serum Negati ve neg:<1 :100 Not Available [facility] ([facility]) [address] [place], [address], 11/25/2024 00:06:39 11/09/19 25 11/12/2024 MYAST HENIA GRAVI S PROFI LE AChR blocking abs, serum 24 % 0-25 Negat cydney: 0 - 25 Borde rline : 26 - 30 Posit cydney: >30 Not Available [facility] ([facility]) [address] [place], [address], 11/25/2024 00:06:39 11/09/19 25 11/17/2024 MYAST HENIA GRAVI S PROFI LE AChR-modulat ing Ab 0 % 0-45 Inter preti ve Infor matio n: Negat cydney: 0 - 45% Posit cydney: > 45% No singl e value for AChR- modul ating antib kevin shoul d be used as a sole basis for diagn osis or respo nse to thera py. Not Available [facility] ([facility]) [address] [place], [address], 11/25/2024 00:06:39 11/09/19 25 11/17/2024 MYAST HENIA GRAVI S PROFI LE reflex information Commen t Refle x test indic ated. Not Available [facility] ([facility]) [address] [facility], [place], [address], 11/25/2024 00:06:39 11/09/1911/25/2024 MUSK ABS, SERUM musk [...] Not Available [facility] [address] [facility], [place], [address], 11/25/2024 00:06:40 11/09/1911/09/2024 MAGNE SIUM magnesium 2.2 mg/dL 1.6-2. 3 normal Not Available [facility] ([facility]) [address] [facility], [place], [address], 11/25/2024 00:06:40 11/05/1910/30/2024 , [facility] ardio gram No observ ation record ed. [email or web address] [facility] [address], [place], [address], 11/06/2024 10:49:39 11/22/1911/20/2024 elect romyo gram + nerve condu ction study No observ ation record ed. [facility] [address], [place], [address], 11/25/2024 10:23:40 11/27/1911/20/2024 elect romyo gram + nerve condu ction study No observ ation record ed. [facility] (Med Record) [address], [place], [address], 12/11/2024 11:13:57 11/28/1911/25/2024 elect romyo gram + nerve condu ction study No observ ation record ed. [email or web address] [facility] [address], [place], [address], 12/11/2024 11:47:34 12/12/1911/20/2024 elect romyo gram No observ ation record ed. [email or web address] [facility] [address], [place], [address], 12/16/2024 13:35:07 12/20/1912/18/2024 XR, wrist , 2 view No observ ation record ed. [facility] [address], [place], [address], 12/20/2024 08:14:58 12/20/1912/18/2024 XR, wrist , 2 view No observ ation record ed. [facility] [address], [place], [address], 12/20/2024 08:14:58 01/08/2001/06/2025 imagi ng/trung agnos tic resul t No observ ation record ed. [facility] [address], [place], [address], 01/07/2025 08:56:16 Result Notes None recorded. 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 Do Fausto, PER DIEM CLERK [address], [place], [address], [place] - [facility] 5 15:12:03 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 2024 Do Fausto, PER DIEM CLERK [address], [place], [address], [place] - [facility] 5 15:12:16 Problem [...] Suture/Staple removal completed Do Lambert PER DIEM CLERK [address], [place], [address], [place] - [facility] 12/23/2022 10:15:30 12/01/19 23 Cryosurgery Dermatology completed Kely Escalona APRN [address], [place], [address], [place] - [facility] 11/30/2022 13:15:20 08/25/19 23 Shave Biopsy Face, Ears, eyelids, nose, lips, muc membranes completed Kely Escalona APRN [address], [place], [address], [place] - [facility] 08/24/2022 10:36:02 07/22/19 23 Cryosurgery Dermatology completed Kely Escalona APRN [address], [place], [address], [place] - [facility] 07/21/2022 14:53:44 05/04/19 22 [...] Available Not Available Not Available amoxicillin 875 mg-potprestonu m clavulanate 125 mg tablet TAKE 1 [...] Available No t Available [employer] Mobile USE DIRECTED active Not Available Not Available [...] 5 182.88 cm 18 /min 24.7 kg/m2 42205.8 1 g 58 /min 97 % 98 [degF] 108/64 mm[Hg] Nyasia Stears [place] - [facility] 5 11:13:29 Date Recorded Body height Body mass index (BMI) Body weight Body temperature Heart rate Oxygen saturation Respiratory rate Pain severity - 0-10 verbal numeric rating [Score] - Reported Systolic And Diastolic Provider Name and Address Organization Details Last Updated DateTime 5 182.88 cm 25.4 kg/m2 45289.4 7 g 98.1 [degF] 60 /min 97 % 18 /min 4 124/72 mm[Hg] Rand Hampton [place] - [facility] 5 10:51:59 Social History Question Answer Notes LastModified by Organizat ion Details LastModified Time Tobacco Smoking Status Former Smoker Norma calixto [place] - [facility] 04/27/2021 13:28:13 Do You Have An Advance Directive? No Information not available 04/27/2021 How Many Years Have You Consumed Alcohol? 30 [email or web address] Information not available 08/05/2024 Are You Blind Or Do You Have Difficulty Seeing? No [email or web address] Information not available 04/27/2021 Is Blood Transfusion Acceptable In An Emergency? Yes [email or web address] Information not available 08/05/2024 What Is Your Level Of Caffeine Consumption? Occasional [email or web address] Information not available 04/27/2021 In The 14 Days Before Symptom Onset, Have You Had Close Contact With A Laboratory-confir med COVID-19 While That Case Was Ill? No [email or web address] Information not available 04/27/2021 In The 14 Days Before Symptom Onset, Have You Had Close Contact With A Person Who Is Under Investigation For COVID-19 While That Person Was Ill? No [email or web address] Information not available 04/27/2021 Have You Been To An Area Known To Be High Risk For COVID-19? No [email or web address] Information not available 04/27/2021 Are You Deaf Or Do You Have Serious Difficulty Hearing? No [email or web address] Information not available 04/27/2021 What Type Of Diet Are You Following? REGULAR [email or web address] Information not available 04/27/2021 Have You Processed Blood Or Body Fluids From An Ebola Virus Disease Patient Without Appropriate PPE? No [email or web address] Information not available 04/27/2021 Do You Reside In Or Have You Traveled To An Area Where Ebola Virus Transmission Is Active? No Information not available 04/27/2021 What Is The Highest Grade Or Level Of School You Have Completed Or The Highest Degree You Have Received? [id number] [email or web address] Information not available 08/05/2024 Have There Been Any Changes To Your Family Or Social Situation? No [email or web address] Information no t available 04/27/2021 When Did You Quit Smoking? 1-5yearssincel astcigarette [email or web address] Information not available 04/27/2021 Have You Recently Or Are You Planning To Travel To An Area With Zika Virus? No [email or web address] Information not available 04/27/2021 How Many Years Have You Used Illicit Or Recreational Drugs? 0 [email or web address] Information not available 08/05/2024 What Was The Date Of Your Most Recent Tobacco Screening? 06/25/2024 [email or web address] Information not available 06/25/2024 Do You Use Protection Against STDs? No [email or web address] Information not available 08/05/2024 What Is Your Relationship Status? [email or web address] Information not available 08/05/2024 Do You Use Your Seat Belt Or Car Seat Routinely? Yes Information not available 08/05/2024 Are You Sexually Active? Yes [email or web address] Information not available 06/25/2024 Do You Have Smoke And Carbon Monoxide Detectors In Your Home? Yes [email or web address] Information not available 04/27/2021 At What Age Did You Start Smoking Tobacco? 11 [email or web address] Information not available 08/05/2024 Are You Passively Exposed To Smoke? No [email or web address] Information no t available 04/27/2021 Do You Use Sunscreen Routinely? No [email or web address] Information not available 08/05/2024 Has Tobacco Cessation Counseling Been Provided? Yes [email or web address] Information not available 06/20/2023 On What Date Was Tobacco Cessation Counseling Provided? 06/25/2024 [email or web address] Information not available 06/25/2024 How Many Years Have You Smoked Tobacco? 40 [email or web address] Information not available 04/27/2021 Do You Have Difficulty Walking Or Climbing Stairs? No Information not available 04/27/2021 Sex: Male Functional Status Question Answer Note LastModified by [employer] ion Details LastModified Time Do you use any illicit or recreational drugs? No Information not available 04/27/2021 Do you or have you ever used any other forms of tobacco or nicotine? No Information not available 04/27/2021 What is your level of alcohol consumption? Occasional [email or web address] Information not available 04/27/2021 Are you currently employed? No [email or web address] Information not available 04/27/2021 Do you have transportation difficulties? No [email or web address] Information not available 04/27/2021 Do you have difficulty doing errands alone? No [email or web address] Information not available 04/27/2021 Are you able to care for yourself independently? Yes Information not available 04/27/2021 Do you have difficulty dressing, bathing, grooming, or toileting? No [email or web address] Information not available 04/27/2021 Do you or have you ever used e-cigarettes or vape? Never used electronic cigarettes [email or web address] Information not available 08/05/2024 What is your exercise level? Moderate [email or web address] Information not available 08/05/2024 Mental Status Question Answer Note LastModified by Organizat ion Details LastModified Time Do you feel stressed (tense, restless, nervous, or anxious, or unable to sleep at night)? [id number] [email or web address] Information not available 08/05/2024 Do you have difficulty concentrating, remembering or making decisions? No [email or web address] Information no t available 04/27/2021 Family History [...] colitis N Cerebrovascular Disease N Depression N Guillain-[place] N Sleep Apnea N Aneurysm N Bronchitis N Heart Disease N Suicidal Ideation N Pre-Eclampsia N Hypertension N Osteoporosis N Immunizations Vaccine Type Date Status Note Provider Nam e and Address Organization Details Recorded Time HepB-CpG 05/26/19 completed Not Available [facility] 09/27/2024 10:36:34 Influenza, MDCK, quadrivalent, PF 04/10/19 24 completed Nyasia Stears null, [place] - [facility] 11/08/2024 11:05:03 RSV, recombinant, protein subunit RSVpreF, adjuvant reconstituted, 0.5 mL, PF 04/10/19 24 completed Nyasia Stears null, [place] - [facility] 11/08/2024 11:05:03 Tdap 06/20/19 cancelled patient objection Do Lambert, PER DIEM CLERK [address], [place], [address], [place] [facility] 06/26/2023 08:34:29 zoster recombinant 03/07/19 24 completed Do Lambert APRN [address], [place], [address], [place] [facility] 04/04/2023 13:11:37 zoster recombinant 12/28/19 23 completed Do Lambert, PER DIEM CLERK [address], [place], [address], [place] [facility] 04/04/2023 13:11:37 Respiratory syncytial virus (RSV) MAB, unspecified 04/10/19 24 completed Norma Reyna null, [place] - [facility] 04/21/2023 14:13:48 influenza, unspecified formulation 04/10/19 24 completed Nyasia Stears null, [place] [facility] 11/08/2024 11:05:03 Past Encounters Encounter ID Performer Location Encounter Start Date Encounter Closed Date Diagnosis/Indication Diagnosis SNOMED-CT Code Diagnosis ICD10 Code Diagnosis IMO Codes Diagnosis Note [id number] Rosalie Salas APRN [address] [address] 11/08/2024 10:28:26 11/08/2024 11:52:45 Numbness and tingling sensation of skin 1067419354 02 R20.0 R20.2 419142 labsnctneu rology consultif worsen or no improvemen t go to [facility] Concerns Section Related Observation LastModified by Organization Detai ls LastModified Time None Recorded Concern Status LastModified by Organization Details LastModified Time None Recorded Payers Encounter Date Sequence Insurance Name Policy Number Policy Jimenez Covered Member ID Jimenez Member ID Guarantor Name 11/08/2024 1 [employer] (MEDICARE REPLACEMENT/ ADVANTAGE - PPO) [id number] Iker Gray [id number] Iker Gray Notes Date Note Type Note [...] 2024 Rosalie Salas APRN [address], [place], [address], [place] - [facility] 12/16/2024 16:11:27 12/13/2024 text/html ROS as noted in the HPI 64 yr old male presents for a follow up on abnormal tests- CTS abbie- has appt with neurology in January. numbness and tingling hands and feet. dx neuropathy- feet, cramps in legs Rosalie Salas APRN [address], [place], [address], [place] [facility] 12/13/2024 11:53:14
--- OUTSIDE RECORDS SUMMARY | 2025-01-08 12:44 | XMS_ITS | Continuity of Care Document ---
[facility] Organization [facility] Address [address] [place] [id number] Assessment No assessment recorded. Plan of Treatment Reminders Order Date Submit Date Provider Last Modified By Organization Details Last Modified Time Details Appointments Follow Up 2024 02:00P M Rosalie Salas APRN Not available Not available Not available Lab None recorded . Referral None recorded . Procedures None recorded . Surgeries None recorded . Imaging None recorded . Medication Orders None recorded . Patient TargetsNo targets recorded. Patient InstructionsNo instructions recorded. Reason for Referral None Reported. Results Created Date Observation Date Name Description Value Unit Range Abnormal Flag Note LastModifiedBy Organization Detail LastModifiedTime 12/27/1912/26/2024 drug scree n, urine AMP negati ve Not Available [address], [address], 12/26/2024 14:14:32 12/27/1912/26/2024 drug scree n, urine BAR negati ve Not Available [address], [address], 12/26/2024 14:14:32 12/27/19 25 12/26/2024 drug scree n, urine BUP negati ve Not Available [address], [address], 12/26/2024 14:14:32 12/27/19 25 12/26/2024 drug scree n, urine BZO negati ve Not Available [address], [address], 12/26/2024 14:14:32 12/27/19 25 12/26/2024 drug scree n, urine TOBY negati ve Not Available [address], [address], 12/26/2024 14:14:32 12/27/19 25 12/26/2024 drug scree n, urine FTY negati ve Not Available [address], [address], 12/26/2024 14:14:32 12/27/1912/26/2024 drug scree n, urine MDMA negati ve Not Available [address], [address], 12/26/2024 14:14:32 12/27/19 25 12/26/2024 drug scree n, urine MET negati ve Not Available [address], [address], 12/26/2024 14:14:32 12/27/19 25 12/26/2024 drug scree n, urine MOP negati ve Not Available [address], [address], 12/26/2024 14:14:32 12/27/19 25 12/26/2024 drug scree n, urine MTD negati ve Not Available [address], [address], 12/26/2024 14:14:32 12/27/19 25 12/26/2024 drug scree n, urine OXY negati ve Not Available [address], [address], 12/26/2024 14:14:32 12/27/1912/26/2024 drug scree n, urine PCP negati ve Not Available [address], [address], 12/26/2024 14:14:32 12/27/1912/26/2024 drug scree n, urine TCA negati ve Not Available [address], [address], 12/26/2024 14:14:32 12/27/1912/26/2024 drug scree n, urine THC negati ve Not Available [address], [address], 12/26/2024 14:14:32 12/12/1911/20/2024 elect romyo gram No observ ation record ed. [email or web address] [facility] [address], [place], [address], 12/16/2024 13:35:07 12/20/1912/18/2024 XR, wrist , 2 view No observ ation record ed. [facility] [address], [place], [address], 12/20/2024 08:14:58 12/20/1912/18/2024 XR, wrist , 2 view No observ ation record ed. [facility] [address], [place], [address], 12/20/2024 08:14:58 01/08/2001/06/2025 imagi ng/di agnos tic resul t No observ ation record ed. [facility] [address], [place], [address], 01/07/2025 08:56:16 Result Notes None recorded. Problems Name Problem SNOMED Code Status Onset Date Resolution Date Notes Provider Name and Address Organization Details Recorded Time Diabetes mellitus 72443003 Active 2021 Do Lambert, FIELD ATTENDANT [address], [place], [address], [place] - [facility] 2 11:07:17 Benign prostatic hyperplasia without outflow obstruction 113259680 Active 2022 Do Lambert, FIELD ATTENDANT [address], [place], [address], [place] - [facility] 13:09:53 Chronic kidney disease stage 2 645634726 Active 2023 Do Lambert, FIELD ATTENDANT [address], [place], [address], [place] - [facility] 4 16:55:57 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 Do Lambert FIELD ATTENDANT [address], [place], [address], [place] - [facility] 5 15:12:03 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 2024 Do Lambert FIELD ATTENDANT [address], [place], [address], [place] - [facility] 5 15:12:16 Problem [...] 12/24/19 23 Suture/Staple removal completed Do Fausto, FIELD ATTENDANT [address], [place], [address], [place] - [facility] 12/23/2022 10:15:30 12/01/19 23 Cryosurgery Dermatology completed Kely Iqra, FIELD ATTENDANT [address], [place], [address], [place] [facility] 11/30/2022 13:15:20 08/25/19 23 Shave Biopsy Face, Ears, eyelids, nose, lips, muc membranes completed Kelyhudson Escalona FIELD ATTENDANT [address], [place], [address], [place] - [facility] 08/24/2022 10:36:02 07/22/19 23 Cryosurgery Dermatology completed Kelyhudson Escalona APRN [address], [place], [address], [place] - [facility] 07/21/2022 14:53:44 05/04/19 22 [...] active Not Available Not Available Not Avai stacy OneTouch Ultra Test strips USE DIRECTED active [...] Available No t Available FreeStyle Uma 2 [place] USE DIRECTED active Not Available Not Available [...] t Available Vitals Date Recorded Body height Heart rate Oxygen saturation Respiratory rate Pain severity - 0-10 verbal numeric rating [Score] - Reported Body temperature Systolic And Diastolic Provider Name and Address Organization Details Last Updated DateTime 5 182.88 cm 71 /min 97 % 20 /min 0 97.2 [degF] 122/68 mm[Hg] Rand Hampton [place] - [facility] 13:17:43 Social History Question Answer Notes LastModified by Organizat ion Details LastModified Time Tobacco Smoking Status Former Smoker Norma calixto [place] - [facility] 04/27/2021 13:28:13 Do You Have An Advance Directive? No [email or web address] Information not available 04/27/2021 How Many Years Have You Consumed Alcohol? 30 [email or web address] Information not available 08/05/2024 Are You Blind Or Do You Have Difficulty Seeing? No [email or web address] Information not available 04/27/2021 Is Blood Transfusion Acceptable In An Emergency? Yes [email or web address] Information not available 08/05/2024 What Is Your Level Of Caffeine Consumption? Occasional [email or web address] Information not available 04/27/2021 In The 14 Days Before Symptom Onset, Have You Had Close Contact With A Laboratory-confir med COVID-19 While That Case Was Ill? No [email or web address] Information not available 04/27/2021 In The 14 Days Before Symptom Onset, Have You Had Close Contact With A Person Who Is Under Investigation For COVID-19 While That Person Was Ill? No [email or web address] Information not available 04/27/2021 Have You Been To An Area Known To Be High Risk For COVID-19? No [email or web address] Information not available 04/27/2021 Are You Deaf Or Do You Have Serious Difficulty Hearing? No [email or web address] Information not available 04/27/2021 What Type Of Diet Are You Following? REGULAR [email or web address] Information not available 04/27/2021 Have You Processed Blood Or Body Fluids From An Ebola Virus Disease Patient Without Appropriate PPE? No [email or web address] Information not available 04/27/2021 Do You Reside In Or Have You Traveled To An Area Where Ebola Virus Transmission Is Active? No [email or web address] Information not available 04/27/2021 What Is The Highest Grade Or Level Of School You Have Completed Or The Highest Degree You Have Received? LS10361-2 [email or web address] Information not available 08/05/2024 Have There Been Any Changes To Your Family Or Social Situation? No [email or web address] Information no t available 04/27/2021 When Did You Quit Smoking? 1-5yearssincel astcigarette Information not available 04/27/2021 Have You Recently Or Are You Planning To Travel To An Area With Zika Virus? No Information not available 04/27/2021 How Many Years Have You Used Illicit Or Recreational Drugs? 0 [email or web address] Information not available 08/05/2024 What Was The Date Of Your Most Recent Tobacco Screening? 06/25/2024 [email or web address] Information not available 06/25/2024 Do You Use Protection Against STDs? No [email or web address] Information not available 08/05/2024 What Is Your Relationship Status? Information not available 08/05/2024 Do You Use Your Seat Belt Or Car Seat Routinely? Yes [email or web address] Information not available 08/05/2024 Are You Sexually Active? Yes [email or web address] Information not available 06/25/2024 Do You Have Smoke And Carbon Monoxide Detectors In Your Home? Yes Information not available 04/27/2021 At What Age Did You Start Smoking Tobacco? 11 [email or web address] Information not available 08/05/2024 Are You Passively Exposed To Smoke? No [email or web address] Information no t available 04/27/2021 Do You Use Sunscreen Routinely? No Information not available 08/05/2024 Has Tobacco Cessation Counseling Been Provided? Yes [email or web address] Information not available 06/20/2023 On What Date Was Tobacco Cessation Counseling Provided? 06/25/2024 Information not available 06/25/2024 How Many Years Have You Smoked Tobacco? 40 [email or web address] Information not available 04/27/2021 Do You Have Difficulty Walking Or Climbing Stairs? No [email or web address] Information not available 04/27/2021 Sex: Male Functional Status Question Answer Note LastModified by Organizat ion Details LastModified Time Do you use any illicit or recreational drugs? No [email or web address] Information not available 04/27/2021 Do you or have you ever used any other forms of tobacco or nicotine? No [email or web address] Information not available 04/27/2021 What is your level of alcohol consumption? Occasional [email or web address] Information not available 04/27/2021 Are you currently employed? No [email or web address] Information not available 04/27/2021 Do you have transportation difficulties? No Information not available 04/27/2021 Do you have difficulty doing errands alone? No [email or web address] Information not available 04/27/2021 Are you able to care for yourself independently? Yes [email or web address] Information not available 04/27/2021 Do you have difficulty dressing, bathing, grooming, or toileting? No Information not available 04/27/2021 Do you or have you ever used e-cigarettes or vape? Never used electronic cigarettes [email or web address] Information not available 08/05/2024 What is your exercise level? Moderate [email or web address] Information not available 08/05/2024 Mental Status Question Answer Note LastModified by Organizat ion Details LastModified Time Do you feel stressed (tense, restless, nervous, or anxious, or unable to sleep at night)? [id number] [email or web address] Information not available 08/05/2024 Do you have difficulty concentrating, remembering or making decisions? No [email or web address] Information no t available 04/27/2021 Family History [...] colitis N Cerebrovascular Disease N Depression N Guillain-Belcher N Sleep Apnea N Aneurysm N Bronchitis N Heart Disease N Suicidal Ideation N Pre-Eclampsia N Hypertension N Osteoporosis N Immunizations Vaccine Type Date Status Note Provider Nam e and Address Organization Details Recorded Time HepB-CpG 05/26/19 completed Not Available [facility] 09/27/2024 10:36:34 Influenza, MDCK, quadrivalent, PF 04/10/19 completed Nyasia Stears null, [place] - [facility] 11/08/2024 11:05:03 RSV, recombinant, protein subunit RSVpreF, adjuvant reconstituted, 0.5 mL, PF 04/10/19 completed Nyasia [place] null[place] [facility] 11/08/2024 11:05:03 Tdap 06/20/19 cancelled patient objection Do Lambert FIELD ATTENDANT [address], [place], [address], [place] [facility] 06/26/2023 08:34:29 zoster recombinant 03/07/19 24 completed Do Lambert APRN [address], [address], [facility] - [facility] 04/04/2023 13:11:37 zoster recombinant 12/28/19 23 completed Do Lambert APRN [address], [place], [address], [place] [facility] 04/04/2023 13:11:37 Respiratory syncytial virus (RSV) MAB, unspecified 04/10/19 24 completed Norma Reyna null[place] [facility] 04/21/2023 14:13:48 influenza, unspecified formulation 04/10/19 completed Nyasia [place]ars [place] [facility] 11/08/2024 11:05:03 Past Encounters Encounter ID Performer Location Encounter Start Date Encounter Closed Date Diagnosis/Indication Diagnosis SNOMED-CT Code Diagnosis ICD10 Code Diagnosis IMO Codes Diagnosis Note [id number] Eugonda Fryman, FIELD ATTENDANT [address] [address] 12/13/2024 10:29:23 12/13/2024 11:36:25 Bilateral carpal tunnel syndrome 5204940432 6514368 G56.03 992832 splints at nightstero idsrefer to orthoif worsen or no improvemen t return [id number] Rosalie Salas APRN [address] [address] 12/26/2024 13:50:05 12/26/2024 15:04:08 Diabetes mellitus 73753195 E13.42 continue diet and exercise 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 2 diabetes mellitus 4295633196 107 E11.42 Long-term current use of drug therapy 375792470 Z79.899 69898319 Cramp in foot 762961125 R25.2 9436340 referral to podiotryho ld statin [id number] Rosalie Salas [address] [address] 01/06/2025 12:45:41 01/06/2025 13:30:02 Frequent headache 415748763 R51.9 [id number] follow up with pevaz Dizzy spells 736852523 R 42 597759 follow up with pevezif symptoms worsen or no improvemen t return Health Concerns Section Related Observation LastModified by Organization Detai ls LastModified Time None Recorded Concern Status LastModified by Organization Details LastModified Time None Recorded Payers Encounter Date Sequence Insurance Name Policy Number Policy Jimenez Covered Member ID Jimenez Member ID Guarantor Name 01/06/2025 1 [employer] (MEDICARE REPLACEMENT/ ADVANTAGE - PPO) [id number] Iker Gray [id number] Iker Gray Notes Date Note Type Note Provider Name and Address Organization Details Recorded Time 01/06/2025 text/html ROS as noted in the HPI 64 yr old male presents for dizziness, headache, blurry vision for over 1 month. He did coincidentally had an appointment with Dr. Pineda and she sent him to the lab for blood work and has him set up for a MRI this Monday. pt states he also has made a eye exam. pt states symptoms improve with tylenol Rosalie Salas, FIELD ATTENDANT [address], [place], [address], [facility] - [facility] 01/06/2025 13:30:22
--- OUTSIDE RECORDS SUMMARY | 2025-01-08 12:45 | XMS_ITS | Clinical Summary ---
Author Organization [facility] Address [address], [address] [place] [address] Care Team Providers Care Health Care / Medical Job Titles Name Role Phone Do Lambert HEADING AND PRIMING OPERATOR - [facility] Primary Care Provider + Allergies No known [...] - 145 mmol/L 07/27/2023 12:08 PM EDT [facility] Potassium 3.9 3.5 - 5.1 mmol/L 07/27/2023 12:08 PM EDT [facility] Chloride 105 99 - 110 mmol/L 07/27/2023 12:08 PM EDT [facility] CO2 24 21 - 32 mmol/L 07/27/2023 12:08 PM EDT [facility] Anion Gap 11 3 - 16 07/27/2023 12:08 PM EDT [facility] Glucose 165(H) 70 - 99 mg/dL 07/27/2023 12:08 PM EDT [facility] BUN 13 7 - 20 mg/dL 07/27/2023 12:08 PM EDT [facility] Creatinine 0.9 0.8 - 1.3 mg/dL 07/27/2023 12:08 PM EDT [facility] Est, Glom Filt Rate >90 >60 07/27/2023 12:08 PM EDT [facility] Comment: Pediatric calculator link [...] - 10.6 mg/dL 07/27/2023 12:08 PM EDT [facility] Phosphorus 2.6 2.5 - 4.9 mg/dL 07/27/2023 12:08 PM EDT [facility] Albumin 4.1 3.4 - 5.0 g/dL 07/27/2023 12:08 PM EDT [facility] 07/27/2023 11:2 7 AM EDT 07/27/2023 11:27 AM EDT Loida Epps MD CHEMISTRY ORDERABLES Final Res ult [facility] [address] [place] [address], [facility] [phone] * (ABNORMAL) MICROALBUMIN / CREATININE URINE RATIO (09/07/2021 9:07 AM EDT) Microalb, Ur 5.60(H) <2.0 mg/dL 09/07/2021 7:11 PM EDT [facility] Creatinine, Ur 28.4(L) 39.0 - 259.0 mg/dL 09/07/2021 7:11 PM EDT [facility] Albumin/Creati nine Ratio 197.2(H) 0.0 - 30.0 mg/g 09/07/2021 7:11 PM EDT [facility] URINE SPECIMEN / Unknown 09/07/2021 9:07 AM EDT 09/07/2021 9:07 AM EDT us Armand Singleton MD URINE ORDERABLES Final Re sult [facility] [address] [place] [address], [facility] [phone] * PSA Screening (09/07/2021 9:06 AM EDT) PSA 1.90 0.00 - 4.00 ng/mL 09/07/2021 8:13 PM EDT [facility] BLOOD SPECIMEN / Unknown 09/07/2021 9:06 AM EDT 09/07/2021 9:06 AM EDT Armand Singleton MD CHEMISTRY ORDERABLES Barbra l Result [facility] [address] [place] [address] * (ABNORMAL) LIPID PANEL (09/07/2021 9:06 AM EDT) Cholesterol, Total 174 0 - 199 mg/dL 09/07/2021 8:12 PM EDT [facility] Triglycerides 147 0 - 150 mg/dL 09/08/19 8:12 PM EDT [facility] HDL 39(L) 40 - 60 mg/dL 09/07/2021 8:12 PM EDT [facility] LDL Calculated 106(H) <100 mg/dL 09/07/2021 8:12 PM EDT [facility] VLDL Cholesterol Calculated 29 Not Established mg/dL 09/07/2021 8:12 PM EDT [facility] BLOOD SPECIMEN / Unknown 09/07/2021 9:06 AM EDT 09/07/2021 9:06 AM EDT Armand Singleton MD CHEMISTRY ORDERABLES Barbra l Result [facility] [address] [place] [address] * POCT glycosylated hemoglobin (Hb A1C) (08/20/2021 10:35 AM EDT) Hemoglobin A1C 5.9 % BLOOD SPECIMEN / Unknown 08/20/2021 10:35 AM EDT Armand Singleton MD POINT OF CARE TEST ORDERA BLES Final Result from Last 3 Months or Most Recently Relevant to Health Maintenance Insurance [facility] [place] Advance Directives * Full Code (Latest Code Status on File) Date Activated Date Inactivated Comments 04/28/2021 2:03 PM 04/29/2021 5:44 PM * Full Code Date Activated Date Inactivated Comments 12/26/2017 5:24 PM 12/27/2017 6:40 PM Healthcare Agents on File Name Relationship Healthcare Agent Relationshi p Communication Katerine Craft Other Secondary Decision Maker darrius Gray Child Primary Decision Maker Care Teams Health Care / Medical Job Titles Relationship Specialty Start Date End Date Do Lambert APRN - [facility] [address] [place] [address] PCP - General Nurse Practitioner, Family 11/01/22
--- OUTSIDE RECORDS SUMMARY | 2025-01-08 12:45 | XMS_ITS | Data Portability ---
Author Organization [facility] Address [address] [place] [address] Assessment No assessment recorded. Plan of Treatment Reminders Order Date Submit Date Provider Last Modified By Organization Details Last Modified Time Details Appointments Follow Up 20 2024 02:00P Shivam Salas APRN Not available Not available Not available Lab drug screen, urine 2024 025 [facility], [address] [place] [address], [phone], 12/26/2024 14:57:29 magnesium , serum or plasma 2024 025 MARGARET Francis, [address], [address], [place], [address], 11/25/2024 00:06:40 cobalamin and folate panel, serum 2024 025 MARGARET Francis, [address], [place], [address], 11/25/2024 00:06:38 vitamin D, 25-hydrox y, total, serum 2024 025 MARGARET Francis, [address], [address], [place], [address], 11/25/2024 00:06:39 CBC w/ auto diff 2024 025 MARGARET Francis, [address], [address], [place], [address], 11/25/2024 00:06:37 iron + total iron-bind ing capacity (TIBC), serum 2024 025 MARGARET Penny, [address], [address], [place], [address], 11/25/2024 00:06:37 TSH + free T4, serum 2024 025 MARGARET Francis, [address], [address], [place], [address], 11/25/2024 00:06:36 vitamin B6 + metabolit es panel, serum or plasma 2024 025 MARGARET Francis, [address], [address], [place], [address], 11/25/2024 00:06:38 short myastheni a gravis panel, serum 2024 025 MARGARET Francis, [address], [address], [place], [address], 11/25/2024 00:06:39 drug screen, urine 2024 025 [facility], [address] [place] [address], [phone], 09/27/2024 14:44:38 HbA1c (hemoglob in A1c), blood 2024 025 MARGARET Francis, [address], [address], [place], [address], 09/28/2024 12:36:12 lipid panel, serum 2024 025 MARGARET Francis, [address], [address], [place], [address], 09/28/2024 12:36:11 microalbu min/creat inine, mass ratio, urine 2024 025 MARGARET [facility], [address], [address], [place], [address], 09/28/2024 12:36:12 CMP, serum or plasma 2024 025 MARGARET Sánchezrp, [address], [address], [place], [address], 09/28/2024 12:36:11 PSA, total, serum or plasma 2024 025 MARGARET [facility], [address], [address], [place], [address], 09/28/2024 12:36:12 Referral podiatris t referral 2024 025 [facility], [address], [place], [place], [address], 12/26/2024 15:33:36 orthopedi c surgeon referral 2024 025 [facility], [address], [place], [place], [address], 12/19/2024 11:45:[address] referral 2024 025 MARGARET Pineda MD, [address], [place], [place], [address], 12/13/2024 11:21:58 Procedures None recorded. Surgeries None recorded. Imaging electromy ogram + nerve conductio n study - bilateral legs/feet and arms/hand s 2024 025 [facility] ([facility]), [address], [place], [place], [address], 11/21/2024 15:14:07 Medication Orders pregabali n 150 mg capsule 2024 025 [facility], [address] [place] [address] [place], [place], [id number], 12/28/2024 11:44:23 prednison e 10 mg tablet 2024 025 MARGARET Álvarez [facility], [address] [facility] , [place], [place], [id number], 12/25/2024 05:01:58 pregabali n 150 mg capsule 2024 025 MARGARET Álvarez [facility], [address] [facility] , [place], [place], [id number], 11/29/2024 10:36:33 Patient TargetsNo targets recorded. Patient InstructionsNo instructions recorded. 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 METAB OLIC PANEL (14) glucose 106 mg/dL 70-99 above high normal Not Available [facility] ([facility]) [address] [place], [address], 09/28/2024 12:36:11 09/28/19 25 09/28/2024 COMP. METAB OLIC PANEL (14) BUN 22 mg/dL 8-27 normal Not Available [facility] ([facility]) [address] [place], [address], 09/28/2024 12:36:11 09/28/19 25 09/28/2024 COMP. METAB OLIC PANEL (14) creatinine 1.13 mg/dL 0.76-1 .27 normal Not Available [facility] ([facility]) [address] [facility], [place], [address], 09/28/2024 12:36:11 09/28/19 25 09/28/2024 COMP. METAB OLIC PANEL (14) eGFR 72 mL/mi n/1.7 3 >59 normal Not Available [facility] ([facility]) [address] [facility], [place], [address], 09/28/2024 12:36:11 09/28/19 25 09/28/2024 COMP. METAB [...] at [email or web address] org. Not Available [facility] ([facility]) [address] [facility], [place], [address], 09/28/2024 12:36:11 09/28/19 25 09/28/2024 COMP. METAB OLIC PANEL (14) BUN/creatini ne ratio 19 10-24 normal Not Available [facility] ([facility]) [address] [facility], [place], [address], 09/28/2024 12:36:11 09/28/19 25 09/28/2024 COMP. METAB OLIC PANEL (14) sodium 138 mmol/ L 134-14 4 normal Not Available [facility] ([facility]) [address] [facility], [place], [address], 09/28/2024 12:36:11 09/28/19 25 09/28/2024 COMP. METAB OLIC PANEL (14) potassium 4.4 mmol/ L 3.5-5. 2 normal Not Available [facility] ([facility]) [address] [facility] [place], [address], 09/28/2024 12:36:11 09/28/19 25 09/28/2024 COMP. METAB OLIC PANEL (14) chloride 105 mmol/ L 96-106 normal Not Available [facility] ([facility]) [address] [facility], [address], 09/28/2024 12:36:11 09/28/19 25 09/28/2024 COMP. METAB OLIC PANEL (14) carbon dioxide, total 17 mmol/ L 20-29 below low normal Not Available [facility] ([facility]) [address] [place] [place], [address], 09/28/2024 12:36:11 09/28/19 25 09/28/2024 COMP. METAB OLIC PANEL (14) calcium 8.7 mg/dL 8.6-10 .2 normal Not Available [facility] ([facility]) [address] [place] [place], [address], 09/28/2024 12:36:11 09/28/19 25 09/28/2024 COMP. METAB OLIC PANEL (14) protein, total 6.3 g/dL 6.0-8. 5 normal Not Available [facility] ([facility]) [address] [place] [place], [address], 09/28/2024 12:36:11 09/28/19 25 09/28/2024 COMP. METAB OLIC PANEL (14) albumin 3.8 g/dL 3.9-4. 9 below low normal Not Available [facility] ([facility]) [address] [place] [place], [address], 09/28/2024 12:36:11 09/28/19 25 09/28/2024 COMP. METAB OLIC PANEL (14) globulin, total 2.5 g/dL 1.5-4. 5 Not Available [facility] ([facility]) [address] [place] [place], [address], 09/28/2024 12:36:11 09/28/19 25 09/28/2024 COMP. METAB OLIC PANEL (14) bilirubin, total 0.5 mg/dL 0.0-1. 2 normal Not Available [facility] ([facility]) [address] [place] [place], [address], 09/28/2024 12:36:11 09/28/19 25 09/28/2024 COMP. METAB OLIC PANEL (14) alkaline phosphatase 60 IU/L 44-121 normal Not Available [facility]) [address] [place] [place], [address], 09/28/2024 12:36:11 09/28/19 25 09/28/2024 COMP. METAB OLIC PANEL (14) AST (SGOT) 41 IU/L 0-40 above high normal Not Available [facility] ([facility]) [address] [place] [place], [address], 09/28/2024 12:36:11 09/28/19 25 09/28/2024 COMP. METAB OLIC PANEL (14) ALT (SGPT) 36 IU/L 0-44 normal Not Available [facility] ([facility]) [address] [place] [place], [address], 09/28/2024 12:36:11 09/28/19 25 09/28/2024 LIPID PANEL cholesterol, total 126 mg/dL 100-19 9 normal Not Available [facility] ([facility]) [address] [place] [place], [address], 09/28/2024 12:36:11 09/28/19 25 09/28/2024 LIPID PANEL triglyceride s 152 mg/dL 0-149 above high normal Not Available [facility] ([facility]) [address] [place], [address], 09/28/2024 12:36:11 09/28/19 25 09/28/2024 LIPID PANEL HDL cholesterol 31 mg/dL >39 below low normal Not Available [facility] ([facility]) [address] [place] [place], [address], 09/28/2024 12:36:11 09/28/19 25 09/28/2024 LIPID PANEL VLDL cholesterol kerline 27 mg/dL 5-40 Not Available [facility] ([facility]) [address] [place] [place], [address], 09/28/2024 12:36:11 09/28/19 25 09/28/2024 LIPID PANEL LDL chol calc ([facility]) 68 mg/dL 0-99 Not Available [facility] ([facility]) [address] [place] [place], [address], 09/28/2024 12:36:11 09/28/19 25 09/28/2024 LIPID PANEL LDL calc comment: DUPLIGRAPH OPERATOR Not Available [facility] ([facility]) [address] [place] [place], [address], 09/28/2024 12:36:11 09/28/19 25 09/28/2024 ALBUM IN/CR EAT RATIO , RANDO M UR creatinine, urine 108.1 mg/dL not estab. normal Not Available [facility] ([facility]) [address] [place], [address], 09/28/2024 12:36:12 09/28/19 25 09/28/2024 ALBUM IN/CR EAT RATIO , RANDO M UR albumin, urine 42.6 ug/mL not estab. Not Available [facility] ([facility]) [address] [place], [address], 09/28/2024 12:36:12 09/28/1909/28/2024 ALBUM IN/CR EAT RATIO , BG CEBALLOS alb/creat ratio 39 mg/g_ creat 0-29 above high normal Viji l: 0 - 29 Moder ately incre ased: 30 - 300 Sever elsa incre ased: >300 Not Available [facility] ([facility]) [address] [place], [address], 09/28/2024 12:36:12 09/28/1909/28/2024 HEMOG LOBIN A1C hemoglobin A1C 6.0 % 4.8-5. 6 above high normal Predi abete s: 5.7 - 6.4 Diabe marybel: >6.4 Glyce joelle contr ol for adult s with diabe marybel: <7.0 Not Available [facility] ([facility]) [address] [facility], [place], [address], 09/28/2024 12:36:12 09/28/1909/28/2024 PROST ATE-S PECIF IC [...] prese nce or absen ce of radha gleza se. Not Available [facility] ([facility]) [address] [facility], [place], [address], 09/28/2024 12:36:12 08/15/20 25 09/27/2024 drug scree n, urine AMP negati ve Not Available [facility] [address] [place] [address], [phone], 09/27/2024 10:40:09 09/28/19 25 09/27/2024 drug scree n, urine BAR negati ve Not Available [facility] [address] [place] [address], [phone], 09/27/2024 10:40:09 09/28/19 25 09/27/2024 drug scree n, urine BUP negati ve Not Available [facility] [address] [place] [address], [phone], 09/27/2024 10:40:09 09/28/19 25 09/27/2024 drug scree n, urine BZO negati ve Not Available [facility] [address] [place] [address], [phone], 09/27/2024 10:40:09 09/28/19 25 09/27/2024 drug scree n, urine TOBY negati ve Not Available [facility] [address] [place] [address], [phone], 09/27/2024 10:40:09 09/28/19 25 09/27/2024 drug scree n, urine FTY negati ve Not Available [facility] [address] [place] [address], [phone], 09/27/2024 10:40:09 09/28/19 25 09/27/2024 drug scree n, urine MDMA negati ve Not Available [facility] [address] [place] [address], [phone], 09/27/2024 10:40:09 09/28/19 25 09/27/2024 drug scree n, urine MET negati ve Not Available [facility] [address] [place] [address], [phone], 09/27/2024 10:40:09 09/28/19 25 09/27/2024 drug scree n, urine MOP negati ve Not Available [facility] [address] [place] [address], [phone], 09/27/2024 10:40:09 09/28/19 25 09/27/2024 drug scree n, urine MTD negati ve Not Available [facility] [address] [place] [address], [phone], 09/27/2024 10:40:09 09/28/19 25 09/27/2024 drug scree n, urine OXY negati ve Not Available [facility] [address] [place] [address], [phone], 09/27/2024 10:40:09 09/28/19 25 09/27/2024 drug scree n, urine PCP negati ve Not Available [facility] [address] [place] [address], [phone], 09/27/2024 10:40:09 09/28/19 25 09/27/2024 drug scree n, urine TCA negati ve Not Available [facility] [address] [place] [address], [phone], 09/27/2024 10:40:09 09/28/19 25 09/27/2024 drug scree n, urine THC negati ve Not Available [facility] [address] [place] [address], [phone], 09/27/2024 10:40:09 11/09/19 25 11/09/2024 TSH+F REE T4 TSH 1.500 uIU/m L 0.450- 4.500 normal Not Available [facility] ([facility]) [address] [facility], [place], [address], 11/25/2024 00:06:36 11/09/1911/09/2024 TSH+F REE T4 T4,free(dire ct) 1.20 NG/dL 0.82-1 .77 normal Not Available [facility] ([facility]) [address] [place], [address], 11/25/2024 00:06:36 11/09/1911/09/2024 CBC WITH DIFFE RENTI AL/PL ATELE T WBC 8.1 x10e3 /uL 3.4-10 .8 normal Not Available [facility] ([facility]) [address] [place], [address], 11/25/2024 00:06:37 11/09/1911/09/2024 CBC WITH DIFFE RENTI AL/PL ATELE T RBC 5.38 x10e6 /uL 4.14-5 .80 normal Not Available [facility] ([facility]) [address] [place], [address], 11/25/2024 00:06:37 11/09/1911/09/2024 CBC WITH DIFFE RENTI AL/PL ATELE T hemoglobin 15.1 g/dL 13.0-1 7.7 normal Not Available [facility] ([facility]) [address] [place], [address], 11/25/2024 00:06:37 11/09/1911/09/2024 CBC WITH DIFFE RENTI AL/PL ATELE T hematocrit 46.9 % 37.5-5 1.0 normal Not Available [facility] ([facility]) [address] [place], [address], 11/25/2024 00:06:37 11/09/19 25 11/09/2024 CBC WITH DIFFE RENTI AL/PL ATELE T MCV 87 fL 79-97 normal Not Available [facility] ([facility]) [address] [facility], [place], [address], 11/25/2024 00:06:37 11/09/1911/09/2024 CBC WITH DIFFE RENTI AL/PL ATELE T MCH 28.1 pg 26.6-3 3.0 normal Not Available [facility] ([facility]) [address] [place], [address], 11/25/2024 00:06:37 11/09/19 25 11/09/2024 CBC WITH DIFFE RENTI AL/PL ATELE T MCHC 32.2 g/dL 31.5-3 5.7 normal Not Available [facility] ([facility]) [address] [place], [address], 11/25/2024 00:06:37 11/09/1911/09/2024 CBC WITH DIFFE RENTI AL/PL ATELE T RDW 13.4 % 11.6-1 5.4 Not Available [facility] ([facility]) [address] [place], [address], 11/25/2024 00:06:37 11/09/19 25 11/09/2024 CBC WITH DIFFE RENTI AL/PL ATELE T platelets 255 x10e3 /uL 150-45 0 normal Not Available [facility] ([facility]) [address] [place], [address], 11/25/2024 00:06:37 11/09/1911/09/2024 CBC WITH DIFFE RENTI AL/PL ATELE T neutrophils 57 % not estab. normal Not Available [facility] ([facility]) [address] [place], [address], 11/25/2024 00:06:37 11/09/19 25 11/09/2024 CBC WITH DIFFE RENTI AL/PL ATELE T lymphs 30 % not estab. normal Not Available [facility] ([facility]) [address] [place], [address], 11/25/2024 00:06:37 11/09/1911/09/2024 CBC WITH DIFFE RENTI AL/PL ATELE T monocytes 10 % not estab. normal Not Available [facility] ([facility]) [address] [place], [address], 11/25/2024 00:06:37 11/09/1911/09/2024 CBC WITH DIFFE RENTI AL/PL ATELE T eos 2 % not estab. normal Not Available [facility] ([facility]) [address] [place], [address], 11/25/2024 00:06:37 11/09/1911/09/2024 CBC WITH DIFFE RENTI AL/PL ATELE T basos 1 % not estab. normal Not Available [facility] ([facility]) [address] [place], [address], 11/25/2024 00:06:37 11/09/1911/09/2024 CBC WITH DIFFE RENTI AL/PL ATELE T immature cells DUPLIGRAPH OPERATOR Not Available [facility] ([facility]) [address] [place], [address], 11/25/2024 00:06:37 11/09/1911/09/2024 CBC WITH DIFFE RENTI AL/PL ATELE T neutrophils (absolute) 4.7 x10e3 /uL 1.4-7. 0 normal Not Available [facility] ([facility]) [address] [place], [address], 11/25/2024 00:06:37 11/09/1911/09/2024 CBC WITH DIFFE RENTI AL/PL ATELE T lymphs (absolute) 2.4 x10e3 /uL 0.7-3. 1 normal Not Available [facility] ([facility]) [address] [place], [address], 11/25/2024 00:06:37 11/09/19 25 11/09/2024 CBC WITH DIFFE RENTI AL/PL ATELE T monocytes(ab solute) 0.8 x10e3 /uL 0.1-0. 9 normal Not Available [facility] ([facility]) [address] [facility], [place], [address], 11/25/2024 00:06:37 11/09/19 25 11/09/2024 CBC WITH DIFFE RENTI AL/PL ATELE T eos (absolute) 0.1 x10e3 /uL 0.0-0. 4 normal Not Available [facility] ([facility]) [address] [place], [address], 11/25/2024 00:06:37 11/09/19 25 11/09/2024 CBC WITH DIFFE RENTI AL/PL ATELE T baso (absolute) 0.1 x10e3 /uL 0.0-0. 2 normal Not Available [facility] ([facility]) [address] [place], [address], 11/25/2024 00:06:37 11/09/19 25 11/09/2024 CBC WITH DIFFE RENTI AL/PL ATELE T immature granulocytes 0 % not estab. Not Available [facility] ([facility]) [address] [place], [address], 11/25/2024 00:06:37 11/09/19 25 11/09/2024 CBC WITH DIFFE RENTI AL/PL ATELE T immature grans (abs) 0.0 x10e3 /uL 0.0-0. 1 Not Available [facility] ([facility]) [address] [place], [address], 11/25/2024 00:06:37 11/09/19 25 11/09/2024 CBC WITH DIFFE RENTI AL/PL ATELE T NRBC DUPLIGRAPH OPERATOR Not Available [facility] ([facility]) [address] [place], [address], 11/25/2024 00:06:37 11/09/19 25 11/09/2024 CBC WITH DIFFE LUKE AL/PL JACKIE T hematology comments: DUPLIGRAPH OPERATOR Not Available [facility] ([facility]) [address] [facility], [place], [address], 11/25/2024 00:06:37 11/09/19 25 11/09/2024 IRON AND TIBC iron bind.cap.(TI BC) 358 ug/dL 250-45 0 normal Not Available [facility] ([facility]) [address] [facility], [place], [address], 11/25/2024 00:06:37 11/09/19 25 11/09/2024 IRON AND TIBC UIBC 277 ug/dL 111-34 3 normal Not Available [facility] ([facility]) [address] [facility], [place], [address], 11/25/2024 00:06:37 11/09/19 25 11/09/2024 IRON AND TIBC iron 81 ug/dL 38-169 normal Not Available [facility] ([facility]) [address] [facility], [place], [address], 11/25/2024 00:06:37 11/09/19 25 11/09/2024 IRON AND TIBC iron saturation 23 % 15-55 normal Not Available [facility] ([facility]) [address] [place], [address], 11/25/2024 00:06:37 11/09/19 25 11/09/2024 VITAM IN B12 AND FOLAT E vitamin B12 759 pg/mL 232-12 45 normal Not Available [facility] ([facility]) [address] [place], [address], 11/25/2024 00:06:38 11/09/19 25 11/09/2024 VITAM IN B12 AND FOLAT E folate (folic acid), serum 4.6 NG/mL >3.0 normal A serum folat e nevaeh ntrat ion of less than 3.1 ng/mL is consi dered to repre sent clini kerline defic iency . Not Available [facility] ([facility]) [address] [facility], [place], [address], 11/25/2024 00:06:38 11/09/19 25 11/14/2024 VITAM IN B6, PLASM A vitamin B6 55.6 ug/L 3.4-65 .2 normal Defic iency : <3.4 Leonora nal: 3.4 - 5.1 Adequ ate: >5.1 Not Available [facility] ([facility]) [address] [facility], [place], [address], 11/25/2024 00:06:38 11/09/19 25 11/09/2024 VITAM IN [...] Endoc rine Socie ty [facility] defin e vitam in D insuf ficie ncy as a level betwe en 21 and 29 ng/mL (2). 1. IOM (Inst itute of Medic ine). 2010. Dieta ry refer ence intak es for calci um and D. April moura [place]: [facility] . 2. Leno estes [place], Al jarrett [place], Brenda off-F errar i [place], et al. Evalu ation , treat ment, and preve ntion of vitam in D defic iency : an Endoc rine Socie ty clini kerline pract ice guide line. JCEM. 2010; 96(7) :1911 -30. Not Available [facility] ([facility]) [address] [facility], [place], [address], 11/25/2024 00:06:39 11/09/19 25 11/10/2024 MYAST HENIA GRAVI S PROFI LE AChR binding abs, serum <0.07 nmol/ L 0.00-0 .24 Negat cydney: 0.00 - 0.24 Borde rline : 0.25 - 0.40 Posit cydney: >0.40 Not Available [facility] ([facility]) [address] [place], [address], 11/25/2024 00:06:39 11/09/19 25 11/11/2024 MYAST HENIA GRAVI S PROFI LE striation abs, serum Negati ve neg:<1 :100 Not Available [facility] ([facility]) [address] [place], [address], 11/25/2024 00:06:39 11/09/19 25 11/12/2024 MYAST HENIA GRAVI S PROFI LE AChR blocking abs, serum 24 % 0-25 Negat cydney: 0 - 25 Borde rline : 26 - 30 Posit cydney: >30 Not Available [facility] ([facility]) [address] [place], [address], 11/25/2024 00:06:39 11/09/19 25 11/17/2024 MYAST HENIA GRAVI S PROFI LE AChR-modulat ing Ab 0 % 0-45 Inter preti ve Infor matio n: Negat cydney: 0 - 45% Posit cydney: > 45% No singl e value for AChR- modul ating antib kevin shoul d be used as a sole basis for diagn osis or respo nse to thera py. Not Available [facility] ([facility]) [address] [place], [address], 11/25/2024 00:06:39 11/09/19 25 11/17/2024 MYAST HENIA GRAVI S PROFI LE reflex information Commen t Refle x test indic ated. Not Available [facility] ([facility]) [address] [facility], [place], [address], 11/25/2024 00:06:39 11/09/1911/25/2024 MUSK ABS, SERUM musk [...] tion. Not Available [facility] [address] [facility], [place], [address], 11/25/2024 00:06:40 11/09/19 25 11/09/2024 MAGNE SIUM magnesium 2.2 mg/dL 1.6-2. 3 normal Not Available [facility] ([facility]) [address] [facility], [place], [address], 11/25/2024 00:06:40 12/27/19 25 12/26/2024 drug scree n, urine AMP negati ve Not Available [address], [address], 12/26/2024 14:14:32 12/27/19 25 12/26/2024 drug scree n, urine BAR negati ve Not Available [address], [address], 12/26/2024 14:14:32 12/27/19 25 12/26/2024 drug scree n, urine BUP negati ve Not Available [address], [address], 12/26/2024 14:14:32 12/27/19 25 12/26/2024 drug scree n, urine BZO negati ve Not Available [address], [address], 12/26/2024 14:14:32 12/27/1912/26/2024 drug scree n, urine TOBY negati ve Not Available [address], [address], 12/26/2024 14:14:32 12/27/19 25 12/26/2024 drug scree n, urine FTY negati ve Not Available [address], [address], 12/26/2024 14:14:32 12/27/1912/26/2024 drug scree n, urine MDMA negati ve Not Available [address], [address], 12/26/2024 14:14:32 12/27/19 25 12/26/2024 drug scree n, urine MET negati ve Not Available [address], [address], 12/26/2024 14:14:32 12/27/19 25 12/26/2024 drug scree n, urine MOP negati ve Not Available [address], [address], 12/26/2024 14:14:32 12/27/19 25 12/26/2024 drug scree n, urine MTD negati ve Not Available [address], [address], 12/26/2024 14:14:32 12/27/19 25 12/26/2024 drug scree n, urine OXY negati ve Not Available [address], [address], 12/26/2024 14:14:32 12/27/19 25 12/26/2024 drug scree n, urine PCP negati ve Not Available [address], [id number], 12/26/2024 14:14:32 12/27/19 25 12/26/2024 drug scree n, urine TCA negati ve Not Available [address], [address], 12/26/2024 14:14:32 12/27/1912/26/2024 drug scree n, urine THC negati ve Not Available [address], [address], 12/26/2024 14:14:32 11/05/19 25 10/30/2024 , [facility] ardio gram No observ ation record ed. [id number] [address], [place], [address], 11/06/2024 10:49:39 11/22/19 25 11/20/2024 elect romyo gram + nerve condu ction study No observ ation record ed. [facility] [facility] [address], [place], [address], 11/25/2024 10:23:40 11/27/1911/20/2024 elect romyo gram + nerve condu ction study No observ ation record ed. [facility] (Med Record) [address], [place], [address], 12/11/2024 11:13:57 11/28/19 25 11/25/2024 elect romyo gram + nerve condu ction study No observ ation record ed. [facility] [address], [place], [address], 12/11/2024 11:47:34 12/12/1911/20/2024 elect romyo gram No observ ation record ed. [email or web address] [facility] [address], [address], 12/16/2024 13:35:07 12/20/1912/18/2024 XR, wrist , 2 view No observ ation record ed. [facility] [address], [address], 12/20/2024 08:14:58 12/20/1912/18/2024 XR, wrist , 2 view No observ ation record ed. [facility] [address], [address], 12/20/2024 08:14:58 01/08/2001/06/2025 imagi ng/di agnos tic resul t No observ ation record ed. [facility] [address] [place], [address], 01/07/2025 08:56:16 Result Notes None recorded. 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 Procedures Surgical History Date Name Laterality Status Provider Name and Address Organization Details Recorded Time 12/27/19 Advance Care Planning cancelled Norma Reyna [place] [...] 12/24/19 23 Suture/Staple removal completed Do Lambert, PUBLIC POLICY ANALYST [address], [place], [address], [place] [facility] 12/23/2022 10:15:30 12/01/19 23 Cryosurgery Dermatology completed Kely Escalona APRN [address], [place], [address], [place] - [facility] 11/30/2022 13:15:20 08/25/19 23 Shave Biopsy Face, Ears, eyelids, nose, lips, muc membranes completed Kely Escalona APRN [address], [place], [address], [place] [facility] 08/24/2022 10:36:02 07/22/19 23 Cryosurgery Dermatology completed Kely Escalona PUBLIC POLICY ANALYST [address], [place], [address], [place] - [facility] 07/21/2022 14:53:44 05/04/19 22 Medication Reconcilliation completed Norma Reyna [place] - [facility] 05/03/2021 14:06:38 Imaging Results None [...] Not Available Not Available Not Avjudy labjoshua OneTouch Ultra Test strips USE DIRECTED active [...] Available Not Available Not Available amoxicillin 875 mg-yonathan hoover clavulanate 125 mg tablet TAKE 1 TABLET [...] Ultra-Fine Short Pen Needle 31 gauge x / USE 1 ONCE DAILY active Not Available [...] Available No t Available FreeStyle Uma 2 [place] USE DIRECTED active Not Available Not Available [...] Available Sobia Pen Needle 32 gauge x /32 USE as directed with lantus solostar active Not Available Not Available No t Available Vitals Date Recorded Body height Body temperature Body mass index (BMI) Body weight Heart rate Oxygen saturation Respiratory rate Systolic And Diastolic Provider Name and Address Organization Details Last Updated DateTime 5 182.88 cm 97.7 [degF] 24.3 kg/m2 65743.0 3 g 66 /min 98 % 20 /min 100/60 mm[Hg] Britney Clifton [place] - [facility] 5 10:43:52 Date Recorded Body height Respiratory rate Body mass index (BMI) Body weight Heart rate Oxygen saturation Body temperature Systolic And Diastolic Provider Name and Address Organization Details Last Updated DateTime 5 182.88 cm 18 /min 24.7 kg/m2 48898.8 1 g 58 /min 97 % 98 [degF] 108/64 mm[Hg] Nyasia Vergara [place] - [facility] 5 11:13:29 Date Recorded Body height Body mass index (BMI) Body weight Body temperature Heart rate Oxygen saturation Respiratory rate Pain severity - 0-10 verbal numeric rating [Score] - Reported Systolic And Diastolic Provider Name and Address Organization Details Last Updated DateTime 5 182.88 cm 25.4 kg/m2 66575.4 7 g 98.1 [degF] 60 /min 97 % 18 /min 4 124/72 mm[Hg] Rand Hampton [place] - [facility] 5 10:51:59 Date Recorded Body height Body mass index (BMI) Body weight Body temperature Heart rate Oxygen saturation Respiratory rate Pain severity - 0-10 verbal numeric rating [Score] - Reported Systolic And Diastolic Provider Name and Address Organization Details Last Updated DateTime 5 182.88 cm 25 kg/m2 67089 g 97.5 [degF] 71 /min 97 % 18 /min 0 126/72 mm[Hg] Rand Hampton [facility] 5 14:08:24 Date Recorded Body height Heart rate Oxygen saturation Respiratory rate Pain severity - 0-10 verbal numeric rating [Score] - Reported Body temperature Systolic And Diastolic Provider Name and Address Organization Details Last Updated DateTime 5 182.88 cm 71 /min 97 % 20 /min 0 97.2 [degF] 122/68 mm[Hg] Rand Hampton [facility] 5 13:17:43 Social History Question Answer Notes LastModified by Organizat ion Details LastModified Time Tobacco Smoking Status Former Smoker Norma calixto [facility] 04/27/2021 13:28:13 Do You Have An Advance Directive? No [email or web address] Information not available 04/27/2021 How Many Years Have You Consumed Alcohol? 30 [email or web address] Information not available 08/05/2024 Are You Blind Or Do You Have Difficulty Seeing? No [email or web address] Information not available 04/27/2021 Is Blood Transfusion Acceptable In An Emergency? Yes [email or web address] Information not available 08/05/2024 What Is Your Level Of Caffeine Consumption? Occasional [email or web address] Information not available 04/27/2021 In The 14 Days Before Symptom Onset, Have You Had Close Contact With A Laboratory-confir med COVID-19 While That Case Was Ill? No [email or web address] Information not available 04/27/2021 In The 14 Days Before Symptom Onset, Have You Had Close Contact With A Person Who Is Under Investigation For COVID-19 While That Person Was Ill? No [email or web address] Information not available 04/27/2021 Have You Been To An Area Known To Be High Risk For COVID-19? No [email or web address] Information not available 04/27/2021 Are You Deaf Or Do You Have Serious Difficulty Hearing? No Information not available 04/27/2021 What Type Of Diet Are You Following? REGULAR [email or web address] Information not available 04/27/2021 Have You Processed Blood Or Body Fluids From An Ebola Virus Disease Patient Without Appropriate PPE? No [email or web address] Information not available 04/27/2021 Do You Reside In Or Have You Traveled To An Area Where Ebola Virus Transmission Is Active? No [email or web address] Information not available 04/27/2021 What Is The Highest Grade Or Level Of School You Have Completed Or The Highest Degree You Have Received? [id number] Information not available 08/05/2024 Have There Been Any Changes To Your Family Or Social Situation? No [email or web address] Information no t available 04/27/2021 When Did You Quit Smoking? 1-5yearssincel kj [email or web address] Information not available 04/27/2021 Have You Recently Or Are You Planning To Travel To An Area With Zika Virus? No [email or web address] Information not available 04/27/2021 How Many Years Have You Used Illicit Or Recreational Drugs? 0 [email or web address] Information not available 08/05/2024 What Was The Date Of Your Most Recent Tobacco Screening? 06/25/2024 [email or web address] Information not available 06/25/2024 Do You Use Protection Against STDs? No [email or web address] Information not available 08/05/2024 What Is Your Relationship Status? [email or web address] Information not available 08/05/2024 Do You Use Your Seat Belt Or Car Seat Routinely? Yes [email or web address] Information not available 08/05/2024 Are You Sexually Active? Yes [email or web address] Information not available 06/25/2024 Do You Have Smoke And Carbon Monoxide Detectors In Your Home? Yes [email or web address] Information not available 04/27/2021 At What Age Did You Start Smoking Tobacco? 11 [email or web address] Information not available 08/05/2024 Are You Passively Exposed To Smoke? No Information no t available 04/27/2021 Do You Use Sunscreen Routinely? No [email or web address] Information not available 08/05/2024 Has Tobacco Cessation Counseling Been Provided? Yes [email or web address] Information not available 06/20/2023 On What Date Was Tobacco Cessation Counseling Provided? 06/25/2024 [email or web address] Information not available 06/25/2024 How Many Years Have You Smoked Tobacco? 40 [email or web address] Information not available 04/27/2021 Do You Have Difficulty Walking Or Climbing Stairs? No [email or web address] Information not available 04/27/2021 Sex: Male Functional Status Question Answer Note LastModified by Organizat ion Details LastModified Time Do you use any illicit or recreational drugs? No [email or web address] Information not available 04/27/2021 Do you or have you ever used any other forms of tobacco or nicotine? No [email or web address] Information not available 04/27/2021 What is your level of alcohol consumption? Occasional Information not available 04/27/2021 Are you currently employed? No [email or web address] Information not available 04/27/2021 Do you have transportation difficulties? No [email or web address] Information not available 04/27/2021 Do you have difficulty doing errands alone? No [email or web address] Information not available 04/27/2021 Are you able to care for yourself independently? Yes [email or web address] Information not available 04/27/2021 Do you have difficulty dressing, bathing, grooming, or toileting? No [email or web address] Information not available 04/27/2021 Do you or have you ever used e-cigarettes or vape? Never used electronic cigarettes [email or web address] Information not available 08/05/2024 What is your exercise level? Moderate [email or web address] Information not available 08/05/2024 Mental Status Question Answer Note LastModified by Organizat ion Details LastModified Time Do you feel stressed (tense, restless, nervous, or anxious, or unable to sleep at night)? [id number] [email or web address] Information not available 08/05/2024 Do you have difficulty concentrating, remembering or making decisions? No [email or web address] Information no t available 04/27/2021 Family History [...] colitis N Cerebrovascular Disease N Depression N Guillain-[place] N Sleep Apnea N Aneurysm N Bronchitis N Heart Disease N Suicidal Ideation N Pre-Eclampsia N Hypertension N Osteoporosis N Immunizations Vaccine Type Date Status Note Provider Nam e and Address Organization Details Recorded Time HepB-CpG 05/26/19 24 completed Not Available [facility] 09/27/2024 10:36:34 Influenza, MDCK, quadrivalent, PF 04/10/19 24 completed Nyasia Jai null, [place] - [facility] 11/08/2024 11:05:03 RSV, recombinant, protein subunit RSVpreF, adjuvant reconstituted, 0.5 mL, PF 04/10/19 24 completed Nyasia Wyatts [place], [place] [facility] 11/08/2024 11:05:03 Tdap 06/20/19 24 cancelled patient objection Do Lambert, PUBLIC POLICY ANALYST [address], [place], [address], [place] [facility] 06/26/2023 08:34:29 zoster recombinant 03/07/19 24 completed Do Fausto, EPHARIM [address], [place], [address], [place] [facility] 04/04/2023 13:11:37 zoster recombinant 12/28/19 23 completed Do Lambert, PUBLIC POLICY ANALYST [address], [place], [address], [place] [facility] 04/04/2023 13:11:37 Respiratory syncytial virus (RSV) MAB, unspecified 04/10/19 24 completed Norma Reyna [place] [facility] 04/21/2023 14:13:48 influenza, unspecified formulation 04/10/19 24 completed Nyasiamarcela Vergara [place] [facility] 11/08/2024 11:05:03 Past Encounters Encounter ID Performer Location Encounter Start Date Encounter Closed Date Diagnosis/Indication Diagnosis SNOMED-CT Code Diagnosis ICD10 Code Diagnosis IMO Codes Diagnosis Note [id number] Do Lambert PUBLIC POLICY ANALYST [address] [address] 04/27/2021 13:12:27 04/27/2021 14:20:36 Screening for malignant neoplasm of colon 894913528 Z12.11 Screening for cardiovascular system disease 632892025 Z13.6 Fatigue 15822446 R53.83 General ex amination of patient 789462410 Z00.00 Screening for malignant neoplasm of prostate 854563584 Z12.5 Tobacco de pendence in remission 813562383 F17.201 Hepatitis C screening 41 2378207 Z11.59 HIV screening 758823652 Z11.4 [id number] Do Lambert APRN [facility] [address] [address] 05/03/2021 13:37:22 05/03/2021 14:36:36 Uncontrolled type 2 diabetes mellitus 332193768 E11.65 RTC in 3 months for labs. Will call office when refills needed. [id number] Do Lambert APRN [address] [address] 10/11/2021 08:30:25 10/11/2021 10:54:00 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 2 diabetes mellitus 9931976649 107 E11.42 OARRS reviewed. Controlled substance agreement on file. [id number] Do Lambert PUBLIC POLICY ANALYST [place] [address] [place] [address] 01/14/2022 07:51:58 01/14/2022 08:42:16 Diabetes mellitus 95825880 E13.42 Last attempt at [facility]. Provided referral informatio n for [facility]. 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 2 diabetes mellitus 5919840079 107 E11.42 OARRS reviewed. Controlled substance agreement on file 10/11/21. [id number] Do Lambert APRN [facility] [address] [place] [address] 07/04/2022 08:50:10 07/04/2022 09:31:16 Diabetes mellitus 14815927 E13.42 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 2 diabetes mellitus 1918702632 107 E11.42 OARRS reviewed. Controlled substance agreement on file 10/11/21. Lesion of skin of face 6413061372 06 L98.9 [id number] Do Lambert APRN [facility] [address] [place] [address] 03/15/2022 08:07:33 03/15/2022 08:46:27 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 2 diabetes mellitus 8319168289 107 E11.42 OARRS reviewed. Controlled substance agreement on file 10/11/21. Finding of fluid behind tympanic membrane 156610343 H73.899 Insomnia 590849140 G47.0 0 [id number] Kely Escalona APRN [facility] [address] [place] [address] 07/21/2022 13:36:28 07/21/2022 15:03:11 Senile hyperkeratosis 546572467 L82.1 cryo applied x2 Neoplasm of skin 1838048 04 D49.2 return for shave to rule out BCC prior to referring to MOHs surgery Senile angioma 7288218 I 78.1 [id number] Kely Escalona APRN [facility] [address] [place] [address] 08/24/2022 09:21:12 08/24/2022 10:47:22 Neoplasm of skin 841180082 D49.2 shave to rule out BCC prior to referring to MOHs surgery [id number] EPHRAIM [facility] [address] [place] [address] 09/13/2022 08:27:29 09/13/2022 09:36:12 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 2 diabetes mellitus 6381842537 107 E11.42 OARRS reviewed. Controlled substance agreement on file 10/11/21. Body mass index 25-29 - overweight 511880286 Z68.26 Overweight 936920491 E66 .3 [id number] Do Lambert APRN [facility] [address] [place] [address] 03/20/2023 07:56:42 03/20/2023 08:39:39 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 2 diabetes mellitus 9677319583 107 E11.42 OARRS reviewed. Controlled substance agreement on file 03/20/23. Diabetes mellitus 759019 09 E13.42 Restart lantus. RTC in 3 months for dm f/u [id number] Kely Escalona [facility] [address] [place] [address] 11/30/2022 10:37:18 11/30/2022 13:22:45 Basal cell carcinoma of skin 412464624 C44.91 Senile hyperkeratosis 39 5030045 L82.1 cryo applied x3 [id number] Do Lambert APRN [facility] [address] [place] [address] 12/16/2022 08:10:43 12/16/2022 09:01:59 Type 2 diabetes mellitus without complication 305708289 E11.9 Patient ok dical record not available 954572960 Z76.89 Finding of fluid behind tympanic membrane 984599604 H73.899 Benign pro static hyperplasia without outflow obstruction 912779087 N40.0 [id number] Do Lambert APRN [place] [facility] [address] [place] [address] 12/23/2022 09:48:12 12/23/2022 10:15:56 Removal of suture 59680132 Z48.02 RTC as needed [id number] Do Lambert APRN [place] [address] [place] [address] 12/30/2022 09:25:51 12/30/2022 09:35:58 Diabetes mellitus 87864434 E13.42 [id number] Do Lambert APRN [facility] [address] [place] [address] 01/19/2023 09:26:37 01/19/2023 09:31:49 Diabetes mellitus 31643007 E13.42 [id number] Do Lambert PUBLIC POLICY ANALYST [place] [address] [place] [address] 06/20/2023 09:14:24 06/20/2023 10:16:46 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 2 diabetes mellitus 9745207821 107 E11.42 OARRS reviewed. Controlled substance agreement on file 03/20/23. Benign pro static hyperplasia with outflow obstruction 486008964 N40.1 Patient ok dical record not available 988418431 Z76.89 Finding of fluid behind tympanic membrane 057932799 H73.899 Mixed hyperlipidemia 267 902947 E78.2 Persistent insomnia 1919 23368 G47.09 Chest pain 50959606 R07. 9 Chronic ki dney disease stage 2 201485366 N18.2 Active or passive immunization 701615890 Z23 General ex amination of patient 526384652 Z00.00 Exercises education, guidance, and counseling 889659490 Z71.82 The patient was advised to continue a healthy diet and exercise regularly. Dietary ma nagement surveillance 217545439 Z71.3 [id number] Do Lambert APRN [place] [address] [place] [address] 07/06/2023 10:14:52 07/06/2023 10:25:27 Diabetes mellitus 10134694 E13.42 Restart lantus. RTC in 3 months for dm f/u [id number] Do Lambert APRN [place] [facility] [address] [place] [address] 09/26/2023 08:34:15 09/26/2023 09:13:59 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 2 diabetes mellitus 7793345870 107 E11.42 OARRS reviewed. Controlled substance agreement on file 03/20/23. Benign pro static hyperplasia with outflow obstruction 735624732 N40.1 [id number] Kely Escalona [facility] [address] [place] [address] 10/11/2023 12:27:49 10/11/2023 13:31:38 Seborrheic dermatitis 66595538 L21.9 offered reassuranc e that I do not see any clinical evidence of recurrence of a BCC [id number] Do Lambert APRN [place] [address] [place] [address] 12/29/2023 11:00:01 12/29/2023 11:44:32 Adult health examination 984068483 Z00.00 Depression screening 171 568178 Z13.31 A depression screening was completed via a standardiz ed screening tool. 5 minutes were spent discussing depression screening results and risk factors. Examinatio n of blood pressure 864122491 Z01.30 Diet education 75410643 Z71.3 Counseling 382386516 Z71 .82 Exercise counseling . Patient encouraged to exercise 30 minutes 5 days a week. At [facility] ed risk for falls 546812829 Z91.81 STEADI FAST screening score of __3___. Advance care planning 71 3864166 Z71.89 Diabetes mellitus 383986 09 E13.42 Decreased hearing 596803 001 H91.93 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 2 diabetes mellitus 1495891623 107 E11.42 OARRS reviewed. Controlled substance agreement on file 03/20/23. [id number] Do Lambert APRN [place] [address] [place] [address] 03/25/2024 12:50:51 03/25/2024 14:06:05 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 2 diabetes mellitus 0826361253 107 E11.42 OARRS reviewed. Controlled substance agreement on file 03/20/23. Vaccination declined 686 9580969 Z28.21 Seasonal flu vaccine offered and declined [id number] Do Lambert APRN [place] [address] [place] [address] 04/16/2024 09:52:55 04/16/2024 10:53:17 Viral screening 996696473 Z11.59 Low blood pressure 83669 003 I95.9 Hold lisinopril . Appt scheduled with Cardiology tomorrow morning 9AM. Stay well hydrated. Monitor BP at home few times per week, more frequently over next 24 hours. Keep log and [facility] [id number] Do Lambert APRN [address] [address] 06/25/2024 08:37:38 06/25/2024 09:20:33 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 2 diabetes mellitus 2002212066 107 E11.42 OARRS reviewed. Controlled substance agreement on file 03/25/24. Body mass index 25-29 - overweight 926347846 E66.3 68562680 Overweight 434242204 E66 .3 [id number] Do Lambert APRN [address] [address] 07/16/2024 15:34:54 07/16/2024 16:42:54 Abdominal pain 18338746 R10.9 Unintentio nal weight loss 815491747 R63.4 900300 Fever 859136205 R50.9 286771 Easy bruising 805480443 R23.3 158082 Muscle weakness 53013540 M62.81 00344 Acute diarrhea 123960072 R19.7 50886 [id number] Do Lambert APRN [address] [address] 08/05/2024 10:08:32 08/05/2024 10:58:34 Lyme disease 62555949 A69.20 12350 Completed full course doxycyclin e. Symptoms typically improve within a few weeks, though fatigue may take longer to resolve. Good sleep hygiene encouraged . Light activity and pacing recommende d with stress management . Keep a symptom diary. Well balanced diet and hydration important. Contact office with new or worsening symptoms: fever, rash, joint pain, nerve problems. Fatigue 62819640 R53.83 [id number] Labs in [id number] Do Lambert APRN [address] [address] 09/27/2024 10:36:22 09/27/2024 11:24:56 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 2 diabetes mellitus 2108828031 107 E11.42 OARRS reviewed. Controlled substance agreement on file 03/25/24. Prostate s pecific antigen measurement 48055808 Z12.5 [id number] Rosalie Salas [address] [address] 11/08/2024 10:28:26 11/08/2024 11:52:45 Numbness and tingling sensation of skin 2444925418 02 R20.0 R20.2 [id number] labsnctneu rology consultif worsen or no improvemen t go to ed eugenie [id number] Rosalie Salas [address] [address] 12/13/2024 10:29:23 12/13/2024 11:36:25 Bilateral carpal tunnel syndrome 1004767311 5085415 G56.03 [id number] splints at nightstero idsrefer to orthoif worsen or no improvemen t return [id number] Rosalie Salas [address] [address] 12/26/2024 13:50:05 12/26/2024 15:04:08 Diabetes mellitus 72793685 E13.42 continue diet and exercise 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 2 diabetes mellitus 2293451260 107 E11.42 Long-term current use of drug therapy 389953469 Z79.899 [id number] Cramp in foot 240070849 R25.2 [id number] referral to podiotryho ld statin [id number] Rosalie Salas [address] [address] 01/06/2025 12:45:41 01/06/2025 13:30:02 Frequent headache 148375550 R51.9 [id number] follow up with pevaz Dizzy spells 386508656 R 42 901969 follow up with pevezif symptoms worsen or no improvemen t return Health Concerns Section Related Observation LastModified by Organization Detai ls LastModified Time None Recorded Concern Status LastModified by Organization Details LastModified Time None Recorded Advance Directives Directive N: Payers Insurance Date Sequence Insurance Name Policy Number Policy Jimenez Covered Member ID Jimenez Member ID Guarantor Name 2024 2 [place] Iker Gray [id number] Iker Gray 08/20/2024 1 [place] Iker Gray [id number] Iker Gray 12/23/2024 [facility] [place] Iker Gray [id number] Iker Gray 11/12/2024 [place] Iker Gray [id number] Ikre Gray 11/07/2023 2 [employer] [place] ON [place] AFTER 2022 (MEDICAID REPLACEMENT - HMO) Iker Gray [id number] Iker Gray 01/04/2025 1 [employer] (MEDICARE REPLACEMENT/[place] VANTAGE [place] [id number] Iker Gray [id number] Iker Gray 11/12/2024 [place] Iker Gray [id number] Iker Gray 07/13/2021 1 *SELF PAY* Judi Gray 09/13/2024 2 [place] Iker Gray [id number] Iker Gray 11/12/2024 [place] - [facility] Iker Gray [id number] Iker Gray 09/13/2024 2 [employer] (PPO) Iker Gray [id number] Iker Gray 09/10/2022 1 UNSPECIFIED REMIT PAYOR Iker Gray Notes Date Note Type Note Provider Name and Address Organization Details Recorded Time 09/27/2024 text/html ROS as noted in the [...] Wearing CGM. Send lipids to Cardiology Do Lambert, PUBLIC POLICY ANALYST [address], [place], [address], [place] [facility] 09/27/2024 14:35:57 11/08/2024 text/html ROS as noted in the HPI 64 year old male who presents to the office today with concerns ofnausea todaynumbness in feet/legs/arms and hands for weeks-- [facility] w/4 stents in Marchdiff twice in 2024lyme disease and salmonella poisoning in 2024 Raquelmelissasally Robleroabdirahman, PUBLIC POLICY ANALYST [address], [place], [address], [place] [facility] 12/16/2024 16:11:27 12/13/2024 text/html ROS as noted in the HPI 64 yr old male presents for a follow up on abnormal tests- CTS abbie- has appt with neurology in January. numbness and tingling hands and feet. dx neuropathy- feet, cramps in legs Raquelheather abdirahman, EPHRAIM [address], [place], [address], [place] [facility] 12/13/2024 11:53:14 12/26/2024 text/html ROS as noted in the [facility] 64 yr old male presents to follow up on diabetes and refill pregabalin. neuropathy- lyrica helpsnumbness in feet/legs/arms and hands for weeks- referral to neurologyd heart attack w/4 stents in March 2024having abbie leg and foot cramps, worse at night Raquelheather EPHRAIM gary [address], [place], [address], [place] [facility] 12/26/2024 14:57:36 01/06/2025 text/html ROS as noted in the [facility] 64 yr old male presents for dizziness, headache, blurry vision for over 1 month. He did coincidentally had an appointment with Dr. Pineda and she sent him to the lab for blood work and has him set up for a MRI this Monday. pt states he also has made a eye exam. pt states symptoms improve with tylenol Rosalie Salas, PUBLIC POLICY ANALYST [address], [place], [address], [place] [facility] 01/06/2025 13:30:22
--- NOTE | 2025-01-08 13:00 | MR_ITS ---
FINAL REPORT TECHNIQUE: Multiplanar and multisequence imaging of the brain was obtained before and after contrast injection. CLINICAL HISTORY: new onset headache. vision loss [id number], dizziness FINDINGS: There is no mass effect or midline shift. There are few scattered periventricular foci of T2 abnormality which are nonspecific. No hydrocephalus. The cerebellum and brainstem have an unremarkable appearance. There are no areas of restricted diffusion on diffusion weighted images to suggest acute infarct. Fluid is seen in left mastoid air cells. Post contrast images reveal no pathologic contrast enhancement. IMPRESSION: No acute intracranial abnormality or abnormal contrast-enhancement. Scattered foci of T2 abnormality, favor chronic small vessel ischemia or sequela of migraine headaches. Fluid in the left mastoid air cells. Reviewed, Interpreted and Dictated by Janine Luque MD Transcribed by Radha Flores Authenticated and [facility]
[2025-01-08] MEDS: GADOTERIDOL INJ 20ML SYRINGE 16 ML IV (13:30)
== END 2025-01-08 23:59 | disposition home or self-care (01) ==
LOC: RAD 12:42
PROVIDERS: PCP Nurse Practitioner Family; Visit Provider Specialist
DX: G43.909 Migraine, unspecified, not intractable, without status migrainosus (principal); M54.9 Dorsalgia, unspecified; H53.9 Unspecified visual disturbance; R25.2 Cramp and spasm; E11.9 Type 2 diabetes mellitus without complications; G62.9 Polyneuropathy, unspecified; R90.89 Other abnormal findings on diagnostic imaging of central nervous system; R93.0 Abnormal findings on diagnostic imaging of skull and head, not elsewhere classified; Z86.73 Personal history of transient ischemic attack (TIA), and cerebral infarction without residual deficits
CPT/HCPCS: 70553; A9576

== ENCOUNTER 2025-01-29 11:23 | Outpatient (CLI) | payer MEDICARE, SELFPAY ==
[2025-01-29 11:47] LABS: Hematocrit 48.4 % (42.0-52.0); Hemoglobin 15.3 g/dL (14.1-18.0); Immature Granulocytes % 0.1 %; Mean Corpuscular HGB Conc 31.6 g/dL (31.8-35.4); Mean Corpuscular Hemoglobin 27.1 pg (27.0-31.2); Mean Corpuscular Volume 85.8 fl (80-94); Nucleated Red Blood Cells % 0 %; Platelet Count 206 K/mm3 (142-424); Red Blood Count 5.64 M/mm3 (4.60-6.20); Red Cell Distribution Width-SD 42.6 fL; White Blood Count 7.6 K/mm3 (4.8-10.8)
--- OUTSIDE RECORDS SUMMARY | 2025-01-29 12:54 | XMS_ITS | Encounter Summary ---
Author Organization [facility] Address [address], [address] [place] [address] Care Team Providers Care Cnc Milling Machinist Name Role Phone Do Lambert [facility] Primary Care Provider + Reason for Referral * Imaging (Routine) - Closed Specialty Diagnoses / Procedures Referred By Contac t Referred To Contact Radiology Diagnoses Chronic kidney disease, stage II (mild) Procedures US RENAL COMPLETE Loida Epps MD Phone: tel: fax: Referral ID Status Reason Start Date Expiration Date Visits Re quested Visits Authorized [id number] Closed 10/28/2022 10/28/2023 1 1 Encounter Details Date Type Department Care Team (Late st Contact Info) Description 10/28/2022 Transcribe Orders [facility] Pre Access [address] [place], [place] [phone] Loida Epps MD [address] [place] [address] Chronic kidney disease, stage II [...] residual of 44%. us Loida Epps MD [facility] US ORDERABLES Final Result documented in this encounter Visit Diagnoses Diagnosis Chronic kidney disease, stage II (mild)- Primary Chronic kidney disease, Stage II (mild) Chronic kidney disease, stage II (mild) Chronic kidney disease, Stage II (mild) documented in this encounter Care Teams Cnc Milling Machinist Relationship Specialty Start Date End Date Do Lambert APRN - RENETTA [address] [place] [id number] PCP - General Nurse Practitioner, Family 11/01/22 documented as of this encounter
--- OUTSIDE RECORDS SUMMARY | 2025-01-29 12:54 | XMS_ITS | Continuity of Care Document ---
Author Organization [facility] Address [address] [place] [address] Assessment No assessment recorded. Plan of Treatment Reminders Order Date Submit Date Provider Last Modified By Organization Details Last Modified Time Details Appointments Medicare AWE 40mins 2025 10:00A M Rosalie Salas APRN Not available Not available Not available Lab None recorded. Referral orthopedi c surgeon referral 2024 SUTHERLIN Shay Joy , [address], [place], [address], 12/19/2024 11:45:17 Procedures None recorded. Surgeries None recorded. Imaging None recorded. Medication Orders prednison e 10 mg tablet 2024 [facility], [address] [place] [address] [place], [place], [id number], 12/25/2024 05:01:58 Patient TargetsNo targets recorded. Patient InstructionsNo instructions recorded. Reason for Referral Orthopedic Surgeon Referral for Bilateral carpal tunnel syndrome Referring Physician: Rosalie Salas, Family Medicine, Encounter Date: 12/13/2024 Results Created Date Observation Date Name Description Value Unit Range Abnormal Flag Note LastModifiedBy Organization Detail LastModifiedTime 11/22/1911/20/2024 elect romyo gram + nerve condu ction study No observ ation record ed. [address], [place], [address], 11/25/2024 10:23:40 11/27/1911/20/2024 elect romyo gram + nerve condu ction study No observ ation record ed. [facility] (Med Record) [address], [place], [address], 12/11/2024 11:13:57 11/28/1911/25/2024 elect romyo gram + nerve condu ction study No observ ation [facility] ed. [facility] [address], [place], [address], 12/11/2024 11:47:34 12/12/1911/20/2024 elect romyo gram No observ ation record ed. [email or web address] [facility] [address], [place], [address], 12/16/2024 13:35:07 12/20/1912/18/2024 XR, wrist , 2 view No observ ation record ed. [facility] [address], [place], [address], 12/20/2024 08:14:58 12/20/1912/18/2024 XR, wrist , 2 view No observ ation record ed. [facility] [address], [place], [address], 12/20/2024 08:14:58 01/08/2001/06/2025 XR, lumba r spine , 2 view No observ ation record ed. [facility] [address], [place], [address], 01/13/2025 10:04:51 01/11/2001/08/2025 MRI, head, w/wo contr ast No observ ation record ed. [facility] [address], [place], [address], 01/13/2025 09:44:31 Result Notes None recorded. Problems Name Problem SNOMED Code Status Onset Date Resolution Date Notes Provider Name and Address Organization Details Recorded Time Diabetes mellitus 75819928 Active 2021 Do Lambert, BEVERAGE DISTILLER [address], [place], [address], [place] - [facility] 2 11:07:17 Benign prostatic hyperplasia without outflow obstruction 909727230 Active 2022 Do Lambert, BEVERAGE DISTILLER [address], [place], [address], [place] [facility] 3 13:09:53 Chronic kidney disease stage 2 928965671 Active 2023 Do Lambert, BEVERAGE DISTILLER [address], [place], [address], [place] [facility] 4 16:55:57 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 Procedures Surgical History [...] 12/24/19 23 Suture/Staple removal completed Do Lambert, BEVERAGE DISTILLER [address], [place], [address], [place] [facility] 12/23/2022 10:15:30 12/01/19 23 Cryosurgery Dermatology completed Kely Escalona, BEVERAGE DISTILLER [address], [place], [address], [place] [facility] 11/30/2022 13:15:20 08/25/19 23 Shave Biopsy Face, Ears, eyelids, nose, lips, muc membranes completed Kely Escalona BEVERAGE DISTILLER [address], [place], [address], [place] [facility] 08/24/2022 10:36:02 07/22/19 23 Cryosurgery Dermatology completed Kely Escalona APRN [address], [place], [address], [place] [facility] 07/21/2022 14:53:44 05/04/19 22 Medication Reconcilliation completed Noram Axel [place] [facility] 05/03/2021 14:06:38 Imaging [...] STOOL. MAX 4 CAPSULES IN 24 HOURS 07/29 /2025 completed Not Available Not Available Not Available [...] Not Available clopidogrel 75 mg tablet TAKE ONE TABLET BY MOUTH DAILY STOP Brilinta active Not Available Not Available No t [...] Not Available Not Available No t Available Cipro 500 mg tablet Take 1 tablet [...] 1 tablet every day by oral route. 01/24 completed Not Available Not Available Not Available lisinopril 5 mg tablet TAKE 1 TABLET [...] (1) SPRAY IN EACH NOSTRIL ONCE DAILY 01/24 completed Not Available Not Available Not Available lisinopril 2.5 mg tablet Take 1 [...] Not Available Not Available No t Available duloxetine 20 mg capsule,del ayed release TAKE ONE CAPSULE BY MOUTH DAILY active Not Available Not Available No t Available duloxetine 30 mg capsule,del ayed release TAKE 1 CAPSULE BY MOUTH EVERY DAYNEED INS INFO 01/14 completed Not Available Not Available Not Available pregabalin 75 mg capsule TAKE 1 CAPSULE BY MOUTH TWICE A DAY 07/04 completed Not Available Not Available Not Available pregabalin 150 mg capsule Take 1 capsule twice a day by oral route for 30 days. 2024 active Not Available Not Available Not Avai lable BD Ultra-Fine Short Pen Needle 31 gauge [...] completed Not Available Not Available Not Available diclofenac 1 % topical gel Apply 2 grams topically FOUR TIMES DAILY; apply TO single elbow, wrist OR HAND; FOR HAND includes palm/fing ers back of HAND active Not Available Not Available No t Available ticagrelor 90 mg tablet TAKE ONE TABLET BY MOUTH TWICE DAILY 01/24 completed Not Available Not Available Not Available Jardiance 25 mg tablet Take 1 [...] active Not Available Not Available Not Avai labjoshua OneTouch Ultra2 Meter USE DIRECTED active Not Available Not Available No t Available OneTouch Delica Plus Lancet 33 gauge USE DIRECTED active Not Available Not Available No t Available OneTouch Delica Plus Lancet 30 gauge active Not Available Not Available Not Available [employer] ODT 75 mg disintegrat ing tablet TAKE ONE TABLET BY MOUTH DAILY NEEDED FOR migraine active Not Available Not Available No t Available FreeStyle Uma 2 Sensor kit APPLY ONE (1) SENSOR TOPICALLY EVERY 14 DAYS active Not Available Not Available No t Available FreeStyle Uma 2 Tolstoy USE DIRECTED active Not Available Not Available [...] AND THEN increase DOSE TO 0.5mg WEEKLY 01/24 completed Not Available Not Available Not Available Sobia Pen Needle 32 gauge x [...] Updated DateTime 5 182.88 cm 25.4 kg/m2 94214.4 7 g 98.1 [degF] 60 /min 97 % 18 /min 4 124/72 mm[Hg] [place] - [facility] 5 10:51:59 Social History Question Answer Notes LastModified by Organizat ion Details LastModified Time Tobacco Smoking Status Former Smoker Norma Reyna marily [place] - [facility] 04/27/2021 13:28:13 Do You Have An Advance Directive? No [email or web address] Information not available 04/27/2021 How Many Years Have You Consumed Alcohol? 30 Information not available 08/05/2024 Are You Blind Or Do You Have Difficulty Seeing? No [email or web address] Information not available 04/27/2021 Is Blood Transfusion [...] COVID-19 While That Person Was Ill? No [email or web address] Information not available 04/27/2021 Have You Been To An Area Known To Be High Risk For COVID-19? No [email or web address] Information not available 04/27/2021 Are You Deaf Or Do You Have Serious Difficulty Hearing? No [email or web address] Information not available 04/27/2021 What Type Of Diet Are You Following? REGULAR [email or web address] Information not available 04/27/2021 Have You Processed Blood Or Body Fluids From An Ebola Virus Disease Patient Without Appropriate PPE? No [email or web address] Information not available 04/27/2021 Do You Reside In Or Have You Traveled To An Area Where Ebola Virus Transmission Is Active? No [email or web address] Information not available 04/27/2021 What Is The Highest Grade Or Level Of School You Have Completed Or The Highest Degree You Have Received? [id number] [email or web address] Information not available 08/05/2024 Have There Been Any Changes To Your Family Or Social Situation? No [email or web address] Information no t available 04/27/2021 When Did You Quit Smoking? 1-5yearssincel kj [email or web address] Information not available 04/27/2021 Have You Recently Or Are You Planning To Travel To An Area With Zika Virus? No [email or web address] Information not available 04/27/2021 How Many Years Have You Used Illicit Or Recreational Drugs? 0 [email or web address] Information not available 08/05/2024 What Was The Date Of Your Most Recent Tobacco Screening? 06/25/2024 [email or web address] Information not available 06/25/2024 Do You Use Protection Against STDs? No Information not available 08/05/2024 What Is Your Relationship Status? [email or web address] Information not available 08/05/2024 Do You Use Your Seat Belt Or Car Seat Routinely? Yes [email or web address] Information not available 08/05/2024 Are You Sexually Active? Yes Information not available 06/25/2024 Do You Have Smoke And Carbon Monoxide Detectors In Your Home? Yes [email or web address] Information not available 04/27/2021 At What Age Did You Start Smoking Tobacco? 11 [email or web address] Information not available 08/05/2024 Are You Passively Exposed To Smoke? No [email or web address] Information no t available 04/27/2021 Do You Use Sunscreen Routinely? No [email or web address] Information not available 08/05/2024 Has Tobacco Cessation Counseling Been Provided? Yes [email or web address] Information not available 06/20/2023 On What Date Was Tobacco Cessation Counseling Provided? 06/25/2024 [email or web address] Information not available 06/25/2024 How Many Years Have You Smoked Tobacco? 40 [email or web address] Information not available 04/27/2021 Do You Have Difficulty Walking Or Climbing Stairs? No Information not available 04/27/2021 Sex: Male Functional Status Question Answer Note LastModified by Organizat ion Details LastModified Time Do you use any illicit or recreational drugs? No [email or web address] Information not available 04/27/2021 Do you or have you ever used any other forms of tobacco or nicotine? No [email or web address] Information not available 04/27/2021 What is your level of alcohol consumption? Occasional [email or web address] Information not available 04/27/2021 Are you currently employed? No [email or web address] Information not available 04/27/2021 Do you have transportation difficulties? No [email or web address] Information not available 04/27/2021 Do you have difficulty doing errands alone? No [email or web address] Information not available 04/27/2021 Are you able to care for yourself independently? Yes Information not available 04/27/2021 Do you have difficulty dressing, bathing, grooming, or toileting? No [email or web address] Information not available 04/27/2021 Do you or have you ever used e-cigarettes or vape? Never used electronic cigarettes [email or web address] Information not available 08/05/2024 What is your exercise level? Moderate Information not available 08/05/2024 Mental Status Question Answer Note LastModified by Organizat ion Details LastModified Time Do you feel stressed (tense, restless, nervous, or anxious, or unable to sleep at night)? [id number] [email or web address] Information not available 08/05/2024 Do you have difficulty concentrating, remembering or making decisions? No [email or web address] Information no t available 04/27/2021 Family History [...] colitis N Cerebrovascular Disease N Depression N Guillain-M[place]air N Sleep Apnea N Aneurysm N Bronchitis N Heart Disease N Suicidal Ideation N Pre-Eclampsia N Hypertension N Osteoporosis N Immunizations Vaccine Type Date Status Note Provider Nam e and Address Organization Details Recorded Time HepB-CpG 05/26/19 24 completed Not Available [facility] 09/27/[facility] 10:36:34 Influenza, MDCK, quadrivalent, PF 04/10/19 24 completed Nyasia Vergara null, [place] [facility] 11/08/2024 11:05:03 RSV, recombinant, protein subunit RSVpreF, adjuvant reconstituted, 0.5 mL, PF 04/10/19 24 completed Nyasia Wyatts null, [place] [facility] 11/08/2024 11:05:03 Tdap 06/20/19 24 cancelled patient objection Do Lambert, BEVERAGE DISTILLER [address], [place], [address], [place] [facility] 06/26/2023 08:34:29 zoster recombinant 03/07/19 24 completed Do Lambert APRN [address], [place], [address], [place] [facility] 04/04/2023 13:11:37 zoster recombinant 12/28/19 23 completed Do Lambert, BEVERAGE DISTILLER [address], [place], [address], [place] [facility] 04/04/2023 13:11:37 Respiratory syncytial virus (RSV) MAB, unspecified 04/10/19 24 completed Norma Reyna [place], [place] [facility] 04/21/2023 14:13:48 influenza, unspecified formulation 04/10/19 24 completed Nyasia Vergara [place] [facility] 11/08/2024 11:05:03 Past Encounters Encounter ID Performer Location Encounter Start Date Encounter Closed Date Diagnosis/Indication Diagnosis SNOMED-CT Code Diagnosis ICD10 Code Diagnosis IMO Codes Diagnosis Note [id number] Rosalie Salas APRN [address] [address] 12/13/2024 10:29:23 12/13/2024 11:36:25 Bilateral carpal tunnel syndrome 1908211240 [id number] G56.03 729303 splints at nightstero idsrefer to orthoif worsen or no improvemen t return Health Concerns Section Related Observation LastModified by Organization Detai ls LastModified Time None Recorded Concern Status LastModified by Organization Details LastModified Time None Recorded Payers Encounter Date Sequence Insurance Name Policy Number Policy Jimenez Covered Member ID Jimenez Member ID Guarantor Name 12/13/2024 1 [employer] (MEDICARE REPLACEMENT/ ADVANTAGE - PPO) [id number] kIer Gray [id number] Iker Gray Notes Date Note Type Note Provider Name and Address Organization Details Recorded Time 12/13/2024 text/html ROS as noted in the HPI 64 yr old male presents for a follow up on abnormal tests- CTS abbie- has appt with neurology in January. numbness and tingling hands and feet. dx neuropathy- feet, cramps in legs Rosalie Salas, EPHRAIM [address], [place], [address], [place] [facility] 12/13/2024 11:53:14
--- OUTSIDE RECORDS SUMMARY | 2025-01-29 12:54 | XMS_ITS | Encounter Summary ---
Author Organization [facility] Address [address], [address] [place] [address] Care Team Providers Care Manager Documentation Name Role Phone Do Lambert APRN, CNP Primary Care Provider + Reason for Referral * Imaging (Routine) - Closed Specialty Diagnoses / Procedures Referred By Yari t Referred To Contact Radiology Diagnoses Encounter for screening for malignant neoplasm of respiratory organs Cigarette nicotine dependence in remission Procedures CT Lung Screen (Initial or Annual) Do Lambert APRN - CNP [address] [place] [address] Phone: tel: fax: Referral ID Status Reason Start Date Expiration Date Visits Re quested Visits Authorized Closed 04/28/2021 04/28/2022 1 1 Encounter Details Date Type Department Care Team (Late st Contact Info) Description 04/28/2021 Transcribe Orders [facility] Pre Access [address] [place], [place] [id number] Do Lambert APRN - CNP [address] [place] [address] Encounter for screening for malignant neoplasm [...] documented as of this encounter Care Teams Manager Documentation Relationship Specialty Start Date End Date Do Lambert APRN - RENETTA [address] [place] [address] PCP - General Nurse Practitioner, Family 11/01/22 documented as of this encounter
--- OUTSIDE RECORDS SUMMARY | 2025-01-29 12:54 | XMS_ITS | Clinical Summary ---
Author Organization [facility] Address [address] [facility], [address] [place] [address] Care Team Providers Care Director Of Customer Service Name Role Phone Do Lambert DJANGO DEVELOPER - [facility] Primary Care Provider + Allergies No [...] - 145 mmol/L 07/27/2023 12:08 PM EDT [facility] Potassium 3.9 3.5 - 5.1 mmol/L 07/27/2023 12:08 PM EDT [facility] Chloride 105 99 - 110 mmol/L 07/27/2023 12:08 PM EDT [facility] CO2 24 21 - 32 mmol/L 07/27/2023 12:08 PM EDT [facility] Anion Gap 11 3 - 16 07/27/2023 12:08 PM EDT [facility] Glucose 165(H) 70 - 99 mg/dL 07/27/2023 12:08 PM EDT [facility] BUN 13 7 - 20 mg/dL 07/27/2023 12:08 PM EDT [facility] Creatinine 0.9 0.8 - 1.3 mg/dL 07/27/2023 12:08 PM EDT [facility] Est, Glom Filt Rate >90 >60 07/27/2023 12:08 PM EDT [facility] Comment: Pediatric calculator link https://www.kidney.org/professionals/kdoqi/gfr_calculatorped [...] - 10.6 mg/dL 07/27/2023 12:08 PM EDT [facility] Phosphorus 2.6 2.5 - 4.9 mg/dL 07/27/2023 12:08 PM EDT [facility] Albumin 4.1 3.4 - 5.0 g/dL 07/27/2023 12:08 PM EDT [facility] 07/27/2023 11:2 7 AM EDT 07/27/2023 11:27 AM EDT Loida Epps MD CHEMISTRY ORDERABLES Final Res ult [facility] [address] [place] [address], [facility] [phone] * (ABNORMAL) MICROALBUMIN / CREATININE URINE RATIO (09/07/2021 9:07 AM EDT) Microalb, Ur 5.60(H) <2.0 mg/dL 09/07/2021 7:11 PM EDT [facility] Creatinine, Ur 28.4(L) 39.0 - 259.0 mg/dL 09/07/2021 7:11 PM EDT [facility] Albumin/Creati nine Ratio 197.2(H) 0.0 - 30.0 mg/g 09/07/2021 7:11 PM EDT [facility] URINE SPECIMEN / Unknown 09/07/2021 9:07 AM EDT 09/07/2021 9:07 AM EDT us Armand Singleton MD URINE ORDERABLES Final Re sult [facility] [address] [place] [address], [facility] [phone] * PSA Screening (09/07/2021 9:06 AM EDT) PSA 1.90 0.00 - 4.00 ng/mL 09/07/2021 8:13 PM EDT [facility] BLOOD SPECIMEN / Unknown 09/07/2021 9:06 AM EDT 09/07/2021 9:06 AM EDT Armand Singleton MD CHEMISTRY ORDERABLES Barbra l Result [facility] [address] [place] [address] * (ABNORMAL) LIPID PANEL (09/07/2021 9:06 AM EDT) Cholesterol, Total 174 0 - 199 mg/dL 09/07/2021 8:12 PM EDT [facility] Triglycerides 147 0 - 150 mg/dL 09/08/19 8:12 PM EDT [facility] HDL 39(L) 40 - 60 mg/dL 09/07/2021 8:12 PM EDT [facility] LDL Calculated 106(H) <100 mg/dL 09/07/2021 8:12 PM EDT [facility] VLDL Cholesterol Calculated 29 Not Established mg/dL 09/07/2021 8:12 PM EDT [facility] BLOOD SPECIMEN / Unknown 09/07/2021 9:06 AM EDT 09/07/2021 9:06 AM EDT Armand Singleton MD CHEMISTRY ORDERABLES Barbra l Result [facility] [address] [place] [address] * POCT glycosylated hemoglobin (Hb A1C) (08/20/2021 10:35 AM EDT) Hemoglobin A1C 5.9 % BLOOD SPECIMEN / Unknown 08/20/2021 10:35 AM EDT Armand Singleton MD POINT OF CARE TEST ORDERA BLES Final Result from Last 3 Months or Most Recently Relevant to Health Maintenance Insurance [facility] [place] Advance Directives * Full Code (Latest Code Status on File) Date Activated Date Inactivated Comments 04/28/2021 2:03 PM 04/29/2021 5:44 PM * Full Code Date Activated Date Inactivated Comments 12/26/2017 5:24 PM 12/27/2017 6:40 PM Healthcare Agents on File Name Relationship Healthcare Agent Relationshi p Communication Katerine Craft Other Secondary Decision Maker darrius Gray Child Primary Decision Maker Care Teams Director Of Customer Service Relationship Specialty Start Date End Date Do Lambert APRN - [address] [place] [address] PCP - General Nurse Practitioner, Family 11/01/22
--- OUTSIDE RECORDS SUMMARY | 2025-01-29 12:54 | XMS_ITS | Clinical Summary ---
Author Organization [facility] Address [address] [place] [address] Phone Care Team Providers Care Epic Anesthesia Analyst Name Role Phone Do Lambert NP Primary Care Provider [phone] Allergies No known active allergies Medications aspirin 81 mg Oral Tablet, Delayed Release (E.C.) Take 81 mg by mouth daily. 8 Active fluticasone propionate (FLONASE) 50 mcg/actuation Nasl [place], Suspension 1 [place] in each nostril daily. 3 Active LANTUS [...] MEDICARE [place] PART B CLAIMS [address] [facility] [address] [phone] Care Teams Epic Anesthesia Analyst Relationship Specialty Start Date End Date Do Lambert NP [address] [place] [id number] PCP - General Family Medicine 09/29/22
--- OUTSIDE RECORDS SUMMARY | 2025-01-29 12:54 | XMS_ITS | Continuity of Care Document ---
Author Organization [facility] Address [address] [place] [phone] Assessment No assessment recorded. Plan of Treatment Reminders Order Date Submit Date Provider Last Modified By Organization Details Last Modified Time Details Appointments Medicare AWE 40mins 2025 10:00A M Rosalie Salas APRN Not available Not available Not available Lab drug screen, urine 2024 [facility], [address] [place] [address], [address], 12/26/2024 14:57:29 Referral podiatris t referral 2024 [facility], [facility], [place], [address], 01/27/2025 11:34:40 Procedures None recorded. Surgeries None recorded. Imaging None recorded. Medication Orders pregabali n 150 mg capsule 2024 [facility], [address] [facility] , [place], [place], [id number], 12/28/2024 11:44:23 Patient TargetsNo targets recorded. Patient InstructionsNo instructions recorded. 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 Referring Physician: Rosalie Salas, Family Medicine, Encounter Date: 12/26/2024 Results Created Date Observation Date Name Description Value Unit Range Abnormal Flag Note LastModifiedBy Organization Detail LastModifiedTime 12/27/1912/26/2024 drug scree n, urine AMP negati ve Not Available [address], [address], 12/26/2024 14:14:32 12/27/19 25 12/26/2024 drug scree n, urine BAR negati ve Not Available [address], [address], 12/26/2024 14:14:32 12/27/1912/26/2024 drug scree n, urine BUP negati ve Not Available [address], [address], 12/26/2024 14:14:32 12/27/1912/26/2024 drug scree n, urine BZO negati ve Not Available [address], [address], 12/26/2024 14:14:32 12/27/1912/26/2024 drug scree n, urine TOBY negati ve Not Available [address], [address], 12/26/2024 14:14:32 12/27/1912/26/2024 drug scree n, urine FTY negati ve Not Available [address], [address], 12/26/2024 14:14:32 12/27/1912/26/2024 drug scree n, urine MDMA negati ve Not Available [address], [address], 12/26/2024 14:14:32 12/27/19 25 12/26/2024 drug scree n, urine MET negati ve Not Available [address], [address], 12/26/2024 14:14:32 12/27/1912/26/2024 drug scree n, urine MOP negati ve Not Available [address], [address], 12/26/2024 14:14:32 12/27/1912/26/2024 drug scree n, urine MTD negati ve Not Available [address], [address], 12/26/2024 14:14:32 12/27/1912/26/2024 drug scree n, urine OXY negati ve Not Available [address], [address], 12/26/2024 14:14:32 12/27/19 25 12/26/2024 drug scree n, urine PCP negati ve Not Available [address], [address], 12/26/2024 14:14:32 12/27/1912/26/2024 drug scree n, urine TCA negati ve Not Available [address], [address], 12/26/2024 14:14:32 12/27/1912/26/2024 drug scree n, urine THC negati ve Not Available [address], [address], 12/26/2024 14:14:32 11/27/19 25 11/20/2024 elect romyo gram + nerve condu ction study No observ ation record ed. [facility] (Med Record) [address] [place], [address], 12/11/2024 11:13:57 11/28/1911/25/2024 elect romyo gram + nerve condu ction study No observ ation record ed. [facility] [address], [address], 12/11/2024 11:47:34 12/12/1911/20/2024 elect romyo gram No observ ation record ed. [email or web address] [facility] [address], [address], 12/16/2024 13:35:07 12/20/1912/18/2024 XR, wrist , 2 view No observ ation record ed. [facility] [address], [place], [address], 12/20/2024 08:14:58 12/20/1912/18/2024 XR, wrist , 2 view No observ ation record ed. [facility] [address], [place], [address], 12/20/2024 08:14:58 01/08/2001/06/2025 XR, lumba r spine , 2 view No observ ation record ed. [facility] [address], [place], [address], 01/13/2025 10:04:51 01/11/2001/08/2025 MRI, head, w/wo contr ast No observ ation record ed. [facility] [address], [place], [address], 01/13/2025 09:44:31 Result Notes None recorded. Problems Name Problem SNOMED Code Status Onset Date Resolution Date Notes Provider Name and Address Organization Details Recorded Time Diabetes mellitus 47993910 Active 2021 Do Lambert, CLINICAL SPECIALIST [address], [place], [address], [place] - [facility] 11:07:17 Benign prostatic hyperplasia without outflow obstruction 090033981 Active 2022 Do Lambert, CLINICAL SPECIALIST [address], [place], [address], [place] [facility] 13:09:53 Chronic kidney disease stage 2 148008960 Active 2023 Do Lambert, CLINICAL SPECIALIST [address], [place], [address], [place] [facility] 4 16:55:57 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 Do Lambert, CLINICAL SPECIALIST [address], [place], [address], [place] [facility] 5 15:12:03 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 2024 Do Lambert, CLINICAL SPECIALIST [address], [place], [address], [place] [facility] 15:12:16 Neuropathy 869074808 Active 2024 Rosalie Salas, CLINICAL SPECIALIST [address], [place], [address], [place] [facility] 10:07:09 [...] 12/24/19 23 Suture/Staple removal completed Do Lambert, CLINICAL SPECIALIST [address], [place], [address], [place] - [facility] 12/23/2022 10:15:30 12/01/19 23 Cryosurgery Dermatology completed Kely Escalona, CLINICAL SPECIALIST [address], [place], [address], [place] - [facility] 11/30/2022 13:15:20 08/25/19 23 Shave Biopsy Face, Ears, eyelids, nose, lips, muc membranes completed Kelyhudson Escalona, CLINICAL SPECIALIST [address], [place], [address], [place] - [facility] 08/24/2022 10:36:02 07/22/19 23 Cryosurgery Dermatology completed Kelyhudson Escalona, CLINICAL SPECIALIST [address], [place], [address], [place] - [facility] 07/21/2022 14:53:44 05/04/19 22 [...] Not Available Not Available Not Avai lable [employer] TechnologyTouch Ultra Test strips USE DIRECTED active Not [...] active Not Available Not Available Not Available Nurte ODT 75 mg disintegrat ing tablet TAKE ONE TABLET BY MOUTH DAILY NEEDED FOR migraine active Not Available Not Available No t Available FreeStyle Uma 2 Sensor kit APPLY ONE (1) SENSOR TOPICALLY EVERY 14 DAYS active Not Available Not Available No t Available FreeStyle Uma 2 [place] USE DIRECTED active Not Available Not Available [...] Updated DateTime 5 182.88 cm 25 kg/m2 23789 g 97.5 [degF] 71 /min 97 % 18 /min 0 126/72 mm[Hg] [place] - [facility] 14:08:24 Social History Question Answer Notes LastModified by Organizat ion Details LastModified Time Tobacco Smoking Status Former Smoker Norma calixto, [place] - [facility] 04/27/2021 13:28:13 Do You Have An Advance Directive? No Information not available 04/27/2021 How Many Years Have You Consumed Alcohol? 30 [email or web address] Information not available 08/05/2024 Are You Blind Or Do You Have Difficulty Seeing? No [email or web address] Information not available 04/27/2021 Is Blood Transfusion Acceptable In An Emergency? Yes [email or web address] Information not available 08/05/2024 What Is Your Level Of Caffeine Consumption? Occasional [email or web address] Information not available 04/27/2021 In The 14 Days Before Symptom Onset, Have You Had Close Contact With A Laboratory-confir med COVID-19 While That Case Was Ill? No [email or web address] Information not available 04/27/2021 In The 14 Days Before Symptom Onset, Have You Had Close Contact With A Person Who Is Under Investigation For COVID-19 While That Person Was Ill? No [email or web address] Information not available 04/27/2021 Have You Been To An Area Known To Be High Risk For COVID-19? No Information not available 04/27/2021 Are You Deaf Or Do You Have Serious Difficulty Hearing? No [email or web address] Information not available 04/27/2021 What Type Of Diet Are You Following? REGULAR [email or web address] Information not available 04/27/2021 Have You Processed Blood Or Body Fluids From An Ebola Virus Disease Patient Without Appropriate PPE? No [email or web address] Information not available 04/27/2021 Do You Reside In Or Have You Traveled To An Area Where Ebola Virus Transmission Is Active? No [email or web address] Information not available 04/27/2021 What Is The Highest Grade Or Level Of School You Have Completed Or The Highest Degree You Have Received? [id number] [email or web address] Information not available 08/05/2024 Have There Been Any Changes To Your Family Or Social Situation? No [email or web address] Information no t available 04/27/2021 When Did You Quit Smoking? 1-5yearssincel kj [email or web address] Information not available 04/27/2021 Have You Recently Or Are You Planning To Travel To An Area With Zika Virus? No [email or web address] Information not available 04/27/2021 How Many Years Have You Used Illicit Or Recreational Drugs? 0 [email or web address] Information not available 08/05/2024 What Was The Date Of Your Most Recent Tobacco Screening? 06/25/2024 Information not available 06/25/2024 Do You Use Protection Against STDs? No [email or web address] Information not available 08/05/2024 What Is Your Relationship Status? [email or web address] Information not available 08/05/2024 Do You Use Your Seat Belt Or Car Seat Routinely? Yes [email or web address] Information not available 08/05/2024 Are You Sexually Active? Yes [email or web address] Information not available 06/25/2024 Do You Have Smoke And Carbon Monoxide Detectors In Your Home? Yes [email or web address] Information not available 04/27/2021 At What Age Did You Start Smoking Tobacco? 11 [email or web address] Information not available 08/05/2024 Are You Passively Exposed To Smoke? No [email or web address] Information no t available 04/27/2021 Do You Use Sunscreen Routinely? No [email or web address] Information not available 08/05/2024 Has Tobacco Cessation Counseling Been Provided? Yes Information not available 06/20/2023 On What Date Was Tobacco Cessation Counseling Provided? 06/25/2024 [email or web address] Information not available 06/25/2024 How Many Years Have You Smoked Tobacco? 40 [email or web address] Information not available 04/27/2021 Do You Have Difficulty Walking Or Climbing Stairs? No [email or web address] Information not available 04/27/2021 Sex: Male Functional Status Question Answer Note LastModified by Organizat ion Details LastModified Time Do you use any illicit or recreational drugs? No [email or web address] Information not available 04/27/2021 Do you or have you ever used any other forms of tobacco or nicotine? No Information not available 04/27/2021 What is your level of alcohol consumption? Occasional Information not available 04/27/2021 Are you currently employed? No Information not available 04/27/2021 Do you have transportation difficulties? No [email or web address] Information not available 04/27/2021 Do you have difficulty doing errands alone? No [email or web address] Information not available 04/27/2021 Are you able to care for yourself independently? Yes Information not available 04/27/2021 Do you have difficulty dressing, bathing, grooming, or toileting? No Information not available 04/27/2021 Do you or have you ever used e-cigarettes or vape? Never used electronic cigarettes [email or web address] Information not available 08/05/2024 What is your exercise level? Moderate [email or web address] Information not available 08/05/2024 Mental Status Question Answer Note LastModified by Audysseyat ion Details LastModified Time Do you feel stressed (tense, restless, nervous, or anxious, or unable to sleep at night)? [id number] [email or web address] Information not available 08/05/2024 Do you have difficulty concentrating, remembering or making decisions? No [email or web address] Information no t available 04/27/2021 Family History [...] N Arthritis N Restless Leg Syndrome N Infertility N Polyps N Carpal Tunnel N Mental Disorder N Acid Reflux (GERD) N Cancer N Stroke N Varicosities N Tendonitis N Crohn's Disease N Hypercholesterolemia N Skin Cancer N Fibromyalgia N Headaches N Irritable Bowel Syndrome N Anal Fissure [...] colitis N Cerebrovascular Disease N Depression N Guillain-[place] N Sleep Apnea N Aneurysm N Heart Disease N Bronchitis N Suicidal Ideation N Pre-Eclampsia N Hypertension N Osteoporosis N Immunizations Vaccine Type Date Status Note Provider Nam e and Address Organization Details Recorded Time HepB-CpG 05/26/19 completed Not Available [facility] 09/27/2024 10:36:34 Influenza, MDCK, quadrivalent, PF 04/10/19 24 completed Nyasia Vergara [facility] 11/08/2024 11:05:03 RSV, recombinant, protein subunit RSVpreF, adjuvant reconstituted, 0.5 mL, PF 04/10/19 24 completed Nyasia Vergara [facility] 11/08/2024 11:05:03 Tdap 06/20/19 24 cancelled patient objection Do Lambert APRN [address], [place], [address], [facility] - [facility] 06/26/2023 08:34:29 zoster recombinant 03/07/19 24 completed Do Lambert APRN [address], [address], [facility] - [facility] 04/04/2023 13:11:37 zoster recombinant 12/28/19 23 completed Do Lambert APRN [address], [place], [address], [place] - [facility] 04/04/2023 13:11:37 Respiratory syncytial virus (RSV) MAB, unspecified 04/10/19 24 completed Norma Reyna [place], [place] - [facility] 04/21/2023 14:13:48 influenza, unspecified formulation 04/10/19 24 completed Nyasiamarcela Vergara null, [place] - [facility] 11/08/2024 11:05:03 Past Encounters Encounter ID Performer Location Encounter Start Date Encounter Closed Date Diagnosis/Indication Diagnosis SNOMED-CT Code Diagnosis ICD10 Code Diagnosis IMO Codes Diagnosis Note [id number] Rosalie Salas APRN [address] [address] 12/13/2024 10:29:23 12/13/2024 11:36:25 Bilateral carpal tunnel syndrome [id number] 0541107 G56.03 [id number] splints at nightstero idsrefer to orthoif worsen or no improvemen t return [id number] Rosalie Salas APRN [address] [address] 12/26/2024 13:50:05 12/26/2024 15:04:08 Diabetes mellitus 52401461 E13.42 continue diet and exercise 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 2 diabetes mellitus 9957705823 107 E11.42 Long-term current use of drug therapy 745159497 Z79.899 [id number] Cramp in foot 918035349 R25.2 [id number] referral to podiotryho ld statin Health Concerns Section Related Observation LastModified by Organization Detai ls LastModified Time None Recorded Concern Status LastModified by Organization Details LastModified Time None Recorded Payers Encounter Date Sequence Insurance Name Policy Number Policy Jimenez Covered Member ID Jimenez Member ID Guarantor Name 12/26/2024 1 [employer] (MEDICARE REPLACEMENT/ ADVANTAGE - PPO) [id number] Iker Gray [id number] Iker Gray Notes Date Note Type Note [...] foot cramps, worse at night Rosalie Salas, CLINICAL SPECIALIST [address], [place], [address], [facility] - [facility] 12/26/2024 14:57:36
== END 2025-01-29 23:59 | disposition home or self-care (01) ==
LOC: LAB 11:24
PROVIDERS: PCP Nurse Practitioner Family; Visit Provider Internal Medicine Medical Oncology
DX: R79.9 Abnormal finding of blood chemistry, unspecified (principal)
CPT/HCPCS: 36415; 85025

== ENCOUNTER 2025-02-04 07:13 | Outpatient (CLI) | payer MEDICARE, SELFPAY ==
--- OUTSIDE RECORDS SUMMARY | 2025-02-04 07:17 | XMS_ITS | Continuity of Care Document ---
[facility] Address [address] [place] [address] Assessment No assessment recorded. Plan of Treatment Reminders Order Date Submit Date Provider Last Modified By Organization Details Last Modified Time Details Appointments Medicare AWE 40mins 2025 10:00A M Rosalie Salas APRN Not available Not available Not available Lab None recorded. Referral orthopedi c surgeon referral 2024 KENT Shay Joy , [address], [place], [address], 12/19/2024 11:45:17 Procedures None recorded. Surgeries None recorded. Imaging None recorded. Medication Orders prednison e 10 mg tablet 2024 [facility], [address] [place] [address] [place], [place], [id number], 12/25/2024 05:01:58 Patient TargetsNo targets recorded. Patient InstructionsNo instructions recorded. Reason for Referral Orthopedic Surgeon Referral for Bilateral carpal tunnel syndrome Referring Physician: Rosalie Salas, Family Medicine, Encounter Date: 12/13/2024 Results Created Date Observation Date Name Description Value Unit Range Abnormal Flag Note LastModifiedBy Organization Detail LastModifiedTime 11/22/1911/20/2024 elect romyo gram + nerve condu ction study No observ ation record ed. [address], [place], [address], 11/25/2024 10:23:40 11/27/1911/20/2024 elect romyo gram + nerve condu ction study No observ ation record ed. [facility] (Med Record) [address], [place], [address], 12/11/2024 11:13:57 11/28/1911/25/2024 elect romyo gram + nerve condu ction study No observ ation record ed. [facility] [address], [place], [address], 12/11/2024 11:47:34 12/12/1911/20/2024 elect romyo gram No observ ation record ed. [email or web address] [facility] [address], [place], [address], 12/16/2024 13:35:07 12/20/1912/18/2024 XR, wrist , 2 view No observ ation record ed. [facility] [address], [place], [address], 12/20/2024 08:14:58 12/20/1912/18/2024 XR, wrist , 2 view No observ ation record ed. [facility] [address], [place], [address], 12/20/2024 08:14:58 01/08/2001/06/2025 XR, lumba r spine , 2 view No observ [facility]ion [facility] [address], [place], [address], 01/13/2025 10:04:51 01/11/2001/08/2025 MRI, head, w/wo contr ast No observ ation [facility] ed. [facility] [address], [place], [address], 01/13/2025 09:44:31 Result Notes None recorded. Problems Name Problem SNOMED Code Status Onset Date Resolution Date Notes Provider Name and Address Organization Details Recorded Time Diabetes mellitus 05933321 Active 2021 Do Lambert, [employer] [address], [place], [address], [place] - [facility] 2 11:07:17 Benign prostatic hyperplasia without outflow obstruction 553598235 Active 2022 Do Lambert, [employer] [address], [place], [address], [place] - [facility] 3 13:09:53 Chronic kidney disease stage 2 099938227 Active 2023 Do Lambert, [employer] [address], [place], [address], [place] - [facility] 4 16:55:57 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 Do Lambert, [employer] [address], [place], [address], [place] - [facility] 5 15:12:03 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 2024 Do Lambert, [employer] [address], [place], [address], [place] - [facility] 5 15:12:16 Neuropathy 103746568 Active 2024 Rosalie Salas, [employer] [address], [place], [address], [place] - [facility] 5 10:07:09 [...] 12/24/19 23 Suture/Staple removal completed Do Lambert, [employer] [address], [place], [address], [place] - [facility] 12/23/2022 10:15:30 12/01/19 23 Cryosurgery Dermatology completed Kely Escalona, [employer] [address], [place], [address], [place] - [facility] 11/30/2022 13:15:20 08/25/19 23 Shave Biopsy Face, Ears, eyelids, nose, lips, muc membranes completed Kely Escalona [employer] [address], [place], [address], [place] - [facility] 08/24/2022 10:36:02 07/22/19 23 Cryosurgery Dermatology completed Kely Escalona APRN [address], [place], [address], [place] - [facility] 07/21/2022 14:53:44 05/04/19 22 [...] Available pravastatin 20 mg tablet TAKE ONE TABLET BY MOUTH DAILY active Not Available Not Available No t Available lisinopril 5 mg tablet TAKE 1 [...] Ultra-Fine Short Pen Needle 31 gauge x /16 USE 1 ONCE DAILY active Not Available [...] active Not Available Not Available Not Available [facility] ODT 75 mg disintegrat ing tablet TAKE ONE TABLET BY MOUTH DAILY NEEDED FOR migraine active Not Available Not Available No t Available [employer] Uma 2 Sensor kit APPLY ONE (1) SENSOR TOPICALLY EVERY 14 DAYS active Not Available Not Available No t Available [employer] Uma 2 Hulbert USE DIRECTED active Not Available Not Available [...] Updated DateTime 5 182.88 cm 25.4 kg/m2 69199.4 7 g 98.1 [degF] 60 /min 97 % 18 /min 4 124/72 mm[Hg] Rand Berta [place] - [facility] 5 10:51:59 Social History Question Answer Notes LastModified by Organizat ion Details LastModified Time Tobacco Smoking Status Former Smoker Norma calixto [place] - [facility] 04/27/2021 13:28:13 Do You Have An Advance Directive? No [email or web address] Information not available 04/27/2021 How Many Years Have You Consumed Alcohol? 30 [email or web address] Information not available 08/05/2024 Are You Blind Or Do You Have Difficulty Seeing? No [email or web address] Information not available 04/27/2021 Is Blood Transfusion Acceptable In An Emergency? Yes [email or web address] Information not available 08/05/2024 What Is Your Level Of Caffeine Consumption? Occasional Information not available 04/27/2021 In The 14 Days Before Symptom Onset, Have You Had Close Contact With A Laboratory-confir med COVID-19 While That Case Was Ill? No [email or web address] Information not available 04/27/2021 In The 14 Days Before Symptom Onset, Have You Had Close Contact With A Person Who Is Under Investigation For COVID-19 While That Person Was Ill? No [email or web address] Information not available 04/27/2021 Have You Been To An Area Known To Be High Risk For COVID-19? No [email or web address] Information not available 04/27/2021 Are You Deaf Or Do You Have Serious Difficulty Hearing? No [email or web address] Information not available 04/27/2021 What Type Of Diet Are You Following? REGULAR Information not available 04/27/2021 Have You Processed Blood Or Body Fluids From An Ebola Virus Disease Patient Without Appropriate PPE? No [email or web address] Information not available 04/27/2021 Do You Reside In Or Have You Traveled To An Area Where Ebola Virus Transmission Is Active? No [email or web address] Information not available 04/27/2021 What Is The Highest Grade Or Level Of School You Have Completed Or The Highest Degree You Have Received? [id number] [email or web address] Information not available 08/05/2024 Have There Been Any Changes To Your Family Or Social Situation? No [email or web address] Information no t available 04/27/2021 When Did You Quit Smoking? 1-5yearssincel kj [email or web address] Information not available 04/27/2021 Have You Recently Or Are You Planning To Travel To An Area With Zika Virus? No [email or web address] Information not available 04/27/2021 How Many Years Have You Used Illicit Or Recreational Drugs? 0 [email or web address] Information not available 08/05/2024 What Was The Date Of Your Most Recent Tobacco Screening? 06/25/2024 [email or web address] Information not available 06/25/2024 Do You Use Protection Against STDs? No Information not available 08/05/2024 What Is Your Relationship Status? [email or web address] Information not available 08/05/2024 Do You Use Your Seat Belt Or Car Seat Routinely? Yes [email or web address] Information not available 08/05/2024 Are You Sexually Active? Yes Information not available 06/25/2024 Do You Have Smoke And Carbon Monoxide Detectors In Your Home? Yes [email or web address] Information not available 04/27/2021 At What Age Did You Start Smoking Tobacco? 11 [email or web address] Information not available 08/05/2024 Are You Passively Exposed To Smoke? No [email or web address] Information no t available 04/27/2021 Do You Use Sunscreen Routinely? No [email or web address] Information not available 08/05/2024 Has Tobacco Cessation Counseling Been Provided? Yes [email or web address] Information not available 06/20/2023 On What Date Was Tobacco Cessation Counseling Provided? 06/25/2024 Information not available 06/25/2024 How Many Years Have You Smoked Tobacco? 40 [email or web address] Information not available 04/27/2021 Do You Have Difficulty Walking Or Climbing Stairs? No [email or web address] Information not available 04/27/2021 Sex: Male Functional Status Question Answer Note LastModified by Organizat ion Details LastModified Time Do you use any illicit or recreational drugs? No [email or web address] Information not available 04/27/2021 Do you or have you ever used any other forms of tobacco or nicotine? No Information not available 04/27/2021 What is your level of alcohol consumption? Occasional Information not available 04/27/2021 Are you currently employed? No [email or web address] Information not available 04/27/2021 Do you have transportation difficulties? No [email or web address] Information not available 04/27/2021 Do you have difficulty doing errands alone? No [email or web address] Information not available 04/27/2021 Are you able to care for yourself independently? Yes [email or web address] Information not available 04/27/2021 Do you have difficulty dressing, bathing, grooming, or toileting? No [email or web address] Information not available 04/27/2021 Do you or have you ever used e-cigarettes or vape? Never used electronic cigarettes [email or web address] Information not available 08/05/2024 What is your exercise level? Moderate [email or web address] Information not available 08/05/2024 Mental Status Question Answer Note LastModified by Organizat ion Details LastModified Time Do you feel stressed (tense, restless, nervous, or anxious, or unable to sleep at night)? [id number] [email or web address] Information not available 08/05/2024 Do you have difficulty concentrating, remembering or making decisions? No [email or web address] Information no t available 04/27/2021 Family History [...] colitis N Cerebrovascular Disease N Depression N Guillain-[place] N Sleep Apnea N Aneurysm N Bronchitis N Heart Disease N Suicidal Ideation N Pre-Eclampsia N Hypertension N Osteoporosis N Immunizations Vaccine Type Date Status Note Provider Nam e and Address Organization Details Recorded Time HepB-CpG 05/26/19 completed Not Available [facility], 1928–[facility] 09/27/2024 10:36:34 Influenza, MDCK, quadrivalent, PF 04/10/19 24 completed Nyasia Verg[place] - [facility] 11/08/2024 11:05:03 RSV, recombinant, protein subunit RSVpreF, adjuvant reconstituted, 0.5 mL, PF 04/10/19 24 completed Nyasiamarcela Schneiders [place], [place] - [facility] 11/08/2024 11:05:03 Tdap 06/20/19 24 cancelled patient objection Do Lambert APRN [address], [place], [address], [facility] - [facility] 06/26/2023 08:34:29 zoster recombinant 03/07/19 24 completed Do Lambert APRN [address], [place], [address], [facility] - [facility] 04/04/2023 13:11:37 zoster recombinant 12/28/19 23 completed Do Lambert APRN [address], [place], [address], [place] - [facility] 04/04/2023 13:11:37 Respiratory syncytial virus (RSV) MAB, unspecified 04/10/19 24 completed Norma Reyna [place], [place] - [facility] 04/21/2023 14:13:48 influenza, unspecified formulation 04/10/19 24 completed Nyasiamarcela Vergara null, [place] - [facility] 11/08/2024 11:05:03 Past Encounters Encounter ID Performer Location Encounter Start Date Encounter Closed Date Diagnosis/Indication Diagnosis SNOMED-CT Code Diagnosis ICD10 Code Diagnosis IMO Codes Diagnosis Note [id number] Rosalie Robleroabdirahman, EPHRAIM [address] [address] 12/13/2024 10:29:23 12/13/2024 11:36:25 Bilateral carpal tunnel syndrome 6646930604 5660913 G56.03 142569 splints at nightstero idsrefer to orthoif worsen or no improvemen t return Health Concerns Section Related Observation LastModified by Organization Detai ls LastModified Time None Recorded Concern Status LastModified by Organization Details LastModified Time None Recorded Payers Encounter Date Sequence Insurance Name Policy Number Policy Jimenez Covered Member ID Jimenez Member ID Guarantor Name 12/13/2024 1 [employer] (MEDICARE REPLACEMENT/ ADVANTAGE - PPO) [id number] Iker Gray [id number] Iker Gray Notes Date Note Type Note Provider Name and Address Organization Details Recorded Time 12/13/2024 text/html ROS as noted in the HPI 64 yr old male presents for a follow up on abnormal tests- CTS abbie- has appt with neurology in January. numbness and tingling hands and feet. dx neuropathy- feet, cramps in legs Rosalie Robleroabdirahman, [employer] [address], [place], [address], [place] - [facility] 12/13/2024 11:53:14
--- OUTSIDE RECORDS SUMMARY | 2025-02-04 07:17 | XMS_ITS | Clinical Summary ---
Author Organization [facility] Address [address] [place] [address] Phone Care Team Providers Care Correctional Security Officer Name Role Phone Do Lambert NP Primary Care Provider [phone] Allergies No known active allergies Medications aspirin 81 mg Oral Tablet, Delayed Release (E.C.) Take 81 mg by mouth daily. 8 Active fluticasone propionate (FLONASE) 50 mcg/actuation Nasl Gonzales, Suspension 1 Gonzales in each nostril daily. 3 Active LANTUS [...] MEDICARE [place] PART B CLAIMS [address] [facility] [address] [id number] Care Teams Correctional Security Officer Relationship Specialty Start Date End Date Do Lambert NP [address] [place] [address] PCP - General Family Medicine 09/29/22
--- OUTSIDE RECORDS SUMMARY | 2025-02-04 07:17 | XMS_ITS | Continuity of Care Document ---
Author Organization [facility] Address [address] [place] [phone] Assessment No assessment recorded. Plan of Treatment Reminders Order Date Submit Date Provider Last Modified By Organization Details Last Modified Time Details Appointments Medicare AWE 40mins 2025 10:00A M Rosalie Salas APRN Not available Not available Not available Lab drug screen, urine 2024 [facility], [address] [place] [address], [phone], 12/26/2024 14:57:29 Referral podiatris t referral 2024 [facility], [facility], [place], [address], 01/27/2025 11:34:40 Procedures None recorded. Surgeries None recorded. Imaging None recorded. Medication Orders pregabali n 150 mg capsule 2024 [facility], [address] [facility] , [place], [place], [phone], 12/28/2024 11:44:23 Patient TargetsNo targets recorded. Patient InstructionsNo instructions recorded. 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 pheral neuropathy due to type 2 diabetes mellitus Referring Physician: Rosalie Salas, Family Medicine, Encounter Date: 12/26/2024 Results Created Date Observation Date Name Description Value Unit Range Abnormal Flag Note LastModifiedBy Organization Detail LastModifiedTime 12/27/1912/26/2024 drug scree n, urine AMP negati ve Not Available [address], [address], 12/26/2024 14:14:32 12/27/19 25 12/26/2024 drug scree n, urine BAR negati ve Not Available [address], [address], 12/26/2024 14:14:32 12/27/1912/26/2024 drug scree n, urine BUP negati ve Not Available [address], [address], 12/26/2024 14:14:32 12/27/1912/26/2024 drug scree n, urine BZO negati ve Not Available [address], [address], 12/26/2024 14:14:32 12/27/1912/26/2024 drug scree n, urine TOBY negati ve Not Available [address], [address], 12/26/2024 14:14:32 12/27/1912/26/2024 drug scree n, urine FTY negati ve Not Available [address], [address], 12/26/2024 14:14:32 12/27/1912/26/2024 drug scree n, urine MDMA negati ve Not Available [address], [address], 12/26/2024 14:14:32 12/27/19 25 12/26/2024 drug scree n, urine MET negati ve Not Available [address], [address], 12/26/2024 14:14:32 12/27/1912/26/2024 drug scree n, urine MOP negati ve Not Available [address], [address], 12/26/2024 14:14:32 12/27/1912/26/2024 drug scree n, urine MTD negati ve Not Available [address], [address], 12/26/2024 14:14:32 12/27/1912/26/2024 drug scree n, urine OXY negati ve Not Available [address], [address], 12/26/2024 14:14:32 12/27/19 25 12/26/2024 drug scree n, urine PCP negati ve Not Available [address], [address], 12/26/2024 14:14:32 12/27/1912/26/2024 drug scree n, urine TCA negati ve Not Available [address], [address], 12/26/2024 14:14:32 12/27/1912/26/2024 drug scree n, urine THC negati ve Not Available [address], [address], 12/26/2024 14:14:32 11/27/19 25 11/20/2024 elect romyo gram + nerve condu ction study No observ ation record ed. [facility] (Med Record) [address] [place], [address], 12/11/2024 11:13:57 11/28/1911/25/2024 elect romyo gram + nerve condu ction study No observ ation record ed. [facility] [address], [address], 12/11/2024 11:47:34 12/12/1911/20/2024 elect romyo gram No observ ation record ed. [email or web address] [facility] [address], [address], 12/16/2024 13:35:07 12/20/1912/18/2024 XR, wrist , 2 view No observ ation record ed. [facility] [address], [place], [address], 12/20/2024 08:14:58 12/20/1912/18/2024 XR, wrist , 2 view No observ ation record ed. [facility] [address], [place], [address], 12/20/2024 08:14:58 01/08/2001/06/2025 XR, lumba r spine , 2 view No observ ation record ed. [facility] [address], [place], [address], 01/13/2025 10:04:51 01/11/2001/08/2025 MRI, head, w/wo contr ast No observ ation record ed. [facility] [address], [place], [address], 01/13/2025 09:44:31 Result Notes None recorded. Problems Name Problem SNOMED Code Status Onset Date Resolution Date Notes Provider Name and Address Organization Details Recorded Time Diabetes mellitus 45810125 Active 2021 Do Lambert, [facility] [address], [place], [address], [place] - [facility] 2 11:07:17 Benign prostatic hyperplasia without outflow obstruction 528892242 Active 2022 Do Lambert, [facility] [address], [place], [address], [place] [facility] 3 13:09:53 Chronic kidney disease stage 2 179362130 Active 2023 Do Lambert, [facility] [address], [place], [address], [place] [facility] 4 16:55:57 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 Do Lambert, [facility] [address], [place], [address], [place] [facility] 5 15:12:03 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 2024 Do Lambert, [facility] [address], [place], [address], [place] [facility] 5 15:12:16 Neuropathy 308113943 Active 2024 Rosalie Salas, [facility] [address], [place], [address], [place] [facility] 5 10:07:09 [...] 12/24/19 23 Suture/Staple removal completed Do Lambert, [facility] [address], [place], [address], [place] - [facility] 12/23/2022 10:15:30 12/01/19 23 Cryosurgery Dermatology completed Kely Escalona, [facility] [address], [place], [address], [place] - [facility] 11/30/2022 13:15:20 08/25/19 23 Shave Biopsy Face, Ears, eyelids, nose, lips, muc membranes completed Kelyhudson Escalona, [facility] [address], [place], [address], [place] - [facility] 08/24/2022 10:36:02 07/22/19 23 Cryosurgery Dermatology completed Kelyhudson Escalona, [facility] [address], [place], [address], [place] - [facility] 07/21/2022 14:53:44 05/04/19 22 [...] Not Available Not Available Not Avai lable VulevúTouch Ultra Test strips USE DIRECTED active Not [...] active Not Available Not Available Not Available [facility] ODT 75 mg disintegrat ing tablet TAKE ONE TABLET BY MOUTH DAILY NEEDED FOR migraine active Not Available Not Available No t Available FreeStyle Uma 2 Sensor kit APPLY ONE (1) SENSOR TOPICALLY EVERY 14 DAYS active Not Available Not Available No t Available FreeStyle Uma 2 [place] USE DIRECTED active Not Available Not Available [...] Updated DateTime 5 182.88 cm 25 kg/m2 61374 g 97.5 [degF] 71 /min 97 % 18 /min 0 126/72 mm[Hg] [place] - [facility] 14:08:24 Social History Question Answer Notes LastModified by Organizat ion Details LastModified Time Tobacco Smoking Status Former Smoker Norma calixto [place] - [facility] 04/27/2021 13:28:13 Do You Have An Advance Directive? No [email or web address] Information not available 04/27/2021 How Many Years Have You Consumed Alcohol? 30 [email or web address] Information not available 08/05/2024 Are You Blind Or Do You Have Difficulty Seeing? No [email or web address] Information not available 04/27/2021 Is Blood Transfusion Acceptable In An Emergency? Yes [email or web address] Information not available 08/05/2024 What Is Your Level Of Caffeine Consumption? Occasional [email or web address] Information not available 04/27/2021 In The 14 Days Before Symptom Onset, Have You Had Close Contact With A Laboratory-confir med COVID-19 While That Case Was Ill? No [email or web address] Information not available 04/27/2021 In The 14 Days Before Symptom Onset, Have You Had Close Contact With A Person Who Is Under Investigation For COVID-19 While That Person Was Ill? No [email or web address] Information not available 04/27/2021 Have You Been To An Area Known To Be High Risk For COVID-19? No [email or web address] Information not available 04/27/2021 Are You Deaf Or Do You Have Serious Difficulty Hearing? No [email or web address] Information not available 04/27/2021 What Type Of Diet Are You Following? REGULAR [email or web address] Information not available 04/27/2021 Have You Processed Blood Or Body Fluids From An Ebola Virus Disease Patient Without Appropriate PPE? No Information not available 04/27/2021 Do You Reside In Or Have You Traveled To An Area Where Ebola Virus Transmission Is Active? No [email or web address] Information not available 04/27/2021 What Is The Highest Grade Or Level Of School You Have Completed Or The Highest Degree You Have Received? LD42511-2 [email or web address] Information not available 08/05/2024 Have There Been Any Changes To Your Family Or Social Situation? No [email or web address] Information no t available 04/27/2021 When Did You Quit Smoking? 1-5yearssinpj kj Information not available 04/27/2021 Have You Recently Or Are You Planning To Travel To An Area With Zika Virus? No [email or web address] Information not available 04/27/2021 How Many Years Have You Used Illicit Or Recreational Drugs? 0 [email or web address] Information not available 08/05/2024 What Was The Date Of Your Most Recent Tobacco Screening? 06/25/2024 [email or web address] Information not available 06/25/2024 Do You Use Protection Against STDs? No [email or web address] Information not available 08/05/2024 What Is Your Relationship Status? [email or web address] Information not available 08/05/2024 Do You Use Your Seat Belt Or Car Seat Routinely? Yes [email or web address] Information not available 08/05/2024 Are You Sexually Active? Yes [email or web address] Information not available 06/25/2024 Do You Have Smoke And Carbon Monoxide Detectors In Your Home? Yes [email or web address] Information not available 04/27/2021 At What Age Did You Start Smoking Tobacco? 11 Information not available 08/05/2024 Are You Passively Exposed To Smoke? No [email or web address] Information no t available 04/27/2021 Do You Use Sunscreen Routinely? No [email or web address] Information not available 08/05/2024 Has Tobacco Cessation Counseling Been Provided? Yes [email or web address] Information not available 06/20/2023 On What Date Was Tobacco Cessation Counseling Provided? 06/25/2024 [email or web address] Information not available 06/25/2024 How Many Years Have You Smoked Tobacco? 40 [email or web address] Information not available 04/27/2021 Do You Have Difficulty Walking Or Climbing Stairs? No [email or web address] Information not available 04/27/2021 Sex: Male Functional Status Question Answer Note LastModified by Organizat ion Details LastModified Time Do you use any illicit or recreational drugs? No [email or web address] Information not available 04/27/2021 Do you or have you ever used any other forms of tobacco or nicotine? No [email or web address] Information not available 04/27/2021 What is your level of alcohol consumption? Occasional [email or web address] Information not available 04/27/2021 Are you currently employed? No [email or web address] Information not available 04/27/2021 Do you have transportation difficulties? No [email or web address] Information not available 04/27/2021 Do you have difficulty doing errands alone? No [email or web address] Information not available 04/27/2021 Are you able to care for yourself independently? Yes Information not available 04/27/2021 Do you have difficulty dressing, bathing, grooming, or toileting? No [email or web address] Information not available 04/27/2021 Do you or have you ever used e-cigarettes or vape? Never used electronic cigarettes [email or web address] Information not available 08/05/2024 What is your exercise level? Moderate Information not available 08/05/2024 Mental Status Question Answer Note LastModified by Vocab ion Details LastModified Time Do you feel stressed (tense, restless, nervous, or anxious, or unable to sleep at night)? [id number] [email or web address] Information not available 08/05/2024 Do you have difficulty concentrating, remembering or making decisions? No Information no t available 04/27/2021 Family History [...] D Deficiency N Cellulitis N Endometriosis N Bladder or Kidney Problems N Fracture N Colorectal Cancer N Liver Disease N [...] N Insomnia N Hyperlipidemia N Eczema N Abuse/Domestic Violence N Attention Deficient Disorder N Dementia N Diverticulitis N Ulcerative colitis N Cerebrovascular Disease N Depression N Guillain-Sturgis N Sleep Apnea N Aneurysm N Bronchitis N Heart Disease N Suicidal Ideation N Pre-Eclampsia N Hypertension N Osteoporosis N Immunizations Vaccine Type Date Status Note Provider Nam e and Address Organization Details Recorded Time HepB-CpG 05/26/19 24 completed Not Available [facility] 09/27/2024 10:36:34 Influenza, MDCK, quadrivalent, PF 04/10/19 24 completed Nyasia Vergara [facility] 11/08/2024 11:05:03 RSV, recombinant, protein subunit RSVpreF, adjuvant reconstituted, 0.5 mL, PF 04/10/19 24 completed [facility]asia [facility]ergara [facility]/08[facility] 11:05:03 Tdap 06/20/19 24 cancelled patient objection Do Lambert APRN [address], [address], [facility] - [facility] 06/26/2023 08:34:29 zoster recombinant 03/07/19 24 completed Do Lambert APRN [address], [address] - [facility] 04/04/2023 13:11:37 zoster recombinant 12/28/19 23 completed Do Lambert APRN [address], [address] 04/04/2023 13:11:37 Respiratory syncytial virus (RSV) MAB, unspecified 04/10/19 24 completed Norma Reyna null, [place] - [facility] 04/21/2023 14:13:48 influenza, unspecified formulation 04/10/19 24 completed Nyasia Vergara null, [place] - [facility] 11/08/2024 11:05:03 Past Encounters Encounter ID Performer Location Encounter Start Date Encounter Closed Date Diagnosis/Indication Diagnosis SNOMED-CT Code Diagnosis ICD10 Code Diagnosis IMO Codes Diagnosis Note [id number] Rosalie Salas [facility] [address] [address] 12/13/2024 10:29:23 12/13/2024 11:36:25 Bilateral carpal tunnel syndrome 2403838266 7005401 G56.03 698261 splints at nightstero idsrefer to orthoif worsen or no improvemen t return [id number] Rosalie Salas [facility] [address] [address] 12/26/2024 13:50:05 12/26/2024 15:04:08 Diabetes mellitus 53762490 E13.42 continue diet and exercise 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 2 diabetes mellitus 6892092209 107 E11.42 Long-term current use of drug therapy 266466624 Z79.899 24886521 Cramp in foot 496256943 R25.2 0389011 referral to podiotryho ld statin Health Concerns Section Related Observation LastModified by Organization Detai ls LastModified Time None Recorded Concern Status LastModified by Organization Details LastModified Time None Recorded Payers Encounter Date Sequence Insurance Name Policy Number Policy Jimenez Covered Member ID Jimenez Member ID Guarantor Name 12/26/2024 1 [employer] (MEDICARE REPLACEMENT/ ADVANTAGE - PPO) [id number] Iker Gray [id number] Iker Gray Notes Date Note Type Note Provider Name and Address Organization Details Recorded Time 12/26/2024 text/html ROS as noted in the HPI 64 yr old male presents to follow up on diabetes and refill pregabalin. neuropathy- lyrica helpsnumbness in feet/legs/arms and hands for weeks- referral to neurologyhad heart attack w/4 stents in March 2024having abbie leg and foot cramps, worse at night Eugonda Fryman, [facility]FF[facility] [address], [place], [address], [facility] - [facility] 12/26/2024 14:57:36
--- OUTSIDE RECORDS SUMMARY | 2025-02-04 07:17 | XMS_ITS | Continuity of Care Document ---
Author Organization Sabrina Gómez [facility] Address [address] [place] [address] Assessment No assessment recorded. Plan of Treatment Reminders Order Date Submit Date Provider Last Modified By Organization Details Last Modified Time Details Appointments Medicare AWE 40mins 2025 10:00A M Rosalie Salas APRN Not available Not available Not available Lab magnesium , serum or plasma 2024 025 MARGARET [facility], [address], [address], [place], [address], 11/25/2024 00:06:40 cobalamin and folate panel, serum 2024 025 MARGARET [facility], [address], [address], [place], [address], 11/25/2024 00:06:38 vitamin D, 25-hydrox y, total, serum 2024 025 MARGARET [facility], [address], [address], [place], [address], 11/25/2024 00:06:39 CBC w/ auto diff 2024 025 MARGARET [facility], [address], [address], [place], [address], 11/25/2024 00:06:37 iron + total iron-bind ing capacity (TIBC), serum 2024 025 MARGARET [facility], [address], [address], [place], [address], 11/25/2024 00:06:37 TSH + free T4, serum 2024 025 MARGARET [facility], [address], [address], [place], [address], 11/25/2024 00:06:36 vitamin B6 + metabolit es panel, serum or plasma 2024 025 MARGARET [facility], [address], [address], [place], [address], 11/25/2024 00:06:38 short myastheni a gravis panel, serum 2024 025 MARGARET [facility], [address], [address], [place], [address], 11/25/2024 00:06:[address] referral 2024 025 MARGARET Pineda MD, [address], [place], [address], 12/13/2024 11:21:58 Procedures None recorded. Surgeries None recorded. Imaging electromy ogram + nerve conductio n study - bilateral legs/feet and arms/hand s 2024 025 [facility] ([facility]), [address], [place], [address], 11/21/2024 15:14:07 Medication Orders None recorded. Patient TargetsNo targets recorded. Patient InstructionsNo instructions recorded. Reason for Referral Neurologist Referral for Num bness and tingling sensation of skin Referring Physician: Rosalie Salas, Family Medicine, Encounter Date: 11/08/2024 Results Created Date Observation Date Name Description Value Unit Range Abnormal Flag Note LastModifiedBy Organization Detail LastModifiedTime 11/09/19 25 11/09/2024 TSH+F REE T4 TSH 1.500 uIU/m L 0.450- 4.500 normal Not Available [facility] ([facility]) [address] [facility], [place], [address], 11/25/2024 00:06:36 11/09/1911/09/2024 TSH+F REE T4 T4,free(dire ct) 1.20 NG/dL 0.82-1 .77 normal Not Available [facility] ([facility]) [address] [facility], [place], [address], 11/25/2024 00:06:36 11/09/1911/09/2024 CBC WITH DIFFE RENTI AL/PL ATELE T WBC 8.1 x10e3 /uL 3.4-10 .8 normal Not Available [facility] ([facility]) [address] [facility], [place], [address], 11/25/2024 00:06:37 11/09/1911/09/2024 CBC WITH DIFFE RENTI AL/PL ATELE T RBC 5.38 x10e6 /uL 4.14-5 .80 normal Not Available [facility] ([facility]) [address] [place], [address], 11/25/2024 00:06:37 11/09/19 25 11/09/2024 CBC WITH DIFFE RENTI AL/PL ATELE T hemoglobin 15.1 g/dL 13.0-1 7.7 normal Not Available [facility] ([facility]) [address] [place], [address], 11/25/2024 00:06:37 11/09/1911/09/2024 CBC WITH DIFFE RENTI AL/PL ATELE T hematocrit 46.9 % 37.5-5 1.0 normal Not Available [facility] ([facility]) [address] [place], [address], 11/25/2024 00:06:37 11/09/19 25 11/09/2024 CBC WITH DIFFE RENTI AL/PL ATELE T MCV 87 fL 79-97 normal Not Available [facility] ([facility]) [address] [facility], [place], [address], 11/25/2024 00:06:37 11/09/19 25 11/09/2024 CBC WITH DIFFE RENTI AL/PL ATELE T MCH 28.1 pg 26.6-3 3.0 normal Not Available [facility] ([facility]) [address] [facility], [place], [address], 11/25/2024 00:06:37 11/09/19 25 11/09/2024 CBC WITH DIFFE RENTI AL/PL ATELE T MCHC 32.2 g/dL 31.5-3 5.7 normal Not Available [facility] ([facility]) [address] [facility], [place], [address], 11/25/2024 00:06:37 11/09/19 25 11/09/2024 CBC WITH DIFFE RENTI AL/PL ATELE T RDW 13.4 % 11.6-1 5.4 Not Available [facility] ([facility]) [address] [place], [address], 11/25/2024 00:06:37 11/09/19 25 11/09/2024 CBC WITH DIFFE RENTI AL/PL ATELE T platelets 255 x10e3 /uL 150-45 0 normal Not Available [facility] ([facility]) [address] [place], [address], 11/25/2024 00:06:37 11/09/19 25 11/09/2024 CBC WITH DIFFE RENTI AL/PL ATELE T neutrophils 57 % not estab. normal Not Available [facility] ([facility]) [address] [place], [address], 11/25/2024 00:06:37 11/09/19 25 11/09/2024 CBC WITH DIFFE RENTI AL/PL ATELE T lymphs 30 % not estab. normal Not Available [facility] ([facility]) [address] [place], [address], 11/25/2024 00:06:37 11/09/19 25 11/09/2024 CBC WITH DIFFE RENTI AL/PL ATELE T monocytes 10 % not estab. normal Not Available [facility] ([facility]) [address] [place], [address], 11/25/2024 00:06:37 11/09/19 25 11/09/2024 CBC WITH DIFFE RENTI AL/PL ATELE T eos 2 % not estab. normal Not Available [facility] ([facility]) [address] [place], [address], 11/25/2024 00:06:37 11/09/1911/09/2024 CBC WITH DIFFE RENTI AL/PL ATELE T basos 1 % not estab. normal Not Available [facility] ([facility]) [address] [place], [address], 11/25/2024 00:06:37 11/09/1911/09/2024 CBC WITH DIFFE RENTI AL/PL ATELE T immature cells BURRER [employer]ACHINE Not Available [facility] ([facility]) [address] [place], [address], 11/25/2024 00:06:37 11/09/1911/09/2024 CBC WITH DIFFE RENTI AL/PL ATELE T neutrophils (absolute) 4.7 x10e3 /uL 1.4-7. 0 normal Not Available [facility] ([facility]) [address] [place], [address], 11/25/2024 00:06:37 11/09/19 25 11/09/2024 CBC WITH DIFFE RENTI AL/PL ATELE T lymphs (absolute) 2.4 x10e3 /uL 0.7-3. 1 normal Not Available [facility] ([facility]) [address] [place], [address], 11/25/2024 00:06:37 11/09/19 25 11/09/2024 CBC WITH DIFFE RENTI AL/PL ATELE T monocytes(ab solute) 0.8 x10e3 /uL 0.1-0. 9 normal Not Available [facility] ([facility]) [address] [facility], [place], [address], 11/25/2024 00:06:37 11/09/19 25 11/09/2024 CBC WITH DIFFE RENTI AL/PL ATELE T eos (absolute) 0.1 x10e3 /uL 0.0-0. 4 normal Not Available [facility] ([facility]) [address] [place], [address], 11/25/2024 00:06:37 11/09/19 25 11/09/2024 CBC WITH DIFFE RENTI AL/PL ATELE T baso (absolute) 0.1 x10e3 /uL 0.0-0. 2 normal Not Available [facility] ([facility]) [address] [place], [address], 11/25/2024 00:06:37 11/09/19 25 11/09/2024 CBC WITH DIFFE RENTI AL/PL ATELE T immature granulocytes 0 % not estab. Not Available [facility] ([facility]) [address] [place], [address], 11/25/2024 00:06:37 11/09/19 25 11/09/2024 CBC WITH DIFFE RENTI AL/PL ATELE T immature grans (abs) 0.0 x10e3 /uL 0.0-0. 1 Not Available [facility] ([facility]) [address] [place], [address], 11/25/2024 00:06:37 11/09/19 25 11/09/2024 CBC WITH DIFFE RENTI AL/PL ATELE T NRBC [employer]ACH[employer] Not Available [facility] ([facility]) [address] [facility], [place], [address], 11/25/2024 00:06:37 11/09/19 25 11/09/2024 CBC WITH DIFFE LUKE AL/PL JACKIE T hematology comments: BURR[employer]ACHINE Not Available [facility] ([facility]) [address] [facility], [place], [address], 11/25/2024 00:06:37 11/09/19 25 11/09/2024 IRON AND TIBC iron bind.cap.(TI BC) 358 ug/dL 250-45 0 normal Not Available [facility] ([facility]) [address] [facility], [place], [address], 11/25/2024 00:06:37 11/09/19 25 11/09/2024 IRON AND TIBC UIBC 277 ug/dL 111-34 3 normal Not Available [facility] ([facility]) [address] [facility], [place], [address], 11/25/2024 00:06:37 11/09/19 25 11/09/2024 IRON AND TIBC iron 81 ug/dL 38-169 normal Not Available [facility] ([facility]) [address] [facility], [place], [address], 11/25/2024 00:06:37 11/09/19 25 11/09/2024 IRON AND TIBC iron saturation 23 % 15-55 normal Not Available [facility] ([facility]) [address] [facility], [place], [address], 11/25/2024 00:06:37 11/09/19 25 11/09/2024 VITAM IN B12 AND FOLAT E vitamin B12 759 pg/mL 232-12 45 normal Not Available [facility] ([facility]) [address] [facility], [place], [address], 11/25/2024 00:06:38 11/09/19 25 11/09/2024 VITAM IN B12 AND FOLAT E folate (folic acid), serum 4.6 NG/mL >3.0 normal A serum folat e nevaeh ntrat ion of less than 3.1 ng/mL is consi dered to repre sent clini kerline defic iency . Not Available [facility] ([facility]) [address] [facility], [place], [address], 11/25/2024 00:06:38 11/09/1911/14/2024 VITAM IN B6, PLASM A vitamin B6 55.6 ug/L 3.4-65 .2 normal Defic iency : <3.4 Leonora nal: 3.4 - 5.1 Adequ ate: >5.1 Not Available [facility] ([facility]) [address] [facility], [place], [address], 11/25/2024 00:06:38 11/09/19 25 11/09/2024 VITAM IN [...] April moura DC: The Natio nal [facility] Press . 2. Leno estes MF, Al jarrett [place], Brenda off-F errar i [place]IV[place], et al. Evalu ation , treat ment, and preve ntion of vitam in D defic iency : an Endoc rine Socie ty clini kerline pract ice guide line. JCEM. 2010; 96(7) :1911 -30. Not Available [facility] ([facility]) [address] [facility], [place], [address], 11/25/2024 00:06:39 11/09/1911/10/2024 MYAST HENIA GRAVI S PROFI LE AChR binding abs, serum <0.07 nmol/ L 0.00-0 .24 Negat cydney: 0.00 - 0.24 Borde rline : 0.25 - 0.40 Posit cydney: >0.40 Not Available [facility] ([facility]) [address] [place], [address], 11/25/2024 00:06:39 11/09/19 25 11/11/2024 MYAST HENIA GRAVI S PROFI LE striation abs, serum Negati ve neg:<1 :100 Not Available [facility] ([facility]) [address] [place], [address], 11/25/2024 00:06:39 11/09/1911/12/2024 MYAST HENIA GRAVI S PROFI LE AChR blocking abs, serum 24 % 0-25 Negat cydney: 0 - 25 Borde rline : 26 - 30 Posit cydney: >30 Not Available [facility] ([facility]) [address] [place], [address], 11/25/2024 00:06:39 11/09/19 25 11/17/2024 MYAST HENIA GRAVI S PROFI LE AChR-modulat ing Ab 0 % 0-45 Inter preti ve Infor matio n: Negat cydney: 0 - 45% Posit cydney: > 45% No singl e value for AChR- modul ating antib kevin shoul d be used as a sole basis for diagn osis or respo nse to thera py. Not Available [facility] ([facility]) [address] [place], [address], 11/25/2024 00:06:39 11/09/19 25 11/17/2024 MYAST HENIA GRAVI S PROFI LE reflex information Commen t Refle x test indic ated. Not Available [facility] ([facility]) [address] [facility], [place], [address], 11/25/2024 00:06:39 11/09/1911/25/2024 MUSK ABS, SERUM musk [...] Not Available [facility] [address] [facility], [place], [address], 11/25/2024 00:06:40 11/09/1911/09/2024 MAGNE SIUM magnesium 2.2 mg/dL 1.6-2. 3 normal Not Available [facility] ([facility]) [address] [facility], [place], [address], 11/25/2024 00:06:40 11/05/1910/30/2024 , [facility] ardio gram No observ ation record ed. [email or web address] [facility] [address], [place], [address], 11/06/2024 10:49:39 11/22/1911/20/2024 elect romyo gram + nerve condu ction study No observ ation record ed. [facility] [address], [place], [address], 11/25/2024 10:23:40 11/27/1911/20/2024 elect romyo gram + nerve condu ction study No observ ation record ed. [facility] (Med Record) [address], [place], [address], 12/11/2024 11:13:57 11/28/1911/25/2024 elect romyo gram + nerve condu ction study No observ ation record ed. [email or web address] [facility] [address], [place], [address], 12/11/2024 11:47:34 12/12/1911/20/2024 elect romyo gram No observ ation record ed. [email or web address] [facility] [address], [place], [address], 12/16/2024 13:35:07 12/20/1912/18/2024 XR, wrist , 2 view No observ ation record ed. [facility] [address], [place], [address], 12/20/2024 08:14:58 12/20/19 25 12/18/2024 XR, wrist , 2 view No observ ation record ed. [facility] [address], [place], [address], 12/20/2024 08:14:58 01/08/2001/06/2025 XR, lumba r spine , 2 view No observ ation record ed. [facility] [address], [place], [address], 01/13/2025 10:04:51 01/11/2001/08/2025 MRI, head, w/wo contr ast No observ ation record ed. [facility] [address], [place], [address], 01/13/2025 09:44:31 Result Notes None recorded. Problems Name Problem SNOMED Code Status Onset Date Resolution Date Notes Provider Name and Address Organization Details Recorded Time Diabetes mellitus 12368335 Active 2021 Do Lambert, [employer] [address], [place], [address], [place] - [facility] 11:07:17 Benign prostatic hyperplasia without outflow obstruction 015148576 Active 2022 Do Lambert, [employer] [address], [place], [address], [place] - [facility] 3 13:09:53 Chronic kidney disease stage 2 339813056 Active 2023 Do Lambert, [employer] [address], [place], [address], [place] - [facility] 4 16:55:57 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 Do Lambert, [employer] [address], [place], [address], [place] - [facility] 5 15:12:03 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 2024 Do Lambert, [employer] [address], [place], [address], [place] - [facility] 5 15:12:16 Neuropathy 691261681 Active 2024 Rosalie Salas, [employer] [address], [place], [address], [place] - [facility] 5 10:07:09 [...] 12/24/19 23 Suture/Staple removal completed Do Lambert, [employer] [address], [place], [address], [place] [facility] 12/23/2022 10:15:30 12/01/19 23 Cryosurgery Dermatology completed Kely EPHRAIM Escalona [address], [place], [address], [place] - [facility] 11/30/2022 13:15:20 08/25/19 23 Shave Biopsy Face, Ears, eyelids, nose, lips, muc membranes completed Kely IRINA EscalonaN [address], [place], [address], [place] - [facility] 08/24/2022 10:36:02 07/22/19 23 Cryosurgery Dermatology completed Kelyhudson Escalona APRN [address], [place], [address], [place] - [facility] 07/21/2022 14:53:44 05/04/19 22 [...] active Not Available Not Available Not Brandie labjoshua pregabalin ER 165 mg tablet, extended release [...] active Not Available Not Available Not Available [facility] 75 mg disintegrat ing tablet TAKE ONE TABLET BY MOUTH DAILY NEEDED FOR migraine active Not Available Not Available No t Available [employer] Uma 2 Sensor kit APPLY ONE (1) SENSOR TOPICALLY EVERY 14 DAYS active Not Available Not Available No t Available [employer] Uma 2 Covel USE DIRECTED active Not Available Not Available [...] 5 182.88 cm 18 /min 24.7 kg/m2 97944.8 1 g 58 /min 97 % 98 [degF] 108/64 mm[Hg] Nyasia Stears [place] - [facility] 5 11:13:29 Date Recorded Body height Body mass index (BMI) Body weight Body temperature Heart rate Oxygen saturation Respiratory rate Pain severity - 0-10 verbal numeric rating [Score] - Reported Systolic And Diastolic Provider Name and Address Organization Details Last Updated DateTime 5 182.88 cm 25.4 kg/m2 23777.4 7 g 98.1 [degF] 60 /min 97 % 18 /min 4 124/72 mm[Hg] Rand Hampton [place] - [facility] 5 10:51:59 Social History Question Answer Notes LastModified by Organizat ion Details LastModified Time Tobacco Smoking Status Former Smoker Norma calixto [place] - [facility] 04/27/2021 13:28:13 Do You Have An Advance Directive? No [email or web address] Information not available 04/27/2021 How Many Years Have You Consumed Alcohol? 30 [email or web address] Information not available 08/05/2024 Are You Blind Or Do You Have Difficulty Seeing? No Information not available 04/27/2021 Is Blood Transfusion Acceptable In An Emergency? Yes [email or web address] Information not available 08/05/2024 What Is Your Level Of Caffeine Consumption? Occasional [email or web address] Information not available 04/27/2021 In The 14 Days Before Symptom Onset, Have You Had Close Contact With A Laboratory-confir med COVID-19 While That Case Was Ill? No [email or web address] Information not available 04/27/2021 In The 14 Days Before Symptom Onset, Have You Had Close Contact With A Person Who Is Under Investigation For COVID-19 While That Person Was Ill? No [email or web address] Information not available 04/27/2021 Have You Been To An Area Known To Be High Risk For COVID-19? No [email or web address] Information not available 04/27/2021 Are You Deaf Or Do You Have Serious Difficulty Hearing? No [email or web address] Information not available 04/27/2021 What Type Of Diet Are You Following? REGULAR Information not available 04/27/2021 Have You Processed Blood Or Body Fluids From An Ebola Virus Disease Patient Without Appropriate PPE? No Information not available 04/27/2021 Do You Reside In Or Have You Traveled To An Area Where Ebola Virus Transmission Is Active? No [email or web address] Information not available 04/27/2021 What Is The Highest Grade Or Level Of School You Have Completed Or The Highest Degree You Have Received? RC05652-4 [email or web address] Information not available 08/05/2024 Have There Been Any Changes To Your Family Or Social Situation? No [email or web address] Information no t available 04/27/2021 When Did You Quit Smoking? 1-5yearssincel kj [email or web address] Information not available 04/27/2021 Have You Recently Or Are You Planning To Travel To An Area With Zika Virus? No [email or web address] Information not available 04/27/2021 How Many Years Have You Used Illicit Or Recreational Drugs? 0 [email or web address] Information not available 08/05/2024 What Was The Date Of Your Most Recent Tobacco Screening? 06/25/2024 [email or web address] Information not available 06/25/2024 Do You Use Protection Against STDs? No [email or web address] Information not available 08/05/2024 What Is Your Relationship Status? [email or web address] Information not available 08/05/2024 Do You Use Your Seat Belt Or Car Seat Routinely? Yes [email or web address] Information not available 08/05/2024 Are You Sexually Active? Yes [email or web address] Information not available 06/25/2024 Do You Have Smoke And Carbon Monoxide Detectors In Your Home? Yes Information not available 04/27/2021 At What Age Did You Start Smoking Tobacco? 11 [email or web address] Information not available 08/05/2024 Are You Passively Exposed To Smoke? No Information no t available 04/27/2021 Do You Use Sunscreen Routinely? No Information not available 08/05/2024 Has Tobacco Cessation Counseling Been Provided? Yes [email or web address] Information not available 06/20/2023 On What Date Was Tobacco Cessation Counseling Provided? 06/25/2024 [email or web address] Information not available 06/25/2024 How Many Years Have You Smoked Tobacco? 40 [email or web address] Information not available 04/27/2021 Do You Have Difficulty Walking Or Climbing Stairs? No [email or web address] Information not available 04/27/2021 Sex: Male Functional Status Question Answer Note LastModified by Organizat ion Details LastModified Time Do you use any illicit or recreational drugs? No [email or web address] Information not available 04/27/2021 Do you or have you ever used any other forms of tobacco or nicotine? No [email or web address] Information not available 04/27/2021 What is your level of alcohol consumption? Occasional [email or web address] Information not available 04/27/2021 Are you currently employed? No [email or web address] Information not available 04/27/2021 Do you have transportation difficulties? No [email or web address] Information not available 04/27/2021 Do you have difficulty doing errands alone? No [email or web address] Information not available 04/27/2021 Are you able to care for yourself independently? Yes [email or web address] Information not available 04/27/2021 Do you have difficulty dressing, bathing, grooming, or toileting? No Information not available 04/27/2021 Do you or have you ever used e-cigarettes or vape? Never used electronic cigarettes [email or web address] Information not available 08/05/2024 What is your exercise level? Moderate [email or web address] Information not available 08/05/2024 Mental Status Question Answer Note LastModified by Organizat ion Details LastModified Time Do you feel stressed (tense, restless, nervous, or anxious, or unable to sleep at night)? [id number] [email or web address] Information not available 08/05/2024 Do you have [...] colitis N Cerebrovascular Disease N Depression N Guillain-Ackworth N Sleep Apnea N Aneurysm N Bronchitis N Heart Disease N Suicidal Ideation N Pre-Eclampsia N Hypertension N Osteoporosis N Immunizations Vaccine Type Date Status Note Provider Nam e and Address Organization Details Recorded Time HepB-CpG 05/26/19 completed Not Available [facility] 09/27/2024 10:36:34 Influenza, MDCK, quadrivalent, PF 04/10/19 24 completed Nyasia Vergara [facility] 11/08/2024 11:05:03 RSV, recombinant, protein subunit RSVpreF, adjuvant reconstituted, 0.5 mL, PF 04/10/19 24 [place] [facility] 11/08/2024 11:05:03 Tdap 06/20/19 24 cancelled patient objection Do Lambert APRN [address], [place], [address], [facility] - [facility] 06/26/2023 08:34:29 zoster recombinant 03/07/19 24 completed Do Lambert APRN [address], [place], [address], [facility] - [facility] 04/04/2023 13:11:37 zoster recombinant 12/28/19 23 completed Do Fausto, [employer] [address], [place], [address], [place] - [facility] 04/04/2023 13:11:37 Respiratory syncytial virus (RSV) MAB, unspecified 04/10/19 24 completed Norma Reyna null, [place] - [facility] 04/21/2023 14:13:48 influenza, unspecified formulation 04/10/19 24 completed Nyasia Vergara null, [place] - [facility] 11/08/2024 11:05:03 Past Encounters Encounter ID Performer Location Encounter Start Date Encounter Closed Date Diagnosis/Indication Diagnosis SNOMED-CT Code Diagnosis ICD10 Code Diagnosis IMO Codes Diagnosis Note [id number] Rosalie Salas APRN [address] [address] 11/08/2024 10:28:26 11/08/2024 11:52:45 Numbness and tingling sensation of skin 3312917830 02 R20.0 R20.2 [id number] labsnctneu rology consultif worsen or no improvemen t go to [facility] Concerns Section Related Observation LastModified by Organization Detai ls LastModified Time None Recorded Concern Status LastModified by Organization Details LastModified Time None Recorded Payers Encounter Date Sequence Insurance Name Policy Number Policy Jimenez Covered Member ID Jimenez Member ID Guarantor Name 11/08/2024 1 [employer] (MEDICARE REPLACEMENT/ ADVANTAGE - PPO) [id number] Iker Gray [id number] Iker Gray Notes Date Note Type Note Provider Name and Address Organization Details Recorded Time 11/08/2024 text/html ROS as noted in the HPI 64 year old male who presents to the office today with concerns ofnausea todaynumbness in feet/legs/arms and hands for weeks-- wants referral to neurologyhad heart attack w/4 stents in Marchdiff twice in 2024lyme disease and salmonella poisoning in 2024 Rosalie Salas, EPHRAIM [address], [place], [address], [place] - [facility] 12/16/2024 16:11:27 12/13/2024 text/html ROS as noted in the HPI 64 yr old male presents for a follow up on abnormal tests- CTS abbie- has appt with neurology in January. numbness and tingling hands and feet. dx neuropathy- feet, cramps in legs Rosalie Salas, [employer] [address], [place], [address], [facility] - [facility] 12/13/2024 11:53:14
--- OUTSIDE RECORDS SUMMARY | 2025-02-04 07:17 | XMS_ITS | Encounter Summary ---
Author Organization [facility] Address [address], [address] [place] [address] Care Team Providers Care Stack Clerk Name Role Phone Do Lambert APRN, CNP Primary Care Provider + Reason for Referral * Imaging (Routine) - Closed Specialty Diagnoses / Procedures Referred By Yari t Referred To Contact Radiology Diagnoses Encounter for screening for malignant neoplasm of respiratory organs Cigarette nicotine dependence in remission Procedures CT Lung Screen (Initial or Annual) Do Lambert APRN - CNP [address] [place] [address] Phone: tel: fax: Referral ID Status Reason Start Date Expiration Date Visits Re quested Visits Authorized Closed 04/28/2021 04/28/2022 1 1 Encounter Details Date Type Department Care Team (Late st Contact Info) Description 04/28/2021 Transcribe Orders [facility] Pre Access [address] [place], [place] [phone] Do Lambert APRN - CNP [address] [place] [address] Encounter for screening for malignant neoplasm [...] documented as of this encounter Care Teams Stack Clerk Relationship Specialty Start Date End Date Do Lambert APRN - RENETTA [address] [place] [address] PCP - General Nurse Practitioner, Family 11/01/22 documented as of this encounter
--- OUTSIDE RECORDS SUMMARY | 2025-02-04 07:17 | XMS_ITS | Continuity of Care Document ---
[facility] Address [address] [place] [phone] Assessment No assessment recorded. Plan of Treatment Reminders Order Date Submit Date Provider Last Modified By Organization Details Last Modified Time Details Appointments Medicare AWE 40mins 2025 10:00A M Rosalie Salas APRN Not available Not available Not available Lab None recorded. Referral None recorded. Procedures None recorded. Surgeries None recorded. Imaging None recorded. Medication Orders None recorded. Patient TargetsNo targets recorded. Patient InstructionsNo instructions recorded. Reason for Referral None Reported. Results Created Date Observation Date Name Description Value Unit Range Abnormal Flag Note LastModifiedBy Organization Detail LastModifiedTime 12/27/1912/26/2024 drug scree n, urine AMP negati ve Not Available [address], [address], 12/26/2024 14:14:32 12/27/1912/26/2024 drug scree n, urine BAR negati ve Not Available [address], [address], 12/26/2024 14:14:32 12/27/19 25 12/26/2024 drug scree n, urine BUP negati ve Not Available [address], [address], 12/26/2024 14:14:32 12/27/19 25 12/26/2024 drug scree n, urine BZO negati ve Not Available [address], [address], 12/26/2024 14:14:32 12/27/1912/26/2024 drug scree n, urine TOBY negati ve Not Available [address], [address], 12/26/2024 14:14:32 12/27/1912/26/2024 drug scree n, urine FTY negati ve Not Available [address], [address], 12/26/2024 14:14:32 12/27/1912/26/2024 drug scree n, urine MDMA negati ve Not Available [address], [address], 12/26/2024 14:14:32 12/27/19 25 12/26/2024 drug scree n, urine MET negati ve Not Available [address], [address], 12/26/2024 14:14:32 12/27/1912/26/2024 drug scree n, urine MOP negati ve Not Available [address], [address], 12/26/2024 14:14:32 12/27/19 25 12/26/2024 drug scree n, urine MTD negati ve Not Available [address], [address], 12/26/2024 14:14:32 12/27/19 25 12/26/2024 drug scree n, urine OXY negati ve Not Available [address] [place], [address], 12/26/2024 14:14:32 12/27/1912/26/2024 drug scree n, urine PCP negati ve Not Available [address], [address], 12/26/2024 14:14:32 12/27/1912/26/2024 drug scree n, urine TCA negati ve Not Available [address], [address], 12/26/2024 14:14:32 12/27/1912/26/2024 drug scree n, urine THC negati ve Not Available [address], [address], 12/26/2024 14:14:32 12/12/1911/20/2024 elect romyo gram No observ ation record ed. [email or web address] [facility] [address], [place], [address], 12/16/2024 13:35:07 12/20/1912/18/2024 XR, wrist , 2 view No observ ation record ed. [facility] [address], [place], [address], 12/20/2024 08:14:58 12/20/1912/18/2024 XR, wrist , 2 view No observ ation record ed. [facility] [address], [place], [address], 12/20/2024 08:14:58 01/08/20 25 01/06/2025 XR, lumba r spine , 2 view No observ ation record ed. [email or web address] [address], [place], [address], 01/13/2025 10:04:51 01/11/20 25 01/08/2025 MRI, head, w/wo contr ast No observ [facility]ion [email or web address] [address], [place], [address], 01/13/2025 09:44:31 Result Notes None recorded. Problems Name Problem SNOMED Code Status Onset Date Resolution Date Notes Provider Name and Address Organization Details Recorded Time Diabetes mellitus 02797431 Active 2021 Do Fausto, [employer] [address], [place], [address], [place] - [facility] 2 11:07:17 Benign prostatic hyperplasia without outflow obstruction 879377656 Active 2022 Do Fausto, [employer] [address], [place], [address], [place] [facility] 3 13:09:53 Chronic kidney disease stage 2 370771749 Active 2023 Do Fausto, [employer]ING [employer] [address], [place], [address], [place] - [facility] 4 16:55:57 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 Procedures Surgical History Date Name Laterality Status Provider Name and Address Organization Details Recorded Time 12/27/19 Advance Care Planning cancelled Norma Reyna [place] - [facility] 12/24/2024 16:27:32 12/27/19 25 Functional Status Assessed cancelled Norma GUEVARA - [facility] 12/24/2024 16:27:32 03/25/19 25 Medication Reconcilliation completed Norma GUEVARA - [facility] 03/25/2024 13:07:13 12/29/19 24 Advance Care Planning completed Reta GUEVARA - [facility] 12/29/2023 11:11:53 12/29/19 24 Functional Status Assessed completed Reta Carranza [place] - [facility] 12/29/2023 11:11:53 12/24/19 23 Suture/Staple removal completed Do Lambert, [employer] [address], [place], [address], [place] - [facility] 12/23/2022 10:15:30 12/01/19 23 Cryosurgery Dermatology completed Kely Escalona, [employer] [address], [place], [address], [place] - [facility] 11/30/2022 13:15:20 08/25/19 23 Shave Biopsy Face, Ears, eyelids, nose, lips, muc membranes completed Kely Escalona, [employer] [address], [place], [address], [place] - [facility] 08/24/2022 10:36:02 07/22/19 23 Cryosurgery Dermatology completed Kely Escalona, [employer]ING [employer] [address], [place], [address], [place] - [facility] 07/21/2022 14:53:44 05/04/19 22 Medication Reconcilliation completed Norma GUEVARA - [facility] 05/03/2021 14:06:38 Imaging Results None [...] day by oral route for 5 days. 10/31/ 2025 11/12 /2025 completed Not Available Not Available Not [...] Not Available Not Available Not Avai labjoshua pregabalin ER 165 mg tablet, extended release 24 hr TAKE 2 BY MOUTH ONCE DAILY 06/19 completed Not Available Not Available Not Available [facility] Glucose 15 gram/32 mL oral gel packet 15 grams orally as needed for glucose less than 60. If no response within 15 minutes, may repeat dose. 2023 active Not Available Not Available Not Avai ellele OneTouch Ultra2 Meter USE DIRECTED active Not Available Not Available No t Available OneTouch Delica Plus Lancet 33 gauge USE DIRECTED active Not Available Not Available No t Available OneTouch Delica Plus Lancet 30 gauge active Not Available Not Available Not Available [facility] ODT 75 mg disintegrat ing tablet TAKE ONE TABLET BY MOUTH DAILY NEEDED FOR migraine active Not Available Not Available No t Available FreeStyle Uma 2 Sensor kit APPLY ONE (1) SENSOR TOPICALLY EVERY 14 DAYS active Not Available Not Available No t Available FreeStyle Uma 2 [place] USE DIRECTED active Not Available Not Available [...] gauge x /32 USE as directed with sunny jordan active Not Available Not Available No t Available Vitals Date Recorded Body height Heart rate Oxygen saturation Respiratory rate Pain severity - 0-10 verbal numeric rating [Score] - Reported Body temperature Systolic And Diastolic Provider Name and Address Organization Details Last Updated DateTime 5 182.88 cm 71 /min 97 % 20 /min 0 97.2 [degF] 122/68 mm[Hg] Rand Hampton [place] - [facility] 5 13:17:43 Social History Question Answer Notes LastModified by Organizat ion Details LastModified Time Tobacco Smoking Status Former Smoker Norma Reyna [place] - [facility] 04/27/2021 13:28:13 Do You Have An Advance Directive? No [email or web address] Information not available 04/27/2021 How Many Years Have You Consumed Alcohol? 30 Information not available 08/05/2024 Are You Blind Or Do You Have Difficulty Seeing? No Information not available 04/27/2021 Is Blood Transfusion Acceptable In An Emergency? Yes [email or web address] Information not available 08/05/2024 What Is Your Level Of Caffeine Consumption? Occasional [email or web address] Information not available 04/27/2021 In The 14 Days Before Symptom Onset, Have You Had Close Contact With A Laboratory-confir med COVID-19 While That Case Was Ill? No [email or web address] Information not available 04/27/2021 In The 14 Days Before Symptom Onset, Have You Had Close Contact With A Person Who Is Under Investigation For COVID-19 While That Person Was Ill? No [email or web address] Information not available 04/27/2021 Have You Been To An Area Known To Be High Risk For COVID-19? No Information not available 04/27/2021 Are You Deaf Or Do You Have Serious Difficulty Hearing? No [email or web address] Information not available 04/27/2021 What Type Of Diet Are You Following? REGULAR [email or web address] Information not available 04/27/2021 Have You Processed Blood Or Body Fluids From An Ebola Virus Disease Patient Without Appropriate PPE? No [email or web address] Information not available 04/27/2021 Do You Reside In Or Have You Traveled To An Area Where Ebola Virus Transmission Is Active? No [email or web address] Information not available 04/27/2021 What Is The Highest Grade Or Level Of School You Have Completed Or The Highest Degree You Have Received? GZ68685-7 [email or web address] Information not available 08/05/2024 Have There Been Any Changes To Your Family Or Social Situation? No [email or web address] Information no t available 04/27/2021 When Did You Quit Smoking? 1-5yearssincel kj [email or web address] Information not available 04/27/2021 Have You Recently Or Are You Planning To Travel To An Area With Zika Virus? No Information not available 04/27/2021 How Many Years Have You Used Illicit Or Recreational Drugs? 0 Information not available 08/05/2024 What Was The Date Of Your Most Recent Tobacco Screening? 06/25/2024 Information not available 06/25/2024 Do You Use Protection Against STDs? No [email or web address] Information not available 08/05/2024 What Is Your Relationship Status? Information not available 08/05/2024 Do You Use Your Seat Belt Or Car Seat Routinely? Yes [email or web address] Information not available 08/05/2024 Are You Sexually Active? Yes [email or web address] Information not available 06/25/2024 Do You Have Smoke And Carbon Monoxide Detectors In Your Home? Yes [email or web address] Information not available 04/27/2021 At What Age Did You Start Smoking Tobacco? 11 [email or web address] Information not available 08/05/2024 Are You Passively Exposed To Smoke? No [email or web address] Information no t available 04/27/2021 Do You Use Sunscreen Routinely? No [email or web address] Information not available 08/05/2024 Has Tobacco Cessation Counseling Been Provided? Yes Information not available 06/20/2023 On What Date Was Tobacco Cessation Counseling Provided? 06/25/2024 [email or web address] Information not available 06/25/2024 How Many Years Have You Smoked Tobacco? 40 [email or web address] Information not available 04/27/2021 Do You Have Difficulty Walking Or Climbing Stairs? No [email or web address] Information not available 04/27/2021 Sex: Male Functional Status Question Answer Note LastModified by Organizat ion Details LastModified Time Do you use any illicit or recreational drugs? No [email or web address] Information not available 04/27/2021 Do you or have you ever used any other forms of tobacco or nicotine? No [email or web address] Information not available 04/27/2021 What is your level of alcohol consumption? Occasional [email or web address] Information not available 04/27/2021 Are you currently employed? No [email or web address] Information not available 04/27/2021 Do you have transportation difficulties? No [email or web address] Information not available 04/27/2021 Do you have difficulty doing errands alone? No Information not available 04/27/2021 Are you able to care for yourself independently? Yes Information not available 04/27/2021 Do you have difficulty dressing, bathing, grooming, or toileting? No [email or web address] Information not available 04/27/2021 Do you or have you ever used e-cigarettes or vape? Never used electronic cigarettes [email or web address] Information not available 08/05/2024 What is your exercise level? Moderate [email or web address] Information not available 08/05/2024 Mental Status Question Answer Note LastModified by Organizat ion Details LastModified Time Do you feel stressed (tense, restless, nervous, or anxious, or unable to sleep at night)? [id number] [email or web address] Information not available 08/05/2024 Do you have difficulty concentrating, remembering or making decisions? No [email or web address] Information no t available 04/27/2021 Family History [...] colitis N Cerebrovascular Disease N Depression N Guillain-[place] N Sleep Apnea N Aneurysm N Heart Disease N Bronchitis N Suicidal Ideation N Pre-Eclampsia N Hypertension N Osteoporosis N Immunizations Vaccine Type Date Status Note Provider Nam e and Address Organization Details Recorded Time HepB-CpG 05/26/19 24 completed Not Available [facility] 09/27/2024 10:36:34 Influenza, MDCK, quadrivalent, PF 04/10/19 24 completed Nyasia Wyatts null, [place] - [facility] 11/08/2024 11:05:03 RSV, recombinant, protein subunit RSVpreF, adjuvant reconstituted, 0.5 mL, PF 04/10/19 24 completed Nyasia Wyatts null, [place] - [facility] 11/08/2024 11:05:03 Tdap 06/20/19 24 cancelled patient objection Do Lambert, [employer]ING [employer] [address], [place], [address], [place] [facility] 06/26/2023 08:34:29 zoster recombinant 03/07/19 completed Do Lambert, [employer]ING [employer] [address], [place], [address], [place] - [facility] 04/04/2023 13:11:37 zoster recombinant 12/28/19 completed Do Lambert, [employer]ING [employer] [address], [place], [address], [place] - [facility] 04/04/2023 13:11:37 Respiratory syncytial virus (RSV) MAB, unspecified 04/10/19 completed Norma Reyna null, [place] - [facility] 04/21/2023 14:13:48 influenza, unspecified formulation 04/10/19 completed Nyasia Vergara null, [place] - [facility] 11/08/2024 11:05:03 Past Encounters Encounter ID Performer Location Encounter Start Date Encounter Closed Date Diagnosis/Indication Diagnosis SNOMED-CT Code Diagnosis ICD10 Code Diagnosis IMO Codes Diagnosis Note [id number] Rosalie Salas APRN [address] [address] 12/13/2024 10:29:23 12/13/2024 11:36:25 Bilateral carpal tunnel syndrome 1164608415 5850100 G56.03 329777 splints at nightstero idsrefer to orthoif worsen or no improvemen t return [id number] Rosalie Salas APRN [address] [address] 12/26/2024 13:50:05 12/26/2024 15:04:08 Diabetes mellitus 18876793 E13.42 continue diet and exercise 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 2 diabetes mellitus 0627317071 107 E11.42 Long-term current use of drug therapy 808155279 Z79.899 96889516 Cramp in foot 523431277 R25.2 0171230 referral to podiotryho ld statin [id number] Rosalie Salas APRN [address] [address] 01/06/2025 12:45:41 01/06/2025 13:30:02 Frequent headache 826470047 R51.9 [id number] follow up with pevaz Dizzy spells 014920997 R 42 [id number] follow up with mundo symptoms worsen or no improvemen t return Health Concerns Section Related Observation LastModified by Organization Detai ls LastModified Time None Recorded Concern Status LastModified by Organization Details LastModified Time None Recorded Payers Encounter Date Sequence Insurance Name Policy Number Policy Jimenez Covered Member ID Jimenez Member ID Guarantor Name 01/06/2025 1 [employer] (MEDICARE REPLACEMENT/ ADVANTAGE - PPO) [id number] Iker Gray [id number] Iker Gray Notes Date Note Type Note [...] states symptoms improve with tylenol Rosalie Salas, [employer] [address], [place], [address], [place] - [facility] 01/06/2025 13:30:22
--- OUTSIDE RECORDS SUMMARY | 2025-02-04 07:17 | XMS_ITS | Continuity of Care Document ---
Author Organization [facility] Address [address] [place] [id number] Assessment No assessment recorded. Plan of Treatment Reminders Order Date Submit Date Provider Last Modified By Organization Details Last Modified Time Details Appointments Medicare AWE 40mins 2025 10:00A M Rosalie Salas APRN Not available Not available Not available Lab HbA1c (hemoglob in A1c), blood 2024 025 [facility], [address] [place] [address], [id number], 01/24/2025 13:44:12 Referral None recorded. Procedures None recorded. Surgeries None recorded. Imaging None recorded. Medication Orders None recorded. Patient TargetsNo targets recorded. Patient InstructionsNo instructions recorded. Reason for Referral None Reported. Results Created Date Observation Date Name Description Value Unit Range Abnormal Flag Note LastModifiedBy Organization Detail LastModifiedTime 12/27/1912/26/2024 drug scree n, urine AMP negati ve Not Available [address], [address], 12/26/2024 14:14:32 12/27/19 25 12/26/2024 drug scree n, urine BAR negati ve Not Available [address], [address], 12/26/2024 14:14:32 12/27/19 25 12/26/2024 drug scree n, urine BUP negati ve Not Available [address], [address], 12/26/2024 14:14:32 12/27/19 25 12/26/2024 drug scree n, urine BZO negati ve Not Available [address], [address], 12/26/2024 14:14:32 12/27/1912/26/2024 drug scree n, urine TOBY negati ve Not Available [address], [address], 12/26/2024 14:14:32 12/27/1912/26/2024 drug scree n, urine FTY negati ve Not Available [address], [address], 12/26/2024 14:14:32 12/27/19 25 12/26/2024 drug scree n, urine MDMA negati ve Not Available [address], [address], 12/26/2024 14:14:32 12/27/19 25 12/26/2024 drug scree n, urine MET negati ve Not Available [address], [address], 12/26/2024 14:14:32 12/27/19 25 12/26/2024 drug scree n, urine MOP negati ve Not Available [address], [address], 12/26/2024 14:14:32 12/27/19 25 12/26/2024 drug scree n, urine MTD negati ve Not Available [address], [address], 12/26/2024 14:14:32 12/27/19 25 12/26/2024 drug scree n, urine OXY negati ve Not Available [address], [address], 12/26/2024 14:14:32 12/27/19 25 12/26/2024 drug scree n, urine PCP negati ve Not Available [address], [address], 12/26/2024 14:14:32 12/27/1912/26/2024 drug scree n, urine TCA negati ve Not Available [address], [address], 12/26/2024 14:14:32 12/27/1912/26/2024 drug scree n, urine THC negati ve Not Available [address], [address], 12/26/2024 14:14:32 01/25/20 25 01/24/2025 HbA1c (hemo globi n A1c), blood HbA1C 5.7 % Not Available [address], [address], 01/24/2025 11:37:25 01/08/20 25 01/06/2025 XR, lumba r spine , 2 view No observ ation record ed. [facility] [id number], [place], [address], 01/13/2025 10:04:51 01/11/20 25 01/08/2025 MRI, head, w/wo contr ast No observ ation record ed. [facility] [address], [place], [address], 01/13/2025 09:44:31 Result Notes None recorded. Problems Name Problem SNOMED Code Status Onset Date Resolution Date Notes Provider Name and Address Organization Details Recorded Time Diabetes mellitus 07972737 Active 2021 Do Lambert, [employer] [address], [place], [address], [place] - [facility] 2 11:07:17 Benign prostatic hyperplasia without outflow obstruction 012355733 Active 2022 Do Lambert, [employer] [address], [place], [address], [place] - [facility] 3 13:09:53 Chronic kidney disease stage 2 991705997 Active 2023 Do Lambert, [employer] [address], [place], [address], [place] - [facility] 4 16:55:57 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 Do Lambert, [employer] [address], [place], [address], [place] - [facility] 5 15:12:03 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 2024 Do Lambert, [employer] [address], [place], [address], [place] - [facility] 5 15:12:16 Neuropathy 467924329 Active 2024 Rosalie Salas, [employer] [address], [place], [address], [place] - [facility] 5 10:07:09 [...] 12/24/19 23 Suture/Staple removal completed Do Fausto, [employer] [address], [place], [address], [place] - [facility] 12/23/2022 10:15:30 12/01/19 23 Cryosurgery Dermatology completed Kely Escalona, [employer] [address], [place], [address], [place] - [facility] 11/30/2022 13:15:20 08/25/19 23 Shave Biopsy Face, Ears, eyelids, nose, lips, muc membranes completed Kely Escalona, [employer] [address], [place], [address], [place] [facility] 08/24/2022 10:36:02 07/22/19 23 Cryosurgery Dermatology completed Kely Escalona, [employer] [address], [place], [address], [place] - [facility] 07/21/2022 14:53:44 05/04/19 22 [...] active Not Available Not Available Not Available [facility] ODT 75 mg disintegrat ing tablet TAKE ONE TABLET BY MOUTH DAILY NEEDED FOR migraine active Not Available Not Available No t Available FreeStyle Uma 2 Sensor kit APPLY ONE (1) SENSOR TOPICALLY EVERY 14 DAYS active Not Available Not Available No t Available FreeStyle Uma 2 [place] USE DIRECTED active Not Available Not Available [...] Available Sobia Pen Needle 32 gauge x / USE as directed with lantus solostar active Not Available Not Available No t Available Vitals Date Recorded Body height Body mass index (BMI) Body weight Body temperature Heart rate Oxygen saturation Respiratory rate Pain severity - 0-10 verbal numeric rating [Score] - Reported Systolic And Diastolic Provider Name and Address Organization Details Last Updated DateTime 5 182.88 cm 25.2 kg/m2 41238.8 8 g 97.9 [degF] 76 /min 96 % 18 /min 0 112/78 mm[Hg] Rand Hampton [place] - [facility] 5 11:23:52 Social History Question Answer Notes LastModified by Organizat ion Details LastModified Time Tobacco Smoking Status Former Smoker Norma calixto [place] - [facility] 04/27/2021 13:28:13 Do You Have An Advance Directive? No [email or web address] Information not available 04/27/2021 How Many Years Have You Consumed Alcohol? 30 [email or web address] Information not available 08/05/2024 Are You Blind Or Do You Have Difficulty Seeing? No [email or web address] Information not available 04/27/2021 Is Blood Transfusion Acceptable In An Emergency? Yes Information not available 08/05/2024 What Is Your Level Of Caffeine Consumption? Occasional [email or web address] Information not available 04/27/2021 In The 14 Days Before Symptom Onset, Have You Had Close Contact With A Laboratory-confir med COVID-19 While That Case Was Ill? No [email or web address] Information not available 04/27/2021 In The 14 Days Before Symptom Onset, Have You Had Close Contact With A Person Who Is Under Investigation For COVID-19 While That Person Was Ill? No [email or web address] Information not available 04/27/2021 Have You Been To An Area Known To Be High Risk For COVID-19? No Information not available 04/27/2021 Are You Deaf Or Do You Have Serious Difficulty Hearing? No [email or web address] Information not available 04/27/2021 What Type Of Diet Are You Following? REGULAR [email or web address] Information not available 04/27/2021 Have You Processed Blood Or Body Fluids From An Ebola Virus Disease Patient Without Appropriate PPE? No Information not available 04/27/2021 Do You Reside In Or Have You Traveled To An Area Where Ebola Virus Transmission Is Active? No [email or web address] Information not available 04/27/2021 What Is The Highest Grade Or Level Of School You Have Completed Or The Highest Degree You Have Received? [id number] [email or web address] Information not available 08/05/2024 Have There Been Any Changes To Your Family Or Social Situation? No [email or web address] Information no t available 04/27/2021 When Did You Quit Smoking? 1-5yearssincel kj [email or web address] Information not available 04/27/2021 Have You Recently Or Are You Planning To Travel To An Area With Zika Virus? No [email or web address] Information not available 04/27/2021 How Many Years Have You Used Illicit Or Recreational Drugs? 0 [email or web address] Information not available 08/05/2024 What Was The Date Of Your Most Recent Tobacco Screening? 06/25/2024 [email or web address] Information not available 06/25/2024 Do You Use Protection Against STDs? No [email or web address] Information not available 08/05/2024 What Is Your Relationship Status? Information not available 08/05/2024 Do You Use Your Seat Belt Or Car Seat Routinely? Yes [email or web address] Information not available 08/05/2024 Are You Sexually Active? Yes Information not available 06/25/2024 Do You Have Smoke And Carbon Monoxide Detectors In Your Home? Yes [email or web address] Information not available 04/27/2021 At What Age Did You Start Smoking Tobacco? 11 [email or web address] Information not available 08/05/2024 Are You Passively Exposed To Smoke? No [email or web address] Information no t available 04/27/2021 Do You Use Sunscreen Routinely? No [email or web address] Information not available 08/05/2024 Has Tobacco Cessation Counseling Been Provided? Yes [email or web address] Information not available 06/20/2023 On What Date Was Tobacco Cessation Counseling Provided? 06/25/2024 Information not available 06/25/2024 How Many Years Have You Smoked Tobacco? 40 [email or web address] Information not available 04/27/2021 Do You Have Difficulty Walking Or Climbing Stairs? No [email or web address] Information not available 04/27/2021 Sex: Male Functional Status Question Answer Note LastModified by Organizat ion Details LastModified Time Do you use any illicit or recreational drugs? No [email or web address] Information not available 04/27/2021 Do you or have you ever used any other forms of tobacco or nicotine? No [email or web address] Information not available 04/27/2021 What is your level of alcohol consumption? Occasional [email or web address] Information not available 04/27/2021 Are you currently employed? No [email or web address] Information not available 04/27/2021 Do you have transportation difficulties? No [email or web address] Information not available 04/27/2021 Do you have difficulty doing errands alone? No [email or web address] Information not available 04/27/2021 Are you able to care for yourself independently? Yes [email or web address] Information not available 04/27/2021 Do you have difficulty dressing, bathing, grooming, or toileting? No [email or web address] Information not available 04/27/2021 Do you or have you ever used e-cigarettes or vape? Never used electronic cigarettes [email or web address] Information not available 08/05/2024 What is your exercise level? Moderate Information not available 08/05/2024 Mental Status Question Answer Note LastModified by [employer] ion Details LastModified Time Do you feel stressed (tense, restless, nervous, or anxious, or unable to sleep at night)? [id number] [email or web address] Information not available 08/05/2024 Do you have difficulty concentrating, remembering or making decisions? No [email or web address] Information no t available 04/27/2021 Family History [...] colitis N Cerebrovascular Disease N Depression N Guillain-[place]oma N Sleep Apnea N Aneurysm N Heart Disease N Bronchitis N Suicidal Ideation N Pre-Eclampsia N Hypertension N Osteoporosis N Immunizations Vaccine Type Date Status Note Provider Nam e and Address Organization Details Recorded Time HepB-CpG 05/26/19 24 completed Not Available [facility] 09/27/2024 10:36:34 Influenza, MDCK, quadrivalent, PF 04/10/19 24 completed [facility] 11/08/2024 11:05:03 RSV, recombinant, protein subunit RSVpreF, adjuvant reconstituted, 0.5 mL, PF 04/10/19 24 completed Nyasiamarcela Schneiders null, [place] - [facility] 11/08/2024 11:05:03 Tdap 06/20/19 24 cancelled patient objection Do Lambert APRN [address], [place], [address], [facility] - [facility] 06/26/2023 08:34:29 zoster recombinant 03/07/19 24 completed Do Lambert APRN [address], [place], [address], [facility] - [facility] 04/04/2023 13:11:37 zoster recombinant 12/28/19 23 completed Do Lambert APRN [address], [place], [address], [place] - [facility] 04/04/2023 13:11:37 Respiratory syncytial virus (RSV) MAB, unspecified 04/10/19 24 completed Norma Reyna null, [place] - [facility] 04/21/2023 14:13:48 influenza, unspecified formulation 04/10/19 24 completed Nyasia Vergara null, [place] - [facility] 11/08/2024 11:05:03 Past Encounters Encounter ID Performer Location Encounter Start Date Encounter Closed Date Diagnosis/Indication Diagnosis SNOMED-CT Code Diagnosis ICD10 Code Diagnosis IMO Codes Diagnosis Note [id number] Rosalie Salas APRN [address] [address] 12/26/2024 13:50:05 12/26/2024 15:04:08 Diabetes mellitus 46700873 E13.42 continue diet and exercise 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 2 diabetes mellitus 4696081715 107 E11.42 Long-term current use of drug therapy 382191496 Z79.899 [id number] Cramp in foot 020647067 R25.2 [id number] referral to podiotryho ld statin [id number] Rosalie Salas [address] [address] 01/06/2025 12:45:41 01/06/2025 13:30:02 Frequent headache 772863918 R51.9 [id number] follow up with pevaz Dizzy spells 199149887 R 42 828457 follow up with pevezif symptoms worsen or no improvemen t return [id number] Rosalie Salas APRN [address] [address] 01/17/2025 08:48:44 01/17/2025 09:46:03 Frequent headache 067256807 R51.9 58819886 follow up with pevaz 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 2 diabetes mellitus 6615875700 107 E11.42 Pt compliant with plan of careHuan reviewedme dication compliance discussedL ast uds: 5Control substance agreement on filediscus sed cymbalta in detail with pt/family- will do low dose Hearing difficulty 08541 0000 H91.93 [id number] Rosalie Salas APRN [facility] [address] [place] [address] 01/24/2025 10:45:52 01/24/2025 12:06:35 Diabetes mellitus 39828922 E13.42 continue diet and exerciseim proved a1c- continue meds,diet and exercise 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 [id number] follow up with ent Health Concerns Section Related Observation LastModified by Organization Detai ls LastModified Time None Recorded Concern Status LastModified by Organization Details LastModified Time None Recorded Payers Encounter Date Sequence Insurance Name Policy Number Policy Jimenez Covered Member ID Jimenez Member ID Guarantor Name 01/24/2025 1 [employer] (MEDICARE REPLACEMENT/ ADVANTAGE - PPO) [id number] Iker Gray [id number] Iker Gray Notes Date Note Type Note Provider Name and Address Organization Details Recorded Time 01/24/2025 text/html 64 yr old male presents for a follow up on diabetes, last a1c 6, doing well on current medsrecent testing - sees hematology wedsent visit - having ct next week Rosalie Salas APRN [address], [place], [address], [place] - [facility] 01/24/2025 15:04:51
--- OUTSIDE RECORDS SUMMARY | 2025-02-04 07:17 | XMS_ITS | Encounter Summary ---
Author Organization [facility] Address [address], [address] [place] [address] Care Team Providers Care It Analyst Name Role Phone Do Lambert [facility] Primary Care Provider + Reason for Referral * Imaging (Routine) - Closed Specialty Diagnoses / Procedures Referred By Contac t Referred To Contact Radiology Diagnoses Chronic kidney disease, stage II (mild) Procedures US RENAL COMPLETE Loida Epps MD Phone: tel: fax: Referral ID Status Reason Start Date Expiration Date Visits Re quested Visits Authorized [id number] Closed 10/28/2022 10/28/2023 1 1 Encounter Details Date Type Department Care Team (Late st Contact Info) Description 10/28/2022 Transcribe Orders [facility] Pre Access [address] [place], [place] [id number] Loida Epps MD [address] [place] [address] Chronic kidney disease, stage II [...] residual of 44%. us Loida Epps MD [facility] US ORDERABLES Final Result documented in this encounter Visit Diagnoses Diagnosis Chronic kidney disease, stage II (mild)- Primary Chronic kidney disease, Stage II (mild) Chronic kidney disease, stage II (mild) Chronic kidney disease, Stage II (mild) documented in this encounter Care Teams It Analyst Relationship Specialty Start Date End Date Do Lambert APRN - [place] [address] [place] [address] PCP - General Nurse Practitioner, Family 11/01/22 documented as of this encounter
--- OUTSIDE RECORDS SUMMARY | 2025-02-04 07:18 | XMS_ITS | Data Portability ---
Author Organization [facility] Address [address] [place] [address] Assessment No assessment recorded. Plan of Treatment Reminders Order Date Submit Date Provider Last Modified By Organization Details Last Modified Time Details Appointments Medicare AWE 40mins 2025 10:00A M Rosalie Salas APRN Not available Not available Not available Lab HbA1c (hemoglob in A1c), blood 2024 025 [facility], [address] [place] [address], [address], 01/24/2025 13:44:12 drug screen, urine 2024 025 [facility], [address] [place] [address], [phone], 12/26/2024 14:57:29 Referral ENT surgery referral 2024 025 [facility], [address], [place], [address], 01/23/2025 20:56:44 podiatris t referral 2024 025 [facility], [address], [place], [address], 01/27/2025 11:34:40 orthopedi c surgeon referral 2024 025 [facility], [address], [place], [address], 12/19/2024 11:45:17 Procedures None recorded. Surgeries None recorded. Imaging None recorded. Medication Orders pregabali n 150 mg capsule 2024 [facility], [address] [place] [address] [place], [place], [id number], 01/28/2025 11:43:59 Cymbalta 20 mg capsule,d elayed release 2024 [facility], [address] [place] [address] [place], [place], [id number], 01/17/2025 15:13:05 pregabali n 150 mg capsule 2024 [place] [facility], [address] [place] [address] [place], [place], [phone], 12/28/2024 11:44:23 prednison e 10 mg tablet 2024 [facility], [address] [place] [address] Dr [place], [place], [id number], 12/25/2024 05:01:58 Patient TargetsNo targets recorded. Patient InstructionsNo instructions recorded. Reason for Referral Orthopedic Surgeon Referral for Bilateral carpal tunnel syndrome Referring Physician: Rosalie Salas [facility] Neil, Encounter Date: 12/13/2024 [employer] Referral for Cyndee pheral neuropathy due to type 2 diabetes mellitus Referring Physician: Family Neil Christopher, Encounter Date: 12/26/2024 ENT Surgery Referral for Hea ring difficulty hearing problems, mastoid fluid on mri Referring Physician: Rosalie Salas [facility] Neil, Encounter Date: 01/17/2025 Results Created Date Observation Date Name Description Value Unit Range Abnormal Flag Note LastModifiedBy Organization Detail LastModifiedTime 12/27/1912/26/2024 drug scree n, urine AMP negati ve Not Available [address], [address], 12/26/2024 14:14:32 12/27/19 25 12/26/2024 drug scree n, urine BAR negati ve Not Available [address], [address], 12/26/2024 14:14:32 12/27/1912/26/2024 drug scree n, urine BUP negati ve Not Available [address], [address], 12/26/2024 14:14:32 12/27/1912/26/2024 drug scree n, urine BZO negati ve Not Available [address], [address], 12/26/2024 14:14:32 12/27/19 25 12/26/2024 drug scree n, urine TOBY negati ve Not Available [address], [address], 12/26/2024 14:14:32 12/27/19 25 12/26/2024 drug scree n, urine FTY negati ve Not Available [address], [address], 12/26/2024 14:14:32 12/27/1912/26/2024 drug scree n, urine MDMA negati ve Not Available [address], [address], 12/26/2024 14:14:32 12/27/19 25 12/26/2024 drug scree n, urine MET negati ve Not Available [address] [place], [address], 12/26/2024 14:14:32 12/27/19 25 12/26/2024 drug scree n, urine MOP negati ve Not Available [address], [address], 12/26/2024 14:14:32 12/27/1912/26/2024 drug scree n, urine MTD negati ve Not Available [address], [address], 12/26/2024 14:14:32 12/27/1912/26/2024 drug scree n, urine OXY negati ve Not Available [address], [address], 12/26/2024 14:14:32 12/27/19 25 12/26/2024 drug scree n, urine PCP negati ve Not Available [address], [address], 12/26/2024 14:14:32 12/27/1912/26/2024 drug scree n, urine TCA negati ve Not Available [address], [address], 12/26/2024 14:14:32 12/27/1912/26/2024 drug scree n, urine THC negati ve Not Available [address], [address], 12/26/2024 14:14:32 01/25/20 25 01/24/2025 HbA1c (hemo globi n A1c), blood HbA1C 5.7 % Not Available [address], [address], 01/24/2025 11:37:25 11/22/1911/20/2024 elect romyo gram + nerve condu ction study No observ ation record ed. [facility] [address], [place], [address], 11/25/2024 10:23:40 11/27/1911/20/2024 elect romyo gram + nerve condu ction study No observ ation record ed. [facility] (Med Record) [address], [place], [address], 12/11/2024 11:13:57 11/28/1911/25/2024 elect romyo gram + nerve condu ction study No observ ation record ed. [facility] [address], [place], [address], 12/11/2024 11:47:34 12/12/1911/20/2024 elect romyo gram No observ ation record ed. [email or web address] [facility] [address], [place], [address], 12/16/2024 13:35:07 12/20/19 25 12/18/2024 XR, wrist , 2 view No observ ation record ed. [facility] [address], [place], [address], 12/20/2024 08:14:58 12/20/1912/18/2024 XR, wrist , 2 view No observ ation record ed. [facility] [address], [place], [address], 12/20/2024 08:14:58 01/08/20 25 01/06/2025 XR, lumba r spine , 2 view No observ ation record ed. [email or web address] [address], [place], [address], 01/13/2025 10:04:51 01/11/20 25 01/08/2025 MRI, head, w/wo contr ast No observ ation record ed. [facility] [address], [place], [address], 01/13/2025 09:44:31 Result Notes None recorded. 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 Procedures Surgical History Date Name Laterality Status Provider Name and Address Organization Details Recorded Time 12/27/19 Advance Care Planning cancelled Normahanny Reyna [place] - [facility] 12/24/2024 16:27:32 12/27/19 25 Functional Status Assessed cancelled Norma [place] - [facility] 12/24/2024 16:27:32 03/25/19 25 Medication Reconcilliation completed Norma G[place]VAR[place] - [facility] 03/25/2024 13:07:13 12/29/19 24 Advance Care Planning completed Reta Carranza [place] - [facility] 12/29/2023 11:11:53 12/29/19 24 Functional Status Assessed completed Reta Carranza [place] - [facility] 12/29/2023 11:11:53 12/24/19 23 Suture/Staple removal completed Do Lambert, STOREROOM CLERK [address], [place], [address], [place] - [facility] 12/23/2022 10:15:30 12/01/19 23 Cryosurgery Dermatology completed Kely Escalona STOREROOM CLERK [address], [place], [address], [place] - [facility] 11/30/2022 13:15:20 08/25/19 23 Shave Biopsy Face, Ears, eyelids, nose, lips, muc membranes completed Kely Escalona STOREROOM CLERK [address], [place], [address], [place] - [facility] 08/24/2022 10:36:02 07/22/19 23 Cryosurgery Dermatology completed Kely Escalona STOREROOM CLERK [address], [place], [address], [place] - [facility] 07/21/2022 14:53:44 05/04/19 22 [...] Not Available Not Available Not Avai lable [facility] Ultra Test strips USE DIRECTED active Not [...] active Not Available Not Available Not Available [facility] ODT 75 mg disintegrat ing tablet TAKE ONE TABLET BY MOUTH DAILY NEEDED FOR migraine active Not Available Not Available No t Available FreeStyle Uma 2 Sensor kit APPLY ONE (1) SENSOR TOPICALLY EVERY 14 DAYS active Not Available Not Available No t Available FreeStyle Uma 2 Marcy USE DIRECTED active Not Available Not Available [...] x 5/32 USE as directed with lantus lozanoar active Not Available Not Available No t Available Vitals Date Recorded Body height Body mass index (BMI) Body weight Body temperature Heart rate Oxygen saturation Respiratory rate Pain severity - 0-10 verbal numeric rating [Score] - Reported Systolic And Diastolic Provider Name and Address Organization Details Last Updated DateTime 5 182.88 cm 25.4 kg/m2 09606.4 7 g 98.1 [degF] 60 /min 97 % 18 /min 4 124/72 mm[Hg] Rand [place] - [facility] 5 10:51:59 Date Recorded Body height Body mass index (BMI) Body weight Body temperature Heart rate Oxygen saturation Respiratory rate Pain severity - 0-10 verbal numeric rating [Score] - Reported Systolic And Diastolic Provider Name and Address Organization Details Last Updated DateTime 5 182.88 cm 25 kg/m2 75407 g 97.5 [degF] 71 /min 97 % 18 /min 0 126/72 mm[Hg] Rand [place] - [facility] 5 14:08:24 Date Recorded Body height Heart rate Oxygen saturation Respiratory rate Pain severity - 0-10 verbal numeric rating [Score] - Reported Body temperature Systolic And Diastolic Provider Name and Address Organization Details Last Updated DateTime 5 182.88 cm 71 /min 97 % 20 /min 0 97.2 [degF] 122/68 mm[Hg] Rand [place] - [facility] 5 13:17:43 Date Recorded Body height Respiratory rate Heart rate Oxygen saturation Body mass index (BMI) Body weight Systolic And Diastolic Provider Name and Address Organization Details Last Updated DateTime 5 182.88 cm 18 /min 66 /min 96 % 25.5 kg/m2 96068.3 7 g 112/64 mm[Hg] Nyasia Vergara [place] - [facility] 5 08:59:09 Date Recorded Body height Body mass index (BMI) Body weight Body temperature Heart rate Oxygen saturation Respiratory rate Pain severity - 0-10 verbal numeric rating [Score] - Reported Systolic And Diastolic Provider Name and Address Organization Details Last Updated DateTime 5 182.88 cm 25.2 kg/m2 86506.8 8 g 97.9 [degF] 76 /min 96 % 18 /min 0 112/78 mm[Hg] Rand Berta [place] - [facility] 5 11:23:52 Social History Question Answer Notes LastModified by Organizat ion Details LastModified Time Tobacco Smoking Status Former Smoker Norma calixto [place] - [facility] 04/27/2021 13:28:13 Do You Have An Advance Directive? No [email or web address] Information not available 04/27/2021 How Many Years Have You Consumed Alcohol? 30 Information not available 08/05/2024 Are You Blind Or Do You Have Difficulty Seeing? No [email or web address] Information not available 04/27/2021 Is Blood Transfusion Acceptable In An Emergency? Yes Information not available 08/05/2024 What Is Your Level Of Caffeine Consumption? Occasional [email or web address] Information not available 04/27/2021 In The 14 Days Before Symptom Onset, Have You Had Close Contact With A Laboratory-confir med COVID-19 While That Case Was Ill? No [email or web address] Information not available 04/27/2021 In The 14 Days Before Symptom Onset, Have You Had Close Contact With A Person Who Is Under Investigation For COVID-19 While That Person Was Ill? No [email or web address] Information not available 04/27/2021 Have You Been To An Area Known To Be High Risk For COVID-19? No [email or web address] Information not available 04/27/2021 Are You Deaf Or Do You Have Serious Difficulty Hearing? No [email or web address] Information not available 04/27/2021 What Type Of Diet Are You Following? REGULAR Information not available 04/27/2021 Have You Processed Blood Or Body Fluids From An Ebola Virus Disease Patient Without Appropriate PPE? No [email or web address] Information not available 04/27/2021 Do You Reside In Or Have You Traveled To An Area Where Ebola Virus Transmission Is Active? No [email or web address] Information not available 04/27/2021 What Is The Highest Grade Or Level Of School You Have Completed Or The Highest Degree You Have Received? [id number] [email or web address] Information not available 08/05/2024 Have There Been Any Changes To Your Family Or Social Situation? No Information no t available 04/27/2021 When Did You Quit Smoking? 1-5yearssincel kj Information not available 04/27/2021 Have You Recently Or Are You Planning To Travel To An Area With Zika Virus? No Information not available 04/27/2021 How Many Years Have You Used Illicit Or Recreational Drugs? 0 [email or web address] Information not available 08/05/2024 What Was The Date Of Your Most Recent Tobacco Screening? 06/25/2024 [email or web address] Information not available 06/25/2024 Do You Use Protection Against STDs? No [email or web address] Information not available 08/05/2024 What Is Your Relationship Status? [email or web address] Information not available 08/05/2024 Do You Use Your Seat Belt Or Car Seat Routinely? Yes [email or web address] Information not available 08/05/2024 Are You Sexually Active? Yes [email or web address] Information not available 06/25/2024 Do You Have Smoke And Carbon Monoxide Detectors In Your Home? Yes [email or web address] Information not available 04/27/2021 At What Age Did You Start Smoking Tobacco? 11 Information not available 08/05/2024 Are You Passively Exposed To Smoke? No [email or web address] Information no t available 04/27/2021 Do You Use Sunscreen Routinely? No [email or web address] Information not available 08/05/2024 Has Tobacco Cessation Counseling Been Provided? Yes [email or web address] Information not available 06/20/2023 On What Date Was Tobacco Cessation Counseling Provided? 06/25/2024 [email or web address] Information not available 06/25/2024 How Many Years Have You Smoked Tobacco? 40 [email or web address] Information not available 04/27/2021 Do You Have Difficulty Walking Or Climbing Stairs? No [email or web address] Information not available 04/27/2021 Sex: Male Functional Status Question Answer Note LastModified by Organizat ion Details LastModified Time Do you use any illicit or recreational drugs? No Information not available 04/27/2021 Do you or have you ever used any other forms of tobacco or nicotine? No Information not available 04/27/2021 What is your level of alcohol consumption? Occasional [email or web address] Information not available 04/27/2021 Are you currently employed? No Information not available 04/27/2021 Do you have transportation difficulties? No Information not available 04/27/2021 Do you have difficulty doing errands alone? No Information not available 04/27/2021 Are you able to care for yourself independently? Yes [email or web address] Information not available 04/27/2021 Do you have difficulty dressing, bathing, grooming, or toileting? No [email or web address] Information not available 04/27/2021 Do you or have you ever used e-cigarettes or vape? Never used electronic cigarettes Information not available 08/05/2024 What is your exercise level? Moderate [email or web address] Information not available 08/05/2024 Mental Status Question Answer Note LastModified by Organizat ion Details LastModified Time Do you feel stressed (tense, restless, nervous, or anxious, or unable to sleep at night)? [id number] [email or web address] Information not available 08/05/2024 Do you have difficulty concentrating, remembering or making decisions? No [email or web address] Information no t available 04/27/2021 Family History [...] colitis N Cerebrovascular Disease N Depression N Guillain-Carpenter N Sleep Apnea N Aneurysm N Heart Disease N Bronchitis N Suicidal Ideation N Pre-Eclampsia N Hypertension N Osteoporosis N Immunizations Vaccine Type Date Status Note Provider Nam e and Address Organization Details Recorded Time HepB-CpG 05/26/19 completed Not Available [facility] 09/27/2024 10:36:34 Influenza, MDCK, quadrivalent, PF 04/10/19 24 completed Nyasia Vergara [facility] 11/08/2024 11:05:03 RSV, recombinant, protein subunit RSVpreF, adjuvant reconstituted, 0.5 mL, PF 04/10/19 24 completed [place] [facility] 11/08/2024 11:05:03 Tdap 06/20/19 24 cancelled patient objection Do Lambert APRN [address], [place], [address], [facility] - [facility] 06/26/2023 08:34:29 zoster recombinant 03/07/19 24 completed Do Lambert APRN [address], [place], [address], [facility] - [facility] 04/04/2023 13:11:37 zoster recombinant 12/28/19 23 completed Do Lambert APRN [address], [place], [address], [place] - [facility] 04/04/2023 13:11:37 Respiratory syncytial virus (RSV) MAB, unspecified 04/10/19 24 completed Norma Reyna null, [place] - [facility] 04/21/2023 14:13:48 influenza, unspecified formulation 04/10/19 24 completed Nyasia Vergara null, [place] - [facility] 11/08/2024 11:05:03 Past Encounters Encounter ID Performer Location Encounter Start Date Encounter Closed Date Diagnosis/Indication Diagnosis SNOMED-CT Code Diagnosis ICD10 Code Diagnosis IMO Codes Diagnosis Note [id number] Do Lambert STOREROOM CLERK [address] [address] 04/27/2021 13:12:27 04/27/2021 14:20:36 Screening for malignant neoplasm of colon 235552867 Z12.11 Screening for cardiovascular system disease 326572237 Z13.6 Fatigue 50884342 R53.83 General ex amination of patient 454112012 Z00.00 Screening for malignant neoplasm of prostate 506893635 Z12.5 Tobacco de pendence in remission 644856391 F17.201 Hepatitis C screening 41 9993211 Z11.59 HIV screening 422756810 Z11.4 [id number] Do Lambert APRN [address] [address] 05/03/2021 13:37:22 05/03/2021 14:36:36 Uncontrolled type 2 diabetes mellitus 373276840 E11.65 RTC in 3 months for labs. Will call office when refills needed. [id number] Do Lambert APRN [address] [address] 10/11/2021 08:30:25 10/11/2021 10:54:00 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 2 diabetes mellitus 6186174901 107 E11.42 OAR[place] reviewed. Controlled substance agreement on file. [id number] Do Lambert STOREROOM CLERK [address] [address] 01/14/2022 07:51:58 01/14/2022 08:42:16 Diabetes mellitus 25754582 E13.42 Last attempt at [facility]. Provided referral informatio n for [facility]. 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 2 diabetes mellitus 7186045448 107 E11.42 [place] reviewed. Controlled substance agreement on file 10/11/21. [id number] Do Lambert APRN [place] [address] [place] [address] 07/04/2022 08:50:10 07/04/2022 09:31:16 Diabetes mellitus 28362879 E13.42 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 2 diabetes mellitus 7147696735 107 E11.42 [place] reviewed. Controlled substance agreement on file 10/11/21. Lesion of skin of face 9015788516 06 L98.9 [id number] EPH[facility] Colon [address] [address] 03/15/2022 08:07:33 03/15/2022 08:46:27 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 2 diabetes mellitus 0785248502 107 E11.42 [place] reviewed. Controlled substance agreement on file 10/11/21. Finding of fluid behind tympanic membrane 955070456 H73.899 Insomnia 913275872 G47.0 0 [id number] Kely Escalona APRN [facility] [address] [place] [address] 07/21/2022 13:36:28 07/21/2022 15:03:11 Senile hyperkeratosis 115911985 L82.1 cryo applied x2 Neoplasm of skin 0671889 04 D49.2 return for shave to rule out BCC prior to referring to MOHs surgery Senile angioma 1768095 I 78.1 [id number] Kely Escalona STOREROOM CLERK [facility] [address] [place] [address] 08/24/2022 09:21:12 08/24/2022 10:47:22 Neoplasm of skin 344496834 D49.2 shave to rule out BCC prior to referring to MOHs surgery [id number] Do Lambert APRN [address] [address] 09/13/2022 08:27:29 09/13/2022 09:36:12 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 2 diabetes mellitus 2885707503 107 E11.42 OARRS reviewed. Controlled substance agreement on file 10/11/21. Body mass index 25-29 - overweight 189708723 Z68.26 Overweight 664869821 E66 .3 [id number] EPHRAIM Colon [facility] [address] [place] [address] 03/20/2023 07:56:42 03/20/2023 08:39:39 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 2 diabetes mellitus 3404940321 107 E11.42 [place]AR[place] reviewed. Controlled substance agreement on file 03/20/23. Diabetes mellitus 750924 09 E13.42 Restart lantus. RTC in 3 months for dm f/u [id number] Kely Escalona [facility] [address] [place] [address] 11/30/2022 10:37:18 11/30/2022 13:22:45 Basal cell carcinoma of skin 438669539 C44.91 Senile hyperkeratosis 39 6475813 L82.1 cryo applied x3 [id number] Do Lambert APRN [facility] [address] [place] [address] 12/16/2022 08:10:43 12/16/2022 09:01:59 Type 2 diabetes mellitus without complication 479594970 E11.9 Patient me dical record not available 062218623 Z76.89 Finding of fluid behind tympanic membrane 462299398 H73.899 Benign pro static hyperplasia without outflow obstruction 631981264 N40.0 [id number] EPHRAIM Colon [facility] [address] [place] [address] 12/23/2022 09:48:12 12/23/2022 10:15:56 Removal of suture 61201308 Z48.02 RTC as needed [id number] EPHRAIM Colon [facility] [address] [place] [address] 12/30/2022 09:25:51 12/30/2022 09:35:58 Diabetes mellitus 09829863 E13.42 [id number] Do Lambert APRN [place] [address] [place] [address] 01/19/2023 09:26:37 01/19/2023 09:31:49 Diabetes mellitus 19926084 E13.42 [id number] Do Lambert APRN [place] [address] [place] [address] 06/20/2023 09:14:24 06/20/2023 10:16:46 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 2 diabetes mellitus 3362593380 107 E11.42 OARRS reviewed. Controlled substance agreement on file 03/20/23. Benign pro static hyperplasia with outflow obstruction 876543432 N40.1 Patient vt dical record not available 399614768 Z76.89 Finding of fluid behind tympanic membrane 026397155 H73.899 Mixed hyperlipidemia 267 399014 E78.2 Persistent insomnia 1919 00387 G47.09 Chest pain 55319928 R07. 9 Chronic ki dney disease stage 2 889887011 N18.2 Active or passive immunization 660378566 Z23 General ex amination of patient 860945883 Z00.00 Exercises education, guidance, and counseling 471361186 Z71.82 The patient was advised to continue a healthy diet and exercise regularly. Dietary ma nagement surveillance 579296587 Z71.3 [id number] Do Lambert STOREROOM CLERK [place] [address] [place] [address] 07/06/2023 10:14:52 07/06/2023 10:25:27 Diabetes mellitus 25043363 E13.42 Restart lantus. RTC in 3 months for dm f/u [id number] Do Lambert STOREROOM CLERK [facility] [address] [place] [address] 09/26/2023 08:34:15 09/26/2023 09:13:59 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 2 diabetes mellitus 8446105123 107 E11.42 OARRS reviewed. Controlled substance agreement on file 03/20/23. Benign pro static hyperplasia with outflow obstruction 626287192 N40.1 [id number] Kely Escalona APRN [facility] [address] [place] [address] 10/11/2023 12:27:49 10/11/2023 13:31:38 Seborrheic dermatitis 35946953 L21.9 offered reassuranc e that I do not see any clinical evidence of recurrence of a BCC [id number] EPHRAIM Colon [address] [address] 12/29/2023 11:00:01 12/29/2023 11:44:32 Adult health examination 378245280 Z00.00 Depression screening 171 092864 Z13.31 A depression screening was completed via a standardiz ed screening tool. 5 minutes were spent discussing depression screening results and risk factors. Examinatio n of blood pressure 808864671 Z01.30 Diet education 01055816 Z71.3 Counseling 418175616 Z71 .82 Exercise counseling . Patient encouraged to exercise 30 minutes 5 days a week. At [facility] ed risk for falls 786196007 Z91.81 STEADI FAST screening score of __3___. Advance care planning 71 8780366 Z71.89 Diabetes mellitus 783527 09 E13.42 Decreased hearing 645329 001 H91.93 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 2 diabetes mellitus 7204914270 107 E11.42 OARRS reviewed. Controlled substance agreement on file 03/20/23. [id number] Do Lambert APRN [address] [address] 03/25/2024 12:50:51 03/25/2024 14:06:05 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 2 diabetes mellitus 5708870495 107 E11.42 OARRS reviewed. Controlled substance agreement on file 03/20/23. Vaccination declined 475 8642706 Z28.21 Seasonal flu vaccine offered and declined [id number] Do Lambert APRN [place] [address] [address] 04/16/2024 09:52:55 04/16/2024 10:53:17 Viral screening 930434480 Z11.59 Low blood pressure 89607 003 I95.9 Hold lisinopril . Appt scheduled with Cardiology tomorrow morning 9AM. Stay well hydrated. Monitor BP at home few times per week, more frequently over next 24 hours. [facility] [id number] Do Lambert [address] [address] 06/25/2024 08:37:38 06/25/2024 09:20:33 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 2 diabetes mellitus 2276476875 107 E11.42 OARRS reviewed. Controlled substance agreement on file 03/25/24. Body mass index 25-29 - overweight 818313004 E66.3 46839243 Overweight 590981013 E66 .3 [id number] Do Lambert [address] [address] 07/16/2024 15:34:54 07/16/2024 16:42:54 Abdominal pain 33967145 R10.9 Unintentio nal weight loss 801105775 R63.4 324212 Fever 742279377 R50.9 901187 Easy bruising 805493124 R23.3 148514 Muscle weakness 77022659 M62.81 11043 Acute diarrhea 142093750 R19.7 87337 [id number] Do Lambert[address] [address] 08/05/2024 10:08:32 08/05/2024 10:58:34 Lyme disease 72864291 A69.20 50005 Completed full course doxycyclin e. Symptoms typically improve within a few weeks, though fatigue may take longer to resolve. Good sleep hygiene encouraged . Light activity and pacing recommende d with stress management . Keep a symptom diary. Well balanced diet and hydration important. Contact office with new or worsening symptoms: fever, rash, joint pain, nerve problems. Fatigue 48027992 R53.83 1192738 Labs in October [id number] Do Lambert [address] [address] 09/27/2024 10:36:22 09/27/2024 11:24:56 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 2 diabetes mellitus 1203616503 107 E11.42 OARRS reviewed. Controlled substance agreement on file 03/25/24. Prostate s pecific antigen measurement 40978335 Z12.5 979844 [id number] Raquelheather Salas [address] [address] 11/08/2024 10:28:26 11/08/2024 11:52:45 Numbness and tingling sensation of skin 3252731965 02 R20.0 R20.2 934223 labsnctneu rology consultif worsen or no improvemen t go to ed eugenie [id number] Raquelheather Salas [address] [address] 12/13/2024 10:29:23 12/13/2024 11:36:25 Bilateral carpal tunnel syndrome 0272151439 8547377 G56.03 186388 splints at nightstero idsrefer to orthoif worsen or no improvemen t return [id number] Raquelheather Salas [address] [address] 12/26/2024 13:50:05 12/26/2024 15:04:08 Diabetes mellitus 54581806 E13.42 continue diet and exercise 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 2 diabetes mellitus 7979876707 107 E11.42 Long-term current use of drug therapy 218343277 Z79.899 25669805 Cramp in foot 897853419 R25.2 9178813 referral to podiotryho statin [id number] Raquelheather Salas [address] [address] 01/06/2025 12:45:41 01/06/2025 13:30:02 Frequent headache 121672755 R51.9 25685738 follow up with pevaz Dizzy spells 599761659 R 42 840517 follow up with pevezif symptoms worsen or no improvemen t return [id number] Raquelheather Salas [address] [address] 01/17/2025 08:48:44 01/17/2025 09:46:03 Frequent headache 338484570 R51.9 05033287 follow up with norman 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 2 diabetes mellitus 8001181690 107 E11.42 Pt compliant with plan of careKasper reviewedme dication compliance discussedL ast uds: 5Control substance agreement on filediscus sed cymbalta in detail with pt/family- will do low dose Hearing difficulty 76371 0000 H91.93 71935983 [id number] Rosalie Salas APRN [address] [address] 01/24/2025 10:45:52 01/24/2025 12:06:35 Diabetes mellitus 80473948 E13.42 continue diet and exerciseim proved a1c- continue meds,diet and exercise 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 42621910 follow up with ent Health Concerns Section Related Observation LastModified by Organization Detai ls LastModified Time None Recorded Concern Status LastModified by Organization Details LastModified Time None Recorded Advance Directives Directive N: Payers Insurance Date Sequence Insurance Name Policy Number Policy Jimenez Covered Member ID Jimenez Member ID Guarantor Name 2024 2 [place] Iker Gray [id number] Iker Gray 08/20/2024 1 [place] Iker Gray [id number] Iker Gray 01/29/2025 [employer] [facility] [facility]MEDICARE[facility] Iker Gray [id number] Iker Gray 11/12/2024 [place]IT[place] Iker Gray [id number] Iker Gray 11/07/2023 2 [employer] [place] - [place] ON OR AFTER 2022 (MEDICAID REPLACEMENT - HMO) Iker Gray [id number] Iker Gray 01/29/2025 1 [employer]NA (MEDICARE REPLACEMENT/AD VANTAGE - PPO) [id number] Iker Gray [id number] Iker Gray 11/12/2024 [place] Iker Gray [id number] Iker Gray 07/13/2021 1 *SELF PAY* Judi Gray 09/13/2024 2 [place] Iker Gray [id number] Iker Gray 11/12/2024 [place] [facility] Iker Gray [id number] Iker Gray 09/13/2024 2 [employer]UL[employer]ARE (PPO) Iker Gray [id number] Iker Gray 09/10/2022 1 UNSPECIFIED REMIT PAYOR [...] legs Rosalie Salas APRN [address], [place], [address], [place] [facility] 12/13/2024 11:53:14 12/26/2024 text/html ROS as noted in the HPI 64 yr old male presents to follow up on diabetes and refill pregabalin. neuropathy- lyrica helpsnumbness in feet/legs/arms and hands for weeks- referral to neurologyhad heart attack w/4 stents in March 2024having abbie leg and foot cramps, worse at night Rosalie Salas APRN [address], [place], [address], [place] [facility] 12/26/2024 14:57:36 01/06/2025 text/html [...] pt states symptoms improve with tylenol Rosalie Salas APRN [address], [place], [address], [place] [facility] 01/06/2025 13:30:22 01/17/2025 text/html 64 year old male who presents to the office today with concerns ofwater behind the left ear found on mri- needs referral and hearing testabnormal proteins found on mri -states Dr. Pineda sent referral for hematologypt said he talked with dr Chavira about hannymbalta with his lyrica to help with pain and neuropathy Rosalie Salas, EPHRAIM [address], [place], [address], [place] [facility] 01/17/2025 10:16:26 01/24/2025 text/html 64 yr old male presents for a follow up on diabetes, last a1c 6, doing well on current medsrecent testing - sees hematology wedsent visit - having ct next week Rosalie Salas, EPHRAIM [address], [place], [address], [place] [facility] 01/24/2025 15:04:51
--- OUTSIDE RECORDS SUMMARY | 2025-02-04 07:18 | XMS_ITS | Continuity of Care Document ---
[facility] Address [address] [place] [address] Assessment No assessment recorded. Plan of Treatment Reminders Order Date Submit Date Provider Last Modified By Organization Details Last Modified Time Details Appointments Medicare AWE 40mins 2025 10:00A M Rosalie Salas APRN Not available Not available Not available Lab None recorded. Referral ENT surgery referral 2024 [facility], [place], [address], 01/23/2025 20:56:44 Procedures None recorded. Surgeries None recorded. Imaging None recorded. Medication Orders pregabali n 150 mg capsule 2024 025 [facility], [address] [place] [address] [place], [place], [id number], 01/28/2025 11:43:59 Cymbalta 20 mg capsule,d elayed release 2024 025 [facility], [address] [place] [address] [place], [place], [id number], 01/17/2025 15:13:05 Patient TargetsNo targets recorded. Patient InstructionsNo instructions recorded. Reason for Referral ENT Surgery Referral for Hea ring difficulty hearing problems, mastoid fluid on mri Referring Physician: Rosalie Salas, Family Medicine, Encounter Date: 01/17/2025 Results Created Date Observation Date Name Description Value Unit Range Abnormal Flag Note LastModifiedBy Organization Detail LastModifiedTime 12/27/1912/26/2024 drug scree n, urine AMP negati ve Not Available [address], [address], 12/26/2024 14:14:32 12/27/19 25 12/26/2024 drug scree n, urine BAR negati ve Not Available [address], [address], 12/26/2024 14:14:32 12/27/1912/26/2024 drug scree n, urine BUP negati ve Not Available [address], [address], 12/26/2024 14:14:32 12/27/1912/26/2024 drug scree n, urine BZO negati ve Not Available [address], [address], 12/26/2024 14:14:32 12/27/1912/26/2024 drug scree n, urine TOBY negati ve Not Available [address], [address], 12/26/2024 14:14:32 12/27/1912/26/2024 drug scree n, urine FTY negati ve Not Available [address], [address], 12/26/2024 14:14:32 12/27/1912/26/2024 drug scree n, urine MDMA negati ve Not Available [address], [address], 12/26/2024 14:14:32 1112/26/2024 drug scree n, urine MET negati ve Not Available [address], [address], 12/26/2024 14:14:32 12/27/19 25 12/26/2024 drug scree n, urine MOP negati ve Not Available [address], [address], 12/26/2024 14:14:32 12/27/1912/26/2024 drug scree n, urine MTD negati ve Not Available [address], [address], 12/26/2024 14:14:32 12/27/19 25 12/26/2024 drug scree n, urine OXY negati ve Not Available [address], [address], 12/26/2024 14:14:32 12/27/19 25 12/26/2024 drug scree n, urine PCP negati ve Not Available [address], [address], 12/26/2024 14:14:32 12/27/1912/26/2024 drug scree n, urine TCA negati ve Not Available [address], [address], 12/26/2024 14:14:32 12/27/1912/26/2024 drug scree n, urine THC negati ve Not Available [address], [address], 12/26/2024 14:14:32 12/20/19 25 12/18/2024 XR, wrist , 2 view No observ ation record ed. [facility] [address], [place], [address], 12/20/2024 08:14:58 12/20/1912/18/2024 XR, wrist , 2 view No observ ation record ed. [facility] [address], [place], [address], 12/20/2024 08:14:58 01/08/2001/06/2025 XR, lumba r spine , 2 view No observ ation record ed. [facility] [address], [place], [address], 01/13/2025 10:04:51 01/11/2001/08/2025 MRI, head, w/wo contr ast No observ ation record ed. [facility] [address], [place], [address], 01/13/2025 09:44:31 Result Notes None recorded. 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 Procedures Surgical [...] 24 Advance Care Planning completed Reta Carranza [place] - [facility] 12/29/2023 11:11:53 12/29/19 24 Functional Status Assessed completed Reta Carranza [place] - [facility] 12/29/2023 11:11:53 12/24/19 23 Suture/Staple removal completed Do Lambert, CONCRETE PIPE MAKING MACHINE OPERATOR [address], [place], [address], [place] [facility] 12/23/2022 10:15:30 12/01/19 23 Cryosurgery Dermatology completed Kely Escalona APRN [address], [place], [address], [place] [facility] 11/30/2022 13:15:20 08/25/19 23 Shave Biopsy Face, Ears, eyelids, nose, lips, muc membranes completed Kely Escalona APRN [address], [place], [address], [place] [facility] 08/24/2022 10:36:02 07/22/19 23 Cryosurgery Dermatology completed Kely Escalona APRN [address], [place], [address], [place] [facility] 07/21/2022 14:53:44 05/04/19 22 [...] active Not Available Not Available Not Available [facility] ODT 75 mg disintegrat ing tablet TAKE ONE TABLET BY MOUTH DAILY NEEDED FOR migraine active Not Available Not Available No t Available [employer] Uma 2 Sensor kit APPLY ONE (1) SENSOR TOPICALLY EVERY 14 DAYS active Not Available Not Available No t Available [employer] Uma 2 Colon USE DIRECTED active Not Available Not Available [...] Vitals Date Recorded Body height Respiratory rate Heart rate Oxygen saturation Body mass index (BMI) Body weight Systolic And Diastolic Provider Name and Address Organization Details Last Updated DateTime 5 182.88 cm 18 /min 66 /min 96 % 25.5 kg/m2 02717.3 7 g 112/64 mm[Hg] Nyasia Stears [place] - [facility] 5 08:59:09 Social History Question Answer Notes LastModified by Organizat ion Details LastModified Time Tobacco Smoking Status Former Smoker Norma Axel calixto [place] - [facility] 04/27/2021 13:28:13 Do You Have An Advance Directive? No [email or web address] Information not available 04/27/2021 How Many Years Have You Consumed Alcohol? 30 [email or web address] Information not available 08/05/2024 Are You Blind Or Do You Have Difficulty Seeing? No [email or web address] Information not available 04/27/2021 Is Blood Transfusion Acceptable In An Emergency? Yes [email or web address] Information not available 08/05/2024 What Is Your Level Of Caffeine Consumption? Occasional Information not available 04/27/2021 In The 14 Days Before Symptom Onset, Have You Had Close Contact With A Laboratory-confir med COVID-19 While That Case Was Ill? No [email or web address] Information not available 04/27/2021 In The 14 Days Before Symptom Onset, Have You Had Close Contact With A Person Who Is Under Investigation For COVID-19 While That Person Was Ill? No [email or web address] Information not available 04/27/2021 Have You Been To An Area Known To Be High Risk For COVID-19? No [email or web address] Information not available 04/27/2021 Are You Deaf Or Do You Have Serious Difficulty Hearing? No [email or web address] Information not available 04/27/2021 What Type Of Diet Are You Following? REGULAR [email or web address] Information not available 04/27/2021 Have You Processed Blood Or Body Fluids From An Ebola Virus Disease Patient Without Appropriate PPE? No [email or web address] Information not available 04/27/2021 Do You Reside In Or Have You Traveled To An Area Where Ebola Virus Transmission Is Active? No [email or web address] Information not available 04/27/2021 What Is The Highest Grade Or Level Of School You Have Completed Or The Highest Degree You Have Received? [id number] [email or web address] Information not available 08/05/2024 Have There Been Any Changes To Your Family Or Social Situation? No [email or web address] Information no t available 04/27/2021 When Did You Quit Smoking? 1-5yearssincel astcigarette [email or web address] Information not available 04/27/2021 Have You Recently Or Are You Planning To Travel To An Area With Zika Virus? No [email or web address] Information not available 04/27/2021 How Many Years Have You Used Illicit Or Recreational Drugs? 0 Information not available 08/05/2024 What Was The Date Of Your Most Recent Tobacco Screening? 06/25/2024 [email or web address] Information not available 06/25/2024 Do You Use Protection Against STDs? No [email or web address] Information not available 08/05/2024 What Is Your Relationship Status? [email or web address] Information not available 08/05/2024 Do You Use Your Seat Belt Or Car Seat Routinely? Yes [email or web address] Information not available 08/05/2024 Are You Sexually Active? Yes [email or web address] Information not available 06/25/2024 Do You Have Smoke And Carbon Monoxide Detectors In Your Home? Yes [email or web address] Information not available 04/27/2021 At What Age Did You Start Smoking Tobacco? 11 [email or web address] Information not available 08/05/2024 Are You Passively Exposed To Smoke? No [email or web address] Information no t available 04/27/2021 Do You Use Sunscreen Routinely? No Information not available 08/05/2024 Has Tobacco Cessation Counseling Been Provided? Yes [email or web address] Information not available 06/20/2023 On What Date Was Tobacco Cessation Counseling Provided? 06/25/2024 [email or web address] Information not available 06/25/2024 How Many Years Have You Smoked Tobacco? 40 [email or web address] Information not available 04/27/2021 Do You Have Difficulty Walking Or Climbing Stairs? No Information not available 04/27/2021 Sex: Male Functional Status Question Answer Note LastModified by Organizat ion Details LastModified Time Do you use any illicit or recreational drugs? No [email or web address] Information not available 04/27/2021 Do you or have you ever used any other forms of tobacco or nicotine? No Information not available 04/27/2021 What is your level of alcohol consumption? Occasional Information not available 04/27/2021 Are you currently employed? No [email or web address] Information not available 04/27/2021 Do you have transportation difficulties? No [email or web address] Information not available 04/27/2021 Do you have difficulty doing errands alone? No [email or web address] Information not available 04/27/2021 Are you able to care for yourself independently? Yes [email or web address] Information not available 04/27/2021 Do you have difficulty dressing, bathing, grooming, or toileting? No [email or web address] Information not available 04/27/2021 Do you or have you ever used e-cigarettes or vape? Never used electronic cigarettes [email or web address] Information not available 08/05/2024 What is your exercise level? Moderate Information not available 08/05/2024 Mental Status Question Answer Note LastModified by Organizat ion Details LastModified Time Do you feel stressed (tense, restless, nervous, or anxious, or unable to sleep at night)? [id number] [email or web address] Information not available 08/05/2024 Do you have difficulty concentrating, remembering or making decisions? No [email or web address] Information no t available 04/27/2021 Family History [...] colitis N Cerebrovascular Disease N Depression N Guillain-Barto N Sleep Apnea N Aneurysm N Heart [...] 06/20/19 24 cancelled patient objection Do Lambert [employer]CRETE PIPE MAKING MACHINE OPERATOR [address], [place], [address], [place] [facility] 06/26/2023 08:34:29 zoster recombinant 03/07/19 24 completed Do Lambert APRN [address], [place], [address], [place] [facility] 04/04/2023 13:11:37 zoster recombinant 12/28/19 completed Do Lambert APRN [address], [place], [address], [place] [facility] 04/04/2023 13:11:37 Respiratory syncytial virus (RSV) MAB, unspecified 04/10/19 completed Norma Reyna [place], [place] [facility] 04/21/2023 14:13:48 influenza, unspecified formulation 04/10/19 24 completed Nyasia Stears null, [place] - [facility] 11/08/2024 11:05:03 Past Encounters Encounter ID Performer Location Encounter Start Date Encounter Closed Date Diagnosis/Indication Diagnosis SNOMED-CT Code Diagnosis ICD10 Code Diagnosis IMO Codes Diagnosis Note [id number] Rosalie Salas APRN [address] [address] 12/26/2024 13:50:05 12/26/2024 15:04:08 Diabetes mellitus 77584330 E13.42 continue diet and exercise 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 2 diabetes mellitus 7637387027 107 E11.42 Long-term current use of drug therapy 175291224 Z79.899 80891952 Cramp in foot 209082705 R25.2 0548272 referral to podiotryho statin [id number] Rosalie Salas APRN [address] [address] 01/06/2025 12:45:41 01/06/2025 13:30:02 Frequent headache 130661245 R51.9 [id number] follow up with pevaz Dizzy spells 010387216 R 42 428897 follow up with pevezif symptoms worsen or no improvemen t return [id number] Rosalie Salas APRN [address] [address] 01/17/2025 08:48:44 01/17/2025 09:46:03 Frequent headache 273169626 R51.9 86428635 follow up with pevaz 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 2 diabetes mellitus 4183631870 107 E11.42 Pt compliant with plan of careKasper reviewedme dication compliance discussedL ast uds: 5Control substance agreement on filediscus sed cymbalta in detail with pt/family- will do low dose Hearing difficulty 30060 0000 H91.93 39784307 Health Concerns Section Related Observation LastModified by Organization Detai ls LastModified Time None Recorded Concern Status LastModified by Organization Details LastModified Time None Recorded Payers Encounter Date Sequence Insurance Name Policy Number Policy Jimenez Covered Member ID Jimenez Member ID Guarantor Name 01/17/2025 1 [employer] (MEDICARE REPLACEMENT/ ADVANTAGE - PPO) [id number] Iker Gray [id number] Iker Gray Notes Date Note Type Note Provider Name and Address Organization Details Recorded Time 01/17/2025 text/html 64 year old male who presents to the office today with concerns ofwater behind the left ear found on mri- needs referral and hearing testabnormal proteins found on mri -states Dr. Pineda sent referral for hematologypt said he talked with dr Chavira about cymbalta with his lyadarsha to help with pain and neuropathy Rosalie Salas APRN [address], [place], [address], [place] - [facility] 01/17/2025 10:16:26
--- OUTSIDE RECORDS SUMMARY | 2025-02-04 07:18 | XMS_ITS | Clinical Summary ---
Author Organization [facility] Address [address], [address] [place] [address] Care Team Providers Care Element Burner Name Role Phone Do Lambert MORTGAGE LOAN UNDERWRITER - [facility] Primary Care Provider + Allergies No [...] - 145 mmol/L 07/27/2023 12:08 PM EDT [facility] Potassium 3.9 3.5 - 5.1 mmol/L 07/27/2023 12:08 PM EDT [facility] Chloride 105 99 - 110 mmol/L 07/27/2023 12:08 PM EDT [facility] CO2 24 21 - 32 mmol/L 07/27/2023 12:08 PM EDT [facility] Anion Gap 11 3 - 16 07/27/2023 12:08 PM EDT [facility] Glucose 165(H) 70 - 99 mg/dL 07/27/2023 12:08 PM EDT [facility] BUN 13 7 - 20 mg/dL 07/27/2023 12:08 PM EDT [facility] Creatinine 0.9 0.8 - 1.3 mg/dL 07/27/2023 12:08 PM EDT [facility] Est, Glom Filt Rate >90 >60 07/27/2023 12:08 PM EDT [facility] Comment: Pediatric calculator link [...] - 10.6 mg/dL 07/27/2023 12:08 PM EDT [facility] Phosphorus 2.6 2.5 - 4.9 mg/dL 07/27/2023 12:08 PM EDT [facility] Albumin 4.1 3.4 - 5.0 g/dL 07/27/2023 12:08 PM EDT [facility] 07/27/2023 11:2 7 AM EDT 07/27/2023 11:27 AM EDT Loida Epps MD CHEMISTRY ORDERABLES Final Res ult [facility] [address] [place] [address], [facility] [phone] * (ABNORMAL) MICROALBUMIN / CREATININE URINE RATIO (09/07/2021 9:07 AM EDT) Microalb, Ur 5.60(H) <2.0 mg/dL 09/07/2021 7:11 PM EDT [facility] Creatinine, Ur 28.4(L) 39.0 - 259.0 mg/dL 09/07/2021 7:11 PM EDT [facility] Albumin/Creati nine Ratio 197.2(H) 0.0 - 30.0 mg/g 09/07/2021 7:11 PM EDT [facility] URINE SPECIMEN / Unknown 09/07/2021 9:07 AM EDT 09/07/2021 9:07 AM EDT us Armand Singleton MD URINE ORDERABLES Final Re sult [facility] [address] [place] [address], [facility] [phone] * PSA Screening (09/07/2021 9:06 AM EDT) PSA 1.90 0.00 - 4.00 ng/mL 09/07/2021 8:13 PM EDT [facility] BLOOD SPECIMEN / Unknown 09/07/2021 9:06 AM EDT 09/07/2021 9:06 AM EDT Armand Singleton MD CHEMISTRY ORDERABLES Barbra l Result [facility] [address] [place] [address] * (ABNORMAL) LIPID PANEL (09/07/2021 9:06 AM EDT) Cholesterol, Total 174 0 - 199 mg/dL 09/07/2021 8:12 PM EDT [facility] Triglycerides 147 0 - 150 mg/dL 09/08/19 8:12 PM EDT [facility] HDL 39(L) 40 - 60 mg/dL 09/07/2021 8:12 PM EDT [facility] LDL Calculated 106(H) <100 mg/dL 09/07/2021 8:12 PM EDT [facility] VLDL Cholesterol Calculated 29 Not Established mg/dL 09/07/2021 8:12 PM EDT [facility] BLOOD SPECIMEN / Unknown 09/07/2021 9:06 AM EDT 09/07/2021 9:06 AM EDT Armand Singleton MD CHEMISTRY ORDERABLES Barbra l Result [facility] [address] [place] [address] * POCT glycosylated hemoglobin (Hb A1C) (08/20/2021 10:35 AM EDT) Hemoglobin A1C 5.9 % BLOOD SPECIMEN / Unknown 08/20/2021 10:35 AM EDT Armand Singleton MD POINT OF CARE TEST ORDERA BLES Final Result from Last 3 Months or Most Recently Relevant to Health Maintenance Insurance [facility] [place] Advance Directives * Full Code (Latest Code Status on File) Date Activated Date Inactivated Comments 04/28/2021 2:03 PM 04/29/2021 5:44 PM * Full Code Date Activated Date Inactivated Comments 12/26/2017 5:24 PM 12/27/2017 6:40 PM Healthcare Agents on File Name Relationship Healthcare Agent Relationshi p Communication Katerine Craft Other Secondary Decision Maker darrius Gray Child Primary Decision Maker Care Teams Element Burner Relationship Specialty Start Date End Date Do Lambert APRN - [facility] [address] [place] [address] PCP - General Nurse Practitioner, Family 11/01/22
--- NOTE | 2025-02-04 07:30 | CT_ITS ---
FINAL REPORT TECHNIQUE: Thin section axial CT with coronal and sagittal reconstruction without IV contrast This study was performed with techniques to keep radiation doses as low as reasonably achievable, (ALARA). Individualized dose reduction techniques using automated exposure control or adjustment of mA and/or kV according to the patient's size were employed. CLINICAL HISTORY: evaluate and treat for mastoiditiis COMPARISON: MRI of the head 01/08/2025 FINDINGS: CT SINUSES AND TEMPORAL BONES: The middle ear cavities are clear bilaterally. The ossicular chains within the middle ear cavities are intact. The mastoid air cells are clear without evidence of mastoiditis. No bone destruction is identified. The portions of the paranasal sinuses visualized are unremarkable without evidence of air-fluid levels. IMPRESSION: 1. No CT findings of mastoiditis or middle ear abnormality is identified. Reviewed, Interpreted and Dictated by Rajan Restrepo MD Transcribed by Lorri Suazo Authenticated and [facility]
== END 2025-02-04 23:59 | disposition home or self-care (01) ==
LOC: RAD 07:15
PROVIDERS: PCP Nurse Practitioner Family; Visit Provider Nurse Practitioner
DX: H74.90 Unspecified disorder of middle ear and mastoid, unspecified ear (principal)
CPT/HCPCS: 70480